=== PATIENT | male | born 1950 | race Caucasian/White ===

== ENCOUNTER → 2017-06-16 08:57 | Outpatient (CLI) | payer MEDICARE, BC, SELFPAY ==
--- NOTE | 2017-06-16 09:14 | NM_ITS ---
CLINICAL: 67-year-old male with reported history of carcinoma of the prostate. WHOLE BODY 99m Tc MDP RADIONUCLIDE BONE SCINTIGRAPHY COMPARISON: Previous whole body bone scintigraphy study dated 07/14/2016 FINDINGS: Following the intravenous administration of 26.7 mCi of 99m Tc MDP, whole body bone images reveal: 1. Increased radiopharmaceutical concentration is currently identified in the sternoclavicular, acromioclavicular and glenohumeral compartments of both shoulders, the bilateral knees, ankle articulations bilaterally, eighth-12th thoracic vertebra posteriorly on the right. 2. The remaining skeletal structures are scintigraphically unremarkable with normal-appearing renal images and urinary bladder activity identified. NM/Bone Scan Whole Body IMPRESSION: 1. The increase in radiopharmaceutical concentration identified in the bilateral shoulder and knee articulations, right-left ankles, the thoracic spine is most consistent with degenerative arthritis. 2. Overall compared to the previous whole body bone scintigraphy study dated 07/14/2016, there is no significant interval change. No current sonographic evidence of skeletal metastatic disease is defined on the current examination. Electronically Signed: Travis Hamilton DO at 13:50 EDT Tel , Service support ,
[2017-06-16 09:35] LABS: Hematocrit 43.3 % (40-54); Hemoglobin 14.6 g/dl (13.0-16.5); Mean Corp Hgb Conc 33.7 g/gl (32-36); Mean Corpuscular Hgb 29.3 pg (27.0-32.0); Mean Corpuscular Volume 86.8 fL (80-94); Mean Platelet Vol. 10.2 fl (6.2-12.0); Platelet Count 247 K/mm3 (150-450); RBC Distribution Width CV 13.8 % (11.6-14.6); RBC Distribution Width SD 43.9 fl (35.1-43.9); Red Blood Count 4.99 M/mm3 (4.6-6.2); White Blood Count 3.6 K/mm3 (4.4-11.0)
[2017-06-16 09:36] LABS: Scan Indicated on CBC? Y/N NO
[2017-06-16 09:59] LABS: ALB/GLOB Ratio 1.3 RATIO (0.9-2.4); AST(SGOT) 33 U/L (15-37); Alanine Aminotransfer ALT/SGPT 54 U/L (16-61); Albumin, Serum 4.1 g/dL (3.2-5.0); Alkaline Phosphatase 63 U/L (45-117); Anion Gap 6 (5-15); BUN 21 mg/dL (7-18); BUN/Creat Ratio 24.5 RATIO (10-20); Calcium,Total 8.7 mg/dL (8.5-10.1); Chloride 108 mmol/L (98-107); Creatinine, Serum 0.86 mg/dL (0.70-1.30); EST Glomerular Filtration Rate 95 mL/min (>60); Est Glom Filt Rate - Afr Amer 115 mL/min (>60); Globulin 3.1 g/dL (2.2-4.2); Glucose 107 mg/dL (74-106); PSA,Total- Diagnostic < 0.01 ng/mL (0.0-4.0); Potassium 3.7 mmol/L (3.5-5.1); Protein, Total 7.2 g/dL (6.4-8.2); Sodium Level 143 mmol/L (136-145)
== END ==
PROVIDERS: Family Provider Family Medicine; PCP Family Medicine; Visit Provider Family Medicine
DX: R07.81 Pleurodynia (principal); C61 Malignant neoplasm of prostate
CPT/HCPCS: 36415; 78306; 80053; 84153; 85027

== ENCOUNTER 2017-09-06 05:29 | Day surgery (SDC) | payer MEDICARE, BC, SELFPAY ==
--- NOTE | 2017-08-30 11:21 | EKG12_ITS ---
Test Reason : PREOP Blood Pressure : / mmHG Vent. Rate : 074 BPM Atrial Rate : 074 BPM P-R Int : 178 ms QRS Dur : 096 ms QT Int : 396 ms P-R-T Axes : 054 -26 034 degrees QTc Int : 439 ms Normal sinus rhythm Normal ECG Confirmed by ANGELITO DOUGLAS, ELIUD ([id number]), editorial clerk ALAN HORNER ([id number]) on 08/31/2017 12:51:47 PM Referred By: Travis Rivera Confirmed By:ELIUD EATON MD
[2017-09-06] VITALS (9 sets, daily range): BP systolic 114–145; BP diastolic 74–104; PULSE 63–95; RESP 16–18; TEMP 36.8–37.7; O2SAT 94–98; BMI 30.8
--- NOTE | 2017-09-06 | HERN_PTH ---
PATIENT: TRAY ROB LOC: [facility] [place] U[place][id number] AGE/SX: 67/M ROOM: RE09/06/[address]: Dr. Travis Rivera MD : 1950 BED: DIS: 09/06/2017 SPEC #: [id number] RECD: 09/06/17 11:25 STATUS: DELTA MEDRANO #: [id number] LIN: 09/06/17 00:[address]: Travis Rivera DEPT: SURGICAL PATHOLOGY RECD BY: Marlo Smart ENTERED: 09/06/17 11:25 SP TYPE: Hernia OTHR DR: Dr. Raheel Echols MD Tissues: HERNIA Procedures: Surgery Specimen Level II HEADER OPERATION: Laparoscopic ventral incisional hernia repair with mesh PRE-OP DIAGNOSIS: Incisional hernia without obstruction or gangrene TISSUE SUBMITTED: Urachus remnant MICROSCOPIC DIAGNOSIS Urachus remnant, excision: Fragment of benign fibrofatty tissue consistent with urachal remnant. AM:jessica 09/07/17 MICROSCOPIC DESCRIPTION Slides are reviewed. GROSS DESCRIPTION Received in fixative is one container labeled with the patient's name and designated urachus remnant. The specimen consists of an irregular piece of yellow adipose tissue measuring 6.5 x 3 x 1 cm. Sections reveal yellow adipose cut surfaces without any mass lesion. Tack Maker sections are submitted in one cassette. / SJ:jessica 09/06/17 TC:5 CPT: 30248
[2017-09-06] MEDS: Cefazolin 2 GM in 0.9% Normal Saline 100 ML IV (07:30)
[2017-09-06] MEDS: Bupivacaine Mpf 0.5% 30 ML VIAL (08:44)
--- NOTE | 2017-09-06 08:50 | DCINST_ITS ---
Discharge Diet: Light diet - advance as tolerated Discharge Activity: Return to Normal Activity, May Drive - when you are no longer taking narcotic pain medications., May Shower - with the bandage in place 1-2 days after surgery. Lifting Restrictions: 20 pounds for 8 weeks. Additional Activity Instructions:: Climbing stairs is fine, walking is encouraged. Sitting in bed may be uncomfortable. Sitting up using your lateral muscles (sitting up sideways) is usually more comfortable. Do not drive, work heavy equipment of sign legal documents for 24 hours. If your hernia repair was an ingunial repair, you may have scrotal swelling, an ice pack and/or athletic support can provide more comfort. Pain medications may cause nausea, you should typically eat light foods as you take your pain medications. Pain medications may also cause constipation. If you have difficulty with this, discuss with your doctor. Call your doctor if your incision/area has: Continuous Slow Oozing, Sudden Increased Bleeding, Increased Pain/ Swelling, Increased Redness, Foul Smelling Discharge Call your doctor if you observe: Fever of 101 or Higher Suture Line Care: Avoid Pulling/Pushing, Avoid Pinching/Bending Additional Dressing/Incision Instructions:: Leave the operative bandage on for 2 -3 days. When you remove the bandage, leave the steri-strips on place until your follow up appointment or they fall off. Allergies/Adverse Reactions: Allergies No Known Allergies Allergy (Verified 08/30/17 09:43) Medications to take at Discharge Ascorbic Acid [Vitamin C] 500 mg PO DAILY@0800 08/18/16 Esomeprazole Mag Trihydrate [Nexium] 40 mg PO DAILY 08/18/16 Guaifenesin [Mucus Relief] 800 mg PO DAILY 08/18/16 Loratadine [Claritin] 10 mg PO DAILY 08/18/16 Cholecalciferol (Vitamin D3) [Vitamin D3] 2,000 unit PO DAILY 08/30/17 Oxycodone HCl/Acetaminophen [Percocet 5/325] 1 tab PO Q6H PRN PRN 7 Days #16 tab 09/06/17 The following prescriptions were given: Oxycodone HCl/Acetaminophen [Percocet 5/325] 1 tab PO Q6H PRN PRN 7 Days #16 tab PRN Reason: Pain Primary Care Physician: Raheel Echols MD [Primary Care Provider] - Test Results: Test results from this visit will be discussed in further detail at your follow- up appointment, if applicable. Please Follow Up With: Travis Rivera MD - [phone] When: Plan to have a follow up appointment in 7 days. Call to schedule.
--- NOTE | 2017-09-06 08:50 | PCM.OPRPT ---
Report of Operation Date of Procedure: 09/06/17 Pre-Operative Diagnosis: supraumbilical incisional hernia Post-Operative Diagnosis: supraumbilical incisional hernia Surgery/Procedure Performed:: laparoscopic incisional hernia repair with mesh drying rack changer: None Type of Anesthesia:: General Anesthesiologist: Fredy Manning - ASA2 Specimen's removed: urachal remenant Estimated Blood Loss (mL): minimal Fluids Replaced: 1500 Description of Procedure: The patient was brought to the operating suite. Sign in was performed verifying patient, site, procedure, position, and DVT prophylaxis with SCDs. Patient received 2 g Ancef antibiotic prophylaxis. Following induction of general anesthetic, the patients abdomen was prepped and draped in the usual fashion. Timeout was performed verifying patient, site, position. Local anesthetic was injected . A linear incision was made and dissection carried down at the level of the supraumbilical hernia defect. The hernia sac was opened . 2 stay sutures were placed and the Da Silva trocar was inserted and secured with the stay sutures. 3- 5mm parts were placed in the far left lateral position There was no adherent bowel within the hernia sac. The falciform ligament was also divided to prevent tenting. The urachal remnant was dissected below the umbilicus to provide good overlap of the mesh. The tissue was excised and sent to pathology. A ventrio ST mesh 8x12cm placed intra-abdominally. A Prolene suture was placed through the lower aspect of the mesh brought up with a Granee needle to just below the umbilical fascial defect. Prolene sutures were placed transfixing the fascia at 12 , 6 , 3 and 9:00 using a GraNee needle . The mesh was then tacked using a secure strap tacker around the outer rim of the mesh and then in multiple locations in the inner mesh Skin was closed with a running and inturrepted 4-0 Monocryl subcuticular sutures. Steri-Strips and bandages were applied. The patient was brought to recovery room in stable condition. Grafts/Implants Used: ventrio [id number] [id number] 04/19/2019,securestrap [email or web address] [id number] 05/2019
--- NOTE | 2017-09-06 08:53 | OP.PCM_ITS ---
Report of Operation Date of Procedure: 09/06/17 Pre-Operative Diagnosis: supraumbilical incisional hernia Post-Operative Diagnosis: supraumbilical incisional hernia Surgery/Procedure Performed:: laparoscopic incisional hernia repair with mesh superintendent overhead distribution: None Type of Anesthesia:: General Anesthesiologist: Fredy Manning - ASA2 Specimen's removed: urachal remenant Estimated Blood Loss (mL): minimal Fluids Replaced: 1500 Description of Procedure: The patient was brought to the operating suite. Sign in was performed verifying patient, site, procedure, position, and DVT prophylaxis with SCDs. Patient received 2 g Ancef antibiotic prophylaxis. Following induction of general anesthetic, the patient?s abdomen was prepped and draped in the usual fashion. Timeout was performed verifying patient, site , position. Local anesthetic was injected . A linear incision was made and dissection carried down at the level of the supraumbilical hernia defect. The hernia sac was opened . 2 stay sutures were placed and the Da Silva trocar was inserted and secured with the stay sutures. 3- 5mm parts were placed in the far left lateral position There was no adherent bowel within the hernia sac. The falciform ligament was also divided to prevent tenting. The urachal remnant was dissected below the umbilicus to provide good overlap of the mesh. The tissue was excised and sent to pathology. A ventrio ST mesh 8x12cm placed intra-abdominally. A Prolene suture was placed through the lower aspect of the mesh brought up with a Granee needle to just below the umbilical fascial defect. Prolene sutures were placed transfixing the fascia at 12 , 6 , 3 and 9:00 using a GraNee needle . The mesh was then tacked using a secure strap tacker around the outer rim of the mesh and then in multiple locations in the inner mesh Skin was closed with a running and inturrepted 4-0 Monocryl subcuticular sutures. Steri-Strips and bandages were applied. The patient was brought to recovery room in stable condition. Grafts/Implants Used: ventrio [id number] [id number] 04/19/2019,securestrap [email or web address] [id number] 05/2019
[2017-09-06] MEDS: Acetaminophen 325 MG Tablet PO (10:47)
[2017-09-06] MEDS: oxyCODONE 5 MG Tablet PO (10:47)
== END 2017-09-06 11:39 | disposition home or self-care (01) ==
LOC: SDC 05:31 → AC 05:32
PROVIDERS: Family Provider Family Medicine; PCP Family Medicine; Visit Provider Surgery
PROC: (CPT 49654; principal; 2017-09-06 07:00)
DX: K43.2 Incisional hernia without obstruction or gangrene (principal); K21.9 Gastro-esophageal reflux disease without esophagitis; Z85.46 Personal history of malignant neoplasm of prostate; Q64.4 Malformation of urachus
CPT/HCPCS: 49654; 88302; 93005; J7120; C1781; J2405

== ENCOUNTER → 2018-01-09 14:57 | Outpatient (CLI) | payer MEDICARE, BC, SELFPAY ==
[2018-01-09 17:14] LABS: PSA,Total- Diagnostic 0.02 ng/mL (0.0-4.0)
== END ==
PROVIDERS: Family Provider Preventive Medicine Occupational Medicine; PCP Preventive Medicine Occupational Medicine; Referring Provider Urology; Visit Provider Urology
DX: C61 Malignant neoplasm of prostate (principal)
CPT/HCPCS: 36415; 84153

== ENCOUNTER → 2018-07-09 13:17 | Outpatient (CLI) | payer MEDICARE, BC, SELFPAY ==
[2017-09-06 06:03] VITALS: BMI 30.8
[2018-07-09 15:24] LABS: PSA,Total- Diagnostic 0.02 ng/mL (0.0-4.0)
== END ==
PROVIDERS: Family Provider Preventive Medicine Occupational Medicine; PCP Preventive Medicine Occupational Medicine; Referring Provider Urology; Visit Provider Urology
DX: C61 Malignant neoplasm of prostate (principal)
CPT/HCPCS: 36415; 84153

== ENCOUNTER → 2019-01-11 10:27 | Outpatient (CLI) | payer MEDICARE, BC, SELFPAY ==
[2017-09-06 06:03] VITALS: BMI 30.8
[2019-01-11 11:30] LABS: PSA,Total- Diagnostic 0.04 ng/mL (0.0-4.0)
== END ==
PROVIDERS: Family Provider Preventive Medicine Occupational Medicine; PCP Preventive Medicine Occupational Medicine; Referring Provider Urology; Visit Provider Urology
DX: R97.20 Elevated prostate specific antigen [PSA] (principal)
CPT/HCPCS: 36415; 84153

== ENCOUNTER → 2019-11-11 10:03 | Outpatient (CLI) | payer MEDICARE, BC, SELFPAY ==
[2017-09-06 06:03] VITALS: BMI 30.8
[2019-11-11 15:50] LABS: PSA,Total- Diagnostic 0.07 ng/mL (0.0-4.0)
== END ==
PROVIDERS: PCP Family Medicine; Referring Provider Urology; Visit Provider Urology
DX: C61 Malignant neoplasm of prostate (principal)
CPT/HCPCS: 36415; 84153

== ENCOUNTER → 2020-04-13 09:20 | Outpatient (CLI) | payer MEDICARE, BC, SELFPAY ==
[2017-09-06 06:03] VITALS: BMI 30.8
[2020-04-13 10:51] LABS: PSA,Total- Diagnostic 0.07 ng/mL (0.0-4.0)
== END ==
PROVIDERS: PCP Family Medicine; Referring Provider Urology; Visit Provider Urology
DX: C61 Malignant neoplasm of prostate (principal)
CPT/HCPCS: 36415; 84153

== ENCOUNTER → 2020-06-17 06:59 | Outpatient (CLI) | payer OTHER, MEDICARE, BC, SELFPAY ==
[2020-06-08 09:05] VITALS: BMI 27.6
--- NOTE | 2020-06-17 07:01 | MRI_ITS ---
STUDY: MRI LEFT KNEE REASON FOR EXAM: Male, 70 years old. Knee strain. Contusion. TECHNIQUE: Standardized fat and water weighted pulse sequences were obtained in all 3 orthogonal planes. COMPARISON: 06/08/2020 x-rays. FINDINGS: Grade 3 cartilage loss at the medial patellar facet extending into the patellar apex. Grade 4 cartilage loss at the medial compartment. Lateral compartment articular cartilage preserved. Bone marrow edema/contusion at the medial compartment extending toward midline with nondisplaced extra-articular vertical oriented insufficiency type fracture line (axial image 24 and coronal image 18 series 7). No acute dislocation. No acute bone destruction. Lateral meniscus intact. Medial meniscus body/posterior horn degeneration with minimal free edge fraying and truncation of the medial meniscal body (sagittal images for 37 series 5 and coronal image 15 series 9). Moderate volume joint effusion. Tiny popliteal cyst. Moderate soft tissue swelling. Normal medial collateral ligamentous complex (MCL). Normal distal semimembranosus, gracilis and semitendinosus tendons. Normal proximal tibiofibular articulation. Normal lateral collateral (fibular) ligament. Normal popliteus tendon. Normal biceps femoris tendon. Normal anterior cruciate ligament (ACL). Normal posterior cruciate ligament (PCL). Normal medial and lateral patellar retinaculum. Quadriceps tendon enthesophyte. Normal patellar tendon. Normal Hoffa''s fat pad. MRI/Lower Ext Joint Only (Routine) IMPRESSION: Acute nondisplaced extra-articular proximal tibial insufficiency fracture with corresponding bone contusion/edema Severe medial compartment osteoarthritis Moderate patellofemoral compartment osteoarthritis Medial meniscal degeneration with free edge/meniscal body tear Moderate volume joint effusion, tiny popliteal cyst and moderate soft tissue swelling Electronically Signed: Fredy Mora DO at 8:27 EDT Tel , Service support ,
== END ==
PROVIDERS: PCP Family Medicine; Referring Provider Physician Assistant; Visit Provider Physician Assistant
DX: S86.912A Strain of unspecified muscle(s) and tendon(s) at lower leg level, left leg, initial encounter (principal)
CPT/HCPCS: 73721

== ENCOUNTER → 2020-11-10 14:17 | Outpatient (CLI) | payer MEDICARE, BC, SELFPAY ==
[2020-11-10 15:38] LABS: PSA,Total- Diagnostic 0.09 ng/mL (0.0-4.0)
== END ==
PROVIDERS: PCP Family Medicine; Referring Provider Urology; Visit Provider Urology
DX: C61 Malignant neoplasm of prostate (principal)
CPT/HCPCS: 36415; 84153

== ENCOUNTER 2020-11-25 07:15 | Day surgery (SDC) | payer MEDICARE, BC, SELFPAY ==
--- NOTE | 2020-11-24 12:27 | EKG12_ITS ---
Test Reason : PRE-OP Blood Pressure : / mmHG Vent. Rate : 069 BPM Atrial Rate : 069 BPM P-R Int : 176 ms QRS Dur : 088 ms QT Int : 376 ms P-R-T Axes : 075 -27 064 degrees QTc Int : 402 ms Normal sinus rhythm Poor R wave progression Confirmed by ANGELITO DOUGLAS, ELIUD ([id number]), news editor ANSIH ALEGRE ([id number]) on 11/24/2020 1:01:26 PM Referred By: Forest Seymour Confirmed By:ELIUD EATON MD
[2020-11-25 07:40] VITALS: BP 117/73; PULSE 57; RESP 18; TEMP 36.6; O2SAT 100; BMI 25.0
[2020-11-25] MEDS: Lactated Ringers 1,000 ML 100 ML IV (07:40)
--- NOTE | 2020-11-25 08:03 | HP.PCM_ITS ---
History and Physical Date of Admission: 11/25/20 Intake Vital Signs 11/23/20 13:57 Height 5 ft 5 in Weight: 157 lb 6 oz BMI 26.2 BP 123/70 H Blood Pressure Location Rt brachial Position Sitting Respiration 18 Pulse 65 Pulse Source NIBP Temp 98.1 F Temp Source Temporal Pulse Oximetry (%) 98 Oxygen Delivery Method room air Intake Visit Reasons: Hernia Chief Complaint: left inguinal hernia Miniature Set Designer Required: No Is patient in pain?: No Allergies STERI STRIPS Allergy (Uncoded 11/24/20 09:13) Swelling Medications ascorbic acid (vitamin C) 500 mg PO DAILY@0800 08/18/16 [History Confirmed 11/24/20] loratadine 10 mg PO DAILY 08/18/16 [History Confirmed 11/24/20] cholecalciferol (vitamin D3) 2,000 unit PO DAILY 08/30/17 [History Confirmed 11/24/20] cyclobenzaprine 10 mg tablet 10 mg PO ONCE PRN tablet 06/08/20 [History Confirmed 11/24/20] esomeprazole magnesium 40 mg capsule,delayed release 40 mg PO DAILY 11/23/20 [History Confirmed 11/24/20] oxybutynin chloride 15 mg tablet,extended release 24 hr 15 mg PO DAILY 11/23/20 [History Confirmed 11/24/20] PFS Medical History (Updated 11/24/20 @ 09:29 by Merle Beauchamp) Arthritis Gastric reflux GERD (gastroesophageal reflux disease) History of prostate cancer History of stress test Hx of hemorrhoids Leg cramps Migraine headache Non-smoker Osteoarthritis Rash Restless legs Wears dentures Wears glasses Surgical History (Updated 11/24/20 @ 09:29 by Merle Beauchamp) History of cardiac catheterization History of colonoscopy (~2017) History of hemorrhoidectomy History of nasal surgery History of repair of right rotator cuff Hx of arthroscopy of left knee Hx of cataract surgery Hx of cholecystectomy Hx of hernia repair Hx of prostate biopsy Hx of prostatectomy Hx of repair of left rotator cuff Family History Mother Heart disease Hypertension Father Heart disease Hypertension Social History Smoking Status: Never smoker HPI HPI HPI: TRAY ROB, is a 70 M who presents to the office today for left groin bulging. Patient reports that he has noticed this for a little over a month. He is having pain in the area as well. Patient does a lot of heavy lifting at work. Patient reports no nausea or vomiting. He has had a ventral hernia repair with mesh in 2018 ROS General General: No weight change, appetite, fatigue, colon cancer, breast cancer or weakness HEENT HEENT: No difficulty swallowing, eye injury, eye surgery, swollen glands or hoarseness Endo Endocrine: No thyroid disease, diabetes mellitus, thyroid cancer, Hair loss, heat intolerance or cold intolerance Musc Musculoskeletal: Yes arthritis; No back problems, rheumatoid arthritis, gout or joint pain Cardio Cardiovascular: No murmur, pacemaker, heart disease, atrial fibrillation, high blood pressure, heart attack, heart stent, palpitations, shortness of breat with exertion or chest pain Psych Psychiatric: No depression, anxiety or hearing voices Resp Respiratory: No shortness of breath, No sleep apnea, No cough, No COPD, No asthma, No emphysema and No wheezing Gastro Gastrointestinal: No abdominal pain, No nausea or vomiting, No diarrhea, No constipation, No blood in stool, Yes acid reflux, No hemorrhoids, No ulcers, No gallbladder problem and No black,tarry stools Jun Hematologic: No blood thinners, No blood disorders, No bleeding, No anemia and No blood clots Neuro Neurologic: No weakness Exam Const General: cooperative Orientation: alert and oriented x3 HENCA Head: normal to inspection Neck Neck: normal visual inspection and full ROM Chest Chest palpation & inspection: normal inspection of the chest Resp Effort & Inspection: normal respiratory effort Auscultation: clear to auscultation bilaterally Cardio Rate: regular rate Rhythm: regular rhythm GI Inspection: non-distended Palpation: soft, hernia indirect inguinal on the left and nontender Skin General: no rashes or lesions noted Neuro General: patient alert and patient oriented x3 Extrem General: full ROM Psych Appearance: grossly normal Mental Status: mental status grossly normal Assessment and Plan Assessment and Plan (1) Hernia: Plan - Dr. Forest Seymour MD: Patient has left inguinal hernia. Due to the patient's history of prostatectomy and ventral hernia repair I recommended the patient has open inguinal hernia repair with mesh. I discussed this with him in detail. I discussed inguinal hernia repair as well as the risks including but not limited to bleeding, infect ion, injury to spermatic cord, nerve injury and chronic groin pain. Patient understands all the risks and is going to proceed with open left inguinal hernia repair with mesh. Forest Seymour MD Pager: [facility] [address] [place] [address] [address] [place] [address] Office: I have re-examined the patient. There are no clinical changes since date of exam.
[2020-11-25] MEDS: Cefazolin 2 GM in 0.9% Normal Saline 100 ML IV (08:36)
--- NOTE | 2020-11-25 08:45 | LIP_PTH ---
PATIENT: TRAY ROB LOC: [facility] [place][id number] AGE/SX: 70/M ROOM: RE11/25/[address]: Dr. Forest Seymour MD : 1950 BED: DIS: 11/25/2020 SPEC #: [id number] RECD: 11/25/20 10:52 STATUS: DELTA REEdison #: [id number] LIN: 11/25/20 08:[address]: Forest Seymour DEPT: SURGICAL PATHOLOGY RECD BY: Vandana Brown ENTERED: 11/25/20 11:20 SP TYPE: LIPOMA OTHR DR: Dr. Artemio Mckeon, DO Tissues: A - Soft tissues, NOS B - HERNIA Procedures: Surgery Specimen Level II Surgery Specimen Level III HEADER OPERATION: Inguinal hernia repair with mesh placement PRE-OP DIAGNOSIS: Hernia TISSUE SUBMITTED: A ? Lipoma of left cord, B ? Left inguinal hernia sac MICROSCOPIC DIAGNOSIS A. Lipoma of left cord, excision: Mature adipose tissue consistent with lipoma of cord. B. Soft tissue of left inguinal region, excision: Consistent with hernia sac with mild fibrosis. AM:jessica 11/26/2020 MICROSCOPIC DESCRIPTION Slides are reviewed. GROSS DESCRIPTION A - Received in fixative is one container labeled with the patient's name and designated lipoma of left cord. The specimen consists of a piece of adipose tissue measuring 10 x 3.5 x 1 cm. Sections reveal de [place] santos-yellow adipose cut surfaces without area of hemorrhage, necrosis or cystic degeneration. Lining Strap Closer sections are submitted in one cassette. B - Received in fixative is one container labeled with the patient's name and designated left inguinal hernia sac. The specimen consists of a piece of de [place] santos-pink soft tissue measuring 3 x 0.5 x 0.5 cm. The specimen is bisected and submitted entirely in one cassette. / NABEEL:jessica 11/25/20 TC:5 CPT: 66827, 07291
[2020-11-25] MEDS: Bupivacaine Mpf 0.5% 30 ML VIAL (09:15)
[2020-11-25 09:48] VITALS: BP 116/77; BP 117/73; PULSE 57; RESP 16; TEMP 36.3; O2SAT 97
--- NOTE | 2020-11-25 09:52 | OP.PCM_ITS ---
Problems Associated Problem List Diagnoses (1) Left inguinal hernia: Report of Operation Date of Procedure: 11/25/20 Pre-Operative Diagnosis: Left inguinal hernia Post-Operative Diagnosis: Left hernia Surgery/Procedure Performed:: Left inguinal hernia repair with mesh Specimen's removed: Hernia sac and left cord lipoma Description of Procedure: Patient was brought back to the operating room and general anesthesia was used. The left groin region was prepped and draped in usual sterile fashion. The left inguinal region was injected with local anesthetic and incision was made. This was deepened to the external aponeurosis using electrocautery. The external aponeurosis was nicked with a scalpel and elevated with hemostats and scissors were used to extend this down to the external opening of the inguinal canal. Next a self-retaining retractor was placed and the cord was surrounded with a [place] drain and elevated. There was a large lipoma which was dissected free and ligated with 3-0 Vicryl and divided and removed. Next the hernia sac was identified and elevated. It was dissected free as well. 2 hemostats were used to elevated and it was incised. There was no contents in the hernia sac. It was suture-ligated using 0 silk suture and removed and sent for pathology. Next a mesh was tacked to the pubic tubercle using 2-0 PDS suture and then tacked using interrupted 2-0 PDS sutures to the shelving portion of the inguinal ligament. Next it was tacked to the conjoined tendon using interrupted 2-0 PDS sutures. The tails of the mesh were placed around the inguinal cord and tied together leaving enough room for the small area of the finger to be placed next to the spermatic cord. These tails were tucked underneath the external aponeurosis and the area was irrigated and suctioned dry. The external aponeurosis was closed using a running 3-0 Vicryl suture. Next the subcutaneous tissue was closed using interrupted 3-0 Vicryl iqbal ture. The skin was injected with more local anesthetic and closed with a running 4-0 Monocryl suture. Bandages were applied. Patient was taken to PACU in stable condition. Grafts/Implants Used: Bard keyhole mesh Admit VTE Documentation VTE Mechan Device Prophylaxis: SCD's
--- NOTE | 2020-11-25 09:57 | EX.PCM.DISCH ---
Discharge Instructions Procedure Hernia Diet Discharge Diet: Light diet - advance as tolerated Activity Discharge Activity: May Not Drive (for 2-3 days or while taking narcotic pain meds.) and May Shower (with the bandage in place 1-2 days after surgery.) Lifting Restrictions: 20 pounds for 6 weeks. Additional Activity Instructions:: Climbing stairs is fine, walking is encouraged. Sitting in bed may be uncomfortable. Sitting up using your lateral muscles (sitting up sideways) is usually more comfortable. Do not drive, work heavy equipment of sign legal documents for 24 hours. If your hernia repair was an ingunial repair, you may have scrotal swelling, an ice pack and/or athletic support can provide more comfort. Pain medications may cause nausea, you should typically eat light foods as you take your pain medications. Pain medications may also cause constipation. If you have difficulty with this, discuss with your doctor. Dressing / Incision Call your doctor if your incision/area has: Continuous Slow Oozing, Sudden Increased Bleeding, Increased Pain/ Swelling, Increased Redness and Foul Smelling Discharge Call your doctor if you observe: Fever of 101 or Higher Suture Line Care: Avoid Pulling/Pushing and Avoid Pinching/Bending Remove Dressing in: 2 days Follow Up Care Please Follow Up With: Forest Seymour MD When: Please call to schedule 2 week follow up appointment. [phone] Test Results: Test results from this visit will be discussed in further detail at your follow-up appointment, if applicable. Discharge Plan Admission Attending Provider: Forest Seymour Primary Care Provider: Artemio Mckeon Discharge Orders/Prescriptions Prescriptions: No Action cyclobenzaprine 10 mg tablet 10 mg PO ONCE PRN (Reason: Pain) RF: 0 oxybutynin chloride 15 mg tablet extended release 24hr 15 mg PO DAILY RF: 0 esomeprazole magnesium [Nexium] 40 mg capsule,delayed release(DR/EC) 40 mg PO DAILY RF: 0 ascorbic acid (vitamin C) 500 MG tablet 500 mg PO DAILY@0800 RF: 0 loratadine 10 MG tablet 10 mg PO DAILY RF: 0 cholecalciferol (vitamin D3) 2,000 UNIT capsule 2,000 unit PO DAILY RF: 0
[2020-11-25 10:00] VITALS: BP 117/73; BP 120/88; PULSE 58; RESP 16; O2SAT 97
[2020-11-25 10:15] VITALS: BP 117/73; BP 132/77; PULSE 55; RESP 16; TEMP 36.3; O2SAT 98
[2020-11-25] MEDS: oxyCODONE 5 MG Tablet PO (10:47)
[2020-11-25] MEDS: Acetaminophen 325 MG Tablet PO (10:48)
[2020-11-25 11:50] VITALS: BP 117/73; BP 118/64; PULSE 87; RESP 16; TEMP 36.2; O2SAT 98
== END 2020-11-25 11:56 | disposition home or self-care (01) ==
LOC: SDC 07:15 → AC 07:16
PROVIDERS: PCP Family Medicine; Referring Provider Surgery; Visit Provider Surgery
PROC: (CPT 49505; principal; 2020-11-25 08:30)
DX: K40.90 Unilateral inguinal hernia, without obstruction or gangrene, not specified as recurrent (principal); D17.6 Benign lipomatous neoplasm of spermatic cord; K21.9 Gastro-esophageal reflux disease without esophagitis; Z85.46 Personal history of malignant neoplasm of prostate; Z90.49 Acquired absence of other specified parts of digestive tract; Z90.79 Acquired absence of other genital organ(s)
CPT/HCPCS: 49505; 55520; 88302; 88304; 93005; J7120; C1781

== ENCOUNTER → 2020-12-24 10:29 | Outpatient (CLI) | payer MEDICARE, BC, SELFPAY ==
--- NOTE | 2020-12-23 | LES_PTH ---
PATIENT: TRAY ROB LOC: [facility] U#:[id number] AGE/SX: 74/M ROOM: RE12/24/[address]: Dr. Aleksandar rBown MD : 1950 BED: DIS: SPEC #: [id number] RECD: 12/24/20 09:59 STATUS: DELTA BELLOEdison #: [id number] LIN: 12/23/20 00:[address]: Aleksandar Brown DEPT: SURGICAL PATHOLOGY RECD BY: Vandana Brown ENTERED: 12/24/20 10:51 SP TYPE: Lesion OTHR DR: Dr. Artemio Mckeon, DO Tissues: Skin of eyelid, NOS Procedures: Surgery Specimen Level IV HEADER OPERATION: Left lower lid biopsy PRE-OP DIAGNOSIS: Possible basal cell vs cyst TISSUE SUBMITTED: Left lower eyelid lesion MICROSCOPIC DIAGNOSIS Left lower eyelid lesion, biopsy: Consistent with benign verrucous keratosis with focal ulceration and associated reactive changes. Negative for malignancy. See comment. SJ:jessica 12/25/2020 COMMENT Clinical correlation and appropriate follow up are necessary. Case has been reviewed in consultation with Dr. Benitez who concurs with the above diagnosis. IDC:AM MICROSCOPIC DESCRIPTION Slides are reviewed. GROSS DESCRIPTION Received in fixative is one container labeled with the patient's name and designated LLL lesion biopsy. The specimen consists of a piece of [place]-white skin measuring 0.3 x 0.3 x 0.1 cm. The specimen is totally submitted in one cassette. / NABEEL:jessica 12/24/20 TC:3 CPT: 39326
== END ==
PROVIDERS: PCP Family Medicine; Referring Provider Ophthalmology; Visit Provider Ophthalmology
DX: H02.9 Unspecified disorder of eyelid (principal)
CPT/HCPCS: 88305

== ENCOUNTER → 2021-11-29 | Outpatient (CLI) | payer MEDICARE, BC, SELFPAY ==
[2021-11-29 13:42] LABS: PSA,Total- Diagnostic 0.21 ng/mL (0.0-4.0)
== END | disposition home or self-care (01) ==
PROVIDERS: PCP Family Medicine; Visit Provider Urology
DX: C61 Malignant neoplasm of prostate (principal)
CPT/HCPCS: 36415; 84153

== ENCOUNTER → 2022-05-31 | Outpatient (CLI) | payer MEDICARE, BC, SELFPAY ==
--- NOTE | 2022-05-31 14:25 | CT_ITS ---
STUDY: CT ABDOMEN AND PELVIS WITHOUT CONTRAST REASON FOR EXAM: Male, 72 years old. Hematuria, flank pain RADIATION DOSAGE (If Supplied By Facility): CTDIvol = ( 8.35 ) mGy, DLP = ( 608.64 ) mGycm TECHNIQUE: Transaxial images were obtained from the dome of the diaphragm to the symphysis pubis without oral contrast, and without intravenous contrast. Sagittal and coronal images were reconstructed. Individualized dose optimization techniques were used for this CT. COMPARISON: 2016 FINDINGS: The visualized lung bases are unremarkable. The visualized portions of the heart are within normal limits. There is decreased attenuation of the liver consistent with steatosis. There are surgical clips in the gallbladder fossa consistent with a prior cholecystectomy. Normal spleen. Normal pancreas. Normal bilateral adrenal glands. Normal right kidney. Normal left kidney. Normal visualized stomach. Normal small intestine. Normal colon. The appendix is visualized and appears normal. Appendix seen on coronal recon images 50 through 59 Normal abdominal aorta. Normal inferior vena cava. Normal retroperitoneum. Normal urinary bladder. There are prostatic calcifications. Stable bilateral fat-containing inguinal hernias. There are diffuse degenerative changes of the visualized lumbar spine, and pelvis. CT/Abdomen/Pelvis without Cont IMPRESSION: Fatty liver, no discrete lesion No obstructive uropathy, or suspicious solid renal lesion. No free intraperitoneal fluid, air, or suspicious adenopathy. Normal appendix visualized Degenerative bony changes Electronically Signed: Everardo Tapia MD at 15:03 EDT ,
== END | disposition home or self-care (01) ==
LOC: CT 14:09
PROVIDERS: PCP Family Medicine; Referring Provider Urology; Visit Provider Urology
DX: R31.9 Hematuria, unspecified (principal)
CPT/HCPCS: 74176

== ENCOUNTER → 2022-10-05 | Outpatient (CLI) | payer MEDICARE, BC, SELFPAY | END | disposition home or self-care (01) | LOC: LAB 12:32 | PROVIDERS: PCP Family Medicine; Referring Provider Registered Nurse; Visit Provider Registered Nurse | DX: C61 Malignant neoplasm of prostate (principal) | CPT/HCPCS: 36415; 84153 ==

== ENCOUNTER → 2022-10-06 | Outpatient (CLI) | payer MEDICARE, BC, SELFPAY | END | disposition home or self-care (01) | LOC: LABSPEC 12:34 | PROVIDERS: PCP Family Medicine; Referring Provider Urology; Visit Provider Urology | DX: R31.9 Hematuria, unspecified (principal) | CPT/HCPCS: 87086 ==

== ENCOUNTER → 2022-10-21 | Outpatient (CLI) | payer MEDICARE, BC, SELFPAY ==
--- NOTE | 2022-10-21 08:07 | CT_ITS ---
STUDY: CT ABDOMEN AND PELVIS WITH CONTRAST REASON FOR EXAM: Male, 72 years old. GROSS HEMATURIA. History of prostate cancer and prostatectomy. RADIATION DOSAGE (If Supplied By Facility): CTDIvol = ( 12.66 ) mGy, DLP = ( 883.19 ) mGycm TECHNIQUE: Transaxial images were obtained from the dome of the diaphragm to the symphysis pubis without oral contrast. IV 100mL Isovue-300 was administered. Sagittal and coronal images were reconstructed. Individualized dose optimization techniques were used for this CT. COMPARISON: Comparison is made with prior study dated May 31, 2022. FINDINGS: The visualized lung bases are unremarkable. The visualized portions of the heart are within normal limits. There is decreased attenuation of the liver consistent with steatosis. Scattered small hepatic cysts. There are surgical clips in the gallbladder fossa consistent with a prior cholecystectomy. There is a 9.2 mm cyst in the peripheral midportion of the spleen. Normal pancreas. Normal bilateral adrenal glands. Normal right kidney. Normal left kidney. Incidental note is made of the retroaortic left renal vein. There is a small hiatal hernia. Normal small intestine. There are scattered colonic diverticula consistent with diverticulosis. The appendix is visualized and appears normal. Normal abdominal aorta. Normal inferior vena cava. Normal retroperitoneum. Mild degree of diffuse bladder wall thickening. The bladder lies in the lower part of the pelvis in keeping with prior prostatectomy. There is a right-sided inguinal hernia containing adipose tissue. There are diffuse degenerative changes of the visualized lumbar spine. CT/Abdomen/Pelvis W IV Cont ONLY IMPRESSION: Status post prostatectomy. The bladder shows mild degree of diffuse bladder wall thickening. Small right inguinal hernia containing fat. Small hepatic and splenic cysts. Electronically Signed: Angel Mackenzie MD at 13:06 EDT ,
[2022-10-21 08:40] LABS: CREATININE FINGERSTICK < 0.9 mg/dL (0.70-1.30); EGFR FINGERSTICK > 60.0000 mL/min (>60)
== END | disposition home or self-care (01) ==
PROVIDERS: PCP Family Medicine; Referring Provider Urology; Visit Provider Urology
DX: R31.0 Gross hematuria (principal)
CPT/HCPCS: 74177; Q9967

== ENCOUNTER → 2023-04-06 | Outpatient (CLI) | payer MEDICARE, BC, SELFPAY ==
[2023-04-06 11:23] LABS: PSA,Total- Diagnostic 0.56 ng/mL (0.0-4.0)
== END | disposition home or self-care (01) ==
LOC: LAB 10:43
PROVIDERS: PCP Family Medicine; Referring Provider Nurse Practitioner; Visit Provider Nurse Practitioner
DX: C61 Malignant neoplasm of prostate (principal)
CPT/HCPCS: 36415; 84153

== ENCOUNTER → 2023-04-24 | Outpatient (CLI) | payer MEDICARE, BC, SELFPAY ==
--- NOTE | 2023-04-24 15:05 | MRI_ITS ---
STUDY: MR PELVIS WITH T WITHOUT CONTRAST REASON FOR EXAM: Male, 73 years old. biochemical recurrence of prostate cancer -- eval for pelvic recurrence TECHNIQUE: Standardized fat and water weighted pulse sequences were obtained in all 3 orthogonal planes, pre-and post contrast administration. IV 17 cc clariscan was administered for the contrast portion of the examination. COMPARISON: Prior study dated: 10/21/2022 FINDINGS: Status post prostatectomy. Questionable 1 cm subtle nodular enhancement with restricted diffusion at the left seminal vesicle or seminal vesicle remnant. There is also slightly irregular wall thickening of the anterior dome of the bladder with restricted diffusion and heterogeneous mild increase in enhancement. Normal visualized small intestine. Normal visualized colon. Normal visualized pelvic arteries. Normal osseous structures. Normal abdominal wall. MRI/Pelvis W/WO Contrast IMPRESSION: Questionable 1 cm subtle nodular enhancement with restricted diffusion at the left seminal vesicle or seminal vesicle remnant. Recommend close attention on follow-up. Correlate with PSMA PET. Slightly irregular wall thickening of the anterior dome of the bladder with restricted diffusion and heterogeneous mild increase in enhancement. Correlate with PSMA PET. No suspicious lymphadenopathy or evidence of distant metastatic disease. Electronically Signed: Juarez Hanson MD at 17:35 EST ,
[2023-04-24 15:53] LABS: CREATININE FINGERSTICK < 1.0 mg/dL (0.70-1.30); EGFR FINGERSTICK > 60.0000 mL/min (>60)
== END | disposition home or self-care (01) ==
LOC: MRI 15:04
PROVIDERS: PCP Family Medicine; Referring Provider Student in an Organized Health Care Education/Training Program; Visit Provider Student in an Organized Health Care Education/Training Program
DX: R97.21 Rising PSA following treatment for malignant neoplasm of prostate (principal); C61 Malignant neoplasm of prostate
CPT/HCPCS: 72197; A9575

== ENCOUNTER → 2023-11-15 | Outpatient (CLI) | payer MEDICARE, BC, SELFPAY ==
[2023-11-15 16:28] LABS: PSA,Total- Diagnostic < 0.01 ng/mL (0.0-4.0)
== END | disposition home or self-care (01) ==
LOC: LAB 14:05
PROVIDERS: PCP Family Medicine; Referring Provider Urology; Visit Provider Urology
DX: C61 Malignant neoplasm of prostate (principal)
CPT/HCPCS: 36415; 84153

== ENCOUNTER → 2024-02-19 | Outpatient (CLI) | payer MEDICARE, BC, SELFPAY ==
[2024-02-19 13:23] LABS: PSA,Total- Diagnostic < 0.01 ng/mL (0.0-4.0)
== END | disposition home or self-care (01) ==
PROVIDERS: PCP Family Medicine; Referring Provider Student in an Organized Health Care Education/Training Program; Visit Provider Nurse Practitioner
DX: C61 Malignant neoplasm of prostate (principal)
CPT/HCPCS: 36415; 84153

== ENCOUNTER → 2024-03-19 | Outpatient (CLI) | payer MEDICARE, BC, SELFPAY ==
[2024-03-19 15:42] LABS: Absolute Lymphocyte Count 0.58 X10^3/uL (0.83-4.51); Absolute Neutrophil Count 2.3 X10^3/uL (2.0-7.7); Basophil# 0.02 X10^3/uL; Basophil% 0.6 % (0-1); Hematocrit 39.4 % (40-54); Hemoglobin 12.8 g/dL (13.0-16.5); Lymphocyte # 0.58 X10^3/ul (0.83-4.51); Lymphocyte % 17.4 % (19-41); Mean Corp Hgb Conc 32.5 g/dL (32-36); Mean Corpuscular Volume 86.2 fL (80-94); Monocyte# 0.31 X10^3/uL; Monocyte% 9.3 % (0-10); NRBC Flagged by Analyzer 0 % (0-5); Neutrophil # 2.31 X10^3/uL (2.7-7.7); Neutrophil % 69.4 % (47-70); POSITIVE DIFFERENTIAL YES; Platelet Count 238 K/mm3 (150-450); RBC Distribution Width CV 13.9 % (11.6-14.6); RBC Distribution Width SD 43.3 fl (35.1-43.9); Red Blood Count 4.57 M/mm3 (4.6-6.2); White Blood Count 3.3 K/mm3 (4.4-11.0)
[2024-03-19 16:22] LABS: Atypical Lymphocyte 3.3 %
[2024-03-19 16:23] LABS: POSITIVE COUNT NO; POSITIVE MORPHOLOGY NO
== END | disposition home or self-care (01) ==
LOC: LAB 14:19
PROVIDERS: PCP Family Medicine; Referring Provider Nurse Practitioner Acute Care; Visit Provider Nurse Practitioner Acute Care
DX: K62.5 Hemorrhage of anus and rectum (principal)
CPT/HCPCS: 36415; 85025

== ENCOUNTER 2024-03-28 08:36 | Day surgery (SDC) | payer MEDICARE, BC, SELFPAY ==
[2024-03-28] VITALS (8 sets, daily range): BP systolic 107–151; BP diastolic 79–94; PULSE 70–73; RESP 16–18; TEMP 36.4–36.6; O2SAT 96–99
--- NOTE | 2024-03-28 08:46 | HP.PCM_ITS ---
HPI - General General Date of Admission: 03/28/24 Date of Service: 03/28/24 Chief Complaint: Lower GI bleeding HPI Narrative TRAY ROB, is a 73 M who presents for the endoscopic evaluation of lower GI bleeding Colonoscopy 01/23/2023 (Dr. Mac) revealed three TA's Radiation therapy for prostate CA - completed July 2023 - stopped metamucil gummies - thought maybe this was causing flatulence - but is still having flatulence - reports when he has bleeding is when he primarily has flatulence - bleeding has been ongoing for the past month - he has been tracking bleeding episodes since 03/14/2024 having 1-3 episodes of bleeding a day - waking at HS with sensation to pass gas - and reports this is typically blood - states since colonoscopy January 2023 post colon his stools have been pencil thin - he states bowels were altered prior to starting radiation treatments - he is having 2-3 BM daily - denies any rectal pain - very concerned with altered bowels - bowels changed post colon January 2023 - denies any medication or dietary changes - denies any weight loss - denies any abd pain - he feels another colonoscopy needs completed, fearful a previous polyp was missed [facility] Medical History Loss of hearing History of steroid therapy History of hiatal hernia History of ulceration Rectal bleeding Basal cell carcinoma Erectile dysfunction due to arterial insufficiency OAB (overactive bladder) Prostate cancer Wears dentures Wears glasses Arthritis Migraine headache Non-smoker Leg cramps History of stress test Osteoarthritis GERD (gastroesophageal reflux disease) History of prostate cancer Hx of hemorrhoids Home Medications ?Medication ?Instructions ?Recorded ?Last Taken ?Type loratadine 10 mg tablet 10 mg PO DAILY 08/18/16 Unkn own History esomeprazole magnesium 40 mg 40 mg PO DAILY 11/23/20 1 06:30 History capsule,delayed release (Nexium) oxybutynin chloride 15 mg 15 mg PO DAILY 11/23/20 Unkn own History tablet,extended release 24 hr ascorbic acid (vitamin C) 1,000 mg 1 g PO QDAY 5 Unknown History capsule cholecalciferol (vitamin D3) 125 125 mcg PO QDAY 03/19 Unknown History mcg (5,000 unit) tablet guaifenesin 1,200 mg tablet, 1,200 mg PO BID 03/19/24 Unknown History extended release 12 hr (Mucus Relief ER) rizatriptan 10 mg tablet See Rx Instructions PO .COMP ADIN 03/19/24 Unknown History zinc acetate 50 mg (zinc) capsule 50 mg PO QDAY Unknown History Allergy/AdvReac Type Severity Reaction Status Date / Time acetaminophen (From Percocet) Allergy Intermediate hives/itchi Verified 03/26/24 11:24 ng oxycodone (From Percocet) Allergy Intermediate hives/itchi Verified 03/26/24 11:24 ng Acrylic Acid and Acrylates Allergy Swelling Verified 03/26/24 11:24 (steri-strips (acrylate)) Family History Mother Heart disease Hypertension Diabetes Father Heart disease Hypertension Sister Heart disease Hypertension Diabetes Surgical History Hx of right inguinal hernia repair Hx of repair of rotator cuff History of cardiac catheterization History of colonoscopy (~2018) History of hemorrhoidectomy Hx of hernia repair Hx of prostatectomy Hx of cataract surgery Hx of prostate biopsy Hx of arthroscopy of left knee Hx of cholecystectomy History of nasal surgery Social History Smoking Status: Never smoker alcohol intake: never substance use type: does not use ROS Constitutional Constitutional: Denies fatigue, fever(s), poor appetite, weight gain or weight loss Gastrointestinal Gastrointestinal: Denies belching, bloating, change in bowel habits, change in stool character, chewing difficulty, coffee ground emesis, constipation, cramping, diarrhea, dyspepsia, dysphagia, early satiety, excessive flatus, fecal incontinence, heartburn, hematemesis, hematochezia, hemorrhoids, loose stools, melena, nausea, odynophagia, rectal bleeding, tenesmus, vomiting or weight changes Physical Exam Const alert, oriented x3, no apparent distress and healthy appearing General Appearance: cooperative GI normal to inspection, nondistended, normoactive bowel sounds, soft to palpation, non-tender and non-distended Percussion: normal to percussion Rectal Exam: deferred Assessment & Plan Assessment/Plan (1) Lower GI bleeding: PLAN: Assessment and Plan Assessment and Plan (1) Rectal bleeding: Status: Acute Orders: Orders CBC W/Diff, Automated 03/19/24 K62.5 - Hemorrhage of anus and rectum Plan 73y/o male presents for consultation with complaints of rectal bleeding, referred by Dr. Artemio Mckeon. He reports episodes of painless bleeding 1-3x a day for >1 month. He has been using hydrocortisone suppositories PRN without symptom improvement. Colonoscopy 01/23/2023 (Dr. Mac) revealed three TA's. He completed radiation treatment for prostate CA July 2023. I have ordered a CBC and scheduled him for a colonoscopy to assess for radiation proctitis. He is very concerned with change in bowel habits post January 2023 colonoscopy without known cause. - If HGB is dropping consider APC. If HGB is stable and radiation proctitis is present consider treatment with Carafate enemas prior to APC. Patient Instructions: Discontinue Hydrocotrisone suppositories Colonoscopy Plan Details Follow Up: 6 Weeks
--- NOTE | 2024-03-28 09:17 | PCM.PRE.AN2 ---
ASA Classification* ASA Classification ASA Classification: 3 Assessment & Plan Anesthesia* Anesthesia Assessment Anesthesia Assessment: Discussed sedation and/or anesthesia options, risks, benefits, and alternatives with patient/parents/legal guardian/POA. Questions invited. The patient/parents/legal guardian/POA seems to understand and agrees to proceed with anesthesia plan. Reviewed the physical assessment, medical history, allergy history and patient home medications list prior to surgery/procedure/anesthetic and documented any changes. Performed airway and anesthesia risk assessments. Anesthesia Type Anesthesia Type: MAC History Source History Obtained from:: Patient and Chart Anesthesia Focused Assessment* Temperature: 97.8 F Pulse Rate: 72 Blood Pressure: 151/80 Respiratory Rate: 18 Pulse Ox: 99 Oxygen Delivery Method: Room Air Airway Assessment Mouth opens: >3 cm Mallampati Score: IV Teeth Condition: Chipped/Broken (Patient has chipped lower incisor.), Dentures (Patient has upper denture.), Lower and Missing (Some missing teeth on the bottom. Rest are tight.) Neck Range of motion (ROM): Full ROM Focused Labs Anesthesia Preop lab: CBC WBC 3.3 K/mm3 (4.4-11.0) L 03/19/24 14:39 03/19/24 RBC 4.57 M/mm3 (4.6-6.2) L 03/19/24 14:39 03/19/24 Hgb 12.8 g/dL (13.0-16.5) L 03/19/24 14:39 03/19/24 Hct 39.4 % (40-54) L 03/19/24 14:39 03/19/24 Plt Count 238 K/mm3 (150-450) 03/19/24 14:39 03/19/24 CHEMISTRY Potassium 3.7 mmol/L (3.5-5.1) 06/16/17 09:06 06/16/17 Sodium 143 mmol/L (136-145) 06/16/17 09:06 06/16/17 BUN 21 mg/dL (7-18) H 06/16/17 09:06 06/16/17 Creatinine 0.86 mg/dL (0.70-1.30) 06/16/17 09:06 06/16/17 Glucose 107 mg/dL (74-106) H 06/16/17 09:06 06/16/17 COAG Pre-Assessment Diagnosis/Proposed Procedure Planned Operative Procedure(s): CSCOPE Anesthesia History 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 When Was Last Pacemaker Check QUESTION #4 FULL TEXT: You/Your Family Experience fever (hyperthermia) with Anesthesia Last Oral Intake Last Oral intake: Last Oral Intake NPO since 07:00 03/28/24 09:01 Meds taken in AM with sips of No 03/28/24 09:01 water? 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 Female No 03/26/24 11:26 HX of Motion Sickness No 03/26/24 11:26 HX of N/V After Surgery Yes 03/26/24 11:26 Non-Smoker Yes 03/26/24 11:26 Duration of Surgery greater No 03/26/24 11:26 than 60 minutes Number of Risk Factors 2 03/26/24 11:26 PONV Score Moderate Risk 03/26/24 11:26 Height & Weight Height & Weight: Anesthesia: Height & Weight Height 5 ft 5 in 03/28/24 09:01 Weight: 82 kg 03/28/24 09:01 Body Mass Index (BMI) 30.0 03/28/24 09:01 Respiratory Assessment Respiratory Assessment - loan auditor: Respiratory Tract Infection Hx - loan auditor Hx Respiratory Tract Infection No 03/26/24 11:26 STOP Sleep Apnea STOP Sleep Apnea - loan auditor: STOP Sleep Apnea - loan auditor Hx Hypertension No 03/26/24 11:26 Hx Sleep Apnea No 03/26/24 11:26 CPAP BIPAP Do you snore loudly (louder No 03/26/24 11:26 than talking or can be heard Do you often feel tired/ Yes 03/26/24 11:26 fatigued/ sleepy during daytime? Has anyone observed you stop No 03/26/24 11:26 breathing during sleep? STOP Results Negative 03/26/24 11:26 QUESTION #5 FULL TEXT : Do you snore loudly (louder than talking or can be heard through closed doors)? 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 Specify any problems Hx of Preganancy in last 3 N/A 03/26/24 11:26 Months Nurse Filling Out Transfusion DSCHRIBER 03/26/24 11:26 & Questions: Date: 03/26/24 03/26/24 11:26 Time: 11:27 03/26/24 11:26 Patient unable to answer at this time (ie. confused, unrespo /Reproduction History /Reproductive History - loan auditor: /Reproductive Hx- loan auditor Hx Now No 03/26/24 11:26 Gestational Age (in weeks): EDC: Hx Hx Para Hx Section SAB No 03/26/24 11:26 PFSH Medical History Loss of hearing History of steroid therapy History of hiatal hernia History of ulceration Rectal bleeding Basal cell carcinoma Erectile dysfunction due to arterial insufficiency OAB (overactive bladder) Prostate cancer Wears dentures Wears glasses Arthritis Migraine headache Non-smoker Leg cramps History of stress test Osteoarthritis GERD (gastroesophageal reflux disease) History of prostate cancer Hx of hemorrhoids Home Medications ?Medication ?Instructions ?Recorded ?Last Taken ?Type loratadine 10 mg tablet 10 mg PO DAILY 08/18/16 03/27/24 History esomeprazole magnesium 40 mg 40 mg PO DAILY 11/23/20 03/27/24 History capsule,delayed release (Nexium) oxybutynin chloride 15 mg 15 mg PO DAILY 11/23/20 03/27/24 History tablet,extended release 24 hr ascorbic acid (vitamin C) 1,000 mg 1 g PO QDAY 03/19/24 03/27/24 History capsule cholecalciferol (vitamin D3) 125 125 mcg PO QDAY 03/19/24 03/27/24 History mcg (5,000 unit) tablet guaifenesin 1,200 mg tablet, 1,200 mg PO BID 03/19/24 03/27/24 History extended release 12 hr (Mucus Relief ER) rizatriptan 10 mg tablet See Rx Instructions PO .COMPLEX 03/19/24 03/27/24 History zinc acetate 50 mg (zinc) capsule 50 mg PO QDAY 03/19/24 03/27/24 History Allergy/AdvReac Type Severity Reaction Status Date / Time oxycodone (From Percocet) Allergy Intermediate hives/itchi Verified 03/28/24 09:00 ng Acrylic Acid and Acrylates Allergy Swelling Verified 03/28/24 09:00 (steri-strips (acrylate)) Family History Mother Heart disease Hypertension Diabetes Father Heart disease Hypertension Sister Heart disease Hypertension Diabetes Surgical History Hx of right inguinal hernia repair Hx of repair of rotator cuff History of cardiac catheterization History of colonoscopy (~2017) History of hemorrhoidectomy Hx of hernia repair Hx of prostatectomy Hx of cataract surgery Hx of prostate biopsy Hx of arthroscopy of left knee Hx of cholecystectomy History of nasal surgery Social History Smoking Status: Never smoker alcohol intake: never substance use type: does not use Review of Systems (Anesthesia) ROS Narrative System reviewed and no additional complaints, except as documented.
--- NOTE | 2024-03-28 10:00 | COLBX_PTH ---
PATIENT: TRAY ROB LOC: EN U#:[id number] AGE/SX: 73/M ROOM: RE03/28/[address]: Dr. Jenaro Galvez DO : 1950 BED: DIS: 03/28/2024 SPEC #: [id number] RECD: 03/28/24 13:35 STATUS: DELTA REEdison #: [id number] LIN: 03/28/24 10:[address]: Jenaro Galvez DEPT: SURGICAL PATHOLOGY RECD BY: Lisa Pineda ENTERED: 03/28/24 13:50 SP TYPE: COLON BX PHIL DR: Dr. Artemio Mckeon DO Tissues: A - Ascending colon B - Transverse colon C - Sigmoid colon biopsy Procedures: Surgery Specimen Level IV HEADER OPERATION: Colonoscopy and polypectomy and rectal cautery PRE-OP DIAGNOSIS: Lower GI/rectal bleeding TISSUE SUBMITTED: A- Ascending colon polyp, B- Transverse colon polyp, C- Sigmoid polyp MICROSCOPIC DIAGNOSIS A. Ascending colon polyp, polypectomy: Fragments of tubular adenoma. B. Transverse colon polyp, polypectomy: Tubular adenoma.C. Sigmoid colon polyp, polypectomy: Fragments of tubular adenoma. 03/29/2024 MICROSCOPIC DESCRIPTION Slides are reviewed. GROSS DESCRIPTION A. Received in fixative is one container labeled with the patient's name and designated Ascending colon polyp. The specimen consists of multiple irregular fragment of light [place] soft tissue that in aggregate measure 0.5 x 0.4 x 0.1 cm. The specimen is totally submitted in one cassette. B. Received in fixative is one container labeled with the patient's name and designated Transverse colon polyp. The specimen consists of one irregular fragment of light [place] soft tissue that measures 0.4 x 0.3 x 0.1 cm. The specimen is totally submitted in one cassette. C. Received in fixative is one container labeled with the patient's name and designated Sigmoid polyp. The specimen consists of two irregular fragments of light [place] soft tissue that measuring in aggregate 0.4 x 0.4 x 0.1 cm. The specimen is totally submitted in one cassette. 03/28/2024 TC:1 CPT:21523n4
--- NOTE | 2024-03-28 10:27 | OP.COLON_ITS ---
Patient Name: Víctor Gomes Procedure Date: 03/28/2024 9:56 AM Date of : 1950 Age: 73 Procedure: Colonoscopy Indications: Hematochezia Providers: Jenaro Galvez DO Referring MD: Artemio Mckeon Medicines: Monitored Anesthesia Care Patient Profile: This is a 73 year old male. Refer to note in patient chart for documentation of history and physical. Last Colonoscopy: 1 year ago. Complications: No immediate complications. Procedure: Pre-Anesthesia Assessment: - Prior to the procedure, a History and Physical was performed, and patient medications and allergies were reviewed. The patient is competent. The risks and benefits of the procedure and the sedation options and risks were discussed with the patient. All questions were answered and informed consent was obtained. Patient identification and proposed procedure were verified by the physician in the pre-procedure area. Mental Status Examination: alert and oriented. Airway Examination: normal oropharyngeal airway and neck mobility. Respiratory Examination: clear to auscultation. CV Examination: normal. Prophylactic Antibiotics: The patient does not require prophylactic antibiotics. Prior Anticoagulants: The patient has taken no anticoagulant or antiplatelet agents. ASA Grade Assessment: II - A patient with mild systemic disease. After reviewing the risks and benefits, the patient was deemed in satisfactory condition to undergo the procedure. The anesthesia plan was to use monitored anesthesia care (MAC). Immediately prior to administration of medications, the patient was re-assessed for adequacy to receive sedatives. The heart rate, respiratory rate, oxygen saturations, blood pressure, adequacy of pulmonary ventilation, and response to care were monitored throughout the procedure. The physical status of the patient was re-assessed after the procedure. After I obtained informed consent, the scope was passed under direct vision. Throughout the procedure, the patient's blood pressure, pulse, and oxygen saturations were monitored continuously. The Colonoscope was introduced through the anus and advanced to the cecum, identified by appendiceal orifice and ileocecal valve. The colonoscopy was performed without difficulty. The patient tolerated the procedure well. The quality of the bowel preparation was adequate. The ileocecal valve, appendiceal orifice, and rectum were photographed. Scope In: 10:04:41 AM Scope Withdrawal Time 0 hours 14 minutes 6 seconds Scope Out: 10:20:49 AM Total Procedure Duration Time 0 hours 16 minutes 8 seconds Findings: The perianal and digital rectal examinations were normal. Three sessile polyps were found in the sigmoid colon, transverse colon and ascending colon. The polyps were 8 mm in size. These polyps were removed with a cold biopsy forceps. Resection and retrieval were complete. Verification of patient identification for the specimen was done. Estimated blood loss was minimal. Multiple small and large-mouthed diverticula were found in the recto-sigmoid colon, sigmoid colon and ascending colon. Multiple large localized angiodysplastic lesions with bleeding were found in the rectum. Coagulation for hemostasis using argon plasma at 0.3 liters/minute and 30 warren was successful. Estimated blood loss was minimal. Impression: - Three 8 mm polyps in the sigmoid colon, in the transverse colon and in the ascending colon, removed with a cold biopsy forceps. Resected and retrieved. - Diverticulosis in the recto-sigmoid colon, in the sigmoid colon and in the ascending colon. - Multiple bleeding colonic angiodysplastic lesions. Treated with argon plasma coagulation (APC). Recommendation: - Discharge patient to home. - Resume previous diet. - Continue present medications. - Await pathology results. - Repeat colonoscopy in 3 years for surveillance. Procedure Code(s): --- Professional --- 13409, 59, Colonoscopy, flexible; with control of bleeding, any method 77637, Colonoscopy, flexible; with biopsy, single or multiple CPT copyright 2021 [employer]. All rights reserved. The codes documented in this report are preliminary and upon monotyper review may be revised to meet current compliance requirements. Jenaro Galvez DO 03/28/2024 10:26:39 AM This report has been signed electronically. Number of Addenda: 0 Note Initiated On: 03/28/2024 9:56 AM
--- NOTE | 2024-03-28 10:27 | OP.CCLET_ITS ---
03/28/2024 Artemio Mckeon Re : Colonoscopy procedure for Víctor Mckeon This procedure was performed on March. My impressions and recommendations are as follows: Impressions : - Three 8 mm polyps in the sigmoid colon, in the transverse colon and in the ascending colon, removed with a cold biopsy forceps. Resected and retrieved. - Diverticulosis in the recto-sigmoid colon, in the sigmoid colon and in the ascending colon. - Multiple bleeding colonic angiodysplastic lesions. Treated with argon plasma coagulation (APC). Recommendations : - Discharge patient to home. - Resume previous diet. - Continue present medications. - Await pathology results. - Repeat colonoscopy in 3 years for surveillance. My findings are described in the full procedure note, which is enclosed. If I can be of further assistance, please feel free to contact me at . Sincerely, Jenaro Friend, DO 03/28/2024 10:26:39 AM This report has been signed electronically.
--- NOTE | 2024-03-28 10:27 | PCM.POST.ANE ---
Anesthesia: Postop Eval I Current Vital Signs Temperature: 97.5 F Pulse Rate: 73 Blood Pressure: 110/83 Respiratory Rate: 16 Pulse Ox: 98 Oxygen Delivery Method: Room Air Assessment Airway patent: Yes Spontaneous unlabored respirations: Yes Mental status: Awake nausea: No Vomiting: No Anesthesia Complication: No Fluid Hydration Crystalloid volume administer (ml): 10 Total IV fluid infused: 10 Progress Note Anesthesia document: Postop Eval 1 completed: Yes
--- NOTE | 2024-03-28 10:33 | POSTOPAN2_ITS ---
Anesthesia Postop Eval I Sum Postop Eval Completion status Anesthesia document: Postop Eval 1 completed: Yes Anesthesia Postop Eval I Summary Anesthesia Postop Eval I Summary: Anesthesia Postop Eval I: Assessment Summary Airway patent Yes 03/28/24 10:28 COOPERATIVE EDUCATION DIRECTOR.[email or web address] Spontaneous unlabored Yes 03/28/24 10:28 COOPERATIVE EDUCATION DIRECTOR.JSWI respirations Mental status Awake 03/28/24 10:28 COOPERATIVE EDUCATION DIRECTOR.JSWI nausea No 03/28/24 10:28 COOPERATIVE EDUCATION DIRECTOR.JSWI Vomiting No 03/28/24 10:28 COOPERATIVE EDUCATION DIRECTOR.JSWI Anesthesia Postop Eval I: Fluid Summary Crystalloid volume administer 10 03/28/24 10:28 COOPERATIVE EDUCATION DIRECTOR.JSWI (ml) Colloids volume administered ( ml) Blood Product volume administered (ml) Total IV fluid infused 10 03/28/24 10:28 COOPERATIVE EDUCATION DIRECTOR.JSWI Anesthesia Postop Eval I: Summary Notes Anesthesia Complication No 03/28/24 10:28 COOPERATIVE EDUCATION DIRECTOR.JSWI Anesthesia Complication Comment: Post-operative progress note Anesthesia: Postop Eval II Evaluation Mental status: Awake and Calm Pain Level: 0 nausea: Yes Vomiting: No
--- NOTE | 2024-03-28 10:33 | PCM.POSTANE2 ---
Anesthesia Postop Eval I Sum Postop Eval Completion status Anesthesia document: Postop Eval 1 completed: Yes Anesthesia Postop Eval I Summary Anesthesia Postop Eval I Summary: Anesthesia Postop Eval I: Assessment Summary Airway patent Yes 03/28/24 10:28 CHIEF COMPRESSOR STATION ENGINEER.[email or web address] Spontaneous unlabored Yes 03/28/24 10:28 CHIEF COMPRESSOR STATION ENGINEER.JSWI respirations Mental status Awake 03/28/24 10:28 CHIEF COMPRESSOR STATION ENGINEER.JSWI nausea No 03/28/24 10:28 CHIEF COMPRESSOR STATION ENGINEER.JSWI Vomiting No 03/28/24 10:28 CHIEF COMPRESSOR STATION ENGINEER.JSWI Anesthesia Postop Eval I: Fluid Summary Crystalloid volume administer 10 03/28/24 10:28 CHIEF COMPRESSOR STATION ENGINEER.JSWI (ml) Colloids volume administered ( ml) Blood Product volume administered (ml) Total IV fluid infused 10 03/28/24 10:28 CHIEF COMPRESSOR STATION ENGINEER.JSWI Anesthesia Postop Eval I: Summary Notes Anesthesia Complication No 03/28/24 10:28 CHIEF COMPRESSOR STATION ENGINEER.JSWI Anesthesia Complication Comment: Post-operative progress note Anesthesia: Postop Eval II Evaluation Mental status: Awake and Calm Pain Level: 0 nausea: Yes Vomiting: No
== END 2024-03-28 11:13 | disposition home or self-care (01) ==
LOC: EN 08:37 → AC 08:40
PROVIDERS: PCP Family Medicine; Referring Provider Family Medicine; Visit Provider Internal Medicine Gastroenterology
PROC: 0DJD8ZZ Inspection of Lower Intestinal Tract, Via Natural or Artificial Opening Endoscopic (ICD-10-PCS; CPT 45378; principal; 2024-03-28 09:55)
DX: K55.21 Angiodysplasia of colon with hemorrhage (principal); K57.31 Diverticulosis of large intestine without perforation or abscess with bleeding; D12.2 Benign neoplasm of ascending colon; K21.9 Gastro-esophageal reflux disease without esophagitis; D12.3 Benign neoplasm of transverse colon; D12.5 Benign neoplasm of sigmoid colon; Z79.899 Other long term (current) drug therapy; Z85.46 Personal history of malignant neoplasm of prostate
CPT/HCPCS: 45380; 45382; 88305; A4216; J2405

== ENCOUNTER → 2024-03-29 | Outpatient (CLI) | payer MEDICARE, BC, SELFPAY ==
[2024-03-29 13:37] LABS: Absolute Neutrophil Count 5.7 X10^3/uL (2.0-7.7); Basophil# 0.01 X10^3/uL; Basophil% 0.1 % (0-1); Eosinophil# 0.06 X10^3/uL; Eosinophils% 0.8 % (0-5); Hemoglobin 12.7 g/dL (13.0-16.5); Lymphocyte % 8.4 % (19-41); Mean Corp Hgb Conc 31.8 g/dL (32-36); Mean Corpuscular Hgb 27.9 pg (27.0-32.0); Mean Corpuscular Volume 87.7 fL (80-94); Mean Platelet Vol. 9.1 fl (6.2-12.0); Monocyte# 0.78 X10^3/uL; Monocyte% 10.9 % (0-10); NRBC Flagged by Analyzer 0 % (0-5); Neutrophil # 5.65 X10^3/uL (2.7-7.7); Neutrophil % 79.4 % (47-70); POSITIVE DIFFERENTIAL YES; Platelet Count 233 K/mm3 (150-450); RBC Distribution Width SD 44.9 fl (35.1-43.9); Red Blood Count 4.56 M/mm3 (4.6-6.2); White Blood Count 7.1 K/mm3 (4.4-11.0)
== END | disposition home or self-care (01) ==
LOC: LAB 13:18
PROVIDERS: PCP Family Medicine; Referring Provider Internal Medicine Gastroenterology; Visit Provider Internal Medicine Gastroenterology
DX: R58 Hemorrhage, not elsewhere classified (principal)
CPT/HCPCS: 36415; 85025

== ENCOUNTER 2024-04-23 05:15 | Day surgery (SDC) | payer MEDICARE, BC, SELFPAY ==
[2024-04-23] VITALS (7 sets, daily range): BP systolic 109–158; BP diastolic 67–100; PULSE 70–85; RESP 16; TEMP 36.4–36.9; O2SAT 94–98; BMI 28.7
--- NOTE | 2024-04-23 06:31 | PCM.PRE.AN2 ---
ASA Classification* ASA Classification ASA Classification: 3 Assessment & Plan Anesthesia* Anesthesia Assessment Anesthesia Assessment: Discussed sedation and/or anesthesia options, risks, benefits, and alternatives with patient/parents/legal guardian/POA. Questions invited. The patient/parents/legal guardian/POA seems to understand and agrees to proceed with anesthesia plan. Reviewed the physical assessment, medical history, allergy history and patient home medications list prior to surgery/procedure/anesthetic and documented any changes. Performed airway and anesthesia risk assessments. Anesthesia Type Anesthesia Type: MAC History Source History Obtained from:: Patient and Chart Anesthesia Focused Assessment* Temperature: 98.4 F Pulse Rate: 74 Blood Pressure: 109/67 Respiratory Rate: 16 Pulse Ox: 98 Oxygen Delivery Method: Room Air Airway Assessment Mouth opens: 2 cm Mallampati Score: IV Teeth Condition: Dentures (Full upper dentures are out.) and Missing (Multiple missing teeth on lower jaw. Rest of the teeth are tight.) Neck Range of motion (ROM): Limited ROM Focused Labs Anesthesia Preop lab: CBC WBC 7.1 K/mm3 (4.4-11.0) 03/29/24 13:23 03/29/24 RBC 4.56 M/mm3 (4.6-6.2) L 03/29/24 13:23 03/29/24 Hgb 12.7 g/dL (13.0-16.5) L 03/29/24 13:23 03/29/24 Hct 40.0 % (40-54) 03/29/24 13:23 03/29/24 Plt Count 233 K/mm3 (150-450) 03/29/24 13:23 03/29/24 CHEMISTRY Potassium 3.7 mmol/L (3.5-5.1) 06/16/17 09:06 06/16/17 Sodium 143 mmol/L (136-145) 06/16/17 09:06 06/16/17 BUN 21 mg/dL (7-18) H 06/16/17 09:06 06/16/17 Creatinine 0.86 mg/dL (0.70-1.30) 06/16/17 09:06 06/16/17 Glucose 107 mg/dL (74-106) H 06/16/17 09:06 06/16/17 COAG Pre-Assessment Diagnosis/Proposed Procedure Planned Operative Procedure(s): flexible sigmoidoscopy Anesthesia History 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 When Was Last Pacemaker Check QUESTION #4 FULL TEXT: You/Your Family Experience fever (hyperthermia) with Anesthesia Last Oral Intake Last Oral intake: Last Oral Intake NPO since 02:00 04/23/24 05:54 Meds taken in AM with sips of Yes 04/23/24 05:54 water? 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 body shop manager Female No 04/22/24 12:42 HX of Motion Sickness Yes 04/22/24 12:42 HX of N/V After Surgery Yes 04/22/24 12:42 Non-Smoker Yes 04/22/24 12:42 Duration of Surgery greater No 04/22/24 12:42 than 60 minutes Number of Risk Factors 3 04/22/24 12:42 PONV Score Moderate Risk 04/22/24 12:42 Height & Weight Height & Weight: Anesthesia: Height & Weight Height 5 ft 5 in 04/23/24 05:54 Weight: 78.29 kg 04/23/24 05:54 Body Mass Index (BMI) 28.7 04/23/24 05:54 Respiratory Assessment Respiratory Assessment - auto body shop manager: Respiratory Tract Infection Hx - auto body shop manager Hx Respiratory Tract Infection No 04/22/24 12:42 STOP Sleep Apnea STOP Sleep Apnea - auto body shop manager: STOP Sleep Apnea - auto body shop manager Hx Hypertension No 04/22/24 12:42 Hx Sleep Apnea No 04/22/24 12:42 CPAP BIPAP Do you snore loudly (louder No 04/22/24 12:42 than talking or can be heard Do you often feel tired/ No 04/22/24 12:42 fatigued/ sleepy during daytime? Has anyone observed you stop No 04/22/24 12:42 breathing during sleep? STOP Results Negative 04/22/24 12:42 QUESTION #5 FULL TEXT : Do you snore loudly (louder than talking or can be heard through closed doors)? 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 Specify any problems Hx of Preganancy in last 3 N/A 04/22/24 12:42 Months Nurse Filling Out Transfusion JZOLLINGE 04/22/24 12:42 & Questions: Date: 04/22/24 04/22/24 12:42 Time: 12:45 04/22/24 12:42 Patient unable to answer at this time (ie. confused, unrespo /Reproduction History /Reproductive History - auto body shop manager: /Reproductive Hx- auto body shop manager Hx Now No 04/22/24 12:42 Gestational Age (in weeks): EDC: Hx Hx Para Hx Section SAB No 04/22/24 12:42 [facility] Medical History Heartburn Former smoker Loss of hearing History of steroid therapy History of hiatal hernia History of ulceration Rectal bleeding Basal cell carcinoma Erectile dysfunction due to arterial insufficiency OAB (overactive bladder) Prostate cancer Wears dentures Wears glasses Arthritis Migraine headache Non-smoker Leg cramps History of stress test Osteoarthritis GERD (gastroesophageal reflux disease) History of prostate cancer Hx of hemorrhoids Home Medications ?Medication ?Instructions ?Recorded ?Last Taken ?Type loratadine 10 mg tablet 10 mg PO DAILY allergies 08/18/16 04/22/24 History esomeprazole magnesium 40 mg 40 mg PO DAILY 11/23/20 04/23/24 02:00 History capsule,delayed release (Nexium) oxybutynin chloride 15 mg 15 mg PO DAILY overactive bladder 11/23/20 04/22/24 History tablet,extended release 24 hr ascorbic acid (vitamin C) 1,000 mg 1 g PO QDAY 03/19/24 04/21/24 History capsule cholecalciferol (vitamin D3) 125 125 mcg PO QDAY 03/19/24 04/21/24 History mcg (5,000 unit) tablet guaifenesin 1,200 mg tablet, 1,200 mg PO BID 03/19/24 04/21/24 History extended release 12 hr (Mucus Relief ER) rizatriptan 10 mg tablet See Rx Instructions PO .COMPLEX 03/19/24 04/23/24 01:00 History zinc acetate 50 mg (zinc) capsule 50 mg PO QDAY 03/19/24 04/21/24 History Hydrocortisone 2.5% / Lidocaine 5% #30 grams 04/18/24 Unknown Rx ointment (cmpd) aluminum-mag hydroxide-simethicone 5 ml PO Q3H PRN dyspepsia 04/23/24 04/23/24 02:00 History 200 mg-200 mg-20 mg/5 mL oral susp (Advanced Antacid-Antigas) Allergy/AdvReac Type Severity Reaction Status Date / Time oxycodone (From Percocet) Allergy Intermediate hives/itchi Verified 04/23/24 05:47 ng Acrylic Acid and Acrylates Allergy Swelling Verified 04/23/24 05:47 (steri-strips (acrylate)) Family History Mother Heart disease Hypertension Diabetes Father Heart disease Hypertension Sister Heart disease Hypertension Diabetes Surgical History Hx of right inguinal hernia repair Hx of repair of rotator cuff History of cardiac catheterization History of colonoscopy (~2017) History of hemorrhoidectomy Hx of hernia repair Hx of prostatectomy Hx of cataract surgery Hx of prostate biopsy Hx of arthroscopy of left knee Hx of cholecystectomy History of nasal surgery Social History Smoking Status: Never smoker alcohol intake: never substance use type: does not use Review of Systems (Anesthesia) ROS Narrative System reviewed and no additional complaints, except as documented.
--- NOTE | 2024-04-23 06:38 | PCM.HP.STD ---
HPI - General General Date of Admission: 04/23/24 Date of Service: 04/23/24 Chief Complaint: rectal bleeding HPI Alissa ROB, is a 74 M who presents for endoscopic treatment of rectal bleeding. OV 03/20/2024 73y/o male presents for consultation with complaints of rectal bleeding, referred by Dr. Artemio Mckeon. He reports episodes of painless bleeding 1-3x a day for >1 month. He has been using hydrocortisone suppositories PRN without symptom improvement. Colonoscopy 01/23/2023 (Dr. Mac) revealed three TA's. He completed radiation treatment for prostate CA July 2023. I have ordered a CBC and scheduled him for a colonoscopy to assess for radiation proctitis. He is very concerned with change in bowel habits post January 2023 colonoscopy without known cause. - If HGB is dropping consider APC. If HGB is stable and radiation proctitis is present consider treatment with Carafate enemas prior to APC. COLON 03/28/2024 - Three 8 mm polyps in the sigmoid colon, in the transverse colon and in the ascending colon, removed with a cold biopsy forceps. Resected and retrieved. - Diverticulosis in the recto-sigmoid colon, in the sigmoid colon and in the ascending colon. 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 Treated with argon plasma coagulation (APC). - radiation proctitis Labs completed 03/19/2024 revealed HGB 12.8 which is down from 14.6 ----- 12.7 on 03/29/2024 - Thinks he has blisters in rectum that bust and cause the bleeding. Also yellow mucus stools present. - c/o pain - denies any bleeding since Monday - thought he was going to have a procedure today so he took 1/2 of a bowel prep - c/o rectal pain with a BM - denies any increase in bleeding - states bleeding is primarily on the toilet tissue - spends 45 minutes on the toilet in the moring eliminating stool and flatus - frequent wiping to clean up after a BM - c/o external irritation from frequent stools yesterday - bowel prep [facility] Medical History Heartburn Former smoker Loss of hearing History of steroid therapy History of hiatal hernia History of ulceration Rectal bleeding Basal cell carcinoma Erectile dysfunction due to arterial insufficiency OAB (overactive bladder) Prostate cancer Wears dentures Wears glasses Arthritis Migraine headache Non-smoker Leg cramps History of stress test Osteoarthritis GERD (gastroesophageal reflux disease) History of prostate cancer Hx of hemorrhoids Home Medications ?Medication ?Instructions ?Recorded ?Last Taken ?Type loratadine 10 mg tablet 10 mg PO DAILY allergies 08/18/16 04/22/24 History esomeprazole magnesium 40 mg 40 mg PO DAILY 11/23/20 04/23/24 02:00 History capsule,delayed release (Nexium) oxybutynin chloride 15 mg 15 mg PO DAILY overactive bladder 11/23/20 04/22/24 History tablet,extended release 24 hr ascorbic acid (vitamin C) 1,000 mg 1 g PO QDAY 03/19/24 04/21/24 History capsule cholecalciferol (vitamin D3) 125 125 mcg PO QDAY 03/19/24 04/21/24 History mcg (5,000 unit) tablet guaifenesin 1,200 mg tablet, 1,200 mg PO BID 03/19/24 04/21/24 History extended release 12 hr (Mucus Relief ER) rizatriptan 10 mg tablet See Rx Instructions PO .COMPLEX 03/19/24 04/23/24 01:00 History zinc acetate 50 mg (zinc) capsule 50 mg PO QDAY 03/19/24 04/21/24 History Hydrocortisone 2.5% / Lidocaine 5% #30 grams 04/18/24 Unknown Rx ointment (cmpd) aluminum-mag hydroxide-simethicone 5 ml PO Q3H PRN dyspepsia 04/23/24 04/23/24 02:00 History 200 mg-200 mg-20 mg/5 mL oral susp (Advanced Antacid-Antigas) Allergy/AdvReac Type Severity Reaction Status Date / Time oxycodone (From Percocet) Allergy Intermediate hives/itchi Verified 04/23/24 05:47 ng Acrylic Acid and Acrylates Allergy Swelling Verified 04/23/24 05:47 (steri-strips (acrylate)) Family History Mother Heart disease Hypertension Diabetes Father Heart disease Hypertension Sister Heart disease Hypertension Diabetes Surgical History Hx of right inguinal hernia repair Hx of repair of rotator cuff History of cardiac catheterization History of colonoscopy (~2018) History of hemorrhoidectomy Hx of hernia repair Hx of prostatectomy Hx of cataract surgery Hx of prostate biopsy Hx of arthroscopy of left knee Hx of cholecystectomy History of nasal surgery Social History Smoking Status: Never smoker alcohol intake: never substance use type: does not use ROS Constitutional Constitutional: Denies fatigue, fever(s), poor appetite, weight gain or weight loss Gastrointestinal Gastrointestinal: Denies belching, bloating, change in bowel habits, change in stool character, chewing difficulty, coffee ground emesis, constipation, cramping, diarrhea, dyspepsia, dysphagia, early satiety, excessive flatus, fecal incontinence, heartburn, hematemesis, hematochezia, hemorrhoids, loose stools, melena, nausea, odynophagia, rectal bleeding, tenesmus, vomiting or weight changes Vital Signs Vital Signs Vital Signs: 04/23/24 05:52 04/23/24 05:54 04/23/24 06:36 Temperature 98.4 F 98.4 F Temperature Source Temporal Pulse Rate 74 74 Respiratory Rate 16 16 Respiratory Pattern Normal Blood Pressure 109/67 109/67 Blood Pressure Mean 81 Blood Pressure Source Monitor Blood Pressure Position Semi-Fowlers Blood Pressure Location Left Arm Pulse Ox 98 98 Oxygen Delivery Method Room Air Room Air Weight Weight: 172 lb 9.6 oz Body Mass Index (BMI) 28.7 Physical Exam Const alert, oriented x3, no apparent distress and healthy appearing General Appearance: cooperative GI normal to inspection, nondistended, normoactive bowel sounds, soft to palpation, non-tender and non-distended Percussion: normal to percussion Rectal Exam: deferred Assessment & Plan Assessment/Plan (1) Rectal pain: (2) Anal fissure: (3) Lower GI bleeding: PLAN: Plan 74y/o male presents with complaints of bleeding with bowel movements and mucus in stools. Colonoscopy was completed 03/28/2024 and revealed TAs, sigmoid diverticulosis, radiation proctitis, and multiple large rectal angiodysplastic lesions treated with APC. He stopped by the office on 04/09/2024 with complaints of rectal bleeding. HGB was stable at 12.7 and he was prescribed hemorrhoidal disease and hydrocortisone retention enemas with some pain medication. He presents today with complaints of rectal pain with a bowel movement and intermittent bleeding. He was hoping for a procedure today and took a partial bowel prep yesterday. He is taking a heaping tablespoon of Metamucil in a glass of milk every night. Recal exam was revealing for anal fissure at 6 o'clock. I have prescribed hydrocortisone with lidocaine to use and recommended A&O ointment for external use due to irritation with frequent stools. He is very concerned with ongoing bleeding and I have recommended he schedule Sigmoidoscopy next available and we can reassess radiation proctitis. Patient Instructions: Use A&D Ointment externally on your bottom Continue to use Hydrocortisone enemas Discontinue Hydrocortisone Cream Pick-up Hydrocortisone/Lidocaine ointment from [facility] Avoid all milk Continue Metamucil daily Plan Details Follow Up: 3 Months
--- NOTE | 2024-04-23 07:16 | OP.CCLET_ITS ---
04/23/2024 Artemio Mckeon Re : Flexible Sigmoidoscopy procedure for Víctor Mckeon This procedure was performed on Tuesday, April 23, 2024. My impressions and recommendations are as follows: Impressions : - Multiple bleeding colonic angiodysplastic lesions. Treated with argon plasma coagulation (APC). - Mucosal ulceration. Treated with argon plasma coagulation (APC). - No specimens collected. Recommendations : - Use original regular Metamucil one teaspoon PO BID for 4 weeks. - Excpect Mild rectal pain or discomfort - Bloating and gas - Temporary changes in bowel habits - Some bleeding after the procedure up to 4 weeks My findings are described in the full procedure note, which is enclosed. If I can be of further assistance, please feel free to contact me at . Sincerely, Jenaro Friend, 04/23/2024 7:15:07 AM This report has been signed electronically.
--- NOTE | 2024-04-23 07:16 | OP.FLEXSIG_ITS ---
Patient Name: Víctor Gomes Procedure Date: 04/23/2024 6:45 AM Date of : 1950 Age: 74 Procedure: Flexible Sigmoidoscopy Indications: Hematochezia Providers: Jenaro Galvez DO Medicines: Monitored Anesthesia Care Patient Profile: This is a 74 year old male. Refer to note in patient chart for documentation of history and physical. Last Colonoscopy: within the past 3 months. Complications: No immediate complications. Procedure: Pre-Anesthesia Assessment: - Prior to the procedure, a History and Physical was performed, and patient medications and allergies were reviewed. The patient is competent. The risks and benefits of the procedure and the sedation options and risks were discussed with the patient. All questions were answered and informed consent was obtained. Patient identification and proposed procedure were verified by the physician in the pre-procedure area. Mental Status Examination: alert and oriented. Airway Examination: normal oropharyngeal airway and neck mobility. Respiratory Examination: clear to auscultation. CV Examination: normal. ASA Grade Assessment: II - A patient with mild systemic disease. After reviewing the risks and benefits, the patient was deemed in satisfactory condition to undergo the procedure. The anesthesia plan was to use moderate sedation / analgesia (conscious sedation). Immediately prior to administration of medications, the patient was re-assessed for adequacy to receive sedatives. The heart rate, respiratory rate, oxygen saturations, blood pressure, adequacy of pulmonary ventilation, and response to care were monitored throughout the procedure. The physical status of the patient was re-assessed after the procedure. After obtaining informed consent, the endoscope was passed under direct vision. Throughout the procedure, the patient's blood pressure, pulse, and oxygen saturations were monitored continuously. The Colonoscope was introduced through the anus and advanced to the rectosigmoid junction. Scope In: 6:55:27 AM Scope Out: 7:05:00 AM Total Procedure Duration Time 0 hours 9 minutes 33 seconds Findings: The perianal and digital rectal examinations were normal. Multiple medium-sized localized angiodysplastic lesions with bleeding were found in the rectum. Coagulation for hemostasis using argon plasma at 0.3 liters/minute and 30 warren was successful. Discontinuous areas of bleeding ulcerated mucosa with stigmata of recent bleeding were present in the rectum. Coagulation for hemostasis using argon plasma at 0.3 liters/minute and 20 warren was successful. Impression: - Multiple bleeding colonic angiodysplastic lesions. Treated with argon plasma coagulation (APC). - Mucosal ulceration. Treated with argon plasma coagulation (APC). - No specimens collected. Recommendation: - Use original regular Metamucil one teaspoon PO BID for 4 weeks. - Excpect Mild rectal pain or discomfort - Bloating and gas - Temporary changes in bowel habits - Some bleeding after the procedure up to 4 weeks Procedure Code(s): --- Professional --- 40389, 52, Sigmoidoscopy, flexible; with control of bleeding, any method CPT copyright 2021 [employer]. All rights reserved. The codes documented in this report are preliminary and upon dental hygiene teacher review may be revised to meet current compliance requirements. Jenaro Galvez DO 04/23/2024 7:15:07 AM This report has been signed electronically. Number of Addenda: 0 Note Initiated On: 04/23/2024 6:45 AM
--- NOTE | 2024-04-23 07:24 | PCM.POST.ANE ---
Anesthesia: Postop Eval I Current Vital Signs Temperature: 97.6 F Pulse Rate: 74 Blood Pressure: 158/100 Respiratory Rate: 16 Pulse Ox: 95 Oxygen Delivery Method: Room Air Assessment Airway patent: Yes Spontaneous unlabored respirations: Yes Mental status: Awake and Calm nausea: No Vomiting: No Anesthesia Complication: No Fluid Hydration Crystalloid volume administer (ml): 40 Total IV fluid infused: 40 Progress Note Anesthesia document: Postop Eval 1 completed: Yes
[2024-04-23] MEDS: traMADol 50 MG Tablet 100 MG PO (07:47)
--- NOTE | 2024-04-23 11:29 | PCM.POSTANE2 ---
Anesthesia Postop Eval I Sum Postop Eval Completion status Anesthesia document: Postop Eval 1 completed: Yes Anesthesia Postop Eval I Summary Anesthesia Postop Eval I Summary: Anesthesia Postop Eval I: Assessment Summary Airway patent Yes 04/23/24 07:25 [email or web address] Spontaneous unlabored Yes 04/23/24 07:25 [email or web address] respirations Mental status Awake,Calm 04/23/24 07:25 [email or web address] nausea No 04/23/24 07:25 [email or web address] Vomiting No 04/23/24 07:25 [email or web address] Anesthesia Postop Eval I: Fluid Summary Crystalloid volume administer 40 04/23/24 07:25 [email or web address] (ml) Colloids volume administered ( ml) Blood Product volume administered (ml) Total IV fluid infused 40 04/23/24 07:25 [email or web address] Anesthesia Postop Eval I: Summary Notes Anesthesia Complication No 04/23/24 07:25 [email or web address] Anesthesia Complication Comment: Post-operative progress note Anesthesia: Postop Eval II Evaluation Mental status: Awake Pain Level: 0 nausea: No Vomiting: No
== END 2024-04-23 07:56 | disposition home or self-care (01) ==
LOC: EN 05:15 → AC 05:16
PROVIDERS: PCP Family Medicine; Referring Provider Family Medicine; Visit Provider Internal Medicine Gastroenterology
PROC: 0DJD8ZZ Inspection of Lower Intestinal Tract, Via Natural or Artificial Opening Endoscopic (ICD-10-PCS; CPT 45330; principal; 2024-04-23 06:25)
DX: K92.1 Melena (principal); K60.2 Anal fissure, unspecified; K21.9 Gastro-esophageal reflux disease without esophagitis; Z79.899 Other long term (current) drug therapy
CPT/HCPCS: 45334; A4216; J2405

== ENCOUNTER → 2024-05-22 | Outpatient (CLI) | payer MEDICARE, BC, SELFPAY ==
[2024-05-22 18:14] LABS: PSA,Total- Diagnostic < 0.02 ng/mL (0.00-4.00)
== END | disposition home or self-care (01) ==
LOC: LAB 16:20
PROVIDERS: PCP Family Medicine; Referring Provider Urology; Visit Provider Urology
DX: C61 Malignant neoplasm of prostate (principal)
CPT/HCPCS: 36415; 84153

== ENCOUNTER 2024-10-17 06:55 | Day surgery (SDC) | payer MEDICARE, BC, SELFPAY ==
--- NOTE | 2024-10-15 15:52 | PAT.ANESEVAL ---
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 When Was Last Pacemaker Check QUESTION #4 FULL TEXT: You/Your Family Experience fever (hyperthermia) with Anesthesia Last Oral Intake Last Oral intake: Last Oral Intake NPO since Meds taken in AM with sips of water? Meds patient instructed to take am of surgery PONV PONV - dye colorist dyer: PONV - dye colorist dyer Female No 10/15/24 15:08 HX of Motion Sickness Yes 10/15/24 15:08 HX of N/V After Surgery Yes 10/15/24 15:08 Non-Smoker Yes 10/15/24 15:08 Duration of Surgery greater No 10/15/24 15:08 than 60 minutes Number of Risk Factors 3 10/15/24 15:08 PONV Score Moderate Risk 10/15/24 15:08 Height & Weight Height & Weight: Anesthesia: Height & Weight Height 5 ft 5 in 08/29/24 15:12 Respiratory Assessment Respiratory Assessment - dye colorist dyer: Respiratory Tract Infection Hx - dye colorist dyer Hx Respiratory Tract Infection No 10/15/24 15:08 STOP Sleep Apnea STOP Sleep Apnea - dye colorist dyer: STOP Sleep Apnea - dye colorist dyer Hx Hypertension No 10/15/24 15:08 Hx Sleep Apnea No 10/15/24 15:08 CPAP BIPAP Do you snore loudly (louder No 10/15/24 15:08 than talking or can be heard Do you often feel tired/ No 10/15/24 15:08 fatigued/ sleepy during daytime? Has anyone observed you stop No 10/15/24 15:08 breathing during sleep? STOP Results Negative 10/15/24 15:08 QUESTION #5 FULL TEXT : Do you snore loudly (louder than talking or can be heard through closed doors)? 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 Specify any problems Hx of Preganancy in last 3 N/A 10/15/24 15:08 Months Nurse Filling Out Transfusion VCHRISTIN 10/15/24 15:08 & Questions: Date: 10/15/24 10/15/24 15:08 Time: 15:10 10/15/24 15:08 Patient unable to answer at this time (ie. confused, unrespo /Reproduction History /Reproductive History - dye colorist dyer: /Reproductive Hx- dye colorist dyer Hx Now No 10/15/24 15:08 Gestational Age (in weeks): EDC: Hx Hx Para Hx Section SAB No 10/15/24 15:08 [facility] Medical History (Updated 10/15/24 @ 15:08 by Merle Beauchamp) History of flexible sigmoidoscopy Heartburn Former smoker Loss of hearing History of steroid therapy History of hiatal hernia History of ulceration Rectal bleeding Basal cell carcinoma Erectile dysfunction due to arterial insufficiency OAB (overactive bladder) Prostate cancer Wears dentures Wears glasses Arthritis Migraine headache Non-smoker Leg cramps History of stress test Osteoarthritis GERD (gastroesophageal reflux disease) History of prostate cancer Hx of hemorrhoids Home Medications ?Medication ?Instructions ?Recorded ?Last Taken ?Type loratadine 10 mg tablet 10 mg PO DAILY allergies 08/18/16 04/22/24 History oxybutynin chloride 15 mg 15 mg PO DAILY overactive bladder 11/23/20 04/22/24 History tablet,extended release 24 hr ascorbic acid (vitamin C) 1,000 mg 1 g PO QDAY 03/19/24 04/21/24 History capsule cholecalciferol (vitamin D3) 125 125 mcg PO QDAY 03/19/24 04/21/24 History mcg (5,000 unit) tablet guaifenesin 1,200 mg tablet, 1,200 mg PO BID 03/19/24 04/21/24 History extended release 12 hr (Mucus Relief ER) rizatriptan 10 mg tablet See Rx Instructions PO .COMPLEX 03/19/24 04/23/24 01:00 History zinc acetate 50 mg (zinc) capsule 50 mg PO QDAY 03/19/24 04/21/24 History aluminum-mag hydroxide-simethicone 5 ml PO Q3H PRN dyspepsia 04/23/24 04/23/24 02:00 History 200 mg-200 mg-20 mg/5 mL oral susp (Advanced Antacid-[place]) Hydrocortisone 2.5% / Lidocaine 5% #30 grams 05/15/24 Unknown Rx ointment (cmpd) esomeprazole magnesium 40 mg 40 mg PO BID 08/29/24 Unknown History capsule,delayed release (Nexium) ondansetron HCl 4 mg tablet 4 mg PO Q6H PRN nausea and 08/29/24 Unknown Rx vomiting #20 tabs acetaminophen 325 mg capsule 650 mg PO Q4H PRN pain 10/15/24 Unknown History naproxen 500 mg tablet (Naprosyn) 500 mg PO Q8H PRN pain 10/15/24 Unknown History Allergy/AdvReac Type Severity Reaction Status Date / Time oxycodone (From Percocet) Allergy Intermediate hives/itchi Verified 10/15/24 15:03 ng Acrylic Acid and Acrylates Allergy Swelling Verified 10/15/24 15:03 (steri-strips (acrylate)) Family History Mother Heart disease Hypertension Diabetes Father Heart disease Hypertension Sister Heart disease Hypertension Diabetes Surgical History (Updated 10/15/24 @ 15:08 by Merle Beauchamp) Hx of right inguinal hernia repair Hx of repair of rotator cuff History of cardiac catheterization History of colonoscopy (~2017) History of hemorrhoidectomy Hx of hernia repair Hx of prostatectomy Hx of cataract surgery Hx of prostate biopsy Hx of arthroscopy of left knee Hx of cholecystectomy History of nasal surgery Social History Smoking Status: Never smoker alcohol intake: never substance use type: does not use Audit: Pertinent Findings Pertinent Findings EKG Perinent findings: 11/24/2020. Normal sinus rhythm. Poor R wave progression. Recommendation Anesthesia Recommendation Anesthesia recommendation: OPTIMIZED for anesthesia
[2024-10-17] VITALS (7 sets, daily range): BP systolic 127–164; BP diastolic 77–87; PULSE 64–70; RESP 16; TEMP 36.1–36.4; O2SAT 96–99; BMI 28.8
--- OUTSIDE RECORDS SUMMARY | 2024-10-17 06:58 | XMS RPT_ITS | CCD ---
Author Organization [facility] Care Team Providers Care Senior Associate Name Role Phone NACHO RIVERA Unavailable Unavailable BROCK, NACHO T Unavailable Unavailable BROCK, NACHO Mariposa Unavailable Unavailable ALLEY KAPOOR (PA) Unavailable Unavailable Unavailable Primary Care Provider Unavailabl e MIKE DO, DR FERGUSON A Primary Care Physician Steffi Livingston PT Unavailable Unavailable MIKE DO, DR FERGUSON A Primary Care Physician MIKE DO, DR FERGUSON A Primary Care Physician [phone] Mike, Dr. Ferguson Primary Care Provider Dr. Berto Chambers Attending Provider Yocasta, Dr. Nicolas Mayorga Referring Provider YOCASTA DOUGLAS, DR NICOLAS MAYORGA Attending Unavai lable MIKE DO, DR MARTY Helms Primary Care Unavailabl e MIKE DO, DR MARTY Helms Primary Care Unavailabl e GARFIELD DOUGLAS, JASPER Ho Attending Unavail able MIKE DO, DR MARTY Helms Primary Care Unavailabl e MIKE DO, DR MARTY Helms Attending Unavailabl georgia RUST MD, DR NICOLAS MAYORGA Attending Unavai lable MIKE DO, DR MARTY Helms Primary Care Unavailabl e MIKE DO, DR MARTY Helms Attending Unavailabl e MIKE DO, DR MARTY Helms Primary Care Unavailabl e MIKE DO, DR MARTY Helms Primary Care Unavailabl e MIKE DO, DR MARTY Helms Attending Unavailabl e MIKE DO, DR MARTY Helms Primary Care Unavailabl e TONJA DUOGLAS, DR JAYRO Pretty Attending Unavail able Mike DO, Dr. Ferguson Primary Care Provider Ivonne Dexter Attending Provider [phone] Madina MARIEE, Dr. Thomson Referring Provider [place] DO, Dr. Thomson Attending Provider Mike DO, Dr. Ferguson Referring Provider Forest RETIREMENT ADMINISTRATOR-CSowmya Attending Provider Forest RETIREMENT ADMINISTRATOR-C, Sowmya Referring Provider Friend DO, Dr. Eason Attending Provider Friend DO, Dr. Eason Other Provider [phone] Friend DO, Dr. Eason Referring Provider Yocasta DOUGLAS, Dr. Nicolas Mayorga Attending Provider [phone] Yocasta DOUGLAS, Dr. Nicolas Mayorga Referring Provider [facility], Dr. Thomson Other Provider CRISTOPHER RUIZ Attending Unavail able MIKE DO, DR MARTY Helms Primary Care Unavailabl e MIKE DO, DR MARTY Helms Primary Care Unavailabl e MIKE DO, DR MARTY Helms Attending Unavailabl e DENI ROWE Attending Unavailable MIKE DO, DR MARTY Helms Primary Care Unavailabl e CAMP, DR JAY Haider Attending Unavailable MIKE DO, DR MARTY Helms Primary Care Unavailabl e Mike DO, Dr. Ferguson Primary Care Provider [phone] Mike DO, Dr. Ferguson Referring Provider [phone], [address] Eason Attending Provider [facility], Dr. Thomson Attending Provider [facility], Dr. Thomson Referring Provider Forest RETIREMENT ADMINISTRATOR-C, Sowmya Attending Provider Yocasta DOUGLAS, Nicolas Mayorga Primary Care Provider NICOLAS RUST Primary Care Unavailable LOPEZ YADAV Attending Un available LOPEZ YADAV Attending Un available LOPEZ YADAV Admitting Un available NICOLAS RUST Referring Unavailable YOCASTA, OSKAR Primary Care Unavailable YOCASTA, NICOLAS MAYORGA Primary Care Unavailable YADAV, LOPEZ BAHENA Admitting Un available KATSHRUTI MILLER Attending Unavailable YADAV, LOPEZ BAHENA Attending Un available YADAV, LOPEZ BAHENA Admitting Un available YOCASTA, OSKAR Primary Care Unavailable Mike, Marty Referring Unavailable Mike, Marty Primary Care Unavailable Friend, Jenaro Attending Unavailable Mike, Marty Primary Care Unavailable MadinaBerto Referring Unavailable MadinaBerto Attending Unavailable Mike, Marty Primary Care Unavailable Mike, Marty Referring Unavailable Friend, Jenaro Consulting Unavailable Friend, Jenaro Attending Unavailable Mike, Marty Primary Care Unavailable Mike, Marty Referring Unavailable Friend, Jenaro Attending Unavailable Mike, Marty Primary Care Unavailable Mike, Marty Referring Unavailable MadinaBerto Attending Unavailable Mike, Marty Referring Unavailable Mike, Matry Primary Care Unavailable ForestSowmya Attending Unavailable Mike, Marty Primary Care Unavailable Mike, Marty Referring Unavailable ForestSowmya Attending Unavailable Mike, Marty Primary Care Unavailable MadinaBerto woo Attending Unavailable Mike, Marty Primary Care Unavailable Mike, Marty Referring Unavailable ForestSowmya Attending Unavailable Mike, Marty Primary Care Unavailable Mike, Marty Referring Unavailable Friend, Jenaro Consulting Unavailable Friend, Jenaro Attending Unavailable MadinaBerto Consulting Unavailable Mike, Marty Primary Care Unavailable Yocasta, Nicolas Mayorga Referring Unavailable Yocasta, Nicolas Mayorga Attending Unavailable Mike, Marty Primary Care Unavailable Yocasta, Nicolas Mayorga Referring Unavailable Yocasta, Nicolas Mayorga Attending Unavailable Berto Chambers Consulting Unavailable Mike, Marty Primary Care Unavailable Friend, Jenaro Referring Unavailable Friend, Jenaro Attending Unavailable Mike, Marty Primary Care Unavailable ForestSowmya Referring Unavailable ForestSowmya Attending Unavailable Mike, Marty Primary Care Unavailable Mike, Marty Referring Unavailable Friend, Jenaro Attending Unavailable Mike, Marty Primary Care Unavailable Mike, Marty Referring Unavailable Friend, Jenaro Attending Unavailable NevilleIvonne Attending Unavailable Mike, Marty Primary Care Unavailable Berto Chambers Referring Unavailable Allergies Allergy Classification Reported Allergen(s) Allergy Type Date of Onset Reaction(s) Facility (2 sources) Adhesive Tape Propensity to adverse reactions to drug 08-20-202 0 [facility] [place] (4 sources) Acetaminophen Drug Allergy 1 hives/itching [facility] (7 sources) oxyCODONE Drug Allergy 1 hives/itching [facility] (8 sources) Acrylic Acid and Acrylates; Translations: [Acrylic Acid and Acrylates] Allergy to substance 2 Swelling [facility] Comment on above: INFECTION (6 sources) Adhesive Tape-Silicones; Translations: [ADHESIVE TAPE-SILICONES] Propensity to adverse reactions to drug 0 Other (See Comments) [facility] (1 source) Acetaminophen Drug Allergy 5 [facility] (1 source) oxyCODONE Drug Allergy 5 [facility] Medications Current Medications Medication Drug Class(es) Dates Sig (Normalized) Sig (Original) acetaminophen 650 mg oral tablet (9 sources) Start: 12-09-2019 Tylenol Dose : 650 mg =, Oral, PRN as needed for pain, 0 Refill(s) Start Date: 12/09/19 Status: Ordered End: 10-17-2019 take 1 tablet by mouth every six hours as needed for pain acetaminophen (TYLENOL) 500 MG tablet Take 500 mg by mouth every 6 hours as needed for Pain 0 10/17/2019 Discontinued (Stop Taking at Discharge) acetaminophen 325 mg / HYDROcodone bitartrate 5 mg oral tablet (1 source) Opioid Agonist Start: 10-17-2019 End: 10-24-2019 take 1 tablet by mouth every four hours as needed for pain HYDROcodone-acetaminophen (NORCO) 5-325 MG per tablet Indications: Deviated nasal septum Take 1 tablet by mouth every 4 hours as needed for Pain for up to 7 days. 20 tablet 0 10/17/2019 10/24/2019 Active ALPRAZolam 0.25 mg disintegrating oral tablet (1 source) Benzodiazepine Start: 10-17-2019 ALPRAZolam (NIRAVAM) dissolvable tablet 0.25 mg Alum-Mag Hydroxide-Simeth (Advanced Antacid-Antigas) 200-200-20 mg/5 mL suspension (3 sources) Start: 04-23-2024 take 1 mL by mouth every three hours as needed Alum-Mag Hydroxide-Simeth (Advanced Antacid-Antigas) 200-200-20 mg/5 mL suspension Active 5 mL PO Q3H as needed for dyspepsia April 23, 2024 1:00am aluminum hydroxide 40 mg/ml / magnesium hydroxide 40 mg/ml / simethicone 4 mg/ml oral suspension (2 sources) take 30 mL by mouth four times daily before mealtime aluminum-magnesium hydroxide-simethicone (MAALOX PLUS) 200-200-20 mg/5 mL Susp Take 30 mL by mouth 4 (four) times a day before meals and nightly . Active amoxicillin 875 mg / clavulanate 125 mg oral tablet (2 sources) Penicillin-class Antibacterial Start: 08-04-2024 End: 08-11-2024 take 1 tablet by mouth every twelve hours amoxicillin-clavulanate 875 mg-125 mg oral tablet 1 tab(s), Oral, q12h, X 7 day(s), # 14 tab(s), 0 Refill(s), 08/11/24 4:53:00 PM EDT, 80.7 Start Date: 08/04/24 Stop Date: 08/11/24 Status: Ordered Quantity: 14.0 Unit: tab(s) Repeat number: 1 Start: 10-17-2019 End: 10-24-2019 take 1 tablet by mouth twice daily amoxicillin-clavulanate (AUGMENTIN) 875-125 MG per tablet Take 1 tablet by mouth 2 times daily for 7 days 14 tablet 0 10/17/2019 10/24/2019 Active ascorbic acid 1000 mg oral capsule (16 sources) Vitamin C Start: 03-19-2024 take 1 g by mouth once daily Ascorbic Acid (Vitamin C) 1,000 mg capsule Active 1 g PO daily March 19, 2024 1:00am Start: 08-18-2016 End: 03-19-2024 take 1 tablet by mouth once daily Ascorbic Acid (Vitamin C) 500 MG tablet Discontinued 500 mg PO DAILY@0800 August 18, 2016 12:00am March 19, 2024 2:20pm atogepant 60 MG Oral Tablet [Qulipta] (6 sources) Start: 10-04-2023 Qulipta 60 mg oral tablet Dose : 60 mg = 1 tab(s), TAKE 1 TABLET BY MOUTH EVERY DAY Start Date: 10/04/23 Status: Ordered Repeat number: 1 Start: 05-31-2023 Qulipta 60 mg oral tablet Dose : 60 mg = 1 tab(s), Oral, qDay, 0 Refill(s) Start Date: 05/31/23 Status: Ordered Repeat number: 1 Botulinum Toxin Type A (4 sources) Acetylcholine Release Inhibitor onabotulinumtoxinA (BOTOX INJ) Inject as directed . Active calcium carbonate 500 mg chewable tablet (2 sources) calcium carbonat e (TUMS) 200 mg calcium (500 mg) chewable tablet Chew and Swallow 1 (one) tablet (500 mg total) daily . Active calcium chloride 0.0014 meq/ml / potassium chloride 0.004 meq/ml / sodium chloride 0.103 meq/ml / sodium lactate 0.028 meq/ml injectable solution (1 source) Start: 020 lactated ringers infusion cholecalciferol 0.125 mg oral tablet (16 sources) Vitamin D Start: 025 take 1 tablet by mouth once daily Cholecalciferol (Vitamin D3) 125 mcg (5,000 unit) tablet Active 125 ug PO daily March 19, 2024 1:00am Start: 08-30-2017 End: 03-19-2024 take 1 capsule by mouth once daily Cholecalciferol (Vitamin D3) 2,000 UNIT capsule Discontinued 2000 U PO DAILY August 30, 2017 12:00am March 19, 2024 2:20pm take 1 capsule by mo [facility] once daily cholecalciferol, vitamin D3, 25 mcg (1,000 unit) capsule Take 1 (one) capsule (1,000 Units total) by mouth daily . Active cyclobenzaprine hydrochloride 10 mg oral tablet (12 sources) Muscle Relaxant Start: 05-18-2022 cyclobenzaprin e 10 mg oral tablet Dose : 10 mg = 1 tab(s), Oral, q12hr, every 12 hours as needed for headache, # 90 tab(s), 0 Refill(s), Pharmacy: [facility], Muscle tension headache, 164, cm, 05/18/22 13:38:00 EDT, Height, kg, 05/18/22 13:38:00 EDT, Dosing Weight Start Date: 05/18/22 Status: Ordered Start: 06-08-2020 End: 03-19-2024 take 1 tablet by mouth once as needed for pain Cyclobenzaprine 10 mg tablet Discontinued 10 mg PO ONCE as needed for Pain June 08, 2020 12:00am March 19, 2024 2:21pm cyclobenzaprine (FLEXERIL) 10 MG tablet Take 10 mg by mouth as needed for Muscle spasms 0 Suspended dextromethorphan hydrobromide 3 mg/ml / promethazine hydrochloride 1.25 mg/ml oral solution (9 sources) Phenothiazine, Uncompetitive D-kxbhir-K-aspartate Receptor Antagonist, Sigma-1 Agonist Start: 12-30-2022 take 1 dose by mouth every six hours as needed for cough dextromethorphan-promethazine 15 mg-6.25 mg/5 mL oral syrup Dose = 5 mL, Oral, q6h, PRN for cough, # 120 mL, 0 Refill(s), Pharmacy: [facility], Cough, 165, cm, 12/14/22 10:37:00 EDT, Height, kg, 12/14/22 10:37:00 EDT, Dosing Weight Start Date: 12/30/22 Status: Ordered Start: 05-18-2022 take 1 dose by mouth every six hours as needed for cough dextromethorphan-promethazine 15 mg-6.25 mg/5 mL oral syrup Dose = 5 mL, Oral, q6h, PRN for cough, # 120 mL, 0 Refill(s), Pharmacy: [facility], Cough, 164, cm, 05/18/22 13:38:00 EDT, Height, kg, 05/18/22 13:38:00 EDT, Dosing Weight Start Date: 05/18/22 Status: Ordered Start: 08-05-2021 take 1 dose by mouth every six hours as needed for cough dextromethorphan-promethazine 15 mg-6.25 mg/5 mL oral syrup Dose = 5 mL, Oral, q6h, PRN for cough, # 120 mL, 0 Refill(s), Pharmacy: [facility], Cough, 165, cm, 08/05/21 14:25:00 EDT, Height, kg, 08/05/21 14:25:00 EDT, Dosing Weight Start Date: 08/05/21 Status: Ordered Start: 03-22-2021 take 5 mL by mouth every six hours as needed for cough promethazine-dextromethorphan (PROMETHAZINE-DM) 6.25-15 mg/5 mL syrup Take 5 mL by mouth every 6 (six) hours as needed for cough . 03/22/2021 Active Start: 03-22-2021 take 1 dose by mouth every six hours as needed for cough dextromethorphan-promethazine 15 mg-6.25 mg/5 mL oral syrup Dose = 5 mL, Oral, q6h, PRN for cough, # 120 mL, 0 Refill(s), Pharmacy: [facility], Allergic rhinitis, seasonal, 164, cm, 03/22/21 11:18:00 EST, Height, kg, 03/22/21 11:18:00 EST, Dosing Weight Start Date: 03/22/21 Status: Ordered dicyclomine hydrochloride 10 mg oral capsule (1 source) Anticholinergic Start: 08-04-2024 End: 08-18-2024 dicyclomine 10 mg oral capsule Dose : 10 mg = 1 cap(s), Oral, QID, # 56 cap(s), 0 Refill(s) Start Date: 08/04/24 Stop Date: 08/18/24 Status: Ordered Quantity: 56.0 Unit: cap(s) Repeat number: 1 1 ml diphenhydrAMINE hydrochloride 50 mg/ml cartridge (1 source) Histamine-1 Receptor Antagonist Start: 10-17-2019 End: 10-17-2019 diphenhydrAMINE (BENADRYL) injection 12.5 mg DME [facility] (5 sources) Start: 08-14-2021 DME MISCellaneous See Instructions, Spacer chamber Dx: R06.2, # 1 EA, 0 Refill(s), Pharmacy: [facility]/pharmacy #[id number], Wheezing, 165, cm, 08/05/21 14:25:00 EDT, Height, 77.1 Start Date: 08/14/21 Status: Ordered esomeprazole 40 mg delayed release oral capsule (20 sources) Proton Pump Inhibitor Start: 09-04-2023 take 1 capsule by mouth twice daily 30 minutes before breakfast esomeprazole (NEXIUM) 40 MG capsule TAKE ONE CAPSULE BY MOUTH TWICE DAILY 30 MINUTES BEFORE BREAKFAST AND DINNER 09/04/2023 Active Start: 08-18-2016 End: 08-29-2024 take 1 capsule by mouth once daily Esomeprazole Magnesium (Nexium) 40 mg capsule,delayed release(DR/EC) Discontinued 40 mg PO DAILY November 23, 2020 12:00am August 29, 2024 3:10pm take 40 mg by mouth once daily e someprazole Magnesium (NEXIUM) 40 MG PACK Take 40 mg by mouth daily 0 Suspended 1 ml galcanezumab-gnlm 120 mg/ml auto-injector (4 sources) Start: 03-02-2022 Emgality Prefi lled Pen 120 mg/mL subcutaneous solution 0 Refill(s) Start Date: 03/02/22 Status: Ordered 12 hr guaiFENesin 1200 mg extended release oral tablet (17 sources) Start: 03-19-2024 take 1 tablet by mouth twice daily, then take 1 tablet by mouth every twelve hours Guaifenesin (Mucus Relief Er) 1,200 mg tablet extended release 12hr Active 1200 mg PO TWICE A DAY March 19, 2024 1:00am Start: 08-08-2023 Mucinex 600 mg oral tablet, extended release Dose : 600 mg = 1 tab(s), Oral, q12h, 0 Refill(s) Start Date: 08/08/23 Status: Ordered Repeat number: 1 Start: 08-18-2016 End: 06-08-2020 take 1 tablet by mouth once daily Guaifenesin 600 MG tablet extended release 12hr Discontinued 800 mg PO DAILY August 18, 2016 12:00am June 08, 2020 9:12am Start: 08-18-2016 End: 06-08-2020 take 800 mg by mouth once daily Guaifenesin Discontinu ed 800 MG PO DAILY August 17, 2016 11:00pm June 08, 2020 8:12am take 2 tablets by mo uth every four hours as needed guaiFENesin 200 mg tablet Take 2 (two) tablets (400 mg total) by mouth every 4 (four) hours as needed . Active Hemorrhoidal 0.25% rectal suppository (3 sources) Start: 03-01-2024 Hemorrhoidal 0 .25% rectal suppository 0 Refill(s) Start Date: 03/01/24 Status: Ordered Repeat number: 1 1 ml hydrALAZINE hydrochloride 20 mg/ml injection (1 source) Arteriolar Vasodilator Start: 10-17-2019 hydrALAZINE (APRESOLINE) injection 5 mg Hydrocortisone / Lidocaine (6 sources) Antiarrhythmic, Corticosteroid, Amide Local Anesthetic Start: 05-15-2024 Hydrocortisone 2.5% / Lidocaine 5% Ointment (Cmpd) ointment Active 0 .Route 30 3 May 15, 2024 11:00am Insert a pea sized amount into your rectum 2-3x a day as needed for rectal pain Start: 05-15-2024 Hydrocortisone 2.5% / Lidocaine 5% Ointment (Cmpd) ointment Active 0 .Route 30 May 15, 2024 11:00am Insert a pea sized amount into your rectum 2-3x a day as needed for rectal pain Start: 04-18-2024 End: 05-15-2024 Hydrocortisone 2.5% / Lidoca ine 5% Ointment (Cmpd) ointment Discontinued 0 .Route 30 0 April 18, 2024 1:00am May 15, 2024 11:01am Insert a pea sized amount into your rectum 2-3x a day as needed for rectal pain Start: 04-18-2024 End: 05-15-2024 Hydrocortisone 2.5% / Lidoca ine 5% Ointment (Cmpd) ointment Discontinued 0 .Route April 18, 2024 1:00am May 15, 2024 11:01am Insert a pea sized amount into your rectum 2-3x a day as needed for rectal pain 1 ml HYDROmorphone hydrochloride 1 mg/ml cartridge (3 sources) Opioid Agonist Start: 10-17-2019 HYDROmorphone (DILAUDID) injection 0.25 mg Start: 10-17-2019 HYDROmorphone (DILAUDID) injection 0.5 mg ibuprofen 200 mg oral tablet (6 sources) Nonsteroidal Anti-inflammatory Drug take 2 tablets by mouth every six hours as needed ibuprofen (ADVIL,MOTRIN) 200 MG tablet Take 2 (two) tablets (400 mg total) by mouth every 6 (six) hours as needed . Active 4 ml labetalol hydrochloride 5 mg/ml cartridge (1 source) beta-Adrenergic Anton Start: 020 labetalol (NORMODYNE;TRANDATE) injection 5 mg 0.375 ml leuprolide acetate 120 mg/ml prefilled syringe (4 sources) Gonadotropin Releasing Hormone Receptor Agonist leuprolide (MADIHA RONEL) 45 mg injection Inject 45 (forty five) mg under the skin every 6 (six) months . Active 10 ml lidocaine hydrochloride 10 mg/ml injection (1 source) Antiarrhythmic, Amide Local Anesthetic Start: End: lidocaine PF 1 % injection 1 mL Claritin (20 sources) Start: Claritin Dose : 10 mg =, qDay, 0 Refill(s) Start Date: 10/18/18 Status: Ordered Repeat number: 1 Start: 10-18-2018 Claritin Dose : 10 mg =, qDay, 0 Refill(s) Start Date: 10/18/18 Status: Ordered Start: 08-18-2016 take 1 tablet by tess th once daily Loratadine 10 MG tablet Active 10 mg PO DAILY August 18, 2016 12:00am allergies Loratadine (CLAR ITIN PO) Take by mouth 0 Suspended Loratadine (CLAR ITIN PO) Take by mouth 0 Active 1 ml meperidine hydrochloride 50 mg/ml injection (1 source) Opioid Agonist Start: 10-17-2019 meperidine (DEMEROL) injection 12.5 mg naproxen sodium 220 mg oral capsule (2 sources) Nonsteroidal Anti-inflammatory Drug Start: 12-09-2019 Aleve 220 mg oral capsule Dose : 440 mg = 2 cap(s), Oral, Once, 0 Refill(s) Start Date: 12/09/19 Status: Ordered ondansetron 4 mg oral tablet (3 sources) Serotonin-3 Receptor Antagonist Start: 08-04-2024 End: 08-05-2025 take 1 tablet by mouth every six hours as needed for nausea and vomiting Ondansetron Hcl 4 mg tablet Active 4 mg PO EVERY 6 HOURS as needed for nausea and vomiting 11 03August 29, 2024 12:00am Start: 10-17-2019 End: 10-17-2019 ondansetron (ZOFRAN) injecti on 4 mg 24 hr oxybutynin chloride 15 mg extended release oral tablet (20 sources) Cholinergic Muscarinic Antagonist Start: 12-09-2019 End: 11-23-2020 take 1 tablet by mouth once daily in the morning oxyBUTYnin (DITROPAN XL) 15 MG 24 hr tablet Take 1 (one) tablet (15 mg total) by mouth every morning . 12/09/2019 Active Start: 12-09-2019 take 1 tablet by tess th every hour, then take 1 tablet by mouth once daily oxybutynin 15 mg/24 hr oral tablet, extended release Dose : 15 mg = 1 tab(s), Oral, qDay, # 90 tab(s), 3 Refill(s), Pharmacy: [facility], 166, cm, 12/09/19 11:20:00 EDT, Height, kg, 12/09/19 11:20:00 EDT, Dosing Weight Start Date: 12/09/19 Status: Ordered Quantity: 90.0 Unit: tab(s) Repeat number: 4 take 1 tablet by tess th once daily oxybutynin (DITROPAN XL) 15 MG extended release tablet Take 15 mg by mouth daily 0 Suspended oxyCODONE (1 source) Opioid Agonist Start: 10-17-2019 End: 10-17-2019 oxyCODONE (ROXICODONE) immediate release tablet 5 mg 1 ml promethazine hydrochloride 25 mg/ml injection (1 source) Phenothiazine Start: 10-17-2019 End: 10-17-2019 promethazine (PHENERGAN) injection 6.25 mg 3 ml sodium chloride 9 mg/ml injection (2 sources) Start: 10-17-2019 sodium chlorid e flush 0.9 % injection 10 mL Tylenol Cold and Flu Severe Day and Night oral tablet (1 source) Start: 02-02-2023 take 1 tablet by mouth every four hours Tylenol Cold and Flu Severe Day and Night oral tablet tab(s), Oral, q4h, 0 Refill(s) Start Date: 02/02/23 Status: Ordered Vitamin C 500 mg oral tablet (10 sources) Start: 10-18-2018 Vitamin C 500 mg oral tablet Dose : 500 mg = 1 tab(s), Oral, qDay, # 30 tab(s), 0 Refill(s) Start Date: 10/18/18 Status: Ordered Quantity: 30.0 Unit: tab(s) Repeat number: 1 Start: 10-18-2018 Vitamin C 500 mg oral tablet Dose : 500 mg = 1 tab(s), Oral, qDay, # 30 tab(s), 0 Refill(s) Start Date: 10/18/18 Status: Ordered Vitamin D3 (10 sources) Start: 10-18-2018 Vitamin D3 Dos e : 2,000 unit(s) = 1 tab(s), Oral, Daily, 0 Refill(s) Start Date: 10/18/18 Status: Ordered Repeat number: 1 Start: 10-18-2018 Vitamin D3 Dos e : 2,000 unit(s) = 1 tab(s), Oral, Daily, 0 Refill(s) Start Date: 10/18/18 Status: Ordered Zinc (10 sources) Start: 05-28-2021 take 1 mg by mouth once daily Zinc See Instructions, mg Oral qDay, 0 Refill(s) Start Date: 05/28/21 Status: Ordered Repeat number: 1 Start: 05-28-2021 take 1 mg by mouth once daily Zinc See Instructions, mg Oral qDay, 0 Refill(s) Start Date: 05/28/21 Status: Ordered zinc acetate 50 mg oral capsule (3 sources) Start: 03-19-2024 take 1 capsule by mouth once daily Zinc Acetate 50 mg (zinc) capsule Active 50 mg PO daily March 19, 2024 1:00am zinc gluconate 50 mg oral tablet (2 sources) take 1 tablet by mouth once daily in the morning zinc gluconate 50 mg tablet Take 1 (one) tablet (50 mg total) by mouth every morning . Active Completed/Discontinued Medications Medication Drug Class(es) Dates Sig (Normalized) Sig (Original) acetaminophen 325 mg / oxyCODONE hydrochloride 5 mg oral tablet (14 sources) Opioid Agonist Start: 11-25-2020 End: 12-09-2020 Oxycodone-Acetamino phen (Percocet) 5-325 mg tablet Discontinued 1 {tbl} PO EVERY 6 HOURS as needed for pain 14 5 0 November 25, 2020 December 09, 2020 8:50am Left inguinal hernia Start: 09-06-2017 End: 07-06-2020 Oxycodone-Acetaminophen 1 TA BLET tablet Discontinued 1 {tbl} PO EVERY 6 HOURS NEEDED as needed for Pain 16 7 0 September 06, 2017 12:00am July 06, 2020 10:46am Incisional hernia Incisional hernia without obstruction or gangrene Start: 09-06-2017 End: 07-06-2020 take 1 tablet by mouth every six hours as needed Oxycodone-Acetaminophen Discontinued 1 TABLET PO EVERY 6 HOURS NEEDED 16 7 September 05, 2017 11:00pm July 06, 2020 9:46am [id number] actuat albuterol 0.09 mg/actuat metered dose inhaler (5 sources) beta2-Adrenergic Agonist Start: 04-13-2023 End: 04-17-2023 Albuterol Sulfate 90 mcg/actuation HFA aerosol inhaler Discontinued 2 NMA INHALATION EVERY 4-6 HOURS as needed April 13, 2023 1:00am April 17, 2023 2:20pm Start: 04-13-2023 End: 04-17-2023 take 1 puff(s) by inhalation every four to six hours Albuterol Sulfate Discontinued 2 PUFF INHALATION EVERY 4-6 HOURS April 13, 2023 12:00am April 17, 2023 1:20pm Start: 02-02-2023 take 2 puff(s) by in halation every four hours as needed for wheezing ProAir HFA MDI (90 mcg/inh) inhalation aerosol 2 puff(s), Inhalation, q4h, PRN as needed for wheezing, # 8.5 gram(s), 0 Refill(s), Pharmacy: [facility], Upper respiratory infection, 165.1, cm, 02/02/23 9:40:00 EST, Height, kg, 02/02/23 9:40:00 EST, Dosing Weight Start Date: 02/02/23 Status: Ordered amitriptyline hydrochloride 25 mg oral tablet (5 sources) Tricyclic Antidepressant Start: 04-13-2023 End: 03-19-2024 take 1 tablet by mouth once daily Amitriptyline 25 mg tablet Discontinued 25 mg PO DAILY April 13, 2023 1:00am March 19, 2024 2:21pm Start: 08-05-2021 amitriptyline 25 mg oral tablet Dose : 25 mg = 1 tab(s), Oral, qHS, 0 Refill(s) Start Date: 08/05/21 Status: Ordered aprepitant 40 mg oral capsule (1 source) Substance P/Neurokinin-1 Receptor Antagonist Start: 10-17-2019 End: 10-17-2019 aprepitant (EMEND) capsule 40 mg Start: 10-17-2019 End: 10-17-2019 aprepitant (EMEND) capsule 4 0 mg Atogepant (3 sources) Start: 06-28-2023 End: 03-19-2024 take 1 tablet by mouth once daily Atogepant (Qulipta) 60 mg tablet Discontinued 60 mg PO DAILY June 28, 2023 12:00am March 19, 2024 2:20pm Azelas-Fluticasone -Nacl-Nahco3 (1 source) Start: 04-13-2023 End: 04-17-2023 Azelas-Fluticasone -Nacl-Nahco3 Discontinued EACH INTRANASAL April 13, 2023 12:00am April 17, 2023 1:20pm Azelas-Fluticasone -Nacl-Nahco3 137 mcg-50 mcg- 0.9 % kit,spray suspension and spray (3 sources) Start: 04-13-2023 End: 04-17-2023 Azelas-Fluticasone -Nacl-Nahco3 137 mcg-50 mcg- 0.9 % kit,spray suspension and spray Discontinued NMA INTRANASAL April 13, 2023 1:00am April 17, 2023 2:20pm benzonatate 100 mg oral capsule (5 sources) Non-narcotic Antitussive Start: 04-13-2023 End: 03-19-2024 take 1 capsule by mouth twice daily as needed Benzonatate 100 mg capsule Discontinued 100 mg PO TWICE A DAY as needed April 13, 2023 1:00am March 19, 2024 2:20pm Start: 02-04-2023 End: 02-09-2023 Tessalon Perles 100 mg oral capsule Dose : 100 mg = 1 cap(s), Oral, q8h, PRN as needed for cough, X 5 day(s), # 30 cap(s), 0 Refill(s), 02/09/23 6:56:00 PM EST Start Date: 02/04/23 Stop Date: 02/09/23 Status: Ordered doxycycline hyclate 50 mg oral capsule (4 sources) Tetracycline-class Drug Start: 04-13-2023 End: 04-17-2023 take 1 capsule by mouth once daily Doxycycline Hyclate 50 mg capsule Discontinued 50 mg PO DAILY April 13, 2023 1:00am April 17, 2023 2:20pm famotidine 20 mg oral tablet (1 source) Histamine-2 Receptor Antagonist Start: 10-17-2019 End: 10-17-2019 famotidine (PEPCID) tablet 20 mg fexofenadine (2 sources) Histamine-1 Receptor Antagonist Fexofenadine HCl (MUCINEX ALLERGY PO) Take by mouth 0 Suspended Fexofenadine HCl (MUCINEX ALLERGY PO) Take by mouth 0 Active fluticasone propionate 0.05 mg/actuat metered dose nasal spray (9 sources) Corticosteroid Start: 06-08-2020 End: 11-23-2020 Fluticasone Propionate 50 mcg/actuation spray,suspension Discontinued 1 NMA INTRANASAL DAILY June 08, 2020 12:00am November 23, 2020 1:58pm administer into each nostril Start: 06-08-2020 End: 11-23-2020 take 1 spray(s) nasal route once daily Fluticasone Propionate Discontinued 1 SPRAY INTRANASAL DAILY June 07, 2020 11:00pm November 23, 2020 12:58pm administer into each nostril End: 10-17-2019 take 1 spray(s) nasal route once daily fluticasone (FLONASE) 50 MCG/ACT nasal spray 1 spray by Each Nostril route daily 0 10/17/2019 Discontinued (Stop Taking at Discharge) hydrocortisone 25 mg/ml topical cream (6 sources) Corticosteroid Start: 03-29-2024 End: 04-19-2024 Hydrocortisone 100 mg/60 mL enema Discontinued 100 mg RC TWICE A DAY 2520 21 0 March 29, 2024 1:00am April 18, 2024 1:00am April 19, 2024 1:12am Start: 03-29-2024 End: 04-18-2024 Hydrocortisone (Procto-Med H c) 2.5 % cream with perineal applicator Discontinued 1 NMA RC 1 to 2 times per day as needed for hemorrhoids 30 2 March 29, 2024 1:00am April 18, 2024 3:26pm oxymetazoline hydrochloride 0.5 mg/ml nasal spray (1 source) Start: 10-17-2019 End: 10-17-2019 oxymetazoline (AFRIN) 0.05 % nasal spray 2 spray rizatriptan 10 mg oral tablet (18 sources) Serotonin-1b and Serotonin-1d Receptor Agonist Start: 04-17-2023 End: 03-19-2024 take 1 tablet by mouth once Rizatriptan 10 mg tablet Discontinued 10 mg PO ONCE April 17, 2023 1:00am March 19, 2024 2:21pm as a single dose Start: 11-05-2021 take 1 tablet by tess th every two hours rizatriptan (MAXALT) 10 MG tablet take 1 tablet by oral route at start of headache; can repeat dose in 2 hours if needed; limit 2 tablets per 24 hours 11/05/2021 Active thiamine 50 mg oral tablet (4 sources) Start: 04-13-2023 End: 03-19-2024 take 1 tablet by mouth once daily Thiamine Hcl (Vitamin B1) 50 mg tablet Discontinued 50 mg PO DAILY April 13, 2023 1:00am March 19, 2024 2:21pm 24 hr verapamil hydrochloride 120 mg extended release oral capsule (4 sources) Calcium Channel Anton Start: 04-13-2023 End: 03-19-2024 take 1 capsule by mouth once daily Verapamil 120 mg capsule,ext rel. pellets 24 hr Discontinued 120 mg PO DAILY April 13, 2023 1:00am March 19, 2024 2:21pm zinc sulfate 220 mg oral capsule (4 sources) Start: 04-17-2023 End: 03-19-2024 take 1 capsule by mouth once daily Zinc Sulfate 50 mg zinc (220 mg) capsule Discontinued 50 mg PO DAILY April 17, 2023 1:00am March 19, 2024 2:21pm Problems Active Problems Problem Classification Problem Date Documented Da te Episodic/Chronic Abdominal hernia (7 sources) Left inguinal hernia ; Translations: [Unilateral inguinal hernia, without obstruction or gangrene, not specified as recurrent] 11-25-2020 Episodic Abdominal pain (4 sources) Left lower quadrant pain; Translations: [Left upper quadrant pain] 07-24-2024 Episodic Allergic reactions (3 sources) Contact dermatitis 08-08-2023 Episodic Cancer of prostate (17 sources) Malignant neoplasm of prostate; Translations: [Recurrent malignant neoplasm of prostate] Onset: Chronic Comment on above: 2017 Disorders of lipid metabolism (3 sources) Mixed hyperlipidemia 05-31-2023 Chronic Diverticulosis and diverticulitis (10 sources) Diverticula of intestine 08-29-2017 Chronic Esophageal disorders (15 sources) Gastroesophageal reflux disease; Translations: [Gastroesophageal reflux disease without esophagitis] Onset: 3 08-29-2017 Chronic Genitourinary symptoms and ill-defined conditions (14 sources) Genuine stress incontinence; Translations: [Stress incontinence (female) (male)] Onset: 5 09-03-2024 Chronic Headache; including migraine (10 sources) Migraine without aura; Translations: [Migraine] Onset: 5 05-04-2022 Chronic Noninfectious gastroenteritis (2 sources) Noninfectious enteritis; Translations: [Noninfective gastroenteritis and colitis, unspecified] Onset: 5 Episodic Osteoarthritis (10 sources) Arthritis 08-29-2017 Chronic Other and unspecified benign neoplasm (5 sources) Lipoma of groin; Translations: [Benign lipomatous neoplasm of other sites] 11-29-2022 Episodic Other bone disease and musculoskeletal deformities (10 sources) Cervical somatic dysfunction 05-28-2021 Episodic Other bone disease and musculoskeletal deformities (10 sources) Somatic dysfunction of head region 05-28-2021 Episodic Other bone disease and musculoskeletal deformities (10 sources) Somatic dysfunction of lumbar region 05-28-2021 Episodic Other bone disease and musculoskeletal deformities (10 sources) Somatic dysfunction of rib 05-28-2021 Episodic Other bone disease and musculoskeletal deformities (10 sources) Somatic dysfunction of sacral region 05-28-2021 Episodic Other bone disease and musculoskeletal deformities (3 sources) Somatic dysfunction of thoracic region 11-29-2023 Episodic Other gastrointestinal disorders (10 sources) Heartburn 08-29-2017 Episodic Other injuries and conditions due to external causes (10 sources) At low risk for fall 05-28-2021 Episodic Other lower respiratory disease (3 sources) Wheezing 08-14-2021 Episodic Other screening for suspected conditions (not mental disorders or infectious disease) (3 sources) Encounter for screening for malignant neoplasm of colon; Translations: [Rising PSA following treatment for malignant neoplasm of prostate] Onset: 3 Episodic Other upper respiratory disease (2 sources) Seasonal allergic rhinitis; Translations: [Other seasonal allergic rhinitis] 10-15-2024 Chronic Other upper respiratory disease (2 sources) Other seasonal allergic rhinitis; Translations: [Other seasonal allergic rhinitis] Onset: 5 Chronic Other upper respiratory disease (1 source) Deviated nasal septum; Translations: [Deviated nasal septum] Episodic Spondylosis; intervertebral disc disorders; other back problems (7 sources) Cervical spondylosis 01-05-2022 Chronic Spondylosis; intervertebral disc disorders; other back problems (3 sources) Neck pain 05-28-2021 Episodic Sprains and strains (20 sources) Strain of knee; Translations: [Strain of unspecified muscle(s) and tendon(s) at lower leg level, left leg, initial encounter] 06-08-2020 Episodic Superficial injury; contusion (20 sources) Contusion of knee; Translations: [Contusion of left knee, initial encounter] 07-06-2020 Episodic Unclassified (10 sources) Patient encounter status 05-28-2021 Unclassified (2 sources) History of hernia repair 07-24-2024 Unclassified (2 sources) Discussion Onset: Past or Other Problems Problem Classification Problem Date Documented Da te Episodic/Chronic Anal and rectal conditions (16 sources) Rectal pain; Translations: [Other specified diseases of anus and rectum] Onset: 05-01-2024 04-18-2024 Episodic Biliary tract disease (10 sources) Biliary calculus Onset: 10-10-2012 10-10-2012 Episodic Cancer of prostate (7 sources) History of malignant neoplasm of prostate 12-09-2019 Episodic Gastrointestinal hemorrhage (16 sources) Rectal hemorrhage; Translations: [Hemorrhage of anus and rectum] Onset: 04-12-2024 03-19-2024 Episodic Other circulatory disease (1 source) Hemorrhage, not elsewhere classified; Translations: [Hemorrhage, not elsewhere classified] Onset: 04-16-2024 Episodic Viral infection (1 source) Viral disease; Translations: [Other viral agents as the cause of diseases classified elsewhere] Onset: 02-04-2023 Episodic Results Test Name Value Interpretation Reference Range Facility BASIC METABOLIC PANELon 09-21 Anion gap [Moles/Vol] 16 mmol/L Normal - [facility] Comment on above: Order Comment: [facility] has implemented the eGFR calculation approach that does not have a coefficient for race that conforms to the NKF-ASN Task Force Recommendations. Performed By: #### [id number] #### [facility] [address], [place] [address] Heron Wheatley M.D. [id number] Calcium [Mass/Vol] 9.5 mg/dL Normal 8.4-10.2 [facility] Comment on above: Order Comment: [facility] has implemented the eGFR calculation approach that does not have a coefficient for race that conforms to the NKF-ASN Task Force Recommendations. Performed By: #### [id number] #### [facility] [place] [facility] [address] [id number] Heron Wheatley M.D. [id number] Chloride [Moles/Vol] 106 mmol/L Normal 98-108 [facility] Comment on above: Order Comment: [facility] has implemented the eGFR calculation approach that does not have a coefficient for race that conforms to the NKF-ASN Task Force Recommendations. Performed By: #### [id number] #### [facility] [place] [facility] [address] [address] Heron Wheatley M.D. [id number] Creatinine [Mass/Vol] 0.58 mg/dL Low 0.80-1.30 [facility] Comment on above: Order Comment: [facility] has implemented the eGFR calculation approach that does not have a coefficient for race that conforms to the NKF-ASN Task Force Recommendations. Performed By: #### [id number] #### [facility] [place] [facility] [address] [id number] Heron Wheatley M.D. [id number] EGFR 102 mL/min/1.73 m2 Normal >=60 [facility] Comment on above: Order Comment: [facility] has implemented the eGFR calculation approach that does not have a coefficient for race that conforms to the NKF-ASN Task Force Recommendations. Result Comment: Larissa mated GFR was calculated using the 2020 CKD-EPI creatinine equation. Performed By: #### [id number] #### [facility] [place] [facility] [address] [id number] Heron Wheatley M.D. [id number] Glucose [Mass/Vol] 98 mg/dL Normal 65-99 [facility] Comment on above: Order Comment: [facility] has implemented the eGFR calculation approach that does not have a coefficient for race that conforms to the NKF-ASN Task Force Recommendations. Performed By: #### [id number] #### [facility] [place] [facility] [address] [id number] Heron Wheatley M.D. [id number] HCO3 (Bld) [Moles/Vol] 26 mmol/L Normal 21-32 [facility] Comment on above: Order Comment: [facility] has implemented the eGFR calculation approach that does not have a coefficient for race that conforms to the NKF-ASN Task Force Recommendations. Performed By: #### [id number] #### [facility] [place] [facility] [address] [address] Heron Wheatley M.D. [id number] Potassium [Moles/Vol] 4.0 mmol/L Normal 3.5-5.1 [facility] Comment on above: Order Comment: [facility] has implemented the eGFR calculation approach that does not have a coefficient for race that conforms to the NKF-ASN Task Force Recommendations. Performed By: #### [id number] #### [facility] [place] [facility] [address] [id number] Heron Wheatley M.D. [id number] Sodium [Moles/Vol] 144 mmol/L Normal 135-145 [facility] Comment on above: Order Comment: [facility] has implemented the eGFR calculation approach that does not have a coefficient for race that conforms to the NKF-ASN Task Force Recommendations. Performed By: #### [id number] #### [facility] [place] [facility] [address] [id number] Heron Wheatley M.D. [id number] Urea nitrogen [Mass/Vol] 17 mg/dL Normal 8-25 [facility] Comment on above: Order Comment: [facility] has implemented the eGFR calculation approach that does not have a coefficient for race that conforms to the NKF-ASN Task Force Recommendations. Performed By: #### [id number] #### [facility] [place] [facility] [address] [id number] Heron Wheatley M.D. [id number] Urea nitrogen/Creatinine [Mass ratio] 29.3 mg/mg High 10.0-20.0 [facility] Comment on above: Order Comment: [facility] has implemented the eGFR calculation approach that does not have a coefficient for race that conforms to the NKF-ASN Task Force Recommendations. Performed By: #### [id number] #### [facility] [place] [facility] [address] [address] Heron Wheatley M.D. [id number] CBC AND DIFFERENTIAL - [facility] on 10-15-2024 AUTO NRBC 0.0 % Normal [facility] Comment on above: Performed By: #### L [id number] #### [place] [address] [place] [address] Heron Wheatley M.D. [id number] AUTO NRBC ABS COUNT 0.00 K/mcL Normal 0.00-0.00 [facility] Comment on above: Performed By: #### L [id number] #### [place] [address] [place] [address] Heron Wheatley M.D. [id number] BASOPHILS ABSOLUTE COUNT 0.02 K/mcL Normal 0.00-0.30 [facility] Comment on above: Performed By: #### L [id number] #### [facility] [place] [facility] [address] [address] Heron Wheatley M.D. [id number] Basophils/100 WBC (Bld) 0.8 % Normal [facility] Comment on above: Performed By: #### L [id number] #### [facility] [place] [facility] [address] [address] Heron Wheatley M.D. [id number] Eosinophils (Bld) [#/Vol] 0.08 10*3/uL Normal 0.00-0.50 [facility] Comment on above: Performed By: #### L [id number] #### [facility] [place] [place] [facility] [address] [address] Heron Wheatley M.D. [id number] Eosinophils/100 WBC (Bld) 3.2 % Normal [facility] Comment on above: Performed By: #### L [id number] #### [place] [address] [place] [address] Heron Wheatley M.D. [id number] Erythrocyte distribution width (RBC) [Ratio] 14.0 % Normal 11.6-14.8 [facility] Comment on above: Performed By: #### L [id number] #### [facility] [place] [facility] [address] [address] Heron Wheatley M.D. [id number] Hematocrit (Bld) [Volume fraction] 40.7 % Low 41.0-53.0 [facility] Comment on above: Performed By: #### L [id number] #### [place] [address] [address] eHron Wheatley M.D. [id number] Hemoglobin (Bld) [Mass/Vol] 12.8 g/dL Low 13.5-17.5 [facility] Comment on above: Performed By: #### L [id number] #### [place] [address] [place] [address] Heron Wheatley M.D. [id number] IG ABSOLUTE 0.00 K/mcL Normal 0.00-0.30 [facility] Comment on above: Performed By: #### Siva [id number] #### [place] [address] [address] Heron Wheatley M.D. [id number] IG PERCENT 0.00 % Normal [facility] Comment on above: Result Comment: The IG parameter is the percentage of metamyelocytes, myelocytes and promyelocytes. An immature granulocyte count (IG) of 1% or more suggests the possibility of infection, an IG count of 3% is very likely related to an infection. Performed By: #### Siva [id number] #### [facility] [place] [place] [facility] [address] [address] Heron Wheatley M.D. [id number] Lymphocytes (Bld) [#/Vol] 0.51 10*3/uL Low 0.90-4.00 [facility] Comment on above: Performed By: #### L [id number] #### [place] [address] [address] Heron Wheatley M.D. [id number] Lymphocytes/100 WBC (Bld) 20.5 % Normal [facility] Comment on above: Performed By: #### Siva [id number] #### [place] [address] [place] [address] Heron Wheatley M.D. [id number] MCH (RBC) [Entitic mass] 27.7 pg Normal 26.0-34.0 [facility] Comment on above: Performed By: #### Siva [id number] #### [facility] [place] [place] [facility] [address] [address] Heron Wheatley M.D. [id number] MCV (RBC) [Entitic vol] 88.1 fL Normal 80.0-100.0 [facility] Comment on above: Performed By: #### Siva [id number] #### [facility] [place] [place] [facility] [address] [address] Heron Wheatley M.D. [id number] MEAN CORPUSCULAR HEMOGLOBIN CONC 31.4 g/dL Normal 31.0-37.0 [facility] Comment on above: Performed By: #### Siva [id number] #### [facility] [place] [place] [facility] [address] [address] Heron Wheatley M.D. [id number] Monocytes (Bld) [#/Vol] 0.31 10*3/uL Normal 0.30-0.90 [facility] Comment on above: Performed By: #### Siva [id number] #### [facility] [place] [place] [facility] [address] [address] Heron Wheatley M.D. [id number] Monocytes/100 WBC (Bld) 12.4 % Normal [facility] Comment on above: Performed By: #### Siva [id number] #### [facility] [place] [place] [facility] [address] [address] Heron Wheatley M.D. [id number] NEUTROPHILS ABSOLUTE COUNT 1.57 K/mcL Low 1.70-7.00 [facility] Comment on above: Performed By: #### L [id number] #### [facility] [place] [place] [facility] [address] [address] Heron Wheatley M.D. [id number] Neutrophils/100 WBC (Bld) 63.1 % Normal [facility] Comment on above: Performed By: #### L [id number] #### [facility] [place] [place] [facility] [address] [address] Heron Wheatley M.D. [id number] Platelet mean volume (Bld) [Entitic vol] 10.4 fL Normal 9.4-12.4 [facility] Comment on above: Performed By: #### L [id number] #### [facility] [address] [id number] Heron Wheatley M.D. [id number] Platelets (Bld) [#/Vol] 250 10*3/uL Normal 150-400 [facility] Comment on above: Performed By: #### L [id number] #### [facility] [address] [address] Heron Wheatley M.D. [id number] RBC (Bld) [#/Vol] 4.62 10*6/uL Normal 4.50-5.90 [facility] Comment on above: Performed By: #### L [id number] #### [facility] [place] [place] [facility] [address] [id number] Heron Wheatley M.D. [id number] WBC (Bld) [#/Vol] 2.49 10*3/uL Low 4.50-11.00 [facility] Comment on above: Performed By: #### L [id number] #### [facility] [place] [place] [facility] [address] [id number] Heron Wheatley M.D. [id number] H AND Lizandro 10-15-2024 H AND P Assessment and Plan 1. Pre-operative examination Preoperative medical risk stratification indicates that this patient is at an acceptable risk for this elective major surgery pending labs including CBC, BMP, hemoglobin A1c and urinalysis and culture This patient scored NO risk for JUANA on our screening tool and will need to be watched closely in the post-operative period. 2. CONCEPCION (stress urinary incontinence), male Plan for surgery to correct the underlying condition by Dr. Yadav. Patient provided instructions on preoperative management of medications including withholding Aspirin, NSAIDS, and specific Herbal Supplements 7 days before surgery. The prescription drug management instructions were given both verbally to the patient and in a written form on our discharge instruction paperwork. Prophylaxis for prevention of deep vein thrombosis per primary surgical team. Please follow the most recent ACCP guidelines. 3. Pre-operative cardiovascular examination This patient has no active cardiac conditions and would be considered at a low risk for a major adverse cardiac event(MACE) based on a revised cardiac risk index score of 0, in addition is asymptomatic with greater than 4 METS of functional capacity and therefore is at acceptable cardiac risk for elective surgery based on the most recent ACC/AHA guidelines. 4. Gastroesophageal reflux disease without esophagitis Well controlled and optimized for surgery on a PPI, Nexium with diet modification. Will use pre and post-op to help reduce aspiration risk. This is a chronic stable medical condition. 5. Prostate cancer (HCC) Status post radical prostatectomy and then later radiation and now was on Eligard injections. Last PSA was stable. See above. 6. Other migraine without status migrainosus, not intractable Patient is managed with Botox injections every several months and Maxalt to abort headaches. He has been having increased headaches recently. He can stay on this regimen pre and postoperatively. This is a chronic stable medical condition. 7. Seasonal allergic rhinitis, unspecified trigger He does have some chronic lung symptoms and is on Mucinex and Claritin. This is a chronic stable medical condition. Chief Complaint Patient presents with Consult From Surgeon History of Present Illness Tray Gomes is a 74 y.o. male who presents at the request of Lopez Yadav MD prior to ARTIFICIAL URINARY SPHINCTER INSERTION, CYSTOSCOPY Surgery Date: 10/24/2024. Patient here with stress urinary incontinence. The patient had a radical prostatectomy around 2016 and then had recurrence of cancer and had radiation. He is now on Eligard injections. He has stress urinary incontinence which has not responded to conservative measures. He will get a artificial urinary sphincter placed. Please note that this patient has done well with anesthesia in the past and his chronic medical conditions including GERD and migraine headache are managed well on the home medications and are stable for the upcoming procedure. Patient does have a history of GERD and is managed well with Nexium twice a day. Patient does have migraine headaches and gets Botox injections to prevent them and utilizes Maxalt to abort headaches. This patient does exert to greater then 4 METS. The patient does not get any heart or lung symptoms with exertion. Past Medical History: Diagnosis Date Arthritis Complication of anesthesia GERD (gastroesophageal reflux disease) Hemorrhoids Hx of skin cancer, basal cell Migraines Overactive bladder PONV (postoperative nausea and vomiting) Prostate cancer (HCC) Skin cancer CONCEPCION (stress urinary incontinence), male Vitamin D deficiency Past Medical History Pertinent Negatives: Diagnosis Date Noted Bleeding disorder 10/15/2024 Coronary artery disease 10/15/2024 Deep vein thrombosis (HCC) 10/15/2024 Family history of bleeding disorder 10/15/2024 Glaucoma 10/15/2024 History of blood transfusion 10/15/2024 No blood products 10/15/2024 Pulmonary embolism (HCC) 10/15/2024 Sleep apnea, obstructive 10/15/2024 Past Surgical History: Procedure Laterality Date CATARACT EXTRACTION, BILATERAL CHOLECYSTECTOMY COLONOSCOPY HERNIA REPAIR HERNIA REPAIR INGUINAL OPEN KNEE SURGERY Left MOHS NOSE PROSTATE BIOPSY PROSTATECTOMY REPAIR SEPTUM NASAL ROTATOR CUFF REPAIR Bilateral Social History[1] Family History Problem Relation Age of Onset Heart disease Mother Heart disease Father Heart disease Natural Sister Heart disease Natural Sister Anesthesia problems Neg Hx Surgical complications Neg Hx Clotting disorder Neg Hx Deep vein thrombosis Neg Hx Pulmonary embolism Neg Hx Prior to Admission medications taking for visit date 10/15/24 Medication Sig Taking? Discontinued? aluminum-magnesium hydroxide-simethicone (MAALOX PLUS) 200-200-20 mg/5 mL Susp Take 30 mL by mouth 4 (four) times a da (more content not included)... Normal [facility] HEMOGLOBIN A1Con 10-15-2024 Glucose [Mass/Vol] 137 mg/dL High 74-114 [facility] Comment on above: Performed By: #### [id number] #### [facility] [place] [place] [facility] [address], [place] [address] Heron Wheatley M.D. [id number] HbA1c (Bld) [Mass fraction] 6.4 % High 4.2-5.6 [facility] Comment on above: Performed By: #### 4 [id number] #### [facility] [place] [place] [facility] [address], [place] [address] Heron Wheatley M.D. [id number] MR/PATTerrell 10-15-2024 MR/PAT.[facility] Medical Records Department [address] [place] [address] PAT - Anesthesia 10/15/24 1552 MR#: [id number] Acct: [id number] Name: TRAY GOMES Rep #: [id number] : 1950 74 From: Jin Webb MD PCP: Dr. 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 When Was Last Pacemaker Check QUESTION #4 FULL TEXT: You/Your Family Experience fever (hyperthermia) with Anesthesia Last Oral Intake Last Oral intake: Last Oral Intake NPO since Meds taken in AM with sips of water? Meds patient instructed to take am of surgery PONV PONV - millstone cleaner: PONV - millstone cleaner Female No 10/15/24 15:08 HX of Motion Sickness Yes 10/15/24 15:08 HX of N/V After Surgery Yes 10/15/24 15:08 Non-Smoker Yes 10/15/24 15:08 Duration of Surgery greater No 10/15/24 15:08 than 60 minutes Number of Risk Factors 3 10/15/24 15:08 PONV Score Moderate Risk 10/15/24 15:08 Height Weight Height Weight: Anesthesia: Height Weight Height 5 ft 5 in 08/29/24 15:12 Respiratory Assessment Respiratory Assessment - millstone cleaner: Respiratory Tract Infection Hx - millstone cleaner Hx Respiratory Tract Infection No 10/15/24 15:08 STOP Sleep Apnea STOP Sleep Apnea - millstone cleaner: STOP Sleep Apnea - millstone cleaner Hx Hypertension No 10/15/24 15:08 Hx Sleep Apnea No 10/15/24 15:08 CPAP BIPAP Do you snore loudly (louder No 10/15/24 15:08 than talking or can be heard Do you often feel tired/ No 10/15/24 15:08 fatigued/ sleepy during daytime? Has anyone observed you stop No 10/15/24 15:08 breathing during sleep? STOP Results Negative 10/15/24 15:08 QUESTION #5 FULL TEXT : Do you snore loudly (louder than talking or can be heard through closed doors)? Tobacco Use History Tobacco Use History - millstone cleaner: Tobacco Use History - millstone cleaner Tobacco Use Smoking Status Never smoker 10/15/24 15:08 Hx Tobacco Use No 10/15/24 15:08 Years Smoking Packs Smoked per Day Smoking Cessation Date was within the last 15 years Hx Smoking Cessation Date Hx Smoking Cessation Counseling Hematologic Medial History Hematologic Hx - millstone cleaner: Hematologic Medical Hx - sample wrapper Hx of Blood Transfusion No 10/15/24 15:08 Hx of Transfusion in last 3 No 10/15/24 15:08 Months Date of Last Transfusion (if within last 3 months) Ever experience any problems No 10/15/24 15:08 with transfusion(s)? Specify any problems Hx of Preganancy in last 3 N/A 10/15/24 15:08 Months Nurse Filling Out Transfusion VCHRISTIN 10/15/24 15:08 Questions: Date: 10/15/24 10/15/24 15:08 Time: 15:10 10/15/24 15:08 Patient unable to answer at this time (ie. confused, unrespo /Reproduction History /Reproductive History - millstone cleaner: /Reproductive Hx- millstone cleaner Hx Now No 10/15/24 15:08 Gestational Age (in weeks): EDC: Hx Hx Para Hx Section SAB No 10/15/24 15:08 [facility] Medical History (Updated 10/15/24 @ 15:08 by Merle Beauchamp) History of flexible sigmoidoscopy Heartburn Former smoker Loss of hearing History of steroid therapy History of hiatal hernia History of ulceration Rectal bleeding Basal cell carcinoma Erectile dysfunction due to arterial insufficiency OAB (overactive bladder) Prostate cancer Wears dentures Wears glasses Arthritis Migraine headache Non-smoker Leg cramps History of stress test Osteoarthritis GERD (gastroesophageal reflux disease) History of prostate cancer Hx of hemorrhoids Home Medications ???Medication ???Instructions ???Recorded ???Last Taken ???Type loratadine 10 mg tablet 10 mg PO DAILY allergies 08/18/16 04/22/24 History oxybutynin chloride 15 mg 15 mg PO DAILY overactive bladder 11/23/20 04/22/24 History tablet,extended release 24 hr ascorbic acid (vitamin C) 1,000 mg 1 g PO QDAY 03/19/24 04/21/24 Hi story capsule cholecalciferol (vitamin D3) 125 (more content not included)... Normal [facility] UAOrdered By: Lucy Fernandez on 10-15-2024 Bacteria Auto Ql (U) None Seen None Se en /hpf [facility] Bilirubin Ql (U) Negative Negative [facility] th Calcium oxalate crystals Computer assisted (U) [#/Area] Few Abnormal None Seen /hpf [facility] Clarity Refractometry automated (U) Clear Clear [facility] Color (U) Yellow Colorless, Yellow [facility] Epithelial cells.squamous Auto (Urine sed) [#/Area] [facility] Glucose Auto test strip (U) [Mass/Vol] Negative Negative mg/dL [facility] Hemoglobin Auto test strip Ql (U) Negative Negative [facility] Interpretation and review of laboratory results Abnormal [facility] Ketones (U) [Mass/Vol] Negative Negat caprice mg/dL [facility] Leukocyte esterase Auto test strip Ql (U) Negative Negative [facility] h Mucus Auto (Urine sed) [#/Area] Few Abnormal None Seen, Rare /lpf [facility] Nitrite Auto test strip Ql (U) Negative Negative [facility] pH (U) 5.5 [pH] 5.0 - 7.0 [facility] Protein (U) [Mass/Vol] Negative Negat caprice mg/dL [facility] RBC Auto (Urine sed) [#/Area] 6 High [facility] Specific gravity (U) [Rel density] 1.034 High 1.005 - 1.025 [facility] Urobilinogen (U) [Mass/Vol] mg/dL NINF - 2.0 mg/dL [facility] WBC Auto (Urine sed) [#/Area] [facility] Microscopic examinat ion is performed on all urinalysis samples and only positive findings are reported. The test for blood on the chemical analytic portion of urinalysis may also be positive due to hemoglobinuria and myoglobinuria and if red blood cells are present they are quantified by microscopic examination. [facility] URINALYSISon 10-15-2024 BACTERIA, URINE None Seen Normal None Seen [facility] Comment on above: Order Comment: Micro scopic examination is performed on all urinalysis samples and only positive findings are reported. The test for blood on the chemical analytic portion of urinalysis may also be positive due to hemoglobinuria and myoglobinuria and if red blood cells are present they are quantified by microscopic examination. Performed By: #### [id number] #### [facility] [place] [place] [facility] [address] [id number] Heron Wheatley M.D. [id number] BILIRUBIN, URINE Negative Normal Negative [facility] Comment on above: Order Comment: Micro scopic examination is performed on all urinalysis samples and only positive findings are reported. The test for blood on the chemical analytic portion of urinalysis may also be positive due to hemoglobinuria and myoglobinuria and if red blood cells are present they are quantified by microscopic examination. Performed By: #### [id number] #### [facility] [place] [place] [facility] [address] [address] Heron Wheatley M.D. [id number] BLOOD, URINE Negative Normal Negative [facility] Comment on above: Order Comment: Micro scopic examination is performed on all urinalysis samples and only positive findings are reported. The test for blood on the chemical analytic portion of urinalysis may also be positive due to hemoglobinuria and myoglobinuria and if red blood cells are present they are quantified by microscopic examination. Performed By: #### [id number] #### [facility] [place] [place] [facility] [address] [address] Heron Wheatley M.D. [id number] CALCIUM OXALATE CRYSTALS Few Abnormal None Seen [facility] Comment on above: Order Comment: Micro scopic examination is performed on all urinalysis samples and only positive findings are reported. The test for blood on the chemical analytic portion of urinalysis may also be positive due to hemoglobinuria and myoglobinuria and if red blood cells are present they are quantified by microscopic examination. Performed By: #### [id number] #### [facility] [place] [place] [facility] [address] [address] Heron Wheatley M.D. [id number] Clarity (U) Clear Normal Clear [facility] Comment on above: Order Comment: Micro scopic examination is performed on all urinalysis samples and only positive findings are reported. The test for blood on the chemical analytic portion of urinalysis may also be positive due to hemoglobinuria and myoglobinuria and if red blood cells are present they are quantified by microscopic examination. Performed By: #### 4 [id number] #### [facility] [place] [place] [facility] [address] [address] Heron Wheatley M.D. [id number] Color (U) Yellow Normal Colorless, Yellow [facility] Comment on above: Order Comment: Micro scopic examination is performed on all urinalysis samples and only positive findings are reported. The test for blood on the chemical analytic portion of urinalysis may also be positive due to hemoglobinuria and myoglobinuria and if red blood cells are present they are quantified by microscopic examination. Performed By: #### 4 [id number] #### [facility] [place] [place] [facility] [address] [address] Heron Wheatley M.D. [id number] Glucose Ql (U) Negative Normal [facility] Comment on above: Order Comment: Micro scopic examination is performed on all urinalysis samples and only positive findings are reported. The test for blood on the chemical analytic portion of urinalysis may also be positive due to hemoglobinuria and myoglobinuria and if red blood cells are present they are quantified by microscopic examination. Performed By: #### 4 [id number] #### [facility] [place] [place] [facility] [address] [address] Heron Wheatley M.D. [id number] Ketones Ql (U) Negative Normal [facility] Comment on above: Order Comment: Micro scopic examination is performed on all urinalysis samples and only positive findings are reported. The test for blood on the chemical analytic portion of urinalysis may also be positive due to hemoglobinuria and myoglobinuria and if red blood cells are present they are quantified by microscopic examination. Performed By: #### 4 [id number] #### [facility] [place] [place] [facility] [address] [address] Heron Wheatley M.D. [id number] Leukocyte esterase Test strip Ql (U) Negative Normal [facility] Comment on above: Order Comment: Micro scopic examination is performed on all urinalysis samples and only positive findings are reported. The test for blood on the chemical analytic portion of urinalysis may also be positive due to hemoglobinuria and myoglobinuria and if red blood cells are present they are quantified by microscopic examination. Performed By: #### 4 [id number] #### [facility] [place] [place] [facility] [address] [address] Heron Wheatley M.D. [id number] MUCUS, URINE Few Abnormal None Seen, [facility] Comment on above: Order Comment: Micro scopic examination is performed on all urinalysis samples and only positive findings are reported. The test for blood on the chemical analytic portion of urinalysis may also be positive due to hemoglobinuria and myoglobinuria and if red blood cells are present they are quantified by microscopic examination. Performed By: #### 4 [id number] #### [facility] [place] [place] [facility] [address] [address] Heron Wheatley M.D. [id number] NITRITE, URINE Negative Normal Negative [facility] Comment on above: Order Comment: Micro scopic examination is performed on all urinalysis samples and only positive findings are reported. The test for blood on the chemical analytic portion of urinalysis may also be positive due to hemoglobinuria and myoglobinuria and if red blood cells are present they are quantified by microscopic examination. Performed By: #### 4 [id number] #### [facility] [place] [place] [facility] [address] [address] Heron Wheatley M.D. [id number] pH (U) 5.5 [pH] Normal 5.0-7.0 [facility] Comment on above: Order Comment: Micro scopic examination is performed on all urinalysis samples and only positive findings are reported. The test for blood on the chemical analytic portion of urinalysis may also be positive due to hemoglobinuria and myoglobinuria and if red blood cells are present they are quantified by microscopic examination. Performed By: #### 4 [id number] #### [facility] [place] [place] [facility] [address] [id number] Heron Wheatley M.D. [id number] PROTEIN, URINE Negative Normal Negative [facility] Comment on above: Order Comment: Micro scopic examination is performed on all urinalysis samples and only positive findings are reported. The test for blood on the chemical analytic portion of urinalysis may also be positive due to hemoglobinuria and myoglobinuria and if red blood cells are present they are quantified by microscopic examination. Performed By: #### [id number] #### [facility] [place] [place] [facility] [address], [place] [address] Heron Wheatley M.D. [id number] RBC LM.HPF (Urine sed) [#/Area] 6 /[HPF] High 0-3 [facility] Comment on above: Order Comment: Micro scopic examination is performed on all urinalysis samples and only positive findings are reported. The test for blood on the chemical analytic portion of urinalysis may also be positive due to hemoglobinuria and myoglobinuria and if red blood cells are present they are quantified by microscopic examination. Performed By: #### 4 [id number] #### [facility] [place] [place] [facility] [address] [address] Heron Wheatley M.D. [id number] Specific gravity (U) [Rel density] 1.034 High 1.005-1.02 5 [facility] Comment on above: Order Comment: Micro scopic examination is performed on all urinalysis samples and only positive findings are reported. The test for blood on the chemical analytic portion of urinalysis may also be positive due to hemoglobinuria and myoglobinuria and if red blood cells are present they are quantified by microscopic examination. Performed By: #### 4 [id number] #### [facility] [place] [place] [facility] [address] [address] Heron Wheatley M.D. [id number] SQUAMOUS EPITHELIAL < Normal 0-4 [facility] Comment on above: Order Comment: Micro scopic examination is performed on all urinalysis samples and only positive findings are reported. The test for blood on the chemical analytic portion of urinalysis may also be positive due to hemoglobinuria and myoglobinuria and if red blood cells are present they are quantified by microscopic examination. Performed By: #### 4 [id number] #### [facility] [place] [place] [facility] [address] [address] Heron Wheatley M.D. [id number] UROBILINOGEN, URINE <2.0 Normal <2.0 [facility] Comment on above: Order Comment: Micro scopic examination is performed on all urinalysis samples and only positive findings are reported. The test for blood on the chemical analytic portion of urinalysis may also be positive due to hemoglobinuria and myoglobinuria and if red blood cells are present they are quantified by microscopic examination. Performed By: #### 4 [id number] #### [facility] [place] [place] [facility] [address] [address] Heron Wheatley M.D. [id number] WBC, URINE < Normal 0-5 [facility] Comment on above: Order Comment: Micro scopic examination is performed on all urinalysis samples and only positive findings are reported. The test for blood on the chemical analytic portion of urinalysis may also be positive due to hemoglobinuria and myoglobinuria and if red blood cells are present they are quantified by microscopic examination. Performed By: #### 4 [id number] #### [facility] [place] [place] [facility] [address], [place] [address] Heron Wheatley M.D. [id number] URINE AEROBIC CULTUREon 09-21 URINE AEROBIC CULTURE URINE CULTURE No Growth (<1,000 CFU/mL) Normal [facility] Comment on above: Performed By: #### [id number] #### [facility] [address] [place], [place] [address] Mihir Santos M.D. [id number] POC Urinalysis Dipstick, Aut oon 09-18-2024 Bilirubin Ql (U) Negative Negative [facility] Glucose Ql (U) Negative Normal, Negative mg/dL [facility] Hemoglobin Ql (U) Trace-lysed Abnormal Negative [facility] Interpretation and review of laboratory results Abnormal [facility] Ketones Ql (U) Negative Negative mg/dL [facility] Leukocyte esterase Test strip Ql (U) Negative Negative [facility] Nitrite Ql (U) Negative Negative [facility] pH (U) 6.5 [pH] 5.0 - 7.0 [facility] Protein Ql (U) Negative Negative mg/dL [facility] Specific gravity (U) [Rel density] 1.015 1.005 - 1.025 [facility] Urobilinogen Qn (U) 0.2 mg/dL <2.0, 0. 2, Normal, Negative, 1.0, 2.0, <1.0 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 Sowmya A nthony Age/Sex: 74/M Location: [facility] Status: Signed Intake Vital Signs 08/27/24 13:29 08/29/24 15:12 Height 5 ft 5 in 5 ft 5 in Weight: 178 lb 1 oz 174 lb 6 oz BMI 29.6 29.0 BP 113/69 111/70 Blood Pressure Location Rt brachial Position Sitting Respiration 18 18 Pulse 72 81 Pulse Source Monitor Temp 98.9 F 97.9 F Temp Source Temporal Pulse Oximetry (%) 95 95 Oxygen Delivery Method room air room air Intake Visit Reasons: Abdominal pain Chief Complaint: pain and nausea Wax Bleacher Required: No Accompanied by: Self Is patient in pain?: Yes Allergies oxycodone (From Percocet) Allergy (Intermediate, Verified 08/29/24 15:06) hives/itching Acrylic Acid and Acrylates (steri-strips (acrylate)) Allergy (Verified 08/29/24 15:06) Swelling Medications ???Medication ???Instructions ???Recorded ???Confirmed ???Type loratadine 10 mg tablet 10 mg PO DAILY allergies 08/18/16 08/29/24 History oxybutynin chloride 15 mg 15 mg PO DAILY overactive bladder 11/23/20 08/29/24 History tablet,extended release 24 hr ascorbic acid (vitamin C) 1,000 mg 1 g PO QDAY 03/19/24 08/29/24 Hi story capsule cholecalciferol (vitamin D3) 125 125 mcg PO QDAY 03/19/24 08/29/24 History mcg (5,000 unit) tablet guaifenesin 1,200 mg tablet, 1,200 mg PO BID 03/19/24 08/29/24 History extended release 12 hr (Mucus Relief ER) rizatriptan 10 mg tablet See Rx Instructions PO .COMPLEX 08/29/24 History zinc acetate 50 mg (zinc) capsule 50 mg PO QDAY 03/19/24 08/29/24 H istory aluminum-mag hydroxide-simethicone 5 ml PO Q3H PRN dyspepsia 08/29/24 History 200 mg-200 mg-20 mg/5 mL oral susp (Advanced Antacid-Antigas) Hydrocortisone 2.5% / Lidocaine 5% #30 grams 05/15/24 08/29/24 Rx ointment (cmpd) esomeprazole magnesium 40 mg 40 mg PO BID 08/29/24 08/29/24 His tory capsule,delayed release (Nexium) ondansetron HCl 4 mg tablet 4 mg PO Q6H PRN nausea and 5 08/29/24 Rx vomiting #20 tabs Have you fallen in the past year?: No PFSH Medical History Heartburn Former smoker Loss of hearing History of steroid therapy History of hiatal hernia History of ulceration Rectal bleeding Basal cell carcinoma Erectile dysfunction due to arterial insufficiency OAB (overactive bladder) Prostate cancer Wears dentures Wears glasses Arthritis Migraine headache Non-smoker Leg cramps History of stress test Osteoarthritis GERD (gastroesophageal reflux disease) History of prostate cancer Hx of hemorrhoids Surgical History Hx of right inguinal hernia repair Hx of repair of rotator cuff History of cardiac catheterization History of colonoscopy ( 2017) History of hemorrhoidectomy Hx of hernia repair Hx of prostatectomy Hx of cataract surgery Hx of prostate biopsy Hx of arthroscopy of left knee Hx of cholecystectomy History of nasal surgery Family History Mother Heart disease Hypertension Diabetes Father Heart disease Hypertension Sister Heart disease Hypertension Diabetes Social History Smoking Status: Never smoker alcohol intake: never substance use type: does not use HPI HPI Chief Complaint: pain and nausea Details: TRAY GOMES, is a 74 M who presents to the office today for CT 08/04/2024 A few small bowel loops with wall edema in the right upper quadrant, some surrounding inflammatory fat stranding and fluid, there is tracking into the right lower quadrant. Multiple fluid-filled small bowel loops, with no evidence of obstruction. Differential includes infectious enteritis as well as inflammatory etiologies such as acute Crohn's and celiac disease. No associated lymphadenopathy. - abdominal pain, N/V - Enteritis - Augmentin and Dicyclomine and pain resolved - abdominal pain and nausea resumed the past week - he is taking dicyclomine prn - he has adjusted his diet and increased water intake - BM daily, taking tsp Metamucil and dose of Miralax daily - denies diarrhea - denies any bleeding - denies any fevers - Esomeprazole 40mg BID - Mylanta BID for upset stomach - weight is stable - denies any night sweats - denies any bleeding - denies any alcohol - denies any NSAIDS - denies any smoking Attestation: Documentation on this patient encounter was supported using a (more content not included)... Normal [facility] PSA,Total- Diagnosticon 07- PSA, DIAGNOSTIC < 0.02 Normal 0.00-4.00 [facility] Comment on above: Result Comment: This test was performed using the [facility] tPSA method. Measured values of a patient??sample can vary depending on the testing procedure used. PSA values determined on patient samples by different testing procedures cannot be used interchangeably. If there is a change in PSA assays while monitoring therapy, sequential testing should be performed to confirm baseline values. Performed By: #### L [phone] #### [facility] [address] [place], [address] Radiation Oncology Visiton 0 08-27-2024 Radiation Oncology Visit [facility] [address] [place] [address] OFFICE VISIT Date of Service: 08/27/24 1327 MR#: [id number] Acct: [id number] Name: TRAY GOMES Rep #: [id number] : 1950 From: Berto Chambers DO Age/Sex: 74/M [place] [facility] [place]: Signed Intake Vital Signs 02/26/24 11:27 08/27/24 13:29 Height 5 ft 5 in 5 ft 5 in Weight: 178 lb 1 oz BMI 29.6 BP 113/69 Blood Pressure Location Rt brachial Position Sitting Respiration 18 Pulse 72 Pulse Source Monitor Temp 98.9 F Temperature Source Temporal Artery Pulse Oximetry (%) 95 Oxygen Delivery Method room air Intake Visit Reasons: 6 MONTH PROSTATE, PSA PRIOR Accompanied by: Is patient in pain?: Yes (small intestine-swelled up-finished atb and steroids) Pain scale (1-10): 5 Allergies oxycodone (From Percocet) Allergy (Intermediate, Verified 08/27/24 13:31) hives/itching Acrylic Acid and Acrylates (steri-strips (acrylate)) Allergy (Verified 08/27/24 13:31) Swelling Medications ???Medication ???Instructions ???Recorded ???Confirmed ???Type loratadine 10 mg tablet 10 mg PO DAILY allergies 08/18/16 08/27/24 History esomeprazole magnesium 40 mg 40 mg PO DAILY 11/23/20 08/27/24 H istory capsule,delayed release (Nexium) oxybutynin chloride 15 mg 15 mg PO DAILY overactive bladder 11/23/20 08/27/24 History tablet,extended release 24 hr ascorbic acid (vitamin C) 1,000 mg 1 g PO QDAY 03/19/24 08/27/24 Hi story capsule cholecalciferol (vitamin D3) 125 125 mcg PO QDAY 03/19/24 08/27/24 History mcg (5,000 unit) tablet guaifenesin 1,200 mg tablet, 1,200 mg PO BID 03/19/24 08/27/24 History extended release 12 hr (Mucus Relief ER) rizatriptan 10 mg tablet See Rx Instructions PO .COMPLEX 08/27/24 History zinc acetate 50 mg (zinc) capsule 50 mg PO QDAY 03/19/24 08/27/24 H istory aluminum-mag hydroxide-simethicone 5 ml PO Q3H PRN dyspepsia 08/27/24 History 200 mg-200 mg-20 mg/5 mL oral susp (Advanced Antacid-Antigas) Hydrocortisone 2.5% / Lidocaine 5% #30 grams 05/15/24 08/27/24 Rx ointment (cmpd) Have you fallen in the past year?: Yes PFSH PFSH Medical History Heartburn Former smoker Loss of hearing History of steroid therapy History of hiatal hernia History of ulceration Rectal bleeding Basal cell carcinoma Erectile dysfunction due to arterial insufficiency OAB (overactive bladder) Prostate cancer Wears dentures Wears glasses Arthritis Migraine headache Non-smoker Leg cramps History of stress test Osteoarthritis GERD (gastroesophageal reflux disease) History of prostate cancer Hx of hemorrhoids Home Medications ???Medication ???Instructions ???Recorded ???Last Taken ???Type loratadine 10 mg tablet 10 mg PO DAILY allergies 08/18/16 04/22/24 History esomeprazole magnesium 40 mg 40 mg PO DAILY 11/23/20 04/23/24 0 2:00 History capsule,delayed release (Nexium) oxybutynin chloride 15 mg 15 mg PO DAILY overactive bladder 11/23/20 04/22/24 History tablet,extended release 24 hr ascorbic acid (vitamin C) 1,000 mg 1 g PO QDAY 03/19/24 04/21/24 Hi story capsule cholecalciferol (vitamin D3) 125 125 mcg PO QDAY 03/19/24 04/21/24 History mcg (5,000 unit) tablet guaifenesin 1,200 mg tablet, 1,200 mg PO BID 03/19/24 04/21/24 History extended release 12 hr (Mucus Relief ER) rizatriptan 10 mg tablet See Rx Instructions PO .COMPLEX 04/23/24 01:00 History zinc acetate 50 mg (zinc) capsule 50 mg PO QDAY 03/19/24 04/21/24 H istory aluminum-mag hydroxide-simethicone 5 ml PO Q3H PRN dyspepsia 04/23/24 02:00 History 200 mg-200 mg-20 mg/5 mL oral susp (Advanced Antacid-Antigas) Hydrocortisone 2.5% / Lidocaine 5% #30 grams 05/15/24 Unknown Rx ointment (cmpd) Allergy/AdvReac Type Severity Reaction Status Date / Time oxycodone (From Percocet) Allergy Intermediate hives/itchi Verified 08/27/24 13:31 ng Acrylic Acid and Acrylates Allergy Swelling Verified 08/27/24 13:31 (steri-strips (acrylate)) Family History Mother Heart disease Hypertension Diabetes Father Heart disease Hypertension Sister Heart disease Hypertension Diabetes Surgical History Hx of right inguinal hernia repair Hx of repair of rotator cuff History of cardiac catheterization History of colonoscopy ( 2017) History of hemorrhoidectomy Hx of hernia repair Hx of prostatectomy Hx of cataract surgery Hx of prostate biopsy Hx of arthroscopy of left knee Hx of cholecystectomy History of nasal surgery Social (more content not included)... Normal [facility] .Auto Diffon 08-04-2024 Basophil, Absolute 0.0 10 3/mcL Normal 0.0-0.3 [facility] Comment on above: Performed By: #### G FR, CMP, CBC, LIP, ADIFF, MDW, ANEU #### [address] [address] Basophils/100 WBC (Bld) 0.6 % Normal 0.0-2.5 [facility] Comment on above: Performed By: #### G FR, CMP, CBC, LIP, ADIFF, MDW, ANEU #### [address] [address] Eosinophil, Absolute 0.4 10 3/mcL Normal 0.0-0.7 [facility] Comment on above: Performed By: #### G FR, CMP, CBC, LIP, ADIFF, MDW, ANEU #### [address] [address] Eosinophils/100 WBC (Bld) 7.1 % High 0.0-6.0 [facility] Comment on above: Performed By: #### G FR, CMP, CBC, LIP, ADIFF, MDW, ANEU #### [address] [address] Lymphocyte, Absolute 0.6 10 3/mcL Low 0.9-4.3 [facility] Comment on above: Performed By: #### G FR, CMP, CBC, LIP, ADIFF, MDW, ANEU #### [address] [address] Lymphocytes/100 WBC (Bld) 12.0 % Low 20.0-40.0 [facility] Comment on above: Performed By: #### G FR, CMP, CBC, LIP, ADIFF, MDW, ANEU #### [address] [address] Monocyte, Absolute 0.6 10 3/mcL Normal 0.1-1.4 [facility] Comment on above: Performed By: #### G FR, CMP, CBC, LIP, ADIFF, MDW, ANEU #### [address] [address] Monocytes/100 WBC (Bld) 10.3 % Normal 2.0-13.0 [facility] Comment on above: Performed By: #### G FR, CMP, CBC, LIP, ADIFF, MDW, ANEU #### [address] [address] Neutrophils/100 WBC (Bld) 70.0 % Normal 50.0-75.0 [facility] Comment on above: Performed By: #### G FR, CMP, CBC, LIP, ADIFF, W, ANEU #### [address] [address] .GFRon 08-04-2024 Estimated Glomerular Filtration Rate 97 ml/min/1.73sqm Normal [facility] Comment on above: Result Comment: Stages of Chronic Kidney Disease (CKD) Stage Description eGFR(ml/min/1.73 sq.m.) CKD 1 Normal kidney function or >=90 normal kindney function with possible kidney damage (ex. Proteinuria) CKD 2 Kidney damage with mild loss 60-89 of kidney function CKD 3a Mild to moderate loss of kidney 45-59 function CKD 3b Moderate to severe loss of 30-44 of kindey function CKD 4 Severe loss of kidney function 15-29 CKD 5 Kidney failure <15 Note: (go live 2024) the eGFR calculation was updated to the 2020 CKD-EPI creatinine equation without a race factor to calculate the eGFR results. Performed By: #### G FR, CMP, CBC, LIP, ADIFF, MDW, ANEU ####[id number] [place], [place] [address] .MDWon 08-04-2024 Monocyte Distribution Width 16.89 Normal 0.00-20.00 [facility] Comment on above: Result Comment: For ED adult patients suspected of sepsis, MDW<=20.0 does not rule out sepsis or risk of sepsis Performed By: #### G FR, CMP, CBC, LIP, ADIFF, MDW, ANEU #### [address] [address] .NEUABSon 08-04-2024 Neutrophil, Absolute 3.8 10 3/mcL Normal 2.3-8.1 [facility] Comment on above: Performed By: #### G FR, CMP, CBC, LIP, JUAN FRANCO, ANEU #### [place] [address] CBCon 08-04-2024 Erythrocyte distribution width (RBC) [Ratio] 14.5 % Normal 11.5-15.5 [facility] Comment on above: Performed By: #### G FR, CMP, CBC, SALVADOR BECK MDW, ANEU #### [place] [address] Hematocrit (Bld) [Volume fraction] 43.5 % Normal 40.0-52.0 [facility] Comment on above: Performed By: #### G FR, CMP, CBC, LIP, JUAN FRANCO, ANEU #### [address] [address] Hgb 14.4 G/dL Normal 13.0-17.5 [facility] Comment on above: Performed By: #### G FR, CMP, CBC, LIP, JUAN FRANCO, ANEU #### [address] [address] MCH (RBC) [Entitic mass] 28.4 pg Normal 27.0-33.0 [facility] Comment on above: Performed By: #### G FR, CMP, CBC, LIP, JUAN FRANCO, ANEU #### [address] [address] MCHC 33.1 G/dL Normal 32.0-36.0 [facility] Comment on above: Performed By: #### G FR, CMP, CBC, LIP, JUAN FRANCO, ANEU #### [address] [address] MCV (RBC) [Entitic vol] 85.6 fL Normal 81.0-100.0 [facility] Comment on above: Performed By: #### G FR, CMP, CBC, LIP, ADIFF, W, ANEU #### [address] [address] Platelet 273 10 3/mcL Normal 150-450 [facility] Comment on above: Performed By: #### G FR, CMP, CBC, LIP, ADIFF, MDW, ANEU #### [address] [address] Platelet mean volume (Bld) [Entitic vol] 7.2 fL Normal 6.4-10.5 [facility] Comment on above: Performed By: #### G FR, CMP, CBC, LIP, ADNADIA, W, ANEU #### [address] [address] RBC 5.07 10 6/mcL Normal 4.50-6.00 [facility] Comment on above: Performed By: #### G FR, CMP, CBC, LIP, ADIFF, MDW, ANEU #### [address] [address] WBC 5.4 10 3/mcL Normal 4.5-10.8 [facility] Comment on above: Performed By: #### G FR, CMP, CBC, LIP, ADIFF, MDW, ANEU #### [address] [address] CMPon 08-04-2024 Albumin Level 3.9 G/dL Normal 3.4-4.8 [facility] Comment on above: Performed By: #### G FR, CMP, CBC, LIP, ADIFF, MDW, ANEU #### [address] [address] Albumin/Globulin [Mass ratio] 1.0 {ratio} Low 1.1-2.5 [facility] Comment on above: Performed By: #### G FR, CMP, CBC, LIP, ADIFF, MDW, ANEU #### [address] [address] ALP [Catalytic activity/Vol] 119 U/L Normal 40-135 [facility] Comment on above: Performed By: #### G FR, CMP, CBC, LIP, JUAN FRANCO, ANEU #### [address] [address] ALT [Catalytic activity/Vol] 43 U/L Normal 16-63 [facility] Comment on above: Performed By: #### G FR, CMP, CBC, LIP, JUAN FRANCO, ANEU #### [address] [address] AST [Catalytic activity/Vol] 29 U/L Normal 10-40 [facility] Comment on above: Performed By: #### G FR, CMP, CBC, LIP, JUAN FRANCO, ANEU #### [place] [address] Bili Total 0.3 mg/dL Normal 0.2-1.0 [facility] Comment on above: Result Comment: Use of this assay is not recommended for patients undergoing treatment with eltrombopag due to the potential for falsely elevated results. Performed By: #### G FR, CMP, CBC, LIP, JUAN FRANCO, ANEU #### [place] [address] BUN/Creatinine Ratio 19 ratio Normal 7-27 [facility] Comment on above: Performed By: #### G FR, CMP, CBC, LIP, JUAN FRANCO, ANEU #### [address] [address] Calcium [Mass/Vol] 9.4 mg/dL Normal 8.4-10.2 [facility] Comment on above: Performed By: #### G FR, CMP, CBC, LIP, JUAN FRANCO, ANEU #### [address] [address] Chloride [Moles/Vol] 105 mmol/L Normal 98-107 [facility] Comment on above: Performed By: #### G FR, CMP, CBC, LIP, JUAN FRANCO, ANEU #### [place] [address] CO2 [Moles/Vol] 33 mmol/L High 23-31 [facility] Comment on above: Performed By: #### G FR, CMP, CBC, LIP, JUAN FRANCO, ANEU #### [address] [address] Creatinine [Mass/Vol] 0.69 mg/dL Normal 0.67-1.17 [facility] Comment on above: Performed By: #### G FR, CMP, CBC, LIP, SALVADOR, W, ANEU #### [place] [address] Electrolyte Balance 3.0 mEq/L Low 4.0-15.0 [facility] Comment on above: Performed By: #### G FR, CMP, CBC, LIP, SALVADOR, W, ANEU #### [place] [address] Globulin 3.9 G/dL Normal 2.7-4.4 [facility] Comment on above: Performed By: #### G FR, CMP, CBC, LIP, ADNADIA, W, ANEU #### [place] [address] Glucose [Mass/Vol] 115 mg/dL High 83-110 [facility] Comment on above: Performed By: #### G FR, CMP, CBC, LIP, ADNADIA, W, ANEU #### [address] [address] Potassium [Moles/Vol] 4.2 mmol/L Normal 3.5-5.1 [facility] Comment on above: Performed By: #### G FR, CMP, CBC, LIP, ADNADIA, W, ANEU #### [place] [address] Sodium [Moles/Vol] 141 mmol/L Normal 136-145 [facility] Comment on above: Performed By: #### G FR, CMP, CBC, LIP, ADIFF, MDW, ANEU #### [place] [address] Total Protein 7.8 G/dL Normal 6.4-8.2 [facility] Comment on above: Performed By: #### G FR, CMP, CBC, SALVADOR BECK MDW, ANEU #### [facility] [address] [place], [place] [address] Urea nitrogen [Mass/Vol] 13 mg/dL Normal 7-18 [facility] Comment on above: Performed By: #### G FR, CMP, CBC, SALVADOR BECK MDW, ANEU #### [facility] [address] [place], [place] [address] CT ABD/PELVIS W/ IV CONTRAST ONLYon 08-04-2024 CT ABD/PELVIS W/ IV CONTRAST ONLY ORIGINAL EXAMINATION: CT OF THE ABDOMEN AND PELVIS WITH CONTRAST 08/04/2024 4:27 pm TECHNIQUE: CT of the abdomen and pelvis was performed with the administration of intravenous contrast. Multiplanar reformatted images are provided for review. Automated exposure control, iterative reconstruction, and/or weight based adjustment of the mA/kV was utilized to reduce the radiation dose to as low as reasonably achievable. COMPARISON: None. HISTORY: ORDERING SYSTEM PROVIDED HISTORY: Reason for Exam: Abdominal pain, acute, nonlocalized FINDINGS: Lower Chest: Clear lung bases. Normal heart size. Organs: Fatty liver with unchanged small cystic lesions. Spleen, pancreas, gallbladder and common duct are normal. Normal adrenal glands.normal kidneys and ureters. GI/Bowel: No dilated bowel loops. Small bowel loops are fluid-filled. About the distal jejunum/ileal junction, right upper quadrant, are a few loops of bowel with bowel wall thickening (water-target sign appearance) and mild surrounding fat stranding, as well as small amount of fluid that tracks down into the right lower quadrant.Normal appendix Pelvis: Nondistended bladder. Peritoneum/Retroperitoneum: No free fluid or free air.No inflammatory fat strandingNo lymphadenopathy Bones/Soft Tissues: Partial ankylosis of SI joints. No focal soft tissue mass. Vascular: Normal aortic caliber. IMPRESSION: A few small bowel loops with wall edema in the right upper quadrant, some surrounding inflammatory fat stranding and fluid, there is tracking into the right lower quadrant. Multiple fluid-filled small bowel loops, with no evidence of obstruction. Differential includes infectious enteritis as well as inflammatory etiologies such as acute Crohn's and celiac disease. No associated lymphadenopathy. Normal appendix. Interpreted by: Lucia Izquierdo Preliminary Report By: Lucia Izquierdo Electronically signed By Lucia Izquierdo Dictated Date: 08/04/2024 4:29:51 PM Prelim Date: 08/04/2024 4:42:49 PM Sign Date: 08/04/2024 4:42:49 PM Ordering Provider: SAAD Ospina [facility] LABORATORYOrdered By: SYSTEM SYSTEM on 08-04-2024 Albumin BCP dye [Mass/Vol] 3.9 G/dL Normal 3.4 - 4.8 G/dL AO ADM SS Albumin/Globulin [Mass ratio] 1.0 {ratio} Low 1.1 - 2.5 ratio AO ADM SS ALP [Catalytic activity/Vol] 119 U/L Normal 40 - 135 U/L AO ADM SS ALT With P-5'-P [Catalytic activity/Vol] 43 U/L Normal 16 - 63 U/L AO ADM SS AST With P-5'-P [Catalytic activity/Vol] 29 U/L Normal 10 - 40 U/L AO ADM SS Basophils (Bld) [#/Vol] 0.0 103/mcL Normal 0.0 - 0.3 10^3/mcL AO Workflow SS Basophils/100 WBC (Bld) 0.6 % Normal 0.0 - 2.5 % AO Workflow SS Bilirubin [Mass/Vol] 0.3 mg/dL Normal 0.2 - 1 .0 mg/dL AO ADM SS Comment on above: Interpretive Data: U se of this assay is not recommended for patients undergoing treatment with eltrombopag due to the potential for falsely elevated results. Calcium [Mass/Vol] 9.4 mg/dL Normal 8.4 - 10. 2 mg/dL AO ADM SS Chloride [Moles/Vol] 105 mmol/L Normal 98 - 10 7 mmol/L AO ADM SS CO2 [Moles/Vol] 33 mmol/L High 23 - 31 mmol/L AO ADM SS Creatinine [Mass/Vol] 0.69 mg/dL Normal 0.67 - 1.17 mg/dL AO ADM SS Electrolyte Balance 3.0 mEq/L Low 4.0 - 15 .0 mEq/L AO ADM SS Eosinophil, Absolute 0.4 103/mcL Normal 0.0 - 0 .7 10^3/mcL AO Workflow SS Eosinophils/100 WBC (Bld) 7.1 % High 0.0 - 6.0 % AO Workflow SS Erythrocyte distribution width (RBC) [Ratio] 14.5 % Normal 11.5 - 15.5 % AO Workflow SS Estimated Glomerular Filtration Rate 97 ml/min/1.73sqm Invalid Interpretation Code AO Chemistry S Comment on above: Interpretive Data: Stages of Chronic Kidney Disease (CKD) Stage Description eGFR(ml/min/1.73 sq.m.) CKD 1 Normal kidney function or >=90 normal kindney function with possible kidney damage (ex. Proteinuria) CKD 2 Kidney damage with mild loss 60-89 of kidney function CKD 3a Mild to moderate loss of kidney 45-59 function CKD 3b Moderate to severe loss of 30-44 of kindey function CKD 4 Severe loss of kidney function 15-29 CKD 5 Kidney failure <15 Note: (go live 2024) the eGFR calculation was updated to the 2020 CKD-EPI creatinine equation without a race factor to calculate the eGFR results. Globulin 3.9 G/dL Normal 2.7 - 4.4 G/dL AO ADM SS Glucose [Mass/Vol] 115 mg/dL High 83 - 110 mg/dL AO ADM SS Hematocrit (Bld) [Volume fraction] 43.5 % Normal 40.0 - 52.0 % AO Workflow SS Hemoglobin (Bld) [Mass/Vol] 14.4 G/dL Normal 13.0 - 17.5 G/dL AO Workflow SS Lipase [Catalytic activity/Vol] 23 U/L Normal 16 - 77 U/L AO ADM SS Lymphocytes (Bld) [#/Vol] 0.6 103/mcL Low 0.9 - 4.3 10^3/mcL AO Workflow SS Lymphocytes/100 WBC (Bld) 12.0 % Low 20.0 - 40.0 % AO Workflow SS MCH (RBC) [Entitic mass] 28.4 pg Normal 27.0 - 33.0 pg AO Workflow SS MCHC 33.1 G/dL Normal 32.0 - 36.0 G/dL AO Workflow SS MCV (RBC) [Entitic vol] 85.6 fL Normal 81.0 - 100.0 fL AO Workflow SS Monocyte distribution width Auto (Bld) [Entitic vol] 16.89 1 Normal 0.00 - 20.00 AO Workflow SS Comment on above: Result Comment: For ED adult patients suspected of sepsis, MDW<=20.0 does not rule out sepsis or risk of sepsis Monocytes (Bld) [#/Vol] 0.6 103/mcL Normal 0.1 - 1.4 10^3/mcL AO Workflow SS Monocytes/100 WBC (Bld) 10.3 % Normal 2.0 - 13.0 % AO Workflow SS Neutrophils (Bld) [#/Vol] 3.8 103/mcL Normal 2.3 - 8.1 10^3/mcL AO Workflow SS Neutrophils/100 WBC (Bld) 70.0 % Normal 50.0 - 75.0 % AO Workflow SS Platelet mean volume (Bld) [Entitic vol] 7.2 fL Normal 6.4 - 10.5 fL AO Workflow SS Platelets (Bld) [#/Vol] 273 103/mcL Normal 150 - 450 10^3/mcL AO Workflow SS Potassium [Moles/Vol] 4.2 mmol/L Normal 3.5 - 5.1 mmol/L AO ADM SS Protein [Mass/Vol] 7.8 G/dL Normal 6.4 - 8.2 G/dL AO ADM SS RBC (Bld) [#/Vol] 5.07 106/mcL Normal 4.50 - 6.00 10^6/mcL AO Workflow SS Sodium [Moles/Vol] 141 mmol/L Normal 136 - 145 mmol/L AO ADM SS Urea nitrogen [Mass/Vol] 13 mg/dL Normal 7 - 18 mg/dL AO ADM SS Urea nitrogen/Creatinine [Mass ratio] 19 ratio Normal 7 - 27 ratio AO ADM SS WBC (Bld) [#/Vol] 5.4 103/mcL Normal 4.5 - 10.8 10^3/mcL AO Workflow SS LABORATORYOrdered By: Martha Garrison on 08-04-2024 Appearance (U) Clear (08/04/24 3:27 PM) Normal Clear AO Auto Urine SS Bilirubin Ql (U) Negative (08/04/24 3:27 PM) Normal Negative AO Auto Urine SS Color (U) Yellow (08/04/24 3:27 PM) Normal AO Auto Urine SS Glucose Test strip (U) [Mass/Vol] Negative Normal Negative AO Auto Urine SS Hemoglobin Auto test strip (U) [Mass/Vol] Trace (08/04/24 3:27 PM) Normal Negative AO Auto Urine SS Ketones Ql (U) Negative Normal Negative AO Auto Urine SS UA Leuk Est Negative (08/04/24 3:27 PM) Normal Negative AO Auto Urine SS UA Nitrite Negative (08/04/24 3:27 PM) Normal Negative AO Auto Urine SS UA pH 6.0 (08/04/24 3:27 PM) Normal 5.0 - 8.0 AO Auto Urine SS UA Protein Negative Normal Negative AO Auto Urine SS UA Spec Grav 1.020 (08/04/24 3:27 PM) Normal 1.015-1.02 5 AO Auto Urine SS UA Specimen Type Void (08/04/24 3:27 PM) Normal AO Auto Urine SS UA Urobilinogen 0.2 E.U./dL Normal 0.2-1.0 AO Auto Urine SS LIPon 08-04-2024 Lipase Level 23 U/L Normal 16-77 [facility] Comment on above: Performed By: #### G FR, CMP, CBC, LIP, ADIFF, MDW, ANEU #### [address] [address] UAon 08-04-2024 Color (U) Yellow Normal [facility] Comment on above: Performed By: #### U A #### [address] [address] Glucose (U) [Mass/Vol] Negative Normal Negative [facility] Comment on above: Performed By: #### U A #### [address] [address] Ketones Ql (U) Negative Normal Negative [facility] Comment on above: Performed By: #### U A #### [address] [address] UA Appear Clear Normal Clear [facility] Comment on above: Performed By: #### U A #### [address] [address] UA Blood Trace Normal Negative [facility] Comment on above: Performed By: #### U A #### [address] [address] UA Leuk Est Negative Normal Negative [facility] Comment on above: Performed By: #### U A #### [place] [address] UA Nitrite Negative Normal Negative [facility] Comment on above: Performed By: #### U A #### [place] [address] UA pH 6.0 Normal 5.0 - 8.0 [facility] Comment on above: Performed By: #### U A #### [place] [address] UA Protein Negative Normal Negative [facility] Comment on above: Performed By: #### U A #### [place] [address] UA Spec Grav 1.020 Normal 1.015-1.02 5 [facility] Comment on above: Performed By: #### U A #### [place] [address] UA Specimen Type Void Normal [facility] Comment on above: Performed By: #### U A #### [place] [address] UA Urobilinogen 0.2 E.U./dL Normal 0.2-1.0 [facility] Comment on above: Performed By: #### U A #### [place] [address] Urobilinogen (U) [Mass/Vol] Negative Normal Negative [facility] Comment on above: Performed By: #### U A #### [place] [address] CT ABD/PELVIS W/ IV CONTRAST ONLYon 07-26-2024 CT ABD/PELVIS W/ IV CONTRAST ONLY ORIGINAL EXAMINATION: CT OF THE ABDOMEN AND PELVIS WITH CONTRAST 07/25/2024 10:53 am TECHNIQUE: CT of the abdomen and pelvis was performed with the administration of intravenous contrast. Multiplanar reformatted images are provided for review. Automated exposure control, iterative reconstruction, and/or weight based adjustment of the mA/kV was utilized to reduce the radiation dose to as low as reasonably achievable. COMPARISON: None. HISTORY: ORDERING SYSTEM PROVIDED HISTORY: Reason for Exam: LLQ abdominal pain ; LUQ abdominal pain Pt c/o lt flank pain x1 week since shoveling limestone. Recent sx, hx prostate ca. FINDINGS: Wyie-jh-qepaenfo degenerative changes are noted in the spine. Scattered rib deformities are present from remote injury. Minor degenerative changes are present at the SI joints. No acute osseous abnormality identified. The lung bases are unremarkable. There is a small predominantly fat containing hiatal hernia. Scattered liver cysts are present. No other liver lesion. Cholecystectomy clips noted. A 1 cm cyst is noted within the spleen. No other spleen lesion. Adrenal glands and pancreas are unremarkable. Parapelvic renal cysts are present. No other kidney finding. Previous prostatectomy noted. The bladder is slightly inferiorly displaced is resolved. No definite bladder finding otherwise. Fat containing right inguinal hernia. No GI tract abnormality is visible. No additional contributory abnormality. IMPRESSION: No acute finding. No cause for pain seen on this exam. Interpreted by: Lopez Ryan MD Preliminary Report By: Lopez Ryan MD Electronically signed By Lopez Ryan MD Dictated Date: 07/26/2024 11:07:49 AM Prelim Date: 07/26/2024 11:10:29 AM Sign Date: 07/26/2024 11:10:29 AM Ordering Provider: CRISTOPHER Ospina [facility] .Auto Diffon 07-25-2024 Basophil, Absolute 0.0 10 3/mcL Normal 0.0-0.3 [facility] Comment on above: Performed By: #### A DIFF, GFR, CBC, CMP, ANEU ####[id number] [place], [place] [address] Basophils/100 WBC (Bld) 0.7 % Normal 0.0-2.5 [facility] Comment on above: Performed By: #### A DIFF, GFR, CBC, CMP, ANEU ####[facility] [place], [place] [address] Eosinophil, Absolute 0.4 10 3/mcL Normal 0.0-0.7 [facility] Comment on above: Performed By: #### A DIFF, GFR, CBC, CMP, ANEU ####[facility] [place], [place] [address] Eosinophils/100 WBC (Bld) 13.7 % High 0.0-6.0 [facility] Comment on above: Performed By: #### A DIFF, GFR, CBC, CMP, ANEU ####[address] [place], [place] [address] Lymphocyte, Absolute 0.5 10 3/mcL Low 0.9-4.3 [facility] Comment on above: Performed By: #### A DIFF, GFR, CBC, CMP, ANEU ####[place] [address] [place], [place] [address] Lymphocytes/100 WBC (Bld) 16.5 % Low 20.0-40.0 [facility] Comment on above: Performed By: #### A DIFF, GFR, CBC, CMP, ANEU ####[address] [place], [place] [address] Monocyte, Absolute 0.3 10 3/mcL Normal 0.1-1.4 [facility] Comment on above: Performed By: #### A DIFF, GFR, CBC, CMP, ANEU ####[address] [address] Monocytes/100 WBC (Bld) 9.2 % Normal 2.0-13.0 [facility] Comment on above: Performed By: #### A DIFF, GFR, CBC, CMP, ANEU ####[address] [place], [place] [address] Neutrophils/100 WBC (Bld) 59.9 % Normal 50.0-75.0 [facility] Comment on above: Performed By: #### A DIFF, GFR, CBC, CMP, ANEU ####[facility] [place], [place] [address] .GFRon 07-25-2024 Estimated Glomerular Filtration Rate 95 ml/min/1.73sqm Normal [facility] Comment on above: Result Comment: Stages of Chronic Kidney Disease (CKD) Stage Description eGFR(ml/min/1.73 sq.m.) CKD 1 Normal kidney function or >=90 normal kindney function with possible kidney damage (ex. Proteinuria) CKD 2 Kidney damage with mild loss 60-89 of kidney function CKD 3a Mild to moderate loss of kidney 45-59 function CKD 3b Moderate to severe loss of 30-44 of kindey function CKD 4 Severe loss of kidney function 15-29 CKD 5 Kidney failure <15 Note: (go live 2024) the eGFR calculation was updated to the 2020 CKD-EPI creatinine equation without a race factor to calculate the eGFR results. Performed By: #### A DIFF, GFR, CBC, CMP, ANEU ####[address] [place] [address] .NEUABSon 07-25-2024 Neutrophil, Absolute 1.9 10 3/mcL Low 2.3-8.1 [facility] Comment on above: Performed By: #### A DIFF, GFR, CBC, CMP, ANEU ####[place] [address] CBCon 07-25-2024 Erythrocyte distribution width (RBC) [Ratio] 14.9 % Normal 11.5-15.5 [facility] Comment on above: Performed By: #### A DIFF, GFR, CBC, CMP, ANEU ####[place] [address] Hematocrit (Bld) [Volume fraction] 39.3 % Low 40.0-52.0 [facility] Comment on above: Performed By: #### A DIFF, GFR, CBC, CMP, ANEU ####[place] [address] Hgb 13.0 G/dL Normal 13.0-17.5 [facility] Comment on above: Performed By: #### A DIFF, GFR, CBC, CMP, ANEU ####[place] [address] MCH (RBC) [Entitic mass] 28.6 pg Normal 27.0-33.0 [facility] Comment on above: Performed By: #### A DIFF, GFR, CBC, CMP, ANEU ####[place] [address] MCHC 33.2 G/dL Normal 32.0-36.0 [facility] Comment on above: Performed By: #### A DIFF, GFR, CBC, CMP, ANEU ####[address] [address] [place], [place] [address] MCV (RBC) [Entitic vol] 86.3 fL Normal 81.0-100.0 [facility] Comment on above: Performed By: #### A DIFF, GFR, CBC, CMP, ANEU ####[place] [address] [address] [place] [phone] Platelet 266 10 3/mcL Normal 150-450 [facility] Comment on above: Performed By: #### A DIFF, GFR, CBC, CMP, ANEU ####[place] [address] [address] [place] [id number] Platelet mean volume (Bld) [Entitic vol] 7.7 fL Normal 6.4-10.5 [facility] Comment on above: Performed By: #### A DIFF, GFR, CBC, CMP, ANEU ####[place] [id number] RBC 4.55 10 6/mcL Normal 4.50-6.00 [facility] Comment on above: Performed By: #### A DIFF, GFR, CBC, CMP, ANEU ####[place] [address] [address] [place] [phone] WBC 3.1 10 3/mcL Low 4.5-10.8 [facility] Comment on above: Performed By: #### A DIFF, GFR, CBC, CMP, ANEU ####[address] [address] CMPon 07-25-2024 Albumin Level 3.5 G/dL Normal 3.4-4.8 [facility] Comment on above: Performed By: #### A DIFF, GFR, CBC, CMP, ANEU ####[place] [address] [address] [place] [phone] Albumin/Globulin [Mass ratio] 1.1 {ratio} Normal 1.1-2.5 [facility] Comment on above: Performed By: #### A DIFF, GFR, CBC, CMP, ANEU ####[place] [address] [place], [place] [address] ALP [Catalytic activity/Vol] 97 U/L Normal 40-135 [facility] Comment on above: Performed By: #### A DIFF, GFR, CBC, CMP, ANEU ####[place] [address] [place], [place] [address] ALT [Catalytic activity/Vol] 36 U/L Normal 16-63 [facility] Comment on above: Performed By: #### A DIFF, GFR, CBC, CMP, ANEU ####[place] [address] [place], [place] [address] AST [Catalytic activity/Vol] 22 U/L Normal 10-40 [facility] Comment on above: Performed By: #### A DIFF, GFR, CBC, CMP, ANEU ####[place] [place], [place] [address] Bili Total 0.4 mg/dL Normal 0.2-1.0 [facility] Comment on above: Result Comment: Use of this assay is not recommended for patients undergoing treatment with eltrombopag due to the potential for falsely elevated results. Performed By: #### A DIFF, GFR, CBC, CMP, ANEU ####[place] [address] [place], [place] [address] BUN/Creatinine Ratio 28 ratio High 7-27 [facility] Comment on above: Performed By: #### A DIFF, GFR, CBC, CMP, ANEU ####[place] [address] [place], [place] [address] Calcium [Mass/Vol] 9.4 mg/dL Normal 8.4-10.2 [facility] Comment on above: Performed By: #### A DIFF, GFR, CBC, CMP, ANEU ####[place] [address] [place], [place] [address] Chloride [Moles/Vol] 106 mmol/L Normal 98-107 [facility] Comment on above: Performed By: #### A DIFF, GFR, CBC, CMP, ANEU ####[place] [address] [place], [place] [address] CO2 [Moles/Vol] 31 mmol/L Normal 23-31 [facility] Comment on above: Performed By: #### A DIFF, GFR, CBC, CMP, ANEU ####[address] [address] Creatinine [Mass/Vol] 0.74 mg/dL Normal 0.67-1.17 [facility] Comment on above: Performed By: #### A DIFF, GFR, CBC, CMP, ANEU ####[place] [id number] Electrolyte Balance 7.0 mEq/L Normal 4.0-15.0 [facility] Comment on above: Performed By: #### A DIFF, GFR, CBC, CMP, ANEU ####[place] [address] Globulin 3.3 G/dL Normal 2.7-4.4 [facility] Comment on above: Performed By: #### A DIFF, GFR, CBC, CMP, ANEU ####[place] [address] Glucose [Mass/Vol] 133 mg/dL High 83-110 [facility] Comment on above: Performed By: #### A DIFF, GFR, CBC, CMP, ANEU ####[place] [phone] Potassium [Moles/Vol] 4.5 mmol/L Normal 3.5-5.1 [facility] Comment on above: Performed By: #### A DIFF, GFR, CBC, CMP, ANEU ####[address] [address] Sodium [Moles/Vol] 144 mmol/L Normal 136-145 [facility] Comment on above: Performed By: #### A DIFF, GFR, CBC, CMP, ANEU ####[place] [id number] Total Protein 6.8 G/dL Normal 6.4-8.2 [facility] Comment on above: Performed By: #### A DIFF, GFR, CBC, CMP, ANEU ####[place] [phone] Urea nitrogen [Mass/Vol] 21 mg/dL High 7-18 [facility] Comment on above: Performed By: #### A DIFF, GFR, CBC, CMP, ANEU ####[place] [address] [place], [place] [address] LABORATORYOrdered By: SYSTEM SYSTEM on 07-25-2024 Albumin BCP dye [Mass/Vol] 3.5 G/dL Normal 3.4 - 4.8 G/dL AO ADM SS Albumin/Globulin [Mass ratio] 1.1 {ratio} Normal 1.1 - 2.5 ratio AO ADM SS ALP [Catalytic activity/Vol] 97 U/L Normal 40 - 135 U/L AO ADM SS ALT With P-5'-P [Catalytic activity/Vol] 36 U/L Normal 16 - 63 U/L AO ADM SS AST With P-5'-P [Catalytic activity/Vol] 22 U/L Normal 10 - 40 U/L AO ADM SS Basophils (Bld) [#/Vol] 0.0 103/mcL Normal 0.0 - 0.3 10^3/mcL AO Workflow SS Basophils/100 WBC (Bld) 0.7 % Normal 0.0 - 2.5 % AO Workflow SS Bilirubin [Mass/Vol] 0.4 mg/dL Normal 0.2 - 1 .0 mg/dL AO ADM SS Comment on above: Interpretive Data: U se of this assay is not recommended for patients undergoing treatment with eltrombopag due to the potential for falsely elevated results. Calcium [Mass/Vol] 9.4 mg/dL Normal 8.4 - 10. 2 mg/dL AO ADM SS Chloride [Moles/Vol] 106 mmol/L Normal 98 - 10 7 mmol/L AO ADM SS CO2 [Moles/Vol] 31 mmol/L Normal 23 - 31 mmol/L AO ADM SS Creatinine [Mass/Vol] 0.74 mg/dL Normal 0.67 - 1.17 mg/dL AO ADM SS Electrolyte Balance 7.0 mEq/L Normal 4.0 - 15 .0 mEq/L AO ADM SS Eosinophil, Absolute 0.4 103/mcL Normal 0.0 - 0 .7 10^3/mcL AO Workflow SS Eosinophils/100 WBC (Bld) 13.7 % High 0.0 - 6.0 % AO Workflow SS Erythrocyte distribution width (RBC) [Ratio] 14.9 % Normal 11.5 - 15.5 % AO Workflow SS Estimated Glomerular Filtration Rate 95 ml/min/1.73sqm Invalid Interpretation Code AO Chemistry S Comment on above: Interpretive Data: Stages of Chronic Kidney Disease (CKD) Stage Description eGFR(ml/min/1.73 sq.m.) CKD 1 Normal kidney function or >=90 normal kindney function with possible kidney damage (ex. Proteinuria) CKD 2 Kidney damage with mild loss 60-89 of kidney function CKD 3a Mild to moderate loss of kidney 45-59 function CKD 3b Moderate to severe loss of 30-44 of kindey function CKD 4 Severe loss of kidney function 15-29 CKD 5 Kidney failure <15 Note: (go live 2024) the eGFR calculation was updated to the 2020 CKD-EPI creatinine equation without a race factor to calculate the eGFR results. Globulin 3.3 G/dL Normal 2.7 - 4.4 G/dL AO ADM SS Glucose [Mass/Vol] 133 mg/dL High 83 - 110 mg/dL AO ADM SS Hematocrit (Bld) [Volume fraction] 39.3 % Low 40.0 - 52.0 % AO Workflow SS Hemoglobin (Bld) [Mass/Vol] 13.0 G/dL Normal 13.0 - 17.5 G/dL AO Workflow SS Lymphocytes (Bld) [#/Vol] 0.5 103/mcL Low 0.9 - 4.3 10^3/mcL AO Workflow SS Lymphocytes/100 WBC (Bld) 16.5 % Low 20.0 - 40.0 % AO Workflow SS MCH (RBC) [Entitic mass] 28.6 pg Normal 27.0 - 33.0 pg AO Workflow SS MCHC 33.2 G/dL Normal 32.0 - 36.0 G/dL AO Workflow SS MCV (RBC) [Entitic vol] 86.3 fL Normal 81.0 - 100.0 fL AO Workflow SS Monocytes (Bld) [#/Vol] 0.3 103/mcL Normal 0.1 - 1.4 10^3/mcL AO Workflow SS Monocytes/100 WBC (Bld) 9.2 % Normal 2.0 - 13.0 % AO Workflow SS Neutrophils (Bld) [#/Vol] 1.9 103/mcL Low 2.3 - 8.1 10^3/mcL AO Workflow SS Neutrophils/100 WBC (Bld) 59.9 % Normal 50.0 - 75.0 % AO Workflow SS Platelet mean volume (Bld) [Entitic vol] 7.7 fL Normal 6.4 - 10.5 fL AO Workflow SS Platelets (Bld) [#/Vol] 266 103/mcL Normal 150 - 450 10^3/mcL AO Workflow SS Potassium [Moles/Vol] 4.5 mmol/L Normal 3.5 - 5.1 mmol/L AO ADM SS Protein [Mass/Vol] 6.8 G/dL Normal 6.4 - 8.2 G/dL AO ADM SS RBC (Bld) [#/Vol] 4.55 106/mcL Normal 4.50 - 6.00 10^6/mcL AO Workflow SS Sodium [Moles/Vol] 144 mmol/L Normal 136 - 145 mmol/L AO ADM SS Urea nitrogen [Mass/Vol] 21 mg/dL High 7 - 18 mg/dL AO ADM SS Urea nitrogen/Creatinine [Mass ratio] 28 ratio High 7 - 27 ratio AO ADM SS WBC (Bld) [#/Vol] 3.1 103/mcL Low 4.5 - 10.8 10^3/mcL AO Workflow SS XR RIBS 2 VIEWS RIGHTon - XR RIBS 2 VIEWS RIGHT ORIGINAL EXAMINATION: 2 XRAY VIEWS OF THE RIGHT RIBS06/17/2024 2:46 pm COMPARISON: None HISTORY: ORDERING SYSTEM PROVIDED HISTORY: Reason for Exam: fracture FINDINGS: No acute rib fracture is demonstrated. There is a chronic appearing deformity of the posterior right 12th rib. There are postoperative changes of the right humeral head. No pneumothorax. IMPRESSION: 1. No acute rib fracture. 2. Chronic appearing deformity of the posterior right 12th rib. Interpreted by: Zack Mejia DO Preliminary Report By: Zack Mejia DO Electronically signed By Zack Mejia DO Dictated Date: 06/18/2024 3:59:57 PM Prelim Date: 06/18/2024 4:02:51 PM Sign Date: 06/18/2024 4:02:51 PM Ordering Provider: JAY IRWIN [facility] .GFRon 05-23-2024 Estimated Glomerular Filtration Rate 93 ml/min/1.73sqm [facility] Comment on above: Result Comment: Stages of Chronic Kidney Disease (CKD) Stage Description eGFR(ml/min/1.73 sq.m.) CKD 1 Normal kidney function or >=90 normal kindney function with possible kidney damage (ex. Proteinuria) CKD 2 Kidney damage with mild loss 60-89 of kidney function CKD 3a Mild to moderate loss of kidney 45-59 function CKD 3b Moderate to severe loss of 30-44 of kindey function CKD 4 Severe loss of kidney function 15-29 CKD 5 Kidney failure <15 Note: (go live 2024) the eGFR calculation was updated to the 2020 CKD-EPI creatinine equation without a race factor to calculate the eGFR results. Performed By: #### G FR, LIPID, CMP ####[address] [place], [place] [address] CMPon 05-23-2024 Albumin Level 3.8 G/dL Normal 3.4-4.8 [facility] Comment on above: Performed By: #### Sukhwinder FR, LIPID, CMP ####[address] [place], [place] [address] Albumin/Globulin [Mass ratio] 1.3 {ratio} Normal 1.1-2.5 [facility] Comment on above: Performed By: #### Sukhwinder FR, LIPID, CMP ####[address] [place], [place] [address] ALP [Catalytic activity/Vol] 82 U/L Normal 40-135 [facility] Comment on above: Performed By: #### Sukhwinder FR, LIPID, CMP ####[address] [place], [place] [address] ALT [Catalytic activity/Vol] 36 U/L Normal 16-63 [facility] Comment on above: Performed By: #### G FR, LIPID, CMP ####[address] [place], [place] [address] AST [Catalytic activity/Vol] 20 U/L Normal 10-40 [facility] Comment on above: Performed By: #### G FR, LIPID, CMP ####[address] [place], [place] [address] Bili Total 0.4 mg/dL Normal 0.2-1.0 [facility] Comment on above: Result Comment: Use of this assay is not recommended for patients undergoing treatment with eltrombopag due to the potential for falsely elevated results. Performed By: #### G FR LIPID, CMP ####[address] [place], [place] [address] BUN/Creatinine Ratio 15 ratio Normal 7-27 [facility] Comment on above: Performed By: #### G FR LIPID, CMP ####[address] [place], [place] [address] Calcium [Mass/Vol] 9.6 mg/dL Normal 8.4-10.2 [facility] Comment on above: Performed By: #### Sukhwinder BRYAN LIPID, CMP ####[address] [place], [place] [address] Chloride [Moles/Vol] 107 mmol/L Normal 98-107 [facility] Comment on above: Performed By: #### G FR LIPID, CMP ####[address] [address] CO2 [Moles/Vol] 32 mmol/L High 23-31 [facility] Comment on above: Performed By: #### G FR LIPID, CMP ####[address] [place], [place] [address] Creatinine [Mass/Vol] 0.80 mg/dL Normal 0.70-1.30 [facility] Comment on above: Result Comment: Test ing performed on Siemens Dimension EXL analyzer using a modified kinetic Teodora technique. Performed By: #### G FR LIPID, CMP ####[address] [place], [place] [address] Electrolyte Balance 4.0 mEq/L Normal 4.0-15.0 [facility] Comment on above: Performed By: #### G FR LIPID, CMP ####[address] [place], [place] [address] Globulin 3.0 G/dL Normal 1.5-3.8 [facility] Comment on above: Performed By: #### Sukhwinder FR LIPID, CMP ####[address] [place], [place] [address] Glucose [Mass/Vol] 95 mg/dL Normal 83-110 [facility] Comment on above: Performed By: #### G FR, LIPID, CMP ####[address] [place], [place] [address] Potassium [Moles/Vol] 4.7 mmol/L Normal 3.5-5.1 [facility] Comment on above: Performed By: #### G FR, LIPID, CMP ####[address] [place], [place] [address] Sodium [Moles/Vol] 143 mmol/L Normal 136-145 [facility] Comment on above: Performed By: #### Sukhwinder FR, LIPID, CMP ####[address] [place], [place] [address] Total Protein 6.8 G/dL Normal 6.4-8.2 [facility] Comment on above: Performed By: #### G FR, LIPID, CMP ####[address] [place], [place] [address] Urea nitrogen [Mass/Vol] 12 mg/dL Normal 7-18 [facility] Comment on above: Performed By: #### Sukhwinder FR, LIPID, CMP ####[address] [place], [place] [address] LIPIDon 05-23-2024 Cholesterol [Mass/Vol] 189 mg/dL Normal 0-200 [facility] Comment on above: Result Comment: Chol esterol Reference Interval: Less than 200 Desirable 200-239 Borderline high risk 240 and above High risk Performed By: #### G FR, LIPID, CMP ####[address] [place], [place] [address] Cholesterol in HDL [Mass/Vol] 44 mg/dL Normal 40-60 [facility] Comment on above: Performed By: #### G FR, LIPID, CMP ####[address] [place], [place] [address] Cholesterol in LDL [Mass/Vol] 119 mg/dL Normal 0-130 [facility] Comment on above: Performed By: #### G FR, LIPID, CMP ####[address] [place], [place] [address] Triglyceride [Mass/Vol] 131 mg/dL Normal 0-150 [facility] Comment on above: Result Comment: Trig lyceride Reference Interval: Less than 150 Normal 150-199 Borderline high risk 200-499 High risk 500 or higher Very high risk Performed By: #### G FR, LIPID, CMP ####[address] [place], [place] [address] Diagnostic total prostate sp ecific antigen (PSA) measurementOrdered By: Nicolas Rust on 05-22-2024 Prostate Specific Antigen Total < 0.02 ng/mL 0.00-4.00 [facility] Comment on above: This test was perfor med using the [employer] tPSA method. Measured values of a patient sample can vary depending on the testing procedure used. PSA values determined on patient samples by different testing procedures cannot be used interchangeably. If there is a change in PSA assays while monitoring therapy, sequential testing should be performed to confirm baseline values. PSA,Total- [employer] PSA, DIAGNOSTIC < 0.02 Normal 0.00-4.00 [facility] Comment on above: Result Comment: This test was performed using the [employer] tPSA method. Measured values of a patient??sample can vary depending on the testing procedure used. PSA values determined on patient samples by different testing procedures cannot be used interchangeably. If there is a change in PSA assays while monitoring therapy, sequential testing should be performed to confirm baseline values. Performed By: #### L [phone] #### [facility] [address] [place], [address] Gastroenterology Visit Repor ton 05-15-2024 Gastroenterology Visit Report [facility] [address] [place] [address] OFFICE VISIT Date of Service: 05/15/24 MR#: [id number] Acct: [id number] Name: TRAY GOMES Rep #: [id number] : 1950 Provider: Jenaro Galvez DO Age/Sex: 74/M Location: [facility] [place] Status: Signed Intake Vital Signs 04/23/24 05:54 Height 5 ft 5 in Intake Visit Reasons: Stomach and rectal pain/ Burning Allergies oxycodone (From Percocet) Allergy (Intermediate, Verified 04/23/24 05:47) hives/itching Acrylic Acid and Acrylates (steri-strips (acrylate)) Allergy (Verified 04/23/24 05:47) Swelling Medications ???Medication ???Instructions ???Recorded ???Confirmed ???Type loratadine 10 mg tablet 10 mg PO DAILY allergies 08/18/16 05/15/24 History esomeprazole magnesium 40 mg 40 mg PO DAILY 11/23/20 05/15/24 H istory capsule,delayed release (Nexium) oxybutynin chloride 15 mg 15 mg PO DAILY overactive bladder 11/23/20 05/15/24 History tablet,extended release 24 hr ascorbic acid (vitamin C) 1,000 mg 1 g PO QDAY 03/19/24 05/15/24 Hi story capsule cholecalciferol (vitamin D3) 125 125 mcg PO QDAY 03/19/24 05/15/24 History mcg (5,000 unit) tablet guaifenesin 1,200 mg tablet, 1,200 mg PO BID 03/19/24 05/15/24 History extended release 12 hr (Mucus Relief ER) rizatriptan 10 mg tablet See Rx Instructions PO .COMPLEX 05/15/24 History zinc acetate 50 mg (zinc) capsule 50 mg PO QDAY 03/19/24 05/15/24 H istory aluminum-mag hydroxide-simethicone 5 ml PO Q3H PRN dyspepsia 05/15/24 History 200 mg-200 mg-20 mg/5 mL oral susp (Advanced Antacid-Antigas) Hydrocortisone 2.5% / Lidocaine 5% #30 grams 05/15/24 05/15/24 Rx ointment (cmpd) Have you fallen in the past year?: No PFSH Medical History Heartburn Former smoker Loss of hearing History of steroid therapy History of hiatal hernia History of ulceration Rectal bleeding Basal cell carcinoma Erectile dysfunction due to arterial insufficiency OAB (overactive bladder) Prostate cancer Wears dentures Wears glasses Arthritis Migraine headache Non-smoker Leg cramps History of stress test Osteoarthritis GERD (gastroesophageal reflux disease) History of prostate cancer Hx of hemorrhoids Surgical History Hx of right inguinal hernia repair Hx of repair of rotator cuff History of cardiac catheterization History of colonoscopy ( 2018) History of hemorrhoidectomy Hx of hernia repair Hx of prostatectomy Hx of cataract surgery Hx of prostate biopsy Hx of arthroscopy of left knee Hx of cholecystectomy History of nasal surgery Family History Mother Heart disease Hypertension Diabetes Father Heart disease Hypertension Sister Heart disease Hypertension Diabetes Social History Smoking Status: Never smoker alcohol intake: never substance use type: does not use HPI HPI Details: TRAY GOMES, is a 74 M who presents to the office today for follow up. Colonoscopy 2.6.25 Three 8 mm polyps in the sigmoid colon, in the transverse colon and in the ascending colon, removed with a cold biopsy forceps. Resected and retrieved. Diverticulosis in the recto-sigmoid colon, in the sigmoid colon and in the ascending colon. Multiple bleeding colonic angiodysplastic lesions. Treated with argon plasma coagulation (APC). OV 2..25 Sigmoidoscopy 3.4.25 Multiple bleeding colonic angiodysplastic lesions. Treated with argon plasma coagulation (APC). Mucosal ulceration. Treated with argon plasma coagulation (APC). No specimens collected. OV 3.26.25 pt reports that since sigmoidoscopy his symptoms have gotten worse. Pt reports rectal pain and burning. Reports rectal bleeding. Reports that he used all of the hydrocortisone rectal suppositories and states that they were helpful in the moment, but the symptoms have returned. Reports that he is unable to have a complete bowel movement due to inflammation. Pt reports occasional yellow mucous. ROS Const Constitutional: Positive for headache(s) and weight change (weight loss); No fatigue or fever(s) ENT ENT: Positive for headache(s); No difficulty swallowing Gastro GI: Positive for abdominal pain, bloating, change in bowel habits, heartburn, excessive flatus and Blood in stool; No belching, change in stool character, coffee ground emesis, constipation, cramping, diarrhea, difficulty swallowing, feeling full early, incontinent of stools, Vomiting blood/hematemesis, loose stools, Black,tarry stools, nausea/dyspepsia, pain with swallowing, vomiting or other Musc Musculoske (more content not included)... Normal [facility] Flex Sigmoidoscopy Reporton 04-23-2024 Flex Sigmoidoscopy Report [facility] Medical Records Department [address] [place] [address] Flex Sigmoidoscopy Report MR#: [id number] Acct: [id number] Name: TRAY GOMES Rep #: [id number] : 1950 74 From: Jenaro Galvez DO PCP: Dr. Marty Mckeon DO Status:REG [facility] [place] Patient Name: Tray Gomes Procedure Date: 04/23/2024 6:45 AM Date of : 1950 Age: 74 Procedure: Flexible Sigmoidoscopy Indications: Hematochezia Providers: Jenaro Galvez DO Medicines: Monitored Anesthesia Care Patient Profile: This is a 74 year old male. Refer to note in patient chart for documentation of history and physical. Last Colonoscopy: within the past 3 months. Complications: No immediate complications. Procedure: Pre-Anesthesia Assessment: - Prior to the procedure, a History and Physical was performed, and patient medications and allergies were reviewed. The patient is competent. The risks and benefits of the procedure and the sedation options and risks were discussed with the patient. All questions were answered and informed consent was obtained. Patient identification and proposed procedure were verified by the physician in the pre-procedure area. Mental Status Examination: alert and oriented. Airway Examination: normal oropharyngeal airway and neck mobility. Respiratory Examination: clear to auscultation. CV Examination: normal. ASA Grade Assessment: II - A patient with mild systemic disease. After reviewing the risks and benefits, the patient was deemed in satisfactory condition to undergo the procedure. The anesthesia plan was to use moderate sedation / analgesia (conscious sedation). Immediately prior to administration of medications, the patient was re-assessed for adequacy to receive sedatives. The heart rate, respiratory rate, oxygen saturations, blood pressure, adequacy of pulmonary ventilation, and response to care were monitored throughout the procedure. The physical status of the patient was re-assessed after the procedure. After obtaining informed consent, the endoscope was passed under direct vision. Throughout the procedure, the patient's blood pressure, pulse, and oxygen saturations were monitored continuously. The Colonoscope was introduced through the anus and advanced to the rectosigmoid junction. Scope In: 6:55:27 AM Scope Out: 7:05:00 AM Total Procedure Duration Time 0 hours 9 minutes 33 seconds Findings: The perianal and digital rectal examinations were normal. Multiple medium-sized localized angiodysplastic lesions with bleeding were found in the rectum. Coagulation for hemostasis using argon plasma at 0.3 liters/minute and 30 warren was successful. Discontinuous areas of bleeding ulcerated mucosa with stigmata of recent bleeding were present in the rectum. Coagulation for hemostasis using argon plasma at 0.3 liters/minute and 20 warren was successful. Impression: - Multiple bleeding colonic angiodysplastic lesions. Treated with argon plasma coagulation (APC). - Mucosal ulceration. Treated with argon plasma coagulation (APC). - No specimens collected. Recommendation: - Use original regular Metamucil one teaspoon PO BID for 4 weeks. - Excpect Mild rectal pain or discomfort - Bloating and gas - Temporary changes in bowel habits - Some bleeding after the procedure up to 4 weeks Procedure Code(s): --- Professional --- 48919, 52, Sigmoidoscopy, flexible; with control of bleeding, any method CPT copyright 2021 [employer]. All rights reserved. The codes documented in this report are preliminary and upon pump press operator review may be revised to meet current compliance requirements. Jenaro Galvez DO 04/23/2024 7:15:07 AM This report has been signed electronically. Number of Addenda: 0 Note Initiated On: 04/23/2024 6:45 AM 04/23/24 0716 Date Jenaro Galvez DO Cosigner Signature: Date (if indicated) CC: Dr. Marty Mckeon DO; Jenaro Friend, DO Date Dictated: 04/23/2445 Date Transcribed: Guest Relations Executive: STEPHAN Signed [facility] MR/POSTOP.ANEon 04-23-2024 MR/POSTOP.ANE [facility] Medical Records Department [address] [place] [address] Anesthesia Postop Eval I 04/23/24 0724 MR#: [id number] Acct: [id number] Name: ELISEOTRAY Meliza Rep #: [id number] : 1950 74 From: Jg Lin PCP: Dr. Marty Mckeon, DO Status:REG SD Y Race: C Location: [place] [address] Anesthesia: Postop Eval I Current Vital Signs Temperature: 97.6 F Pulse Rate: 74 Blood Pressure: 158/100 Respiratory Rate: 16 Pulse Ox: 95 Oxygen Delivery Method: Room Air Assessment Airway patent: Yes Spontaneous unlabored respirations: Yes Mental status: Awake and Calm nausea: No Vomiting: No Anesthesia Complication: No Fluid Hydration Crystalloid volume administer (ml): 40 Total IV fluid infused: 40 Progress Note Anesthesia document: Postop Eval 1 completed: Yes 04/23/24724 Date Jg Mckeon Signature: Date CC: Signed [facility] MR/[id number] 04-23-2024 MR/POSTOPAN2 [facility] Medical Records Department [address] [place] [address] Anesthesia Postop Eval II 04/23/24 1129 MR#: [id number] Acct: [id number] Name: TRAY GOMES Rep #: [id number] : 1950 74 From: Eboni Landry PCP: Dr. Marty Mckeon, DO Status:DEP SDC Y Race: C Location: [place] Anesthesia Postop Eval I Sum Postop Eval Completion status Anesthesia document: Postop Eval 1 completed: Yes Anesthesia Postop Eval I Summary Anesthesia Postop Eval I Summary: Anesthesia Postop Eval I: Assessment Summary Airway patent Yes 04/23/24 07:25 [email or web address] Spontaneous unlabored Yes 04/23/24 07:25 [email or web address] respirations Mental status Awake,Calm 04/23/24 07:25 [email or web address] nausea No 04/23/24 07:25 [email or web address] Vomiting No 04/23/24 07:25 [email or web address] Anesthesia Postop Eval I: Fluid Summary Crystalloid volume administer 40 04/23/24 07:25 [email or web address] (ml) Colloids volume administered ( ml) Blood Product volume administered (ml) Total IV fluid infused 40 04/23/24 07:25 [email or web address] Anesthesia Postop Eval I: Summary Notes Anesthesia Complication No 04/23/24 07:25 [email or web address] Anesthesia Complication Comment: Post-operative progress note Anesthesia: Postop Eval II Evaluation Mental status: Awake Pain Level: 0 nausea: No Vomiting: No 04/23/24 1129 Date Eboni Mckeon Signature: Date CC: Signed Normal [facility] Gastroenterology Visit Repor ton 04-18-2024 Gastroenterology Visit Report [facility] [address] [place] [address] OFFICE VISIT Date of Service: 04/18/24 MR#: [id number] Acct: [id number] Name: ELISEOANGEL BarajasROJAS Haider Rep #: [id number] : 1950 Provider: TANNA beach Age/Sex: 74/M Location: [facility] [place] Status: Signed Intake Vital Signs 03/19/24 13:14 03/28/24 09:01 04/18/24 13:54 Height 5 ft 5 in 5 ft 5 in 5 ft 5 in Weight: 179 lb BMI 29.7 BP 107/72 Respiration 16 Pulse 77 Pulse Oximetry (%) 96 Oxygen Delivery Method room air Intake Visit Reasons: Test Result Chief Complaint: rectal bleeding Wax Bleacher Required: No Is patient in pain?: No Allergies oxycodone (From Percocet) Allergy (Intermediate, Verified 04/18/24 13:50) hives/itching Acrylic Acid and Acrylates (steri-strips (acrylate)) Allergy (Verified 04/18/24 13:50) Swelling Medications ???Medication ???Instructions ???Recorded ???Confirmed ???Type loratadine 10 mg tablet 10 mg PO DAILY 08/18/16 04/18/24 H istory esomeprazole magnesium 40 mg 40 mg PO DAILY 11/23/20 04/18/24 H istory capsule,delayed release (Nexium) oxybutynin chloride 15 mg 15 mg PO DAILY 11/23/20 04/18/24 H istory tablet,extended release 24 hr ascorbic acid (vitamin C) 1,000 mg 1 g PO QDAY 03/19/24 04/18/24 Hi story capsule cholecalciferol (vitamin D3) 125 125 mcg PO QDAY 03/19/24 04/18/24 History mcg (5,000 unit) tablet guaifenesin 1,200 mg tablet, 1,200 mg PO BID 03/19/24 04/18/24 History extended release 12 hr (Mucus Relief ER) rizatriptan 10 mg tablet See Rx Instructions PO .COMPLEX 04/18/24 History zinc acetate 50 mg (zinc) capsule 50 mg PO QDAY 03/19/24 04/18/24 H istory hydrocortisone 100 mg/60 mL enema 100 mg (60 mL) [place] BID 21 days 09/1304/18/24 Rx #2,520 mL Hydrocortisone 2.5% / Lidocaine 5% #30 grams 04/18/24 04/18/24 Rx ointment (cmpd) Have you fallen in the past year?: No [facility] Medical History Loss of hearing History of steroid therapy History of hiatal hernia History of ulceration Rectal bleeding Basal cell carcinoma Erectile dysfunction due to arterial insufficiency OAB (overactive bladder) Prostate cancer Wears dentures Wears glasses Arthritis Migraine headache Non-smoker Leg cramps History of stress test Osteoarthritis GERD (gastroesophageal reflux disease) History of prostate cancer Hx of hemorrhoids Surgical History Hx of right inguinal hernia repair Hx of repair of rotator cuff History of cardiac catheterization History of colonoscopy ( 2018) History of hemorrhoidectomy Hx of hernia repair Hx of prostatectomy Hx of cataract surgery Hx of prostate biopsy Hx of arthroscopy of left knee Hx of cholecystectomy History of nasal surgery Family History Mother Heart disease Hypertension Diabetes Father Heart disease Hypertension Sister Heart disease Hypertension Diabetes Social History Smoking Status: Never smoker alcohol intake: never substance use type: does not use HPI HPI Chief Complaint: rectal bleeding Details: TRAY GOMES, is a 74 M who presents to the office today for OV 03/20/2024 73y/o male presents for consultation with complaints of rectal bleeding, referred by Dr. Marty Mckeon. He reports episodes of painless bleeding 1-3x a day for >1 month. He has been using hydrocortisone suppositories PRN without symptom improvement. Colonoscopy 01/23/2023 (Dr. Evangelista) revealed three TA's. He completed radiation treatment for prostate CA July 2023. I have ordered a CBC and scheduled him for a colonoscopy to assess for radiation proctitis. He is very concerned with change in bowel habits post January 2023 colonoscopy without known cause. - If HGB is dropping consider APC. If HGB is stable and radiation proctitis is present consider treatment with Carafate enemas prior to APC. COLON 03/28/2024 - Three 8 mm polyps in the sigmoid colon, in the transverse colon and in the ascending colon, removed with a cold biopsy forceps. Resected and retrieved. - Diverticulosis in the recto-sigmoid colon, in the sigmoid colon and in the ascending colon. 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 Treated with argon plasma coagulation (APC). - radiation proctitis Labs completed 03/19/2024 revealed HGB 12.8 which is down from 14.6 ----- 12.7 on 03/29/2024 - Thinks he has blisters in rectum that bust and cause the bleeding. Also yellow mucus stools present. - c/o pain - denies any bleeding since Monday - thought he was going to h (more content not included)... Normal [facility] Absolute neutrophil countOrd ered By: Jenaro Friend on 03-29-2024 Neutrophils (Bld) [#/Vol] 5.7 10*3/uL 2.0-7.7 [facility] Basophil percentageOrdered B y: Jenaro Friend on 03-29-2024 Basophils/100 WBC (Bld) 0.1 % 0-1 [facility] CBC W/Diff, Automatedon Absolute Lymph 0.60 X10 3/uL Low 0.83-4.51 [facility] Comment on above: Performed By: #### L 100.0100 #### [facility] [address] [place], [address] Absolute Neut 5.7 X10 3/uL Normal 2.0-7.7 [facility] Comment on above: Performed By: #### L 100.0100 #### [facility] [address] [place], [address] Basophils/100 WBC (Bld) 0.1 % Normal 0-1 [facility] Comment on above: Performed By: #### L 100.0100 #### [facility] [address] [place], [address] Eosinophils/100 WBC (Bld) 0.8 % Normal 0-5 [facility] Comment on above: Performed By: #### L 100.0100 #### [facility] [address] [place], [address] Erythrocyte distribution width (RBC) [Ratio] 14.0 % Normal 11.6-14.6 [facility] Comment on above: Performed By: #### L 100.0100 #### [facility] [address] [place], [address] Hematocrit (Bld) [Volume fraction] 40.0 % Normal 40-54 [facility] Comment on above: Performed By: #### L 100.0100 #### [facility] [address] [place], [address] Hemoglobin (Bld) [Mass/Vol] 12.7 g/dL Low 13.0-16.5 [facility] Comment on above: Performed By: #### L 100.0100 #### [facility] [address] [place], [address] IG% 0.400 Normal 0.0-0.9 [facility] Comment on above: Result Comment: IG% - Immature Granulocytes (promyelocytes, myelocytes and metamyelocytes) > 1% indicates that a LEFT SHIFT is Present. Performed By: #### L 100.0100 #### [facility] [address] [place], [address] Lymphocytes/100 WBC (Bld) 8.4 % Low 19-41 [facility] Comment on above: Performed By: #### L 100.0100 #### [facility] [address] [place], [address] MCH (RBC) [Entitic mass] 27.9 pg Normal 27.0-32.0 [facility] Comment on above: Performed By: #### L 100.0100 #### [facility] [address] [place], [address] MCHC (RBC) [Mass/Vol] 31.8 g/dL Low 32-36 [facility] Comment on above: Performed By: #### L 100.0100 #### [facility] [address] [place], [address] MCV (RBC) [Entitic vol] 87.7 fL Normal 80-94 [facility] Comment on above: Performed By: #### L 100.0100 #### [facility] [address] [place], [address] Monocytes/100 WBC (Bld) 10.9 % High 0-10 [facility] Comment on above: Performed By: #### L 100.0100 #### [facility] [address] [place], [address] Neutrophils/100 WBC (Bld) 79.4 % High 47-70 [facility] Comment on above: Performed By: #### L 100.0100 #### [facility] [address] [place], [address] Nucleated RBC (Bld) [#/Vol] 0 10*3/uL Normal 0-5 [facility] Comment on above: Performed By: #### L 100.0100 #### [facility] [address] [place], [address] Platelet mean volume (Bld) [Entitic vol] 9.1 fL Normal 6.2-12.0 [facility] Comment on above: Performed By: #### L 100.0100 #### [facility] [address] [place], [address] Platelets (Bld) [#/Vol] 233 10*3/uL Normal 150-450 [facility] Comment on above: Performed By: #### L 100.0100 #### [facility] [address] [place], [address] RBC (Bld) [#/Vol] 4.56 10*6/uL Low 4.6-6.2 [facility] Comment on above: Performed By: #### L 100.0100 #### [facility] [address] [place], [address] RDW SD 44.9 fl High 35.1-43.9 [facility] Comment on above: Performed By: #### L 100.0100 #### [facility] [address] [place], [address] WBC (Bld) [#/Vol] 7.1 10*3/uL Normal 4.4-11.0 [facility] Comment on above: Performed By: #### L 100.0100 #### [facility] [address] [place], [address] Eosinophil percentageOrdered By: Jenaro Galvez on 03-29-2024 Eosinophils/100 WBC (Bld) 0.8 % 0-5 [facility] Erythrocyte distribution wid th (RBC) [Ratio]Ordered By: Jenaro Galvez on 03-29-2024 Erythrocyte distribution width (RBC) [Entitic vol] 44.9 fL High 35.1-43.9 [facility] Erythrocyte distribution wid th ratioOrdered By: Jenaronguyen Galvez on 03-29-2024 Erythrocyte distribution width (RBC) [Ratio] 14.0 % 11.6-14.6 [facility] Hematocrit Auto (Bld) [Volum e fraction]Ordered By: Jenaronguyen Galvez on 03-29-2024 Hematocrit (Bld) [Volume fraction] 40.0 % 40-54 [facility] Hemoglobin measurementOrdere d By: Jenaro Galvez on 03-29-2024 Hemoglobin (Bld) [Mass/Vol] 12.7 g/dL Low 13.0-16.5 [facility] Immature granulocytes/100 WB C Auto (Bld)Ordered By: Jenaro Galvez on 03-29-2024 Immature granulocytes/100 WBC (Bld) 0.400 % 0.0-0.9 [facility] Comment on above: IG% - Immature Granu locytes (promyelocytes, myelocytes and metamyelocytes) > 1% indicates that a LEFT SHIFT is Present. Lymphocytes Auto (Unsp spec) [#/Vol]Ordered By: Jenaro Galvez on 03-29-2024 Lymphocytes (Bld) [#/Vol] 0.60 10*3/uL Low 0.83-4.51 [facility] Lymphocytes/100 WBC Auto (Un sp spec)Ordered By: Jenaro Galvez on 03-29-2024 Lymphocytes/100 WBC (Bld) 8.4 % Low 19-41 [facility] MCV (mean corpuscular volume ) determinationOrdered By: Jenaro Galvez on 03-29-2024 MCV (RBC) [Entitic vol] 87.7 fL 80-94 [facility] Mean corpuscular hemoglobin (MCH) determinationOrdered By: Jenaro Galvez on 03-29-2024 MCH (RBC) [Entitic mass] 27.9 pg 27.0-32.0 [facility] Mean corpuscular hemoglobin concentration (MCHC) determinationOrdered By: Jenaro Galvez on 03-29-2024 MCHC (RBC) [Mass/Vol] 31.8 g/dL Low 32-36 [facility] Mean platelet volume determi nationOrdered By: Jenaro Galvez on 03-29-2024 Platelet mean volume (Bld) [Entitic vol] 9.1 fL 6.2-12.0 [facility] Monocyte percentageOrdered B y: Jenaro Galvez on 03-29-2024 Monocytes/100 WBC (Bld) 10.9 % High 0-10 [facility] Neutrophil percentageOrdered By: Jenarohaider Galvez on 03-29-2024 Neutrophils/100 WBC (Bld) 79.4 % High 47-70 [facility] Nucleated red blood cell per centageOrdered By: Jenaro Galvez on 03-29-2024 Nucleated RBC/100 WBC (Bld) [Ratio] 0 % 0-5 [facility] Platelet countOrdered By: Ra boby Galvez on 03-29-2024 Platelets (Bld) [#/Vol] 233 10*3/uL 150-450 [facility] RBC Auto (Bld) [#/Vol]Ordere d By: Jenaro Galvez on 03-29-2024 RBC (Bld) [#/Vol] 4.56 10*6/uL Low 4.6-6.2 [facility] White blood cell (WBC) count Ordered By: Jenaro Galvez on 03-29-2024 WBC (Bld) [#/Vol] 7.1 10*3/uL 4.4-11.0 [facility] Colonoscopy Reporton 025 Colonoscopy Report [facility] Medical Records Department [address] [place] [address] Colonoscopy Report MR#: [id number] Acct: [id number] Name: TRAY GOMES Rep #: [id number] : 1950 73 From: Jenaro Galvez DO PCP: Dr. Marty Mckeon DO Status:REG [facility] [place] Patient Name: Tray Gomes Procedure Date: 03/28/2024 9:56 AM Date of : 1950 Age: 73 Procedure: Colonoscopy Indications: Hematochezia Providers: Jenaro Galvez DO Referring MD: Marty Mckeon Medicines: Monitored Anesthesia Care Patient Profile: This is a 73 year old male. Refer to note in patient chart for documentation of history and physical. Last Colonoscopy: 1 year ago. Complications: No immediate complications. Procedure: Pre-Anesthesia Assessment: - Prior to the procedure, a History and Physical was performed, and patient medications and allergies were reviewed. The patient is competent. The risks and benefits of the procedure and the sedation options and risks were discussed with the patient. All questions were answered and informed consent was obtained. Patient identification and proposed procedure were verified by the physician in the pre-procedure area. Mental Status Examination: alert and oriented. Airway Examination: normal oropharyngeal airway and neck mobility. Respiratory Examination: clear to auscultation. CV Examination: normal. Prophylactic Antibiotics: The patient does not require prophylactic antibiotics. Prior Anticoagulants: The patient has taken no anticoagulant or antiplatelet agents. ASA Grade Assessment: II - A patient with mild systemic disease. After reviewing the risks and benefits, the patient was deemed in satisfactory condition to undergo the procedure. The anesthesia plan was to use monitored anesthesia care (MAC). Immediately prior to administration of medications, the patient was re-assessed for adequacy to receive sedatives. The heart rate, respiratory rate, oxygen saturations, blood pressure, adequacy of pulmonary ventilation, and response to care were monitored throughout the procedure. The physical status of the patient was re-assessed after the procedure. After I obtained informed consent, the scope was passed under direct vision. Throughout the procedure, the patient's blood pressure, pulse, and oxygen saturations were monitored continuously. The Colonoscope was introduced through the anus and advanced to the cecum, identified by appendiceal orifice and ileocecal valve. The colonoscopy was performed without difficulty. The patient tolerated the procedure well. The quality of the bowel preparation was adequate. The ileocecal valve, appendiceal orifice, and rectum were photographed. Scope In: 10:04:41 AM Scope Withdrawal Time 0 hours 14 minutes 6 seconds Scope Out: 10:20:49 AM Total Procedure Duration Time 0 hours 16 minutes 8 seconds Findings: The perianal and digital rectal examinations were normal. Three sessile polyps were found in the sigmoid colon, transverse colon and ascending colon. The polyps were 8 mm in size. These polyps were removed with a cold biopsy forceps. Resection and retrieval were complete. Verification of patient identification for the specimen was done. Estimated blood loss was minimal. Multiple small and large-mouthed diverticula were found in the recto-sigmoid colon, sigmoid colon and ascending colon. Multiple large localized angiodysplastic lesions with bleeding were found in the rectum. Coagulation for hemostasis using argon plasma at 0.3 liters/minute and 30 warren was successful. Estimated blood loss was minimal. Impression: - Three 8 mm polyps in the sigmoid colon, in the transverse colon and in the ascending colon, removed with a cold biopsy forceps. Resected and retrieved. - Diverticulosis in the recto-sigmoid colon, in the sigmoid colon and in the ascending colon. - Multiple bleeding colonic angiodysplastic lesions. Treated with argon plasma coagulation (APC). Recommendation: - Discharge patient to home. - Resume previous diet. - Continue present medications. - Await pathology results. - Repeat colonoscopy in 3 years for surveillance. Procedure Code(s): --- Professional --- 18807, 59, Colonoscopy, flexible; with control of bleeding, any method 40806, Colonoscopy, flexible; with biopsy, single or multiple CPT copyright 2021 [employer]. All rights reserved. The codes documented in this report are preliminary and upon pump press operator review may be revised to meet current compliance requirements. Jenaro Galvez DO 03/28/2024 10:26:39 AM This report has been signed electronically. Number of Addenda: 0 Note Initiated On: 03/28/2024 9:56 AM 03/28/24 1026 Date Jenaro Nineveh DO Cosigner Signature: Date (more content not included)... [facility] MR/POSTOP.ANEon 03-28-2024 MR/POSTOP.[facility] Medical Records Department [address] [place] [address] Anesthesia Postop Eval I 03/28/24 1027 MR#: [id number] Acct: [id number] Name: TRAY GOMES Rep #: [id number] : 1950 73 From: Pati Willams CRNA PCP: Dr. Marty Mckeon, DO Status:REG SDC Y Race: C Location: [place] [address] Anesthesia: Postop Eval I Current Vital Signs Temperature: 97.5 F Pulse Rate: 73 Blood Pressure: 110/83 Respiratory Rate: 16 Pulse Ox: 98 Oxygen Delivery Method: Room Air Assessment Airway patent: Yes Spontaneous unlabored respirations: Yes Mental status: Awake nausea: No Vomiting: No Anesthesia Complication: No Fluid Hydration Crystalloid volume administer (ml): 10 Total IV fluid infused: 10 Progress Note Anesthesia document: Postop Eval 1 completed: Yes 03/28/24 1028 Date Pati Willams TISSUE PACKER Cosigner Signature: Date CC: Signed [facility] MR/RJMQAKHZ1ec 03-28-2024 MR/POSTOPAN2 [facility] Medical Records Department [address] [place] [address] Anesthesia Postop Eval II 03/28/24 1033 MR#: [id number] Acct: [id number] Name: TRAY GOMES Rep #: [id number] : 1950 73 From: Eboni Landry PCP: Dr. Marty Mckeon, DO Status:REG SDC Y Race: C Location: [place] [address] Anesthesia Postop Eval I Sum Postop Eval Completion status Anesthesia document: Postop Eval 1 completed: Yes Anesthesia Postop Eval I Summary Anesthesia Postop Eval I Summary: Anesthesia Postop Eval I: Assessment Summary Airway patent Yes 03/28/24 10:28 TISSUE [email or web address] Spontaneous unlabored Yes 03/28/24 10:28 TISSUE PACKER.JSWI respirations Mental status Awake 03/28/24 10:28 TISSUE PACKER.JSWI nausea No 03/28/24 10:28 TISSUE PACKER.JSWI Vomiting No 03/28/24 10:28 TISSUE PACKER.JSWI Anesthesia Postop Eval I: Fluid Summary Crystalloid volume administer 10 03/28/24 10:28 TISSUE PACKER.JSWI (ml) Colloids volume administered ( ml) Blood Product volume administered (ml) Total IV fluid infused 10 03/28/24 10:28 TISSUE PACKER.JSWI Anesthesia Postop Eval I: Summary Notes Anesthesia Complication No 03/28/24 10:28 TISSUE [email or web address].JSWI Anesthesia Complication Comment: Post-operative progress note Anesthesia: Postop Eval II Evaluation Mental status: Awake and Calm Pain Level: 0 nausea: Yes Vomiting: No 03/28/24 1033 Date Eboni Mckeon Signature: Date CC: Signed Normal [facility] Surgery Specimen Level Faby 03-28-2024 Surgery Specimen Level IV Patient Age/Sex Location Account Attending Physician TRAY GOMES 73/M EN [id number] Jenaro Galvez DO Specimen: [id number] Received: 03/28/24 Status: DELTA Mcneil Num: [id number] Spec Type: COLON BX Subm Dr: Jenaro Galvez DO HEADER OPERATION: Colonoscopy and polypectomy and rectal cautery PRE-OP DIAGNOSIS: Lower GI/rectal bleeding TISSUE SUBMITTED: A- Ascending colon polyp, B- Transverse colon polyp, C- Sigmoid polyp MICROSCOPIC DIAGNOSIS A. Ascending colon polyp, polypectomy: Fragments of tubular adenoma. B. Transverse colon polyp, polypectomy: Tubular adenoma.C. Sigmoid colon polyp, polypectomy: Fragments of tubular adenoma. NABEEL. 03/29/2024 MICROSCOPIC DESCRIPTION Slides are reviewed. GROSS DESCRIPTION A. Received in fixative is one container labeled with the patient's name and designated Ascending colon polyp. The specimen consists of multiple irregular fragment of [place] soft tissue that in aggregate measure 0.5 x 0.4 x 0.1 cm. The specimen is totally submitted in one cassette. B. Received in fixative is one container labeled with the patient's name and designated Transverse colon polyp. The specimen consists of one irregular fragment of [place] soft tissue that measures 0.4 x 0.3 x 0.1 cm. The specimen is totally submitted in one cassette. C. Received in fixative is one container labeled with the patient's name and designated Sigmoid polyp. The specimen consists of two irregular fragments of [place] soft tissue that measuring in aggregate 0.4 x 0.4 x 0.1 cm. The specimen is totally submitted in one cassette. 03/28/2024 TC:1 [facility]:[id number] Patient Age/Sex Location Account Attending Physician TRAY GOMES/Meliza EN [id number] Jenaro Galvez, DO Signed (signature on file) Dr. Jose Miguel Katz MD 03/29/24 1159 Normal [facility] Comment on above: Performed By: #### P SUIV ####[facility] [id number] [place], [place], [phone] Absolute neutrophil countOrd ered By: Sowmya Garg on 03-19-2024 Neutrophils (Bld) [#/Vol] 2.3 10*3/uL 2.0-7.7 [facility] Atypical lymphocyte percenta geOrdered By: Sowmya Garg on 03-19-2024 Atypical Lymphocytes 3.3 % [facility] Basophil percentageOrdered B y: Sowmya Garg on 03-19-2024 Basophils/100 WBC (Bld) 0.6 % 0-1 [facility] CBC W/Diff, Automatedon 02-21 ATYPICAL LYMPH 3.3 Normal [facility] Comment on above: Performed By: #### L 100.0100 ####[facility] [id number] [place], [place], [id number] Eosinophil percentageOrdered By: Sowmya Garg on 03-19-2024 Eosinophils/100 WBC (Bld) 3.0 % 0-5 [facility] Erythrocyte distribution wid th (RBC) [Ratio]Ordered By: Sowmya Garg on 03-19-2024 Erythrocyte distribution width (RBC) [Entitic vol] 43.3 fL 35.1-43.9 [facility] Erythrocyte distribution wid th ratioOrdered By: Sowmya Garg on 03-19-2024 Erythrocyte distribution width (RBC) [Ratio] 13.9 % 11.6-14.6 [facility] Gastroenterology Visit Repor ton 03-19-2024 Gastroenterology Visit Report [facility] [address] [place] [address] OFFICE VISIT Date of Service: 03/19/24 MR#: [id number] Acct: [id number] Name: TRAY GOMES Rep #: [id number] : 1950 Provider: TANNA beach Age/Sex: 73/M Location: [facility] Status: Signed Intake Vital Signs 02/26/24 11:27 03/19/24 13:14 Height 5 ft 5 in 5 ft 5 in Weight: 182 lb 8 oz 182 lb 8 oz BMI 30.3 30.3 BP 109/73 118/77 Blood Pressure Location Rt brachial Position Sitting Respiration 18 18 Pulse 87 74 Pulse Source Monitor Temp 97.3 F L Pulse Oximetry (%) 97 98 Oxygen Delivery Method room air room air Intake Visit Reasons: General complaints Chief Complaint: rectal bleeding Wax Bleacher Required: No Accompanied by: Is patient in pain?: Yes Allergies acetaminophen (From Percocet) Allergy (Intermediate, Verified 03/19/24 13:17) hives/itching oxycodone (From Percocet) Allergy (Intermediate, Verified 03/19/24 13:17) hives/itching Acrylic Acid and Acrylates (steri-strips (acrylate)) Allergy (Verified 03/19/24 13:17) Swelling Medications ???Medication ???Instructions ???Recorded ???Confirmed ???Type loratadine 10 mg tablet 10 mg PO DAILY 08/18/16 03/19/24 History esomeprazole magnesium 40 mg 40 mg PO DAILY 11/23/20 03/19/24 History capsule,delayed release (Nexium) oxybutynin chloride 15 mg 15 mg PO DAILY 11/23/20 03/19/24 History tablet,extended release 24 hr ascorbic acid (vitamin C) 1,000 mg 1 g PO QDAY 03/19/24 03/19/24 History capsule cholecalciferol (vitamin D3) 125 125 mcg PO QDAY 03/19/24 03/19/24 History mcg (5,000 unit) tablet guaifenesin 1,200 mg tablet, 1,200 mg PO BID 03/19/24 03/19/24 History extended release 12 hr (Mucus Relief ER) rizatriptan 10 mg tablet See Rx Instructions PO .COMPLEX 03/19/24 03/19/24 History zinc acetate 50 mg (zinc) capsule 50 mg PO QDAY 03/19/24 03/19/24 History Have you fallen in the past year?: No Nurse's Note: Had alot of bleed this morning. Brought chart of when he took suppositories and if there was bleeding or not. The bleeding started about a month ago. After a bowel movement when he sits down on a chair it feels like his inners are getting pushed up in him. [facility] Medical History (Updated 03/19/24 @ 13:53 by Sowmya Garg, ALENA-C) Rectal bleeding Basal cell carcinoma Stress incontinence Erectile dysfunction due to arterial insufficiency OAB (overactive bladder) Prostate cancer Wears dentures Wears glasses Rash Arthritis Restless legs Migraine headache Gastric reflux Non-smoker Leg cramps History of stress test Osteoarthritis GERD (gastroesophageal reflux disease) History of prostate cancer Hx of hemorrhoids Surgical History Hx of repair of rotator cuff History of left inguinal hernia repair ( 11/2020) History of cardiac catheterization History of colonoscopy ( 2017) History of hemorrhoidectomy Hx of hernia repair Hx of prostatectomy Hx of cataract surgery Hx of prostate biopsy Hx of arthroscopy of left knee Hx of cholecystectomy History of repair of right rotator cuff History of nasal surgery Family History Mother Heart disease Hypertension Diabetes Father Heart disease Hypertension Sister Heart disease Hypertension Diabetes Social History Smoking Status: Never smoker alcohol intake: never substance use type: does not use HPI HPI Chief Complaint: rectal bleeding Details: TRAY GOMES, is a 73 M who presents to the office today for Colonoscopy 01/23/2023 (Dr. Evangelista) revealed three TA's Radiation therapy for prostate CA - completed July 2023 - stopped metamucil gummies - thought maybe this was causing flatulence - but is still having flatulence - reports when he has bleeding is when he primarily has flatulence - bleeding has been ongoing for the past month - he has been tracking bleeding episodes since 03/14/2024 having 1-3 episodes of bleeding a day - waking at HS with sensation to pass gas - and reports this is typically blood - states since colonoscopy January 2023 post colon his stools have been pencil thin - he states bowels were altered prior to starting radiation treatments - he is having 2-3 BM daily - denies any rectal pain - very concerned with altered bowels - bowels changed post colon January 2023 - denies any medication or dietary changes - denies any weight loss - denies any abd pain - he feels another colonoscopy needs completed, fearful a previous polyp was missed ROS Const Constitutional: Positive for fatigue, headache(s) and weight change; No fever(s) ENT ENT: Positive for headache(s); (more content not included)... Normal [facility] Hematocrit Auto (Bld) [Volum e fraction]Ordered By: Sowmay Garg on 03-19-2024 Hematocrit (Bld) [Volume fraction] 39.4 % Low 40-54 [facility] Hemoglobin measurementOrdere d By: Sowmya Garg on 03-19-2024 Hemoglobin (Bld) [Mass/Vol] 12.8 g/dL Low 13.0-16.5 [facility] Immature granulocytes/100 WB C Auto (Bld)Ordered By: Sowmya Garg on 03-19-2024 Immature granulocytes/100 WBC (Bld) 0.300 % 0.0-0.9 [facility] Comment on above: IG% - Immature Granu locytes (promyelocytes, myelocytes and metamyelocytes) > 1% indicates that a LEFT SHIFT is Present. Lymphocytes Auto (Unsp spec) [#/Vol]Ordered By: Sowmya Garg on 03-19-2024 Lymphocytes (Bld) [#/Vol] 0.58 10*3/uL Low 0.83-4.51 [facility] Lymphocytes/100 WBC Auto (Un sp spec)Ordered By: Sowmya Garg on 03-19-2024 Lymphocytes/100 WBC (Bld) 17.4 % Low 19-41 [facility] MCV (mean corpuscular volume ) determinationOrdered By: Sowmya Garg on 03-19-2024 MCV (RBC) [Entitic vol] 86.2 fL 80-94 [facility] Mean corpuscular hemoglobin (MCH) determinationOrdered By: Sowmya Garg on 03-19-2024 MCH (RBC) [Entitic mass] 28.0 pg 27.0-32.0 [facility] Mean corpuscular hemoglobin concentration (MCHC) determinationOrdered By: Sowmya Garg on 03-19-2024 MCHC (RBC) [Mass/Vol] 32.5 g/dL 32-36 [facility] Mean platelet volume determi nationOrdered By: Sowmya Garg on 03-19-2024 Platelet mean volume (Bld) [Entitic vol] 10.0 fL 6.2-12.0 [facility] Monocyte percentageOrdered B y: Sowmya Garg on 03-19-2024 Monocytes/100 WBC (Bld) 9.3 % 0-10 [facility] Neutrophil percentageOrdered By: Sowmya Garg on 03-19-2024 Neutrophils/100 WBC (Bld) 69.4 % 47-70 [facility] Nucleated red blood cell per centageOrdered By: Sowmya Garg on 03-19-2024 Nucleated RBC/100 WBC (Bld) [Ratio] 0 % 0-5 [facility] Platelet countOrdered By: Ryan Garg on 03-19-2024 Platelets (Bld) [#/Vol] 238 10*3/uL 150-450 [facility] RBC Auto (Bld) [#/Vol]Ordere d By: Sowmya Garg on 03-19-2024 RBC (Bld) [#/Vol] 4.57 10*6/uL Low 4.6-6.2 [facility] White blood cell (WBC) count Ordered By: Sowmya Garg on 03-19-2024 WBC (Bld) [#/Vol] 3.3 10*3/uL Low 4.4-11.0 [facility] Radiation Oncology Visiton 0 02-26-2024 Radiation Oncology Visit [facility] [place] [address] OFFICE VISIT Date of Service: 02/26/24 1123 MR#: [id number] Acct: [id number] Name: TRAY GOMES Rep #: [id number] : 1950 From: Berto Chambers DO Age/Sex: 73/M Location: [facility] Status: Signed Intake Vital Signs 08/29/23 13:05 02/26/24 11:27 Height 5 ft 5 in 5 ft 5 in Weight: 185 lb 5 oz 182 lb 8 oz BMI 30.8 30.3 BP 119/77 109/73 Blood Pressure Location Rt brachial Rt brachial Position Sitting Sitting Respiration 18 18 Pulse 80 87 Pulse Source Monitor Monitor Temp 97.6 F L 97.3 F L Temperature Source Temporal Artery Temporal Artery Pulse Oximetry (%) 95 97 Oxygen Delivery Method room air room air Intake Visit Reasons: 6 MONTH F/U PROSTATE, PSA PRIOR Is patient in pain?: No Allergies acetaminophen (From Percocet) Allergy (Intermediate, Verified 02/26/24 11:26) hives/itching oxycodone (From Percocet) Allergy (Intermediate, Verified 02/26/24 11:26) hives/itching Acrylic Acid and Acrylates (steri-strips (acrylate)) Allergy (Verified 02/26/24 11:26) Swelling Medications ???Medication ???Instructions ???Recorded ???Confirmed ???Type ascorbic acid (vitamin C) 500 mg 500 mg PO DAILY@0800 08/18/16 02/26/24 History tablet loratadine 10 mg tablet 10 mg PO DAILY 08/18/16 02/26/24 History cholecalciferol (vitamin D3) 50 2,000 unit PO DAILY 08/30/17 02/26/24 History mcg (2,000 unit) capsule cyclobenzaprine 10 mg tablet 10 mg PO ONCE PRN Pain 06/08/20 02/26/24 History esomeprazole magnesium 40 mg 40 mg PO DAILY 11/23/20 02/26/24 History capsule,delayed release (Nexium) oxybutynin chloride 15 mg 15 mg PO DAILY 11/23/20 02/26/24 History tablet,extended release 24 hr amitriptyline 25 mg tablet 25 mg PO DAILY 04/13/23 02/26/24 History benzonatate 100 mg capsule 100 mg PO BID PRN 04/13/23 02/26/24 History thiamine HCl (vitamin B1) 50 mg 50 mg PO DAILY 04/13/23 02/26/24 History tablet verapamil 120 mg 24 hr 120 mg PO DAILY 04/13/23 02/26/24 History capsule,extended release rizatriptan 10 mg tablet 10 mg PO ONCE 04/17/23 02/26/24 History zinc sulfate 50 mg zinc (220 mg) 50 mg PO DAILY 04/17/23 02/26/24 History capsule atogepant 60 mg tablet (Qulipta) 60 mg PO DAILY 06/28/23 02/26/24 History Have you fallen in the past year?: Yes PFSH PFSH Medical History Rectal bleeding Basal cell carcinoma Stress incontinence Erectile dysfunction due to arterial insufficiency OAB (overactive bladder) Prostate cancer Wears dentures Wears glasses Rash Arthritis Restless legs Migraine headache Gastric reflux Non-smoker Leg cramps History of stress test Osteoarthritis GERD (gastroesophageal reflux disease) History of prostate cancer Hx of hemorrhoids Home Medications ???Medication ???Instructions ???Recorded ???Last Taken ???Type ascorbic acid (vitamin C) 500 mg 500 mg PO DAILY@0800 08/18/16 Unknown History tablet loratadine 10 mg tablet 10 mg PO DAILY 08/18/16 Unknown History cholecalciferol (vitamin D3) 50 2,000 unit PO DAILY 08/30/17 Unknown History mcg (2,000 unit) capsule cyclobenzaprine 10 mg tablet 10 mg PO ONCE PRN Pain 06/08/20 Unknown History esomeprazole magnesium 40 mg 40 mg PO DAILY 11/23/20 11/25/20 06:30 History capsule,delayed release (Nexium) oxybutynin chloride 15 mg 15 mg PO DAILY 11/23/20 Unknown History tablet,extended release 24 hr amitriptyline 25 mg tablet 25 mg PO DAILY 04/13/23 Unknown History benzonatate 100 mg capsule 100 mg PO BID PRN 04/13/23 Unknown History thiamine HCl (vitamin B1) 50 mg 50 mg PO DAILY 04/13/23 Unknown History tablet verapamil 120 mg 24 hr 120 mg PO DAILY 04/13/23 Unknown History capsule,extended release rizatriptan 10 mg tablet 10 mg PO ONCE 04/17/23 Unknown History zinc sulfate 50 mg zinc (220 mg) 50 mg PO DAILY 04/17/23 Unknown History capsule atogepant 60 mg tablet (Qulipta) 60 mg PO DAILY 06/28/23 Unknown History Allergy/AdvReac Type Severity Reaction Status Date / Time acetaminophen (From Percocet) Allergy Intermediate hives/itchi Verified 02/26/24 11:26 ng oxycodone (From Percocet) Allergy Intermediate hives/itchi Verified 02/26/24 11:26 ng Acrylic Acid and Acrylates Allergy Swelling Verified 02/26/24 11:26 (steri-strips (acrylate)) Family History Mother Heart disease Hypertension Diabetes Father Heart disease Hypertension Sister Heart disease Hypertension Diabetes Surgical History Hx of repair of rotator cuff History of left inguinal hernia repair ( 11/2020) History of cardiac catheterization History o (more content not included)... Normal [facility] Diagnostic total prostate sp ecific antigen (PSA) measurementOrdered By: Ivonne Dexter on 02-19-2024 Prostate Specific Antigen Total < 0.01 ng/mL 0.0-4.0 [facility] Comment on above: This test was perfor med using the TPSA assay method for the[employer] chemistry system. Values obtained with differentassay methods cannot be used interchangably.When changing PSA assays in the course of monitoring apatient, additional sequential testing should be carriedout to confirm baseline values. PSA,Total- Diagnosticon 01-22 PSA, DIAGNOSTIC < 0.01 Normal 0.0-4.0 [facility] Comment on above: Result Comment: This test was performed using the TPSA assay method for the [employer] chemistry system. Values obtained with different assay methods cannot be used interchangably. When changing PSA assays in the course of monitoring a patient, additional sequential testing should be carried out to confirm baseline values. Performed By: #### L 501.9940 ####[facility] [id number] [place], [place], [phone] PSA,Total- Diagnosticon 10-22 PSA, DIAGNOSTIC < 0.01 Normal 0.0-4.0 [facility] Comment on above: Order Comment: ERMIAS Ho ADD DR. CHAMBERS IN RESULTS Result Comment: This test was performed using the TPSA assay method for the [employer] chemistry system. Values obtained with different assay methods cannot be used interchangably. When changing PSA assays in the course of monitoring a patient, additional sequential testing should be carried out to confirm baseline values. Performed By: #### L 501.9940 #### [facility] [address] [place], [address] .GFRon 05-24-2023 GFR 110 ml/min/1.73sqm Normal [facility] ([place]) Comment on above: Result Comment: GFR Population mean for , Non- Americans Ages 20-29 = 116 mL/min/1.73 sq.m. Ages 30-39 = 107 mL/min/1.73 sq.m. Ages 40-49 = 99 mL/min/1.73 sq.m. Ages 50-59 = 93 mL/min/1.73 sq.m. Ages 60-69 = 85 mL/min/1.73 sq.m. Ages 70+ = 75 mL/min/1.73 sq.m. Chronic Kidney Disease: Less than 60 mL/min/1.73 square meters End Stage Renal Disease: Less than 15 mL/min/1.73 square meters Performed By: #### C MP, LIPID, GFR #### [address] [address] GFR Non- 91 ml/min/1.73sqm Normal [facility] ([place]) Comment on above: Result Comment: GFR Population mean for , Non- Americans Ages 20-29 = 116 mL/min/1.73 sq.m. Ages 30-39 = 107 mL/min/1.73 sq.m. Ages 40-49 = 99 mL/min/1.73 sq.m. Ages 50-59 = 93 mL/min/1.73 sq.m. Ages 60-69 = 85 mL/min/1.73 sq.m. Ages 70+ = 75 mL/min/1.73 sq.m. Chronic Kidney Disease: Less than 60 mL/min/1.73 square meters End Stage Renal Disease: Less than 15 mL/min/1.73 square meters Performed By: #### C MP, LIPID, GFR #### [place] [address] [address] CMPon 05-24-2023 Albumin Level 3.9 G/dL Normal 3.4-4.8 [facility] ([place] Comment on above: Performed By: #### C MP, LIPID, GFR #### [address] [address] Albumin/Globulin [Mass ratio] 1.3 {ratio} Normal 1.1-2.5 [facility] ([place]) Comment on above: Performed By: #### C MP, LIPID, GFR #### [address] [address] ALP [Catalytic activity/Vol] 67 U/L Normal 40-135 [facility] ([place] Comment on above: Performed By: #### C MP, LIPID, GFR #### [address] [address] ALT [Catalytic activity/Vol] 32 U/L Normal 16-63 [facility] ([place]) Comment on above: Performed By: #### C MP, LIPID, GFR #### [address] [address] AST [Catalytic activity/Vol] 8 U/L Low 10-40 [facility] ([place] Comment on above: Performed By: #### C MP, LIPID, GFR #### [address] [address] Bili Total 0.5 mg/dL Normal 0.2-1.0 [facility] ([place] Comment on above: Result Comment: Use of this assay is not recommended for patients undergoing treatment with eltrombopag due to the potential for falsely elevated results. Performed By: #### C MP, LIPID, GFR #### [address] [address] BUN/Creatinine Ratio 23 ratio Normal 7-27 [facility] ([place]) Comment on above: Performed By: #### C MP, LIPID, GFR #### [address] [address] Calcium [Mass/Vol] 8.7 mg/dL Normal 8.4-10.2 [facility] ([place]) Comment on above: Performed By: #### C MP, LIPID, GFR #### [address] [address] Chloride [Moles/Vol] 107 mmol/L Normal 98-107 [facility] ([place]) Comment on above: Performed By: #### C MP, LIPID, GFR #### [address] [address] CO2 [Moles/Vol] 33 mmol/L High 23-31 [facility] ([place]) Comment on above: Performed By: #### C MP, LIPID, GFR #### [address] [address] Creatinine [Mass/Vol] 0.83 mg/dL Normal 0.70-1.30 [facility] ([place]) Comment on above: Performed By: #### C MP, LIPID, GFR #### [address] [address] Electrolyte Balance 5.0 mEq/L Normal 4.0-15.0 [facility] ([place]) Comment on above: Performed By: #### C MP, LIPID, GFR #### [address] [address] Globulin 2.9 G/dL Normal [facility] ([place]) Comment on above: Performed By: #### C MP, LIPID, GFR #### [address] [address] Glucose [Mass/Vol] 88 mg/dL Normal 83-110 [facility] ([place]) Comment on above: Performed By: #### C MP, LIPID, GFR #### [address] [address] Potassium [Moles/Vol] 4.9 mmol/L Normal 3.5-5.1 [facility] ([place]) Comment on above: Performed By: #### C MP, LIPID, GFR #### [address] [address] Sodium [Moles/Vol] 145 mmol/L Normal 136-145 [facility] ([place]) Comment on above: Performed By: #### C MP, LIPID, GFR #### [address] [address] Total Protein 6.8 G/dL Normal 6.4-8.2 [facility] ([place]) Comment on above: Performed By: #### C MP, LIPID, GFR #### [address] [address] Urea nitrogen [Mass/Vol] 19 mg/dL High 7-18 [facility] ([place] Comment on above: Performed By: #### C MP, LIPID, GFR #### [address] [address] LIPIDon 05-24-2023 Cholesterol [Mass/Vol] 217 mg/dL High 0-200 [facility] ([place]) Comment on above: Result Comment: Chol esterol Reference Interval: Less than 200 Desirable 200-239 Borderline high risk 240 and above High risk Performed By: #### C MP, LIPID, GFR #### [address] [address] Cholesterol in HDL [Mass/Vol] 53 mg/dL Normal 40-60 [facility] ([place]) Comment on above: Performed By: #### C MP, LIPID, GFR #### [address] [address] Cholesterol in LDL [Mass/Vol] 147 mg/dL High 0-130 [facility] ([place]) Comment on above: Performed By: #### C MP, LIPID, GFR #### [address] [address] Triglyceride [Mass/Vol] 86 mg/dL Normal 0-150 [facility] ([place] Comment on above: Result Comment: Trig lyceride Reference Interval: Less than 150 Normal 150-199 Borderline high risk 200-499 High risk 500 or higher Very high risk Performed By: #### C MP, LIPID, GFR #### [address] [address] Basophil percentageOrdered B y: Berto Chambers on 04-24-2023 Basophil percentage < 1.0 mg/dL 0.70-1.30 [facility] No Panel InformationOrdered By: Berto Jimenezston on 04-24-2023 Bedside Estimated GFR (eGFR) > 60.0000 mL/min >60 [facility] Basophil percentageOrdered B y: Ivonne Dexter on 04-06-2023 Basophil percentage 0.56 ng/mL 0.0-4.0 [facility] Comment on above: This test was perfor med using the TPSA assay method for the[employer] chemistry system. Values obtained with differentassay methods cannot be used interchangably.When changing PSA assays in the course of monitoring apatient, additional sequential testing should be carriedout to confirm baseline values. .Auto Diffon 02-04-2023 Basophil, Absolute 0.0 10 3/mcL Normal 0.0-0.2 [facility] ([place]) Comment on above: Performed By: #### T LARISA, CBC, CMP, LIP, ANEU, MDW, ADIFF, GFR #### [address] [address] Basophils/100 WBC (Bld) 0.7 % Normal 0.0-2.5 [facility] ([place]) Comment on above: Performed By: #### T LARISA, CBC, CMP, LIP, ANEU, MDW, ADIFF, GFR #### [address] [address] Eosinophil, Absolute 0.0 10 3/mcL Normal 0.0-0.4 [facility] ([place]) Comment on above: Performed By: #### T LARISA, CBC, CMP, LIP, ANEU, MDW, ADIFF, GFR #### [address] [address] Eosinophils/100 WBC (Bld) 0.3 % Normal 0.0-7.0 [facility] ([place]) Comment on above: Performed By: #### T LARISA, CBC, CMP, LIP, ANEU, MDW, ADIFF, GFR #### [address] [address] Lymphocyte, Absolute 0.8 10 3/mcL Normal 0.8-3.9 [facility] ([place]) Comment on above: Performed By: #### T ROPHS, CBC, CMP, LIP, ANEU, MDW, ADIFF, GFR #### [address] [address] Lymphocytes/100 WBC (Bld) 18.8 % Normal 10.0-50.0 [facility] ([place]) Comment on above: Performed By: #### T ROPHS, CBC, CMP, LIP, ANEU, MDW, ADIFF, GFR #### [address] [address] Monocyte, Absolute 0.6 10 3/mcL Normal 0.2-1.0 [facility] ([place]) Comment on above: Performed By: #### T ROPHS, CBC, CMP, LIP, ANEU, MDW, ADIFF, GFR #### [address] [address] Monocytes/100 WBC (Bld) 13.7 % High 1.7-13.0 [facility] ([place]) Comment on above: Performed By: #### T ROPHS, CBC, CMP, LIP, ANEU, MDW, ADIFF, GFR #### [address] [address] Neutrophils/100 WBC (Bld) 66.5 % Normal 37.0-80.0 [facility] ([place]) Comment on above: Performed By: #### T ROPHS, CBC, CMP, LIP, ANEU, MDW, ADIFF, GFR #### [address] [address] .GFRon 02-04-2023 GFR 119 ml/min/1.73sqm Normal [facility] ([place]) Comment on above: Result Comment: GFR Population mean for , Non- Americans Ages 20-29 = 116 mL/min/1.73 sq.m. Ages 30-39 = 107 mL/min/1.73 sq.m. Ages 40-49 = 99 mL/min/1.73 sq.m. Ages 50-59 = 93 mL/min/1.73 sq.m. Ages 60-69 = 85 mL/min/1.73 sq.m. Ages 70+ = 75 mL/min/1.73 sq.m. Chronic Kidney Disease: Less than 60 mL/min/1.73 square meters End Stage Renal Disease: Less than 15 mL/min/1.73 square meters Performed By: #### C MP, LIPID, GFR #### [address] [address] GFR Non- 98 ml/min/1.73sqm Normal [facility] ([place]) Comment on above: Result Comment: GFR Population mean for , Non- Americans Ages 20-29 = 116 mL/min/1.73 sq.m. Ages 30-39 = 107 mL/min/1.73 sq.m. Ages 40-49 = 99 mL/min/1.73 sq.m. Ages 50-59 = 93 mL/min/1.73 sq.m. Ages 60-69 = 85 mL/min/1.73 sq.m. Ages 70+ = 75 mL/min/1.73 sq.m. Chronic Kidney Disease: Less than 60 mL/min/1.73 square meters End Stage Renal Disease: Less than 15 mL/min/1.73 square meters Performed By: #### C MP, LIPID, GFR #### [address] [address] .MDWon 02-04-2023 Monocyte Distribution Width 18.95 Normal 0.00-20.00 [facility] ([place]) Comment on above: Result Comment: For ED adult patients suspected of sepsis, MDW<=20.0 does not rule out sepsis or risk of sepsis Performed By: #### T LARISA, CBC, CMP, LIP, ANEU, MDW, ADIFF, GFR #### [address] [address] .NEUABSon 02-04-2023 Neutrophil, Absolute 2.9 10 3/mcL Normal 2.9-6.2 [facility] ([place]) Comment on above: Performed By: #### T LARISA, CBC, CMP, LIP, ANEU, MDW, ADIFF, GFR #### [address] [address] CBCon 02-04-2023 Erythrocyte distribution width (RBC) [Ratio] 14.3 % Normal 11.5-14.5 [facility] ([place]) Comment on above: Performed By: #### T LARISA, CBC, CMP, LIP, ANEU, MDW, ADIFF, GFR #### [address] [address] Hematocrit (Bld) [Volume fraction] 40.3 % Low 42.0-52.0 [facility] ([place] Comment on above: Performed By: #### T LARISA, CBC, CMP, LIP, ANEU, MDW, ADIFF, GFR #### [address] [address] Hgb 13.5 G/dL Low 14.0-18.0 [facility] ([place] Comment on above: Performed By: #### T LARISA, CBC, CMP, LIP, ANEU, MDW, ADIFF, GFR #### [address] [address] MCH (RBC) [Entitic mass] 28.3 pg Normal 27.0-31.2 [facility] ([place]) Comment on above: Performed By: #### T LARISA, CBC, CMP, LIP, ANEU, MDW, ADIFF, GFR #### [place] [address] MCHC 33.4 G/dL Normal 31.8-35.4 [facility] ([place]) Comment on above: Performed By: #### T LARISA, CBC, CMP, LIP, ANEU, MDW, ADIFF, GFR #### [place] [id number] MCV (RBC) [Entitic vol] 84.8 fL Normal 80.0-94.0 [facility] ([place] Comment on above: Performed By: #### T LARISA, CBC, CMP, LIP, ANEU, MDW, ADIFF, GFR #### [address] [address] Platelet 226 10 3/mcL Normal 130-400 [facility] ([place]) Comment on above: Performed By: #### T LARISA, CBC, CMP, LIP, ANEU, MDW, ADIFF, GFR #### [address] [address] Platelet mean volume (Bld) [Entitic vol] 7.8 fL Normal 7.4-10.4 [facility] ([place]) Comment on above: Performed By: #### T CHAYHS, CBC, CMP, LIP, ANEU, MDW, ADIFF, GFR #### [address] [address] RBC 4.76 10 6/mcL Normal 4.04-6.13 [facility] ([place]) Comment on above: Performed By: #### T LARISA, CBC, CMP, LIP, ANEU, MDW, ADIFF, GFR #### [address] [address] WBC 4.4 10 3/mcL Low 4.6-10.8 [facility] ([place]) Comment on above: Performed By: #### T LARISA, CBC, CMP, LIP, ANEU, MDW, ADIFF, GFR #### [address] [address] CMPon 02-04-2023 Albumin Level 3.6 G/dL Normal 3.4-4.8 [facility] ([place] Comment on above: Performed By: #### C MP, LIPID, GFR #### [address] [address] Albumin/Globulin [Mass ratio] 1.1 {ratio} Normal 1.1-2.5 [facility] ([place]) Comment on above: Performed By: #### C MP, LIPID, GFR #### [address] [address] ALP [Catalytic activity/Vol] 66 U/L Normal 40-135 [facility] ([place] Comment on above: Performed By: #### C MP, LIPID, GFR #### [address] [address] ALT [Catalytic activity/Vol] 32 U/L Normal 16-63 [facility] ([place] Comment on above: Performed By: #### C MP, LIPID, GFR #### [address] [address] AST [Catalytic activity/Vol] 24 U/L Normal 10-40 [facility] ([place] Comment on above: Performed By: #### C MP, LIPID, GFR #### [address] [address] Bili Total 0.2 mg/dL Normal 0.2-1.0 [facility] ([place] Comment on above: Result Comment: Use of this assay is not recommended for patients undergoing treatment with eltrombopag due to the potential for falsely elevated results. Performed By: #### C MP, LIPID, GFR #### [address] [address] BUN/Creatinine Ratio 28 ratio High 7-27 [facility] ([place]) Comment on above: Performed By: #### C MP, LIPID, GFR #### [address] [address] Calcium [Mass/Vol] 9.2 mg/dL Normal 8.4-10.2 [facility] ([place]) Comment on above: Performed By: #### C MP, LIPID, GFR #### [address] [address] Chloride [Moles/Vol] 105 mmol/L Normal 98-107 [facility] ([place]) Comment on above: Performed By: #### C MP, LIPID, GFR #### [address] [address] CO2 [Moles/Vol] 26 mmol/L Normal 23-31 [facility] ([place] Comment on above: Performed By: #### C MP, LIPID, GFR #### [address] [address] Creatinine [Mass/Vol] 0.78 mg/dL Normal 0.70-1.30 [facility] ([place]) Comment on above: Performed By: #### C MP, LIPID, GFR #### [address] [address] Electrolyte Balance 11.0 mEq/L Normal 4.0-15.0 [facility] ([place]) Comment on above: Performed By: #### C MP, LIPID, GFR #### [address] [address] Globulin 3.3 G/dL Normal [facility] ([place] Comment on above: Performed By: #### C MP, LIPID, GFR #### [address] [address] Glucose [Mass/Vol] 118 mg/dL High 83-110 [facility] ([place]) Comment on above: Performed By: #### C MP, LIPID, GFR #### [address] [address] Potassium [Moles/Vol] 4.5 mmol/L Normal 3.5-5.1 [facility] ([place]) Comment on above: Performed By: #### C MP, LIPID, GFR #### [address] [address] Sodium [Moles/Vol] 142 mmol/L Normal 136-145 [facility] ([place]) Comment on above: Performed By: #### C MP, LIPID, GFR #### [address] [address] Total Protein 6.9 G/dL Normal 6.4-8.2 [facility] ([place] Comment on above: Performed By: #### C MP, LIPID, GFR #### [address] [address] Urea nitrogen [Mass/Vol] 22 mg/dL High 7-18 [facility] ([place] Comment on above: Performed By: #### C MP, LIPID, GFR #### [address] [address] [id number] 02-04-2023 SARS-CoV-2 (COVID-19) RNA RONNI+probe Ql (Unsp spec) Positive Abnormal Negative [facility] ([place] Comment on above: Performed By: #### C MP, LIPID, GFR #### [address] [address] SARS-CoV-2 (COVID-19) RNA RONNI+probe Ql (Unsp spec) Normal [facility] ([place]) Comment on above: Result Comment: Posi tive results are indicative of the presence of SARS-CoV-2 RNA; clinical correlation with patient history and other diagnostic information is necessary to determine patient infection status. Positive results do not rule out bacterial infection or co-infection with other viruses. The agent detected may not be the definite cause of disease. Laboratories within the [facility] and its territories are required to report all positive results to the appropriate public health authorities. Detection of analyte target(s) does not imply that the corresponding virus(es) are infectious or are the causative agents for clinical symptoms. There is a risk of false positive values resulting from cross-contamination by target organisms, their nucleic acids or amplified product, or from non-specific signals in the assay. JON SARS-CoV-2 Assay is a Real-Time reverse-transcriptase polymerase chain reaction (RT-PCR) based qualitative in vitro diagnostic test intended for the qualitative detection of nucleic acid from the SARS-CoV-2 in nasopharyngeal swab specimens collected from individuals suspected of COVID-19 by their healthcare provider. Testing is limited to laboratories certified under the Clinical Laboratory Improvement Amendments of 1988 (CLIA), 42 U.S.C. ?263a, to perform moderate and high complexity tests. COVID-19 Int Performed By: #### C MP, LIPID, GFR #### N[place] [address] [address] FLURSVon 02-04-2023 Flu A PCR (AO) Negative Normal Negative [facility] ([place]) Comment on above: Result Comment: Posi tive Results: Positive Flu A/B or RSV for by PCR. Positive test results do not rule out bacterial infection or co-infection with other pathogens. Test results should be interpreted in conjunction with other laboratory and clinical data. Negative Results: Negative for by PCR. Negative test results do not preclude influenza virus or RSV infection and should not be used as the sole basis for diagnosis, treatment, or other management decisions. There is a risk of false negative RSV results when at low concentration and in the presence of co-infection with high concentration of influenza A. Invalid Results: An Invalid result (INV) was obtained. The test was repeated with similar results. REPEAT COLLECTION AND TESTING IS RECOMMENDED. The Jon Flu A/B & RSV Assay is a real-time polymerase chain reaction (PCR) based qualitative in vitro diagnostic test for the direct detection and differentiation of influenza A virus, influenza B virus, and respiratory syncytial virus (RSV) nucleic acid in nasopharyngeal swab (MARINE SPECIALIST) specimens from patients with signs and symptoms of respiratory infection in conjunction with clinical and laboratory findings. The test is intended for use as an aid in the differential diagnosis of influenza A virus, influenza B virus, and RSV in humans and is not intended to detect influenza C. Performed By: #### C MP LIPID, GFR #### [address] [address] Flu B PCR (AO) Negative Normal Negative [facility] ([place]) Comment on above: Result Comment: Posi tive Results: Positive Flu A/B or RSV for by PCR. Positive test results do not rule out bacterial infection or co-infection with other pathogens. Test results should be interpreted in conjunction with other laboratory and clinical data. Negative Results: Negative for by PCR. Negative test results do not preclude influenza virus or RSV infection and should not be used as the sole basis for diagnosis, treatment, or other management decisions. There is a risk of false negative RSV results when at low concentration and in the presence of co-infection with high concentration of influenza A. Invalid Results: An Invalid result (INV) was obtained. The test was repeated with similar results. REPEAT COLLECTION AND TESTING IS RECOMMENDED. The Jon Flu A/B & RSV Assay is a real-time polymerase chain reaction (PCR) based qualitative in vitro diagnostic test for the direct detection and differentiation of influenza A virus, influenza B virus, and respiratory syncytial virus (RSV) nucleic acid in nasopharyngeal swab (MARINE SPECIALIST) specimens from patients with signs and symptoms of respiratory infection in conjunction with clinical and laboratory findings. The test is intended for use as an aid in the differential diagnosis of influenza A virus, influenza B virus, and RSV in humans and is not intended to detect influenza C. Performed By: #### C MP, LIPID, GFR #### [address] [address] RSV PCR (AO) Negative Normal Negative [facility] ([place] Comment on above: Result Comment: Posi tive Results: Positive Flu A/B or RSV for by PCR. Positive test results do not rule out bacterial infection or co-infection with other pathogens. Test results should be interpreted in conjunction with other laboratory and clinical data. Negative Results: Negative for by PCR. Negative test results do not preclude influenza virus or RSV infection and should not be used as the sole basis for diagnosis, treatment, or other management decisions. There is a risk of false negative RSV results when at low concentration and in the presence of co-infection with high concentration of influenza A. Invalid Results: An Invalid result (INV) was obtained. The test was repeated with similar results. REPEAT COLLECTION AND TESTING IS RECOMMENDED. The [employer] Flu A/B & RSV Assay is a real-time polymerase chain reaction (PCR) based qualitative in vitro diagnostic test for the direct detection and differentiation of influenza A virus, influenza B virus, and respiratory syncytial virus (RSV) nucleic acid in nasopharyngeal swab (MARINE SPECIALIST) specimens from patients with signs and symptoms of respiratory infection in conjunction with clinical and laboratory findings. The test is intended for use as an aid in the differential diagnosis of influenza A virus, influenza B virus, and RSV in humans and is not intended to detect influenza C. Performed By: #### C MP, LIPID, GFR #### [place] [address] LABORATORYOrdered By: SYSTEM SYSTEM on 02-04-2023 Albumin BCP dye [Mass/Vol] 3.6 G/dL Normal 3.4 - 4.8 G/dL AO ADM SS Albumin/Globulin [Mass ratio] 1.1 {ratio} Normal 1.1 - 2.5 ratio AO ADM SS ALP [Catalytic activity/Vol] 66 U/L Normal 40 - 135 U/L AO ADM SS ALT With P-5'-P [Catalytic activity/Vol] 32 U/L Normal 16 - 63 U/L AO ADM SS AST With P-5'-P [Catalytic activity/Vol] 24 U/L Normal 10 - 40 U/L AO ADM SS Basophil, Absolute 0.0 103/mcL Normal 0.0 - 0.2 10^3/mcL AO Workflow SS Basophils/100 WBC (Bld) 0.7 % Normal 0.0 - 2.5 % AO Workflow SS Bilirubin [Mass/Vol] 0.2 mg/dL Normal 0.2 - 1 .0 mg/dL AO ADM SS Comment on above: Interpretive Data: U se of this assay is not recommended for patients undergoing treatment with eltrombopag due to the potential for falsely elevated results. Calcium [Mass/Vol] 9.2 mg/dL Normal 8.4 - 10. 2 mg/dL AO ADM SS Chloride [Moles/Vol] 105 mmol/L Normal 98 - 10 7 mmol/L AO ADM SS CO2 [Moles/Vol] 26 mmol/L Normal 23 - 31 mmol/L AO ADM SS Creatinine [Mass/Vol] 0.78 mg/dL Normal 0.70 - 1.30 mg/dL AO ADM SS Electrolyte Balance 11.0 mEq/L Normal 4.0 - 15 .0 mEq/L AO ADM SS Eosinophil, Absolute 0.0 103/mcL Normal 0.0 - 0 .4 10^3/mcL AO Workflow SS Eosinophils/100 WBC (Bld) 0.3 % Normal 0.0 - 7.0 % AO Workflow SS Erythrocyte distribution width (RBC) [Ratio] 14.3 % Normal 11.5 - 14.5 % AO Workflow SS GFR/1.73 sq M.predicted among blacks MDRD (S/P/Bld) [Vol rate/Area] 119 ml/min/1.73sqm Invalid Interpretation Code AO Chemistry S Comment on above: Interpretive Data: GFR Population mean for , Non- Americans Ages 20-29 = 116 mL/min/1.73 sq.m. Ages 30-39 = 107 mL/min/1.73 sq.m. Ages 40-49 = 99 mL/min/1.73 sq.m. Ages 50-59 = 93 mL/min/1.73 sq.m. Ages 60-69 = 85 mL/min/1.73 sq.m. Ages 70+ = 75 mL/min/1.73 sq.m. Chronic Kidney Disease: Less than 60 mL/min/1.73 square meters End Stage Renal Disease: Less than 15 mL/min/1.73 square meters GFR/1.73 sq M.predicted among non-blacks MDRD (S/P/Bld) [Vol rate/Area] 98 ml/min/1.73sqm Invalid Interpretation Code AO Chemistry S Comment on above: Interpretive Data: GFR Population mean for , Non- Americans Ages 20-29 = 116 mL/min/1.73 sq.m. Ages 30-39 = 107 mL/min/1.73 sq.m. Ages 40-49 = 99 mL/min/1.73 sq.m. Ages 50-59 = 93 mL/min/1.73 sq.m. Ages 60-69 = 85 mL/min/1.73 sq.m. Ages 70+ = 75 mL/min/1.73 sq.m. Chronic Kidney Disease: Less than 60 mL/min/1.73 square meters End Stage Renal Disease: Less than 15 mL/min/1.73 square meters Globulin 3.3 G/dL Invalid Interpretation Code AO ADM SS Glucose [Mass/Vol] 118 mg/dL High 83 - 110 mg/dL AO ADM SS Hematocrit (Bld) [Volume fraction] 40.3 % Low 42.0 - 52.0 % AO Workflow SS Hemoglobin (Bld) [Mass/Vol] 13.5 G/dL Low 14.0 - 18.0 G/dL AO Workflow SS Lipase [Catalytic activity/Vol] 27 U/L Normal 16 - 77 U/L AO ADM SS Lymphocyte, Absolute 0.8 103/mcL Normal 0.8 - 3 .9 10^3/mcL AO Workflow SS Lymphocytes/100 WBC (Bld) 18.8 % Normal 10.0 - 50.0 % AO Workflow SS MCH (RBC) [Entitic mass] 28.3 pg Normal 27.0 - 31.2 pg AO Workflow SS MCHC 33.4 G/dL Normal 31.8 - 35.4 G/dL AO Workflow SS MCV (RBC) [Entitic vol] 84.8 fL Normal 80.0 - 94.0 fL AO Workflow SS Monocyte distribution width Auto (Bld) [Entitic vol] 18.95 1 Normal 0.00 - 20.00 AO Workflow SS Comment on above: Result Comment: For ED adult patients suspected of sepsis, MDW<=20.0 does not rule out sepsis or risk of sepsis Monocyte, Absolute 0.6 103/mcL Normal 0.2 - 1.0 10^3/mcL AO Workflow SS Monocytes/100 WBC (Bld) 13.7 % High 1.7 - 13.0 % AO Workflow SS Neutrophil, Absolute 2.9 103/mcL Normal 2.9 - 6 .2 10^3/mcL AO Workflow SS Neutrophils/100 WBC (Bld) 66.5 % Normal 37.0 - 80.0 % AO Workflow SS Platelet mean volume (Bld) [Entitic vol] 7.8 fL Normal 7.4 - 10.4 fL AO Workflow SS Platelets (Bld) [#/Vol] 226 103/mcL Normal 130 - 400 10^3/mcL AO Workflow SS Potassium [Moles/Vol] 4.5 mmol/L Normal 3.5 - 5.1 mmol/L AO ADM SS Protein [Mass/Vol] 6.9 G/dL Normal 6.4 - 8.2 G/dL AO ADM SS RBC (Bld) [#/Vol] 4.76 106/mcL Normal 4.04 - 6.13 10^6/mcL AO Workflow SS Sodium [Moles/Vol] 142 mmol/L Normal 136 - 145 mmol/L AO ADM SS Troponin I.cardiac DL <= 0.01 ng/mL [Mass/Vol] 9.2 ng/L Normal 0.0 - 76.2 ng/L AO ADM SS Urea nitrogen [Mass/Vol] 22 mg/dL High 7 - 18 mg/dL AO ADM SS Urea nitrogen/Creatinine [Mass ratio] 28 ratio High 7 - 27 ratio AO ADM SS WBC (Bld) [#/Vol] 4.4 103/mcL Low 4.6 - 10.8 10^3/mcL AO Workflow SS LABORATORYOrdered By: Kait Patterson on 02-04-2023 FLUAV RNA RONNI+probe Ql (Upper resp) Negative 5 (02/04/23 5:29 PM) Normal Negative AO Auto Urine SS Comment on above: Interpretive Data: P ositive Results: Positive Flu A/B or RSV for by PCR. Positive test results do not rule out bacterial infection or co-infection with other pathogens. Test results should be interpreted in conjunction with other laboratory and clinical data. Negative Results: Negative for by PCR. Negative test results do not preclude influenza virus or RSV infection and should not be used as the sole basis for diagnosis, treatment, or other management decisions. There is a risk of false negative RSV results when at low concentration and in the presence of co-infection with high concentration of influenza A. Invalid Results: An Invalid result (INV) was obtained. The test was repeated with similar results. REPEAT COLLECTION AND TESTING IS RECOMMENDED. The Jon Flu A/B & RSV Assay is a real-time polymerase chain reaction (PCR) based qualitative in vitro diagnostic test for the direct detection and differentiation of influenza A virus, influenza B virus, and respiratory syncytial virus (RSV) nucleic acid in nasopharyngeal swab (MARINE SPECIALIST) specimens from patients with signs and symptoms of respiratory infection in conjunction with clinical and laboratory findings. The test is intended for use as an aid in the differential diagnosis of influenza A virus, influenza B virus, and RSV in humans and is not intended to detect influenza C. FLUBV RNA RONNI+probe Ql (Upper resp) Negative 6 (02/04/23 5:29 PM) Normal Negative AO Auto Urine SS Comment on above: Interpretive Data: P ositive Results: Positive Flu A/B or RSV for by PCR. Positive test results do not rule out bacterial infection or co-infection with other pathogens. Test results should be interpreted in conjunction with other laboratory and clinical data. Negative Results: Negative for by PCR. Negative test results do not preclude influenza virus or RSV infection and should not be used as the sole basis for diagnosis, treatment, or other management decisions. There is a risk of false negative RSV results when at low concentration and in the presence of co-infection with high concentration of influenza A. Invalid Results: An Invalid result (INV) was obtained. The test was repeated with similar results. REPEAT COLLECTION AND TESTING IS RECOMMENDED. The [employer] Flu A/B & RSV Assay is a real-time polymerase chain reaction (PCR) based qualitative in vitro diagnostic test for the direct detection and differentiation of influenza A virus, influenza B virus, and respiratory syncytial virus (RSV) nucleic acid in nasopharyngeal swab (MARINE SPECIALIST) specimens from patients with signs and symptoms of respiratory infection in conjunction with clinical and laboratory findings. The test is intended for use as an aid in the differential diagnosis of influenza A virus, influenza B virus, and RSV in humans and is not intended to detect influenza C. RSV RNA RONNI+probe Ql (Upper resp) Negative 7 (02/04/23 5:29 PM) Normal Negative AO Auto Urine SS Comment on above: Interpretive Data: P ositive Results: Positive Flu A/B or RSV for by PCR. Positive test results do not rule out bacterial infection or co-infection with other pathogens. Test results should be interpreted in conjunction with other laboratory and clinical data. Negative Results: Negative for by PCR. Negative test results do not preclude influenza virus or RSV infection and should not be used as the sole basis for diagnosis, treatment, or other management decisions. There is a risk of false negative RSV results when at low concentration and in the presence of co-infection with high concentration of influenza A. Invalid Results: An Invalid result (INV) was obtained. The test was repeated with similar results. REPEAT COLLECTION AND TESTING IS RECOMMENDED. The [employer] Flu A/B & RSV Assay is a real-time polymerase chain reaction (PCR) based qualitative in vitro diagnostic test for the direct detection and differentiation of influenza A virus, influenza B virus, and respiratory syncytial virus (RSV) nucleic acid in nasopharyngeal swab (MARINE SPECIALIST) specimens from patients with signs and symptoms of respiratory infection in conjunction with clinical and laboratory findings. The test is intended for use as an aid in the differential diagnosis of influenza A virus, influenza B virus, and RSV in humans and is not intended to detect influenza C. SARS-CoV-2 (COVID-19) RNA RONNI+probe Ql (Resp) Positive results are indicative of the presence of SARS-CoV-2 RNA; clinical correlation with patient history and other diagnostic information is necessary to determine patient infection status. Positive results do not rule out bacterial infection or co-infection with other viruses. The agent detected may not be the definite cause of disease. Laboratories within the [facility] and its territories are required to report all positive results to the appropriate public health authorities.Detection of analyte target(s) does not imply that the corresponding virus(es) are infectious or are the causative agents for clinical symptoms.There is a risk of false positive values resulting from cross-contamination by target organisms, their nucleic acids or amplified product, or from non-specific signals in the assay.JON SARS-CoV-2 Assay is a Real-Time reverse-transcriptase polymerase chain reaction (RT-PCR) based qualitative in vitro diagnostic test intended for the qualitative detection of nucleic acid from the SARS-CoV-2 in nasopharyngeal swab specimens collected from individuals suspected of COVID-19 by their healthcare provider. Testing is limited to laboratories certified under the Clinical Laboratory Improvement Amendments of 1988 (CLIA), 42 U.S.C. 263a, to perform moderate and high complexity tests. Invalid Interpretation Code AO Auto Urine SS LIPon 02-04-2023 Lipase Level 27 U/L Normal 16-77 [facility] ([place]) Comment on above: Performed By: #### T ROPHS, CBC, CMP, LIP, ANEU, MDW, ADIFF, GFR #### [address] [address] [facility] 02-04-2023 Troponin I High Sensitivity 9.2 ng/L Normal 0.0-76.2 [facility] ([place] Comment on above: Performed By: #### T ROPHS, CBC, CMP, LIP, ANEU, MDW, ADIFF, GFR #### [id number] [place], [place] [address] XR CHEST 1 VIEWon 02-04-2023 XR CHEST 1 VIEW ORIGINAL EXAMINATION: ONE XRAY VIEW OF THE CHEST 02/04/2023 6:39 pm COMPARISON: None. HISTORY: ORDERING SYSTEM PROVIDED HISTORY: Reason for Exam: SOB/cough/fever FINDINGS: There is hypoinflation with accentuation of the cardiomediastinal silhouette and increased bronchovascular markings. There is no consolidation or pleural effusion. There are minimal vessel mental infiltrates at the right lower lung zone. There is no pulmonary vascular congestion. There is no pneumothorax. Osseous structures demonstrate degenerative changes. IMPRESSION: 1. There is no consolidation or pleural effusion. There are minimal vessel mental infiltrates at the right lower lung zone. Interpreted by: Je Kiser Preliminary Report By: Je Kiser Electronically signed By Je Kiser Dictated Date: 02/04/2023 6:45:13 PM Prelim Date: 02/04/2023 6:57:49 PM Sign Date: 02/04/2023 6:57:49 PM Ordering Provider: JASPER Ospina [facility] ([place] Final Surgical Pathology Rep chris 01-25-2023 Final Surgical Pathology Report . Pathology Reports Accession: Collected Date/Time: Received Date/Time: Pathologist: [id number] 01/23/2023 13:18 EST 01/24/2023 09:04 JACK BERGMAN MD Final Surgical Pathology Report DIAGNOSIS: A. DISTAL TRANSVERSE COLON, POLYPECTOMY: - TUBULAR ADENOMA B. RECTUM, POLYPECTOMY: - TUBULAR ADENOMA CLINICAL INFORMATION: Procedure: COLONOSCOPY Preoperative diagnosis: SCREENING Postoperative diagnosis: SCREENING SPECIMEN: A DISTAL TRANSVERSE POLYP B RECTUM POLYP GROSS DESCRIPTION: All parts labelled with patient name and [id number] A. Received in formalin labeled distal transverse polyp are 2 de los santos-pink tissue fragments measuring 0.5 x 0.4 and 0.9 x 0.5 cm in greatest dimension. TS-1 B. Received in formalin labeled rectal polyp are 2 de los santos tissue fragments measuring 0.2 and 0.5 x 0.4 cm. TS-1 Iram West, Grossing Spinning Bath Patroller/ Dr. Jack Stoll, Pathologist Dictated by Iram West MICROSCOPIC DESCRIPTION: The microscopic examination is performed, except in the case of Gross Only. Electronically Signed by Pathology Report verified by [facility] JACK STOLL Sign out Date: 01/25/2023 14:04 Performing Lab: [facility], [address] [place] [address] Pathology Dept Disclaimer If ancillary studies were utilized, the following Laboratory Developed Test (LDT) disclaimer will apply: Under CLIA requirements, [facility] is qualified to perform high complexity testing. For all ancillary stains, positive and negative controls stain appropriately. Performance characteristics of immunohistochemical and chromogenic in-situ hybridization tests have been determined by [facility]. These tests are used for clinical purposes, They should not be regarded as investigational or for research. Normal [facility] ([place] .GFRon 12-07-2022 GFR Non- 94 ml/min/1.73sqm Normal [facility] ([place] Comment on above: Result Comment: GFR Population mean for , Non- Americans Ages 20-29 = 116 mL/min/1.73 sq.m. Ages 30-39 = 107 mL/min/1.73 sq.m. Ages 40-49 = 99 mL/min/1.73 sq.m. Ages 50-59 = 93 mL/min/1.73 sq.m. Ages 60-69 = 85 mL/min/1.73 sq.m. Ages 70+ = 75 mL/min/1.73 sq.m. Chronic Kidney Disease: Less than 60 mL/min/1.73 square meters End Stage Renal Disease: Less than 15 mL/min/1.73 square meters Performed By: #### C MP, LIPID, GFR #### [address] [address] GFR 114 ml/min/1.73sqm Normal [facility] ([place] Comment on above: Result Comment: GFR Population mean for , Non- Americans Ages 20-29 = 116 mL/min/1.73 sq.m. Ages 30-39 = 107 mL/min/1.73 sq.m. Ages 40-49 = 99 mL/min/1.73 sq.m. Ages 50-59 = 93 mL/min/1.73 sq.m. Ages 60-69 = 85 mL/min/1.73 sq.m. Ages 70+ = 75 mL/min/1.73 sq.m. Chronic Kidney Disease: Less than 60 mL/min/1.73 square meters End Stage Renal Disease: Less than 15 mL/min/1.73 square meters Performed By: #### C MP, LIPID, GFR #### [address] [address] CMPon 12-07-2022 Albumin Level 1.8 G/dL Low 3.4-4.8 [facility] ([place] Comment on above: Performed By: #### C MP, LIPID, GFR #### [address] [address] Albumin/Globulin [Mass ratio] 0.3 {ratio} Low 1.1-2.5 [facility] ([place] Comment on above: Performed By: #### C MP, LIPID, GFR #### [address] [address] ALP [Catalytic activity/Vol] 75 U/L Normal 40-135 [facility] ([place] Comment on above: Performed By: #### C MP, LIPID, GFR #### [address] [address] ALT [Catalytic activity/Vol] 26 U/L Normal 16-63 [facility] ([place] Comment on above: Performed By: #### C MP, LIPID, GFR #### [address] [address] AST [Catalytic activity/Vol] 20 U/L Normal 10-40 [facility] ([place] Comment on above: Performed By: #### C MP, LIPID, GFR #### [address] [address] Bili Total 0.7 mg/dL Normal 0.2-1.0 [facility] ([place] Comment on above: Result Comment: Use of this assay is not recommended for patients undergoing treatment with eltrombopag due to the potential for falsely elevated results. Performed By: #### C MP, LIPID, GFR #### [address] [address] BUN/Creatinine Ratio 26 ratio Normal 7-27 [facility] ([place]) Comment on above: Performed By: #### C MP, LIPID, GFR #### [address] [address] Calcium [Mass/Vol] 9.2 mg/dL Normal 8.4-10.2 [facility] ([place]) Comment on above: Performed By: #### C MP, LIPID, GFR #### [address] [address] Chloride [Moles/Vol] 103 mmol/L Normal 98-107 [facility] ([place] Comment on above: Performed By: #### C MP, LIPID, GFR #### [address] [address] CO2 [Moles/Vol] 31 mmol/L Normal 23-31 [facility] ([place] Comment on above: Performed By: #### C MP, LIPID, GFR #### [address] [address] Creatinine [Mass/Vol] 0.81 mg/dL Normal 0.70-1.30 [facility] ([place]) Comment on above: Performed By: #### C MP, LIPID, GFR #### [address] [address] Electrolyte Balance 10.0 mEq/L Normal 4.0-15.0 [facility] ([place]) Comment on above: Performed By: #### C MP, LIPID, GFR #### [address] [address] Globulin 5.4 G/dL Normal [facility] ([place] Comment on above: Performed By: #### C MP, LIPID, GFR #### [address] [address] Glucose [Mass/Vol] 103 mg/dL Normal 83-110 [facility] ([place] Comment on above: Performed By: #### C MP, LIPID, GFR #### [address] [address] Potassium [Moles/Vol] 4.6 mmol/L Normal 3.5-5.1 [facility] ([place] Comment on above: Performed By: #### C MP, LIPID, GFR #### [address] [address] Sodium [Moles/Vol] 144 mmol/L Normal 136-145 [facility] ([place] Comment on above: Performed By: #### C MP, LIPID, GFR #### [address] [address] Total Protein 7.2 G/dL Normal 6.4-8.2 [facility] ([place] Comment on above: Performed By: #### C MP, LIPID, GFR #### [address] [address] Urea nitrogen [Mass/Vol] 21 mg/dL High 7-18 [facility] ([place] Comment on above: Performed By: #### C MP, LIPID, GFR #### [address] [address] LIPIDon 12-07-2022 Cholesterol [Mass/Vol] 218 mg/dL High 0-200 [facility] ([place]) Comment on above: Result Comment: Chol esterol Reference Interval: Less than 200 Desirable 200-239 Borderline high risk 240 and above High risk Performed By: #### C MP, LIPID, GFR #### [address] [address] Cholesterol in HDL [Mass/Vol] 56 mg/dL Normal 40-60 [facility] ([place] Comment on above: Performed By: #### C MP, LIPID, GFR #### [address] [address] Cholesterol in LDL [Mass/Vol] 140 mg/dL High 0-130 [facility] ([place] Comment on above: Performed By: #### C MP, LIPID, GFR #### [facility] [address] [place], [place] [address] Triglyceride [Mass/Vol] 111 mg/dL Normal 0-150 [facility] ([place] Comment on above: Result Comment: Trig lyceride Reference Interval: Less than 150 Normal 150-199 Borderline high risk 200-499 High risk 500 or higher Very high risk Performed By: #### C MP, LIPID, GFR #### [facility] [address] [place], [place] [address] Basophil percentageOrdered B y: Nicolas Kahnano on 10-21-2022 Basophil percentage < 0.9 mg/dL 0.70-1.30 [facility] No Panel InformationOrdered By: Nicolas Rust on 10-21-2022 Bedside Estimated GFR (eGFR) > 60.0000 mL/min >60 [facility] XR KNEE THREE VIEWS LEFTon 0 10-18-2022 XR KNEE THREE VIEWS LEFT ORIGINAL EXAMINATION: THREE XRAY VIEWS OF THE LEFT KNEE; THREE XRAY VIEWS OF THE RIGHT KNEE10/17/2022 2:45 pm; 10/17/2022 2:46 pm XR COMPARISON: Left knee 05/26/2015 HISTORY: ORDERING SYSTEM PROVIDED HISTORY: Reason for Exam: knee pain with worsening swelling Bilateral knee pain after fall Monday.; ORDERING SYSTEM PROVIDED HISTORY: Reason for Exam: knee pain with worsening swelling, trauma, pain, bilateral knee pain after recent fall FINDINGS: There is no visualized acute fracture or dislocation. No radio-opaque foreign body or soft tissue gas is seen. The left knee shows mild osteoarthritis with minimal medial compartment narrowing but no joint effusion. No significant osteoarthritis in the right knee. IMPRESSION: No acute fracture seen. Interpreted by: Franc Pisano MD Preliminary Report By: Franc Pisano MD Electronically signed By Franc Pisano MD Dictated Date: 10/18/2022 4:38:43 PM Prelim Date: 10/18/2022 4:40:04 PM Sign Date: 10/18/2022 4:40:04 PM Ordering Provider: MARTY Ospina [facility] [place] XR KNEE THREE VIEWS RIGHTon 10-18-2022 XR KNEE THREE VIEWS RIGHT ORIGINAL EXAMINATION: THREE XRAY VIEWS OF THE LEFT KNEE; THREE XRAY VIEWS OF THE RIGHT KNEE10/17/2022 2:45 pm; 10/17/2022 2:46 pm XR COMPARISON: Left knee 05/26/2015 HISTORY: ORDERING SYSTEM PROVIDED HISTORY: Reason for Exam: knee pain with worsening swelling Bilateral knee pain after fall Monday.; ORDERING SYSTEM PROVIDED HISTORY: Reason for Exam: knee pain with worsening swelling, trauma, pain, bilateral knee pain after recent fall FINDINGS: There is no visualized acute fracture or dislocation. No radio-opaque foreign body or soft tissue gas is seen. The left knee shows mild osteoarthritis with minimal medial compartment narrowing but no joint effusion. No significant osteoarthritis in the right knee. IMPRESSION: No acute fracture seen. Interpreted by: Franc Pisano MD Preliminary Report By: Franc Pisano MD Electronically signed By Franc Pisano MD Dictated Date: 10/18/2022 4:38:43 PM Prelim Date: 10/18/2022 4:40:04 PM Sign Date: 10/18/2022 4:40:04 PM Ordering Provider: MARTY Ospina [facility] ([place] Culture, urineOrdered By: Latanya Rust on 10-06-2022 Bacteria identified Cx Nom (U) Culture exhibits no growth. [facility] No Panel InformationOrdered By: ALENA Jackson on 10-05-2022 Prostate Specific Antigen Total 0.30 ng/mL 0.0-4.0 [facility] Comment on above: This test was perfor med using the TPSA assay method for the[employer] chemistry system. Values obtained with differentassay methods cannot be used interchangably.When changing PSA assays in the course of monitoring apatient, additional sequential testing should be carriedout to confirm baseline values. LABORATORYOrdered By: SYSTEM SYSTEM on 05-27-2022 Prostate specific Ag [Mass/Vol] 0.31 ng/mL Invalid Interpretation Code 0.00 - 4.00 ng/mL AO ADM SS PSAon 05-27-2022 Prostate Specific Antigen 0.31 ng/mL Normal 0.00-4.00 [facility] ([place] Comment on above: Performed By: #### C MP, LIPID, GFR #### [id number] LABORATORYOrdered By: Nixon Rogers on 11-04-2021 Albumin BCP dye [Mass/Vol] 4.0 G/dL Invalid Interpretation Code 3.4 - 4.8 G/dL AO ADM SS Albumin/Globulin [Mass ratio] 1.3 {ratio} Invalid Interpretation Code 1.1 - 2.5 ratio AO ADM SS ALP [Catalytic activity/Vol] 65 U/L Invalid Interpretation Code 40 - 135 U/L AO ADM SS ALT With P-5'-P [Catalytic activity/Vol] 38 U/L Invalid Interpretation Code 16 - 63 U/L AO ADM SS AST With P-5'-P [Catalytic activity/Vol] 26 U/L Invalid Interpretation Code 10 - 40 U/L AO ADM SS Bilirubin [Mass/Vol] 0.6 mg/dL Invalid Interpretation Code 0.2 - 1.0 mg/dL AO ADM SS Calcium [Mass/Vol] 8.7 mg/dL Invalid Interpretation Code 8.4 - 10.2 mg/dL AO ADM SS Chloride [Moles/Vol] 102 mmol/L Invalid Interpretation Code 98 - 107 mmol/L AO ADM SS Cholesterol [Mass/Vol] 218 mg/dL Invalid Interpretation Code 0 - 200 mg/dL AO ADM SS Cholesterol in HDL [Mass/Vol] 46 mg/dL Invalid Interpretation Code 40 - 60 mg/dL AO ADM SS Cholesterol in LDL [Mass/Vol] 152 mg/dL Invalid Interpretation Code 0 - 130 mg/dL AO ADM SS CO2 [Moles/Vol] 30 mmol/L Invalid Interpretation Code 23 - 31 mmol/L AO ADM SS Creatinine [Mass/Vol] 0.81 mg/dL Invalid Interpretation Code 0.70 - 1.30 mg/dL AO ADM SS Electrolyte Balance 7.0 mEq/L Invalid Interpretation Code 4.0 - 15.0 mEq/L AO ADM SS Globulin 3.1 G/dL Invalid Interpretation Code AO ADM SS Glucose [Mass/Vol] 83 mg/dL Invalid Interpretation Code 83 - 110 mg/dL AO ADM SS Potassium [Moles/Vol] 4.2 mmol/L Invalid Interpretation Code 3.5 - 5.1 mmol/L AO ADM SS Prostate specific Ag [Mass/Vol] 0.20 ng/mL Invalid Interpretation Code 0.00 - 4.00 ng/mL AO ADM SS Protein [Mass/Vol] 7.1 G/dL Invalid Interpretation Code 6.4 - 8.2 G/dL AO ADM SS Sodium [Moles/Vol] 139 mmol/L Invalid Interpretation Code 136 - 145 mmol/L AO ADM SS Triglyceride [Mass/Vol] 101 mg/dL Invalid Interpretation Code 0 - 150 mg/dL AO ADM SS Urea nitrogen [Mass/Vol] 21 mg/dL Invalid Interpretation Code 7 - 18 mg/dL AO ADM SS Urea nitrogen/Creatinine [Mass ratio] 26 ratio Invalid Interpretation Code 7 - 27 ratio AO ADM SS LABORATORYOrdered By: SYSTEM SYSTEM on 11-04-2021 GFR 114 ml/min/1.73sqm Invalid Interpretation Code AO Chemistry S GFR Non- 94 ml/min/1.73sqm Invalid Interpretation Code AO Chemistry S LABORATORYOrdered By: Honey Morales on 06-23-2021 C-Reactive Protein mg/dL Invalid Interpretation Code 0.0 - 0.9 mg/dL AO Chemistry S LABORATORYOrdered By: Tawanda Ashby on 06-23-2021 ESR 15 minute reading (Bld) [Velocity] 4 mm/hr Invalid Interpretation Code 0 - 20 mm/hr AO Man Heme SS Established Visit (Gastroent erology)on 08-12-2020 Established Visit (Gastroenterology) Diagnoses/Problems Assessed GERD without esophagitis (530.81) (K21.9) Orders GERD without esophagitis Changed: From Esomeprazole Magnesium 40 MG Oral Capsule Delayed Release TAKE 1 CAPSULE TWICE DAILY 30 MINUTES PRIOR TO BREAKFAST AND DINNER To Esomeprazole Magnesium 40 MG Oral Capsule Delayed Release (NexIUM) TAKE 1 CAPSULE BY MOUTH EVERY DAY Rx By: Lizette Montenegro; Dispense: 90 Days ; #:90 Capsule; Refill: 3;For: GERD without esophagitis; WING = N; Sent To: [employer] [facility] Patient Discussion/Summary 1. Continue Nexium 40 mg once daily for chronic GERD. 2. People who take medications like Prilosec or Nexium for an extended period of time are at a higher risk of developing osteoporosis. You should speak to your family doctor about performing a bone density study. You should also begin taking 1200 mg total of calcium daily with vitamin D. This includes your supplements and dietary intake. 3. Lifestyle changes to help alleviate heartburn/reflux were discussed. These include avoiding spicy and greasy foods, tomato based products, mint and caffeine. Alcohol and smoking should be avoided. Patient should keep at least 3 hours between eating and going to sleep. Being of a normal weight helps decrease heartburn symptoms. 4. Follow up in 1 year or sooner as needed. Recall colonoscopy 2022. Chief Complaint A telephone visit (audio only) between the patient (at the originating site) and the provider (at the distant site) was utilized to provide this telehealth service. Verbal consent was requested and obtained from TRAY GOMES on this date, 08/12/2020 08:30 AM , for a telehealth visit. GERD History of Present [id number] male spoken to over telephone as a recheck of his chronic GERD. His Nexium 40 mg was increased to twice daily in March due to frequent breakthrough symptoms but he has resumed to taking this once daily with good control of his acid reflux. He was diagnosed with high cholesterol and began a strict diet with an approximate 60 pound weight loss. He continues to monitor his diet closely and stay active. He is having no dysphagia or odynophagia. There is no abdominal pain. He states bowels are moving normally without hematochezia or melena. Review of Systems Const: Reports intentional weight loss. Denies fatigue and fever. CV: Denies chest pain, pacemaker, palpitations and valvular heart disease. Resp: Denies cough, sleep apnea, SOB and snoring. GI: Denies symptoms other than stated above. Active Problems Problems GERD without esophagitis (530.81) (K21.9) Obesity (278.00) (E66.9) Past Medical History Problems History of arthritis (V13.4) (Z87.39) History of asthma (V12.69) (Z87.09) History of colon polyps (V12.72) (Z86.010) History of complications due to general anesthesia (V15.89) (Z91.89) NAUSEA History of gastritis (V12.79) (Z87.19) History of gastroesophageal reflux (GERD) (V12.79) (Z87.19) History of hemorrhoids (V13.89) (Z87.19) History of peptic ulcer (V12.71) (Z87.11) History of seasonal allergies (V15.09) (Z88.9) Surgical History Problems History of Cataract surgery 2017 History of Cholecystectomy LAP- 2013 History of Colonoscopy 2006- ETS- POLYP, HEMORRHOIDS, 2010- DR. KAUR- NORMAL, 2012- ETS- POLYP, 2018- NORMAL History of Esophagogastroduodenoscopy 2009- ETS- GERD, GASTRITIS, 2013- GERD History of Hemorrhoidectomy 2007- DR. PLUNKETT History of Hernia repair AUGUST 2017 History of Knee surgery LEFT- 2016 History of Nose surgery X 2 History of Prostate biopsy 2017 History of Prostate surgery 2017- DR. BONILLA- RADICAL PROSTATECTOMY AND LYMPH NODES History of Rotator cuff repair RIGHT - 2010, LEFT -2013 History of Umbilical hernia repair laparoscopic Family History Mother Family history of MOTHER- DIABETES, CHF FATHER- [place] Father Family history of MOTHER- DIABETES, CHF FATHER- [place] Other Denied: Family history of malignant neoplasm of colon Social History Problems Active advance directive (V49.89) (Z78.9) Former smoker (V15.82) (Z87.891) A TEEN Denied: History of body piercing Denied: History of tattoo No alcohol use No caffeine use No illicit drug use Well balanced diet (V49.89) (Z78.9) Allergies Medication No Known Drug Allergies Recorded By: Mya Yang; 07/03/2018 10:11:46 AM NonMedication No Known Food Allergies Recorded By: Mya Yang; 07/03/2018 10:11:46 AM Current Meds Medication NameInstruction Claritin 10 MG Oral Tablet Esomeprazole Magnesium 40 MG Oral Capsule Delayed ReleaseTAKE 1 CAPSULE TWICE DAILY 30 MINUTES PRIOR TO BREAKFAST AND DINNER. Mucus Relief TABS VESIcare 10 MG Oral Tablet Vitamin C TABS Vitamin D-3 TABS Vitals Vital Signs Recorded: 12Aug2020 08:05AM Height5 ft 5.5 in [id number] lb BMI [id number] kg/m2 BSA Calculated1.81 Physical Exam Patient is alert and oriented throughout telephone c (more content not included)... Normal [facility] Surgical Pathologyon 020 Surgical Pathology [id number] [facility] PATHOLOGY AND LABORATORY MEDICINE [facility] [phone] Fax - FINAL SURGICAL PATHOLOGY REPORT NAME: TRAY GOMES : 1950 69 Y Meliza STEELE NO.: [id number] LOCATION: [facility] 13 PROCEDURE 10/17/2019 DATE: SURGEON: HANH HENDRICKSON DO RECEIVED 10/17/2019 DATE: ATTENDING: HANH HENDRICKSON DO REPORT DATE: 10/21/2019 COPIES TO: DIAGNOSIS: A. ETHMOID LEFT MAXILLARY AND ETHMOID SINUSES, CURETTINGS - FRAGMENTS OF BENIGN BONE AND MINUTE FRAGMENTS OF SINORESPIRATORY EPITHELIUM WITH MINIMAL CHRONIC INFLAMMATION B. RIGHT ETHMOID AND MAXILLARY SINUS CONTENTS, CONCHAL BULLOSA, CURETTINGS - UNREMARKABLE BONE AND FIBROCONNECTIVE TISSUE WITH FRAGMENTS OF SINORESPIRATORY EPITHELIUM WITH MILD CHRONIC INFLAMMATION C. SEPTAL BONE, EXCISION - GROSSLY UNREMARKABLE OSTEOCARTILAGINOUS TISSUE (GROSS DIAGNOSIS ONLY) D. PARTIAL BILATERAL INFERIOR TURBINATES, CURETTINGS - CHRONICALLY INFLAMED SINONASAL RESPIRATORY EPITHELIUM JAW/JAW Signature> LIV RAMOS M.D. CLINICAL INFORMATION: Deviated nasal septum, chronic ethmoidal sinusitis, chronic maxillary sinusitis, chronic sinusitis, hypertrophy of nasal turbinates SPECIMEN: (A) NASAL SINUSES (B) NASAL SINUSES (C) NASAL SEPTAL BONE AND CARTILAGE (D) NASAL TURBINATES GROSS DESCRIPTION: A. Received in formalin within a cloth sack labeled ethmoid left maxillary and ethmoid sinuses are multiple fragments of white-purcell soft tissue aggregating to 0.5 x 0.5 cm. The specimen is entirely submitted in a single cassette. B. Received in formalin within a cloth sack labeled right ethmoid and maxillary sinus contents, deniz bullosa are multiple fragments of white-purcell to white-de los santos soft tissue aggregating to approximately 2 x 2 cm. Shoe Lay Out Planner sections are submitted in a single cassette. C. Received in formalin labeled septal bone is a portion of flat white-purcell bony tissue measuring approximately 2 x 1.5 cm. A portion of the specimen is white-purcell and pliable and appears to resemble cartilage. The specimen is grossly unremarkable. No sections are submitted. D. Received in formalin contained within a cloth sack labeled partial bilateral inferior turbinates are multiple fragments of white-de los santos soft tissue aggregating to 0.4 x 0.4 cm. The specimen is entirely submitted in a single cassette. JCK/0RW Disclaimer: The following statement applies to all immunohistochemistry, in situ hybridization, molecular studies, and immunofluorescence testing. The use of one or more reagents in the above tests is regulated as an analyte specific reagent (ASR). These tests were developed and their performance characteristics determined by the clinical laboratories of [facility]. They have not been cleared by the US Food and Drug Administration (FDA). The FDA has determined that such clearance or approval is not necessary. All the above immunostains were performed on paraffin embedded tissue. Appropriate positive and negative controls (where applicable) were run in parallel with the patient's specimen; these controls showed expected staining pattern, with acceptable intensity of staining. Immunohistochemical assays have not been validated on decalcified tissues. Results should be interpreted with caution given the raised possibility of false negativity on decalcified specimens. Case reviewed at [facility] [address] [place] [address]. DEPARTMENT OF PATHOLOGY AND LABORATORY MEDICINE [place], [place] [address] Normal [facility] Basic Metabolic Panelon 08- 0-2019 Calcium [Mass/Vol] 9.1 mg/dL Normal 8.4-10.4 [facility] Comment on above: Performed By: #### H CAREY, BMP3 #### [facility] [address] [place] [address] Anion gap [Moles/Vol] 8 Normal [facility] Comment on above: Performed By: #### H ELVIN, BMP3 #### [facility] [address] [place] [address] CO2 [Moles/Vol] 22 mmol/L Normal 22-30 [facility] Comment on above: Performed By: #### H ELVIN, BMP3 #### [facility] [address] [place] [address] Creatinine [Mass/Vol] 0.71 mg/dL Normal 0.52-1.25 [facility] Comment on above: Performed By: #### H ELVIN, BMP3 #### [facility] [address] [place] [address] GFR/1.73 sq M predicted among blacks MDRD (S/P/Bld) [Vol rate/Area] mL/min/{1.73_m2} Normal >60 [facility] Comment on above: Performed By: #### H ELVIN BMP3 #### [facility] [address] [place] [address] GFR/1.73 sq M predicted among non-blacks MDRD (S/P/Bld) [Vol rate/Area] mL/min/{1.73_m2} Normal >60 [facility] Comment on above: Result Comment: KDIG O guidelines provide the following GFR categories: Stage GFR(ml/min/1.73 m2) Terms G1 >=90 Normal or high G2 60-89 Mildly decreased* G3a 45-59 Mildly to moderately decreased G3b 30-44 Moderately to severely decreased G4 15-29 Severely decreased G5 <15 Kidney failure *Relative to young adult level. In the absence of evidence of kidney damage, neither GFR category G1 nor G2 fulfill the criteria for CKD. The CKD-EPI equation is validated in individuals 18 years of age and older. Currently the best equation for estimating glomerular filtration rate (GFR) from serum creatinine in children is the Bedside Rivas equation. It is less accurate in patients with extremes of muscle mass, restriction of dietary protein, ingestion of creatine, extra-renal metabolism of creatinine, or treatment with medications that affect renal tubular creatinine secretion. Performed By: #### H ELVIN, BMP3 #### [facility] [address] [place] [address] Glucose [Mass/Vol] 120 mg/dL High 70-100 [facility] Comment on above: Performed By: #### H ELVIN, BMP3 #### [facility] [address] [place] [address] Urea nitrogen [Mass/Vol] 18 mg/dL Normal 7-20 [facility] Comment on above: Performed By: #### H EMOG, BMP3 #### [facility] [address] [place] [address] Chloride [Moles/Vol] 110 mmol/L High 98-107 [facility] Comment on above: Performed By: #### H EMOG, BMP3 #### [facility] [address] [place] [address] Potassium [Moles/Vol] 4.1 mmol/L Normal 3.5-5.1 [facility] Comment on above: Performed By: #### H EMOG, BMP3 #### [facility] [address] [place] [address] Sodium [Moles/Vol] 139 mmol/L Normal 135-145 [facility] Comment on above: Performed By: #### H EMOG, BMP3 #### [facility] [address] [place] [address] Anion gap [Moles/Vol] 8 mmol/L [place], [place] Calcium [Mass/Vol] 9.1 mg/dL 8.4 - 10. 4 mg/dL [place], [place] Chloride [Moles/Vol] 110 mmol/L High 98 - 10 7 mmol/L [place] CO2 [Moles/Vol] 22 mmol/L 22 - 30 mmol/L [place] Creatinine [Mass/Vol] 0.71 mg/dL 0.52 - 1.25 mg/dL [place], [place] EGFR IF NonAfrican Guatemalan >90.0 >60 mL/min [place], [place] Comment on above: KDIGO guidelines pro vide the following GFR categories: Stage GFR(ml/min/1.73 m2) Terms G1 >=90 Normal or high G2 60-89 Mildly decreased* G3a 45-59 Mildly to moderately decreased G3b 30-44 Moderately to severely decreased G4 15-29 Severely decreased G5 <15 Kidney failure *Relative to young adult level. In the absence of evidence of kidney damage, neither GFR category G1 nor G2 fulfill the criteria for CKD. The CKD-EPI equation is validated in individuals 18 years of age and older. Currently the best equation for estimating glomerular filtration rate (GFR) from serum creatinine in children is the Bedside Rivas equation. It is less accurate in patients with extremes of muscle mass, restriction of dietary protein, ingestion of creatine, extra-renal metabolism of creatinine, or treatment with medications that affect renal tubular creatinine secretion. GFR/1.73 sq M predicted among blacks MDRD (S/P/Bld) [Vol rate/Area] mL/min/{1.73_m2} >60 mL/min [place], [place] Glucose [Mass/Vol] 120 mg/dL High 70 - 100 mg/dL [place] Interpretation and review of laboratory results Abnormal [place] Potassium [Moles/Vol] 4.1 mmol/L 3.5 - 5.1 mmol/L [place] Sodium [Moles/Vol] 139 mmol/L 135 - 145 mmol/L [place] Urea nitrogen [Mass/Vol] 18 mg/dL 7 - 20 mg/dL [place] Test Performed by [facility], [address] [place] [id number] [place], [place] CBCon 10-10-2019 Erythrocyte distribution width (RBC) [Ratio] 13.8 % 11.5 - 14.5 % [place] Hematocrit (Bld) [Volume fraction] 44.3 % 40 - 52 % [place] Hemoglobin (Bld) [Mass/Vol] 14.7 g/dL 13 - 18 g/dL [place] MCH (RBC) [Entitic mass] 28.9 pg 26 - 34 pg [place] MCHC (RBC) [Mass/Vol] 33.1 % 32 - 36 % [place] MCV (RBC) [Entitic vol] 87.3 fL 80 - 98 fL [place] Platelet mean volume (Bld) [Entitic vol] 8.0 fL 7.4 - 10.4 fL [place] Platelets (Bld) [#/Vol] 217 10*3/uL 140 - 440 10*3/uL [place] RBC (Bld) [#/Vol] 5.07 10*6/uL 4.4 - 5.9 10*6/uL [place] WBC (Bld) [#/Vol] 4.6 10*3/uL 3.6 - 10.7 10*3/uL [place] Test Performed by [facility], [address] [place] [address] [place], [place] Hemogramon 10-10-2019 Erythrocyte distribution width (RBC) [Ratio] 13.8 % Normal 11.5-14.5 [facility] Comment on above: Performed By: #### H ELVIN BMP3 #### [facility] [address] [place] [address] Hematocrit (Bld) [Volume fraction] 44.3 % Normal 40.0-52.0 [facility] Comment on above: Performed By: #### Duyen OCONNOR BMP3 #### [facility] [address] [place] [address] Hemoglobin (Bld) [Mass/Vol] 14.7 g/dL Normal 13.0-18.0 [facility] Comment on above: Performed By: #### Duyen OCONNOR BMP3 #### [facility] [address] [place] [address] MCH (RBC) [Entitic mass] 28.9 pg Normal 26.0-34.0 [facility] Comment on above: Performed By: #### H ELVIN BMP3 #### [facility] [address] [place] [address] MCHC (RBC) [Mass/Vol] 33.1 % Normal 32.0-36.0 [facility] Comment on above: Performed By: #### H ELVIN BMP3 #### [facility] [address] [place] [address] MCV (RBC) [Entitic vol] 87.3 fL Normal 80.0-98.0 [facility] Comment on above: Performed By: #### Duyen OCONNOR BMP3 #### [facility] [address] [place] [address] Platelet mean volume (Bld) [Entitic vol] 8.0 fL Normal 7.4-10.4 [facility] Comment on above: Performed By: #### H ELVIN, BMP3 #### [facility] [address] [place] [address] Platelets (Bld) [#/Vol] 217 10*3/uL Normal 140-440 [facility] Comment on above: Performed By: #### H ELVIN BMP3 #### [facility] [address] [place] [address] RBC (Bld) [#/Vol] 5.07 10*6/uL Normal 4.40-5.90 [facility] Comment on above: Performed By: #### H ELVIN, BMP3 #### [facility] [address] [place] [address] WBC (Bld) [#/Vol] 4.6 10*3/uL Normal 3.6-10.7 [facility] Comment on above: Performed By: #### H ELVIN, BMP3 #### [facility] [address] [place] [address] PROGRESSon 09-21-2017 Protein mass conc HNO ID: [id number] thor: Alley Turner) GrafService: (none)Author Type: Physician AssistantType: Progress NotesFiled: 09/21/2017 11:39 AMNote Text:FOLLOW UP VISIT - HERNIANAME: Tray Haider AdyCLINIC NO.: [id number] OF SERVICE: 09/15/2017DOB: [birth year]REFERRING PHYSICIAN: No primary care provider on file.Tray is a patient I am following with Dr. Rivera for an incisionalhernia. Dr. Rivera performed a laparoscopic incisional hernia repairwith mesh on September 06, 2017, with placement of 8 x [address] mesh.Post operatively the patient had developed some skin tears and superficialirritation related to the larger dressing site on his abdomen. has used dermabond on these sites when he saw the patient on09/12/17, however patient states the glue sloughed off and he then notedsome serous drainage from the sites which has since resolved. He has beenusing neosporin, notes overall the sites have been looking and feelingmuch better, but is very concerned about possible infection and wants toknow if he should be using something stronger on these.The patient also notes he experienced a cough while driving yesterday andhad significant pain at his repair site during and for several hoursfollowing that episode. He is feeling much better today and notes no paincurrently, but was concerned he could have damaged the repair site andwanted this checked.VITALS: Blood pressure 130/80, temperature 36.9 ?C (98.4 ?F), weight 87.9kg (193 lb 12.8 oz).On examination, the abdomen is benign. The incisions are healing wellwithout signs of infection or inflammation. +multiple healing areas ofskin irritation with scab formation, no active drainage or erythema.There are no signs of recurrent hernia formation.AssessmentIMPRESS ION: status post incisional hernia repair with mesh. Skinirritation from dressing site. Post-operative pain exacerbated bycoughing-likely neuralgia, no evidence of recurrent hernia on examPLAN: Reassured patient and reviewed expected post-operative course. Noevidence of active infection at any of the healing sites of skinirritation currently. I have encouraged him to wash these areas with soapand water and he may use a small amount of bacitracin ointment on theseuntil completely healed if he wishes. Discussed that no evidence ofrecurrent hernia on exam. For irritation at the hernia site from coughingepisode, recommend warm compresses and NSAIDs, follow up if discomfortworsens or does not resolve with these measures. If the patient notes anyproblems, he should contact me immediately. he may return to his regularactivities as tolerated, with the exception of no lifting greater than 20pounds for the next 7 weeks.Patient verbalized understanding of all above and agreed with the planDiagnoses: (G89.18) Post-op pain (primary encounter diagnosis)(R23.8) Skin irritation Return to Clinic: The patient is instructed to follow-up with me asneeded. Alley Kapoor PA-C [facility] CNOVon 09-15-2017 CNOV Office Visit (GENSWS) -------ELISEOTRAY Barajas ([id number]) 1950 MDate Time Provider Department09/15/17 1:00 PM ALLEY KAPOOR) GENSWS During your visit today, we recorded the following information about you: Temperature Blood pressure Weight 98.4 degrees 130/80 87.9 kgAmanda JANNIE Kapoor 09/21/2017 11:39 AM SignedFOLLOW UP VISIT - HERNIANAME: Tray Haider AdyCLINIC NO.: [id number] OF SERVICE: 09/15/2017DOB: 1950EFERRING PHYSICIAN: No primary care provider on file.Tray is a patient I am following with Dr. Rivera for an incisional hernia.Dr. Rivera performed a laparoscopic incisional hernia repair with mesh only 2017, with placement of 8 x [address] mesh.Post operatively the patient had developed some skin tears and superficialirritation related to the larger dressing site on his abdomen. Dr. Rivera hasused dermabond on these sites when he saw the patient on 09/12/17, howeverpatient states the glue sloughed off and he then noted some serous drainagefrom the sites which has since resolved. He has been using neosporin, notesoverall the sites have been looking and feeling much better, but is veryconcerned about possible infection and wants to know if he should be usingsomething stronger on these.The patient also notes he experienced a cough while driving yesterday and hadsignificant pain at his repair site during and for several hours following thatepisode. He is feeling much better today and notes no pain currently, but wasconcerned he could have damaged the repair site and wanted this checked.VITALS: Blood pressure 130/80, temperature 36.9 ?C (98.4 ?F), weight 87.9 kg(193 lb 12.8 oz).On examination, the abdomen is benign. The incisions are healing well withoutsigns of infection or inflammation. +multiple healing areas of skinirritation with scab formation, no active drainage or erythema. There are nosigns of recurrent hernia formation.AssessmentIMPRESS ION: status post incisional hernia repair with mesh. Skin irritationfrom dressing site. Post-operative pain exacerbated by coughing-likelyneuralgia, no evidence of recurrent hernia on examPLAN: Reassured patient and reviewed expected post-operative course. No evidenceof active infection at any of the healing sites of skin irritation currently.I have encouraged him to wash these areas with soap and water and he may use asmall amount of bacitracin ointment on these until completely healed if hewishes. Discussed that no evidence of recurrent hernia on exam. For irritationat the hernia site from coughing episode, recommend warm compresses and NSAIDs,follow up if discomfort worsens or does not resolve with these measures. Ifthe patient notes any problems, he should contact me immediately. he mayreturn to his regular activities as tolerated, with the exception of no liftinggreater than 20 pounds for the next 7 weeks.Patient verbalized understanding of all above and agreed with the planDiagnoses: (G89.18) Post-op pain (primary encounter diagnosis)(R23.8) Skin irritation Return to Clinic: The patient is instructed to follow-up with me as needed. NOEL Mello-CReferring Provider: SELF [[id number]]Allergies As of Date: 09/15/2017(No Known Allergies)Date Reviewed: 09/15/2017Reviewed by: Angie Gomez RN - Fully AssessedReason for Visit: Post Op [174] Cmt: hernia surgery follow upPrimary Visit Diagnosis:Post-op pain [G89.18] Other Visit Diagnosis:Skin irritation [R23.8]Prescriptions as of 09/15/2017 Sig: NAPROXEN SODIUM 220 MG CAPSULE Take by mouth every 8 hours. ESOMEPRAZOLE MAGNESIUM 40 MG * Take 40 mg by mouth DAILY (6 * LORATADINE 10 MG TABLET Take 10 mg by mouth once kareem* GUAIFENESIN 200 MG TABLET Take 400 mg by mouth every 4 * ASCORBIC ACID (VITAMIN C) 500* Take 500 mg by mouth once anusha* CHOLECALCIFEROL (VITAMIN D3) * Take 1,000 Units by mouth onc*Problem List As Of Date: 09/15/2017(None)Follow-up and Disposition History RecordedEncounter Number: [id number] Status:Closed by ALLEY KAPOOR PA-C on 09/21/17 [facility] CNOVon 09-12-2017 CNOV Office Visit (GENSWS) -------TRAY GOMES ([id number]) 1950 MDate Time Provider Department09/12/17 1:30 PM NACHO RIVERA During your visit today, we recorded the following information about you:Nacho Rivera MD 09/14/2017 7:35 PM SignedFOLLOW UP VISIT - HERNIANAME: Tray Haider AdyCLINIC NO.: [id number] OF SERVICE: 09/12/2017DOB: 1950EFERRING PHYSICIAN: Dr. Cheema is a patient I am following for a incisional hernia. I performed alaparoscopic incisional hernia repair with mesh on September 06, 2017. I placed an8 x [address] mesh.The patient currently notes skin tears along the lateral aspect of the bandage. his appetite has been good. he denies fever, chills or abdominal pain. hedoes note some mild incisional discomfort. he notes no bulges at the operativesiteVITALS: There were no vitals taken for this visit.On examination, the abdomen is benign. The incisions are healing well withoutsigns of infection or inflammation. There are no signs of recurrent herniaformation. The sites were the larger bandage was placed over the mid abdomen.Has skin tears along the lateral corners of the bandage away from the portinsertion sites. These are mostly scabbed up, though he notes they do rubagainst his close. Dermabond was applied to the sites.AssessmentIMPRESSION: status post laparoscopic incisional hernia repair with meshPLAN: If the patient notes any problems, he should contact me immediately. hemay return to his regular activities as tolerated, with the exception of nolifting greater than 20 pounds for the next 7 weeks.Diagnoses: (K43.2) Incisional hernia, without obstruction or gangrene (primaryencounter diagnosis) Return to Clinic: The patient is instructed to follow-up with me as needed. Nacho Rivera MDReferring Provider: NACHO RIVERA [[id number]]Allergies As of Date: 09/12/2017(No Known Allergies)Date Reviewed: 09/12/2017Reviewed by: Nacho Rivera - Fully AssessedReason for Visit: Post Op [174] Cmt: post op hernia repair 09/06Primary Visit Diagnosis:Incisional hernia, without obstruction or gangrene [K43.2]Prescriptions as of 09/12/2017 Sig: NAPROXEN SODIUM 220 MG CAPSULE Take by mouth every 8 hours. ESOMEPRAZOLE MAGNESIUM 40 MG * Take 40 mg by mouth DAILY (6 * LORATADINE 10 MG TABLET Take 10 mg by mouth once kareem* GUAIFENESIN 200 MG TABLET Take 400 mg by mouth every 4 * ASCORBIC ACID (VITAMIN C) 500* Take 500 mg by mouth once anusha* CHOLECALCIFEROL (VITAMIN D3) * Take 1,000 Units by mouth onc*Problem List As Of Date: 09/12/2017(None)Letter TextEncounter Number: [id number] Status:Closed by NACHO RIVERA MD on 09/14/17 [facility] PROGRESSon 09-12-2017 Protein mass conc HNO ID: [id number] thor: Nacho Vuervice: (none)Author Type: PhysicianType: Progress NotesFiled: 09/14/2017 7:35 PMNote Text:FOLLOW UP VISIT - HERNIANAME: Tray Haider AdyCLINIC NO.: [id number] OF SERVICE: 09/12/2017DOB: EFERRING PHYSICIAN: Dr. Cheema is a patient I am following for a incisional hernia. I performeda laparoscopic incisional hernia repair with mesh on September 06, 2017. Iplaced an 8 x [address] mesh.The patient currently notes skin tears along the lateral aspect of thebandage. his appetite has been good. he denies fever, chills orabdominal pain. he does note some mild incisional discomfort. he notesno bulges at the operative siteVITALS: There were no vitals taken for this visit.On examination, the abdomen is benign. The incisions are healing wellwithout signs of infection or inflammation. There are no signs ofrecurrent hernia formation. The sites were the larger bandage was placedover the mid abdomen. Has skin tears along the lateral corners of thebandage away from the port insertion sites. These are mostly scabbed up,though he notes they do rub against his close. Dermabond was applied tothe sites.AssessmentIMPRESSION: status post laparoscopic incisional hernia repair with meshPLAN: If the patient notes any problems, he should contact me immediately.he may return to his regular activities as tolerated, with the exceptionof no lifting greater than 20 pounds for the next 7 weeks.Diagnoses: (K43.2) Incisional hernia, without obstruction or gangrene(primary encounter diagnosis) Return to Clinic: The patient is instructed to follow-up with me asneeded. Nacho Rivera MD [facility] PROGRESSon 09-10-2017 Protein mass conc HNO ID: [id number] thor: Nacho Vuervice: (none)Author Type: PhysicianType: Progress NotesFiled: 09/10/2017 9:25 AMNote Text:OPERATIVE NOTATION FOR [facility] SURGICAL PROCEDURE.September 06, 2017BcPelaez Eliseo 1950 [id number] malePROCEDURE: laparoscopic incisional hernia repair - [id number]: David Rivera M.D. FACS WHITE METAL CASTER: NoneDEPT: MEGHA PROVIDER: E76=TgidaimNacho Rivera MD POS: [id number]: (K43.2) Incisional hernia, without obstruction or gangrene(primary encounter diagnosis)ASA CLASS: 2FINDINGS: ventrio [id number]: NonePMHx -PAST MEDICAL HISTORYDiagnosis Date- Cataract- Prostate cancer (HCC)COMORBIDITIES - NonePost Op Occurrences - NoneWound Classification - CleanOperative note dictated in the [facility] dictationsystem.Nacho Rivera MD [facility] CNOPon 09-06-2017 Protein mass conc Operative Note (Enc) (GENSWS) -------Progress Notes:Nacho Rivera MD 09/10/2017 9:25 AM SignedOPERATIVE NOTATION FOR [facility] SURGICAL PROCEDURE.September 06, 2017[facility] [place] 1950 [id number] malePROCEDURE: laparoscopic incisional hernia repair - [id number]: David Rivera M.D. FACS WHITE METAL CASTER: NoneDEPT: [place] PROVIDER: T21=YctolreNacho Rivera MD POS:[id number] : (K43.2) Incisional hernia, without obstruction or gangrene (primaryencounter diagnosis)ASA CLASS: 2FINDINGS: ventrio [id number]: NonePMHx -PAST MEDICAL HISTORYDiagnosis Date- Cataract- Prostate cancer (HCC)COMORBIDITIES - NonePost Op Occurrences - NoneWound Classification - CleanOperative note dictated in the [facility] dictation system.Nacho Rivera MDEncounter Status:Closed by NACHO RIVERA MD on 09/10/17Encounter Number: [id number] [facility] PROGRESSon 08-12-2017 Protein mass conc HNO ID: [id number] thor: Nacho Vuervice: (none)Author Type: PhysicianType: Progress NotesFiled: 08/12/2017 12:18 PMNote Text:[facility]ICAL[facility] Ad1950EFERRING PHYSICIAN: SelfCHIEF COMPLAINT: incisional herniaHPI: Tray is a 67 year old male with a complaint of a bulge anddiscomfort in his prior supraumbilical incision. The patient notesdiscomfort in this area with lifting and coughing. The symptoms haveincreased, over the past few weeks and the patient notes the size of thehernia seems to be growing.The patient notes no symptoms of bowel obstruction and denies nausea orvomiting.The patient was seen by Dr. Rust who felt the patient has a hernia.Helen was referred for evaluation and treatment.The patient is being seen by me today at the request of Dr. Rust for myopinion and advice regarding an incisional hernia.PAST MEDICAL HISTORYDiagnosis Date- Cataract- Prostate cancer (HCC)PAST SURGICAL HISTORYProcedure Laterality Date- CATARACT EXTRACTION HX- HEMORRHOIDAL- PROSTATE BIOPSY- RADICAL PROSTATECTOMY- REMOVAL GALLBLADDER- REPAIR OF KNEE- ROTATOR CUFF REPAIRCurrent Outpatient Prescriptions:esomeprazole (NEXIUM) 40 mg capsule Take 40 mg by mouth DAILY (6 AM).loratadine (CLARITIN) 10 mg tablet Take 10 mg by mouth once daily.guaiFENesin (MUCUS RELIEF) 200 mg tablet Take 400 mg by mouth every 4hours as needed.ascorbic acid, vitamin C, (VITAMIN C) 500 mg tablet Take 500 mg by mouthonce daily.Cholecalciferol, Vitamin D3, (VITAMIN D) 1,000 unit cap Take 1,000 Unitsby mouth once daily.No current facility-administered medications for this visit.ALLERGIES: Patient has no allergy information on record.PERSONAL HISTORY: Social History Marital status: Unknown Spouse name: Years of education: Number of children:Social History Main Topics Smoking status: Never Smoker Smokeless tobacco: Never Used Alcohol use: NoFAMILY HISTORY:FAMILY HISTORYProblem Relation Age of Onset- chf [OTHER] Mother- weak heart [OTHER] FatherREVIEW OF SYMPTOMS: The review of systems data was entered by the nurse and reviewed by Dalia Notes:Pao Pineda LPN 08/10/2017 1:50 PM SignedREVIEW OF SYSTEMS: General: The patient denies fatigue, denies weight loss, deniesweight gain, denies feeling hot, and denies feelings of cold. Eyes: The patient denies glaucoma, denies eye injury/surgery, wearsglasses or contacts. Ear/Nose/Throat: The patient denies allergies, denies hayfever,denies ear infections, and denies bloody noses. Cardiovascular: The patient denies chest pain, denies heart disease,denies high blood pressure,denies cardiac stent, denies prior heartattack, denies irregular heart beat, denies high cholesterol, denies poorcirculation, denies heart failure, other cardiac issues, deniesclaudication, denies cold feet, denies peripheral arterial stent. Respiratory: The patient denies tuberculosis, denies pneumonia,denies frequent cough, denies pulmonary embolism, denies shortness ofbreath, and denies coughing up blood. Gastrointestinal: The patient denies difficulty swallowing, NOTESacid reflux, denies ulcers, denies vomiting, denies jaundice/hepatitis,denies gallbladder problems, denies black or tarry stools, denieshemorrhoids, denies bleeding from rectum, denies diverticulitis, deniesconstipation, denies diarrhea, denies loss of stool control, and denieshernias. Kidney/Bladder: The patient denies kidney stones, denies urineinfections, and denies bloody urine. Skin: The patient NOTES a history of skin cancer, deniesbleeding/changing moles, and denies a history of skin rash. Neurologic: The patient denies a history of epilepsy/convulsions,denies headaches, denies head/spinal injuries, and denies stroke/TIA. Psychiatric: The patient denies psychiatric medications, deniesdepression, and denies voices, denies substance abuse. Endocrine: The patient denies thyroid disorders, denies diabetes,and denies hormonal problems. Hematologic: The patient denies a history of bruising, deniesbleeding, and denies anemia, denies blood clots. Infections: The patient NOTES a history of measles and mumps, deniesrheumatic fever, and denies sexually transmitted diseases. Musculoskeletal: The patient denies back pain/injury, denies backproblems, denies sciatica, denies knee/foot trouble, denies arthritis, ordenies gout.When was patient's last Mammogram screening? N/A Last Colonoscopy: Mayito Pineda LPNPHYSICAL EXAMINATION:General: The patient is 67 year old male, well nourished, well hydratedin no acute distress. The patient is oriented to time, place, and person.VITALS: Blood pressure 130/68, pulse 84, height 165.1 cm (5' 5), .3 kg (199 lb). Body mass index is 33.12 kg/m?.HEENT: Normal cephalic, ataumatic, pupils are equally round, sclera areanicteric, mucous membranes are moist, oropharynx is clear. Neck has nomasses, asymmetry or lymphadenopathy. Thyroid is unremarkable.Respiratory: Clear to auscultation and percussion. Normal respiratoryexcursion and pattern.Cardiac: Examination is regular rate and rhythm.Abdominal exam: Soft, nontender, with no palpable masses. Nohepatosplenomegaly. A small, reducible incisional hernia just above thelevel of umbilicus with there is probably a small umbilical hernia.AdditionallyRectal exam: exam deferredExtremities: no clubbing, cyanosis or edema. No adenopathy.Other:LABORATORY VALUES: As NotedRADIOLOGIC STUDIES: As NotedAssessmentIMPRESSION: prior supraumbilical incisional herniaPLAN: [facility] The planned surgical procedure was discussed extensively with thepatient. The risks, benefits, anticipated outcomes and possiblecomplications were mentioned. Helen undersands that all hernia repairsurgery has a chance of recurrence and/or chronic post operative pain. Kvng has also explained the procedure in understandable terms and thepatient was given the option to take printed material concerning theplanned procedure. The patient had the opportunity to ask questionsconcerning the planned procedure. The patient freely consents to theplanned procedure.Diagnoses: (K43.2) Incisional hernia, without obstruction or gangrene(primary encounter diagnosis)Anticipated CPT Code: laparoscopic incisional hernia repair - [id number] Anesthetic: GeneralPatient weight: Blood pressure 130/68, pulse 84, height 165.1 cm (5' 5),weight 90.3 kg (199 lb). BMI: Body mass index is 33.12 kg/m?.Planned antibiotic: Ancef 2gm IVPB division operations manager to ORSCDs needed - YesReturn to Clinic: The patient is instructed to follow-up with me 1 weekpost operatively. Nacho Rivera MD [facility] CNOVon 08-10-2017 CNOV Office Visit (GENSWS) -------TRAY GOMES ([id number]) [address] [facility] Provider Department08/10/17 1:30 PM NACHO RIVERA GENSWS During your visit today, we recorded the following information about you: Pulse Blood pressure Weight Height 84/minute 130/68 90.3 kg 1.651 Karin Pineda LPN 08/10/2017 1:50 PM SignedREVIEW OF SYSTEMS: General: The patient denies fatigue, denies weight loss, denies weightgain, denies feeling hot, and denies feelings of cold. Eyes: The patient denies glaucoma, denies eye injury/surgery, wearsglasses or contacts. Ear/Nose/Throat: The patient denies allergies, denies hayfever, deniesear infections, and denies bloody noses. Cardiovascular: The patient denies chest pain, denies heart disease,denies high blood pressure,denies cardiac stent, denies prior heart attack,denies irregular heart beat, denies high cholesterol, denies poor circulation,denies heart failure, other cardiac issues, denies claudication, denies coldfeet, denies peripheral arterial stent. Respiratory: The patient denies tuberculosis, denies pneumonia, deniesfrequent cough, denies pulmonary embolism, denies shortness of breath, anddenies coughing up blood. Gastrointestinal: The patient denies difficulty swallowing, NOTES acidreflux, denies ulcers, denies vomiting, denies jaundice/hepatitis, deniesgallbladder problems, denies black or tarry stools, denies hemorrhoids, deniesbleeding from rectum, denies diverticulitis, denies constipation, deniesdiarrhea, denies loss of stool control, and denies hernias. Kidney/Bladder: The patient denies kidney stones, denies urineinfections, and denies bloody urine. Skin: The patient NOTES a history of skin cancer, deniesbleeding/changing moles, and denies a history of skin rash. Neurologic: The patient denies a history of epilepsy/convulsions, deniesheadaches, denies head/spinal injuries, and denies stroke/TIA. Psychiatric: The patient denies psychiatric medications, deniesdepression, and denies voices, denies substance abuse. Endocrine: The patient denies thyroid disorders, denies diabetes, anddenies hormonal problems. Hematologic: The patient denies a history of bruising, denies bleeding,and denies anemia, denies blood clots. Infections: The patient NOTES a history of measles and mumps, deniesrheumatic fever, and denies sexually transmitted diseases. Musculoskeletal: The patient denies back pain/injury, denies backproblems, denies sciatica, denies knee/foot trouble, denies arthritis, ordenies gout.When was patient's last Mammogram screening? N/A Last Colonoscopy: Mayito Rivera MD 08/12/2017 12:18 PM [facility] AND [facility] Ad1REFERRING PHYSICIAN: SelfCHIEF COMPLAINT: incisional herniaHPI: Tray is a 67 year old male with a complaint of a bulge and discomfortin his prior supraumbilical incision. The patient notes discomfort in thisarea with lifting and coughing. The symptoms have increased, over the past fewweeks and the patient notes the size of the hernia seems to be growing.The patient notes no symptoms of bowel obstruction and denies nausea orvomiting.The patient was seen by Dr. Rust who felt the patient has a hernia. Angelerwas referred for evaluation and treatment.The patient is being seen by me today at the request of Dr. Rust for myopinion and advice regarding an incisional hernia.PAST MEDICAL HISTORYDiagnosis Date- Cataract- Prostate cancer (HCC)PAST SURGICAL HISTORYProcedure Laterality Date- CATARACT EXTRACTION HX- HEMORRHOIDAL- PROSTATE BIOPSY- RADICAL PROSTATECTOMY- REMOVAL GALLBLADDER- REPAIR OF KNEE- ROTATOR CUFF REPAIRCurrent Outpatient Prescriptions:esomeprazole (NEXIUM) 40 mg capsule Take 40 mg by mouth DAILY (6 AM).loratadine (CLARITIN) 10 mg tablet Take 10 mg by mouth once daily.guaiFENesin (MUCUS RELIEF) 200 mg tablet Take 400 mg by mouth every 4 hours asneeded.ascorbic acid, vitamin C, (VITAMIN C) 500 mg tablet Take 500 mg by mouth oncedaily.Cholecalciferol, Vitamin D3, (VITAMIN D) 1,000 unit cap Take 1,000 Units bymouth once daily.No current facility-administered medications for this visit.ALLERGIES: Patient has no allergy information on record.PERSONAL HISTORY: Social History Marital status: Unknown Spouse name: Years of education: Number of children:Social History Main Topics Smoking status: Never Smoker Smokeless tobacco: Never Used Alcohol use: NoFAMILY HISTORY:FAMILY HISTORYProblem Relation Age of Onset- chf [OTHER] Mother- weak heart [OTHER] FatherREVIEW OF SYMPTOMS: The review of systems data was entered by the nurse and reviewed by Dalia Notes:Pao Pineda LPN 08/10/2017 1:50 PM SignedREVIEW OF SYSTEMS: General: The patient denies fatigue, denies weight loss, denies weightgain, denies feeling hot, and denies feelings of cold. Eyes: The patient denies glaucoma, denies eye injury/surgery, wearsglasses or contacts. Ear/Nose/Throat: The patient denies allergies, denies hayfever, deniesear infections, and denies bloody noses. Cardiovascular: The patient denies chest pain, denies heart disease,denies high blood pressure,denies cardiac stent, denies prior heart attack,denies irregular heart beat, denies high cholesterol, denies poor circulation,denies heart failure, other cardiac issues, denies claudication, denies coldfeet, denies peripheral arterial stent. Respiratory: The patient denies tuberculosis, denies pneumonia, deniesfrequent cough, denies pulmonary embolism, denies shortness of breath, anddenies coughing up blood. Gastrointestinal: The patient denies difficulty swallowing, NOTES acidreflux, denies ulcers, denies vomiting, denies jaundice/hepatitis, deniesgallbladder problems, denies black or tarry stools, denies hemorrhoids, deniesbleeding from rectum, denies diverticulitis, denies constipation, deniesdiarrhea, denies loss of stool control, and denies hernias. Kidney/Bladder: The patient denies kidney stones, denies urineinfections, and denies bloody urine. Skin: The patient NOTES a history of skin cancer, deniesbleeding/changing moles, and denies a history of skin rash. Neurologic: The patient denies a history of epilepsy/convulsions, deniesheadaches, denies head/spinal injuries, and denies stroke/TIA. Psychiatric: The patient denies psychiatric medications, deniesdepression, and denies voices, denies substance abuse. Endocrine: The patient denies thyroid disorders, denies diabetes, anddenies hormonal problems. Hematologic: The patient denies a history of bruising, denies bleeding,and denies anemia, denies blood clots. Infections: The patient NOTES a history of measles and mumps, deniesrheumatic fever, and denies sexually transmitted diseases. Musculoskeletal: The patient denies back pain/injury, denies backproblems, denies sciatica, denies knee/foot trouble, denies arthritis, ordenies gout.When was patient's last Mammogram screening? N/A Last Colonoscopy: Mayito Pineda LPNPHYSICAL EXAMINATION:General: The patient is 67 year old male, well nourished, well hydrated in noacute distress. The patient is oriented to time, place, and person.VITALS: Blood pressure 130/68, pulse 84, height 165.1 cm (5' 5), weight 90.3kg (199 lb). Body mass index is 33.12 kg/m?.HEENT: Normal cephalic, ataumatic, pupils are equally round, sclera areanicteric, mucous membranes are moist, oropharynx is clear. Neck has nomasses, asymmetry or lymphadenopathy. Thyroid is unremarkable.Respiratory: Clear to auscultation and percussion. Normal respiratoryexcursion and pattern.Cardiac: Examination is regular rate and rhythm.Abdominal exam: Soft, nontender, with no palpable masses. Nohepatosplenomegaly. A small, reducible incisional hernia just above the levelof umbilicus with there is probably a small umbilical hernia. AdditionallyRectal exam: exam deferredExtremities: no clubbing, cyanosis or edema. No adenopathy.Other:LABORATORY VALUES: As NotedRADIOLOGIC STUDIES: As NotedAssessmentIMPRESSION: prior supraumbilical incisional herniaPLAN: [facility] The planned surgical procedure was discussed extensively with thepatient. The risks, benefits, anticipated outcomes and possible complicationswere mentioned. Helen undersands that all hernia repair surgery has a chanceof recurrence and/or chronic post operative pain. My staff has also explainedthe procedure in understandable terms and the patient was given the option totake printed material concerning the planned procedure. The patient had theopportunity to ask questions concerning the planned procedure. The patientfreely consents to the planned procedure.Diagnoses: (K43.2) Incisional hernia, without obstruction or gangrene (primaryencounter diagnosis)Anticipated CPT Code: laparoscopic incisional hernia repair - [id number] Anesthetic: GeneralPatient weight: Blood pressure 130/68, pulse 84, height 165.1 cm (5' 5),weight 90.3 kg (199 lb). BMI: Body mass index is 33.12 kg/m?.Planned antibiotic: Ancef 2gm IVPB division operations manager to ORSCDs needed - YesReturn to Clinic: The patient is instructed to follow-up with me 1 week postoperatively. Nacho Rivera, MDReferring Provider: SELF [200]Allergies As of Date: 08/10/2017(Not on File)Date Reviewed: 08/10/2017Reviewed by: Pao Pineda LPN - Fully AssessedReason for Visit: incisional hernia [Other]Primary Visit Diagnosis:Incisional hernia, without obstruction or gangrene [K43.2]Prescriptions as of 08/10/2017 Sig: ESOMEPRAZOLE MAGNESIUM 40 MG * Take 40 mg by mouth DAILY (6 * LORATADINE 10 MG TABLET Take 10 mg by mouth once kareem* GUAIFENESIN 200 MG TABLET Take 400 mg by mouth every 4 * ASCORBIC ACID (VITAMIN C) 500* Take 500 mg by mouth once anusha* CHOLECALCIFEROL (VITAMIN D3) * Take 1,000 Units by mouth onc*Problem List As Of Date: 08/10/2017(None)Visit Notes:>> Pao Pineda LPN [facility] Aug 10, 2017 1:49 PM Status: SignedREVIEW OF SYSTEMS: General: The patient denies fatigue, denies weight loss, deniesweight gain, denies feeling hot, and denies feelings of cold. Eyes: The patient denies glaucoma, denies eye injury/surgery, wearsglasses or contacts. Ear/Nose/Throat: The patient denies allergies, denies hayfever,denies ear infections, and denies bloody noses. Cardiovascular: The patient denies chest pain, denies heart disease,denies high blood pressure,denies cardiac stent, denies prior heartattack, denies irregular heart beat, denies high cholesterol, denies poorcirculation, denies heart failure, other cardiac issues, deniesclaudication, denies cold feet, denies peripheral arterial stent. Respiratory: The patient denies tuberculosis, denies pneumonia,denies frequent cough, denies pulmonary embolism, denies shortness ofbreath, and denies coughing up blood. Gastrointestinal: The patient denies difficulty swallowing, NOTESacid reflux, denies ulcers, denies vomiting, denies jaundice/hepatitis,denies gallbladder problems, denies black or tarry stools, denieshemorrhoids, denies bleeding from rectum, denies diverticulitis, deniesconstipation, denies diarrhea, denies loss of stool control, and denieshernias. Kidney/Bladder: The patient denies kidney stones, denies urineinfections, and denies bloody urine. Skin: The patient NOTES a history of skin cancer, deniesbleeding/changing moles, and denies a history of skin rash. Neurologic: The patient denies a history of epilepsy/convulsions,denies headaches, denies head/spinal injuries, and denies stroke/TIA. Psychiatric: The patient denies psychiatric medications, deniesdepression, and denies voices, denies substance abuse. Endocrine: The patient denies thyroid disorders, denies diabetes,and denies hormonal problems. Hematologic: The patient denies a history of bruising, deniesbleeding, and denies anemia, denies blood clots. Infections: The patient NOTES a history of measles and mumps, deniesrheumatic fever, and denies sexually transmitted diseases. Musculoskeletal: The patient denies back pain/injury, denies backproblems, denies sciatica, denies knee/foot trouble, denies arthritis, ordenies gout.When was patient's last Mammogram screening? N/A Last Colonoscopy: Mayito Pineda LPNLetter TextLetter TextNURSE'S SIGNATUREDOCTOR'S SIGNATURE TIMETIMEDATEJune 2017[facility] 2017Orders verified by readback: PRE-ADMISSION TESTING PHYSICIAN'S ORDER SHEET PREOPERATIVE ORDERS:X ANTIBIOTIC: _Ancef 2gm IVPB division operations manager to OR__ aware of penicillin allergy ok to administer X SCD'S__ PREP LOCATION: ___abdomen___ PAINT WITH BETADINE/CHLORAHEXIDINE PREPPRE-ADMISSION TESTING PHYSICIAN'S ORDER [id number] REV 05.03.07ANESTHESIA:__ Surgeon has notified anesthesia. Date/Time Doctor OR__ Anesthesia not yet notified of consult by surgeon. Check area of concern.System of concern: __Cardiac __Pulmonary __Neuro __ Airway__Allergies __Other ___ Anesthesia to see patient at PAT appointment. (PAT appt must be between1-3 pm)LAB ORDERS:X Labs done at [facility] (Copies enclosed for [facility])__ Duplicate order__ No Labs ordered___ CBC___ CBC/Diff___ Basic Metabolic Profile (BUN, Lytes, Glu, Cre, Calcium)__ Glucose__ Creatinine__ BUN__ Lytes__ Protime- Dx code: PTT - Dx code: Urinalysis__ Urinalysis (complete)__ Liver Profile__ Lipid Profile__ Alk Phosphatase__ Bilirubin__ Amylase/Lipase__ Magnesium__ Phosphorous__ PSA - Dx code: CEA - Dx code: Urine Pregnancy__ Serum (Age 11-52 years old unless sterilization or pt refuses)X Screen for MRSA (PCR) if guidelinesmetOther: BLOOD BANK:__ Type AND Screen__ Type AND Cross (RC) units__ Autologous units__ Fresh Frozen Plasma units__ Platelets units ANCILLARY DEPTS:__EKG-MD to read: PA/Lat CXR Reason for exam: ___ Incentive Spirometer__ FLOOR TILING PROFESSIONAL Other: _Patient has: Pacemaker ICDCardiologist name AND phone number: Pacer/ICD rep notified by nurse: X CHG product: Aplicare or clothsDispense CHG product+Instructionsif surgical site below neckAdditional Orders:PAT Comment: Anesthesia notified on about:TEDS / KNEE HIGHTEDS / THIGH HIGHFaxed to Pharmacy: Vancomycin 1000 mg IV X 1 dose preoperatively if history of MRSA orpositive MRSA screening (Fax to Rx)Admission Status: X SDC Outpatient SDC Overnight (23 hr or less) AdmitDate: PAT Surgery Allergies:. Patient has no allergy information on record.Patient's Name: Eliseo,_ChesterPatient's Birthdate: 2/18/1951Diagnosis: (K43.2) Incisional hernia, without obstruction or gangrene(primary encounter diagnosis) [facility]Surgeon / Physician: Nacho Rivera MD My doctor and I talked about the recommended surgery/procedure, the reasonsit is being recommended, andwhat it generally is expected to do. We talked about major risks orcomplications that could occur. We talkedabout options other than the recommended surgery/procedure (including notreatment) and the benefits and risksof each option. I received and understand information describing the surgeryor procedure, its potential risks andcomplications. I know surgery/medicine is not an exact science. No doctor, nurse oranyone from [facility] promised or guaranteed the success or clinical outcome of thesurgery/procedure, or that a risk orcomplication could not occur. I know every surgery/procedure has risks, including the risk ofanesthesia, the risk of unplanned injury, the riskof infection and the risk of failure. I know that not every possible riskcould be covered in the written materials or intalking with the doctor. Before signing this Consent, I had an opportunity todiscuss the recommendedsurgery/procedur e, other options, and risks. I am satisfied with the answersto all of my questions. I understandabout risks and knowingly accept them. If you are (or believe you may be ), tell your doctor ornurse before you sign thisConsent. Your doctor will discuss with you if there are potential risks toyour unborn child. Your consentwill be for yourself and for the unborn child. It is the Hospital's policy to require that a responsible adult drive youdirectly home when you leavethe Hospital. By signing, you accept and agree with this policy.By signing, I voluntarily and knowingly give my informed consent:O To have the doctor perform the recommended surgery/procedure.O To have such anesthetics (including moderate sedation) that are necessaryand advisable.O To have the doctor perform additional, medically necessarysurgery/procedures to treat any unforeseen or newly-discovered condition that occurs during surgery/the procedure,which needs prompt attention.O To examine, record and dispose of any tissue or body parts that areremoved.O To allow photographs that will be used strictly for documenting my medicalcondition and treatment, which will be made a part of my confidential medical record.Check, if applicable:- To give me blood or blood products during surgery/procedure and duringmy hospital stay, as medicallynecessary. The risks, benefits, and alternatives to transfusions have beendiscussed with me and all myquestions have been answered.- To not give me blood or blood products. I fully understand that thismay adversely affect my medicalmanagement and may result in my . Alternatives to blood/blood productshave been discussed with me.I read this Form, or had it read to me. I understand what it says. __ Pati ent or Responsible Person Relationship to PatientWitness to Signature Only Reason Patient Does Not Sign-- _Date and Time signed _Physician's [id number] Rev 08/26 InformedConsent [address] [place], [place] [address]Informed ConsentSurgery / Procedure: laparoscopic incisional hernia repair -[id number] / Physician: Nacho Rivera MD My doctor and I talked about the recommended surgery / procedure, thereasons it is being recommended, and what it generally is expected to do. Wetalked about major risks or complications that could occur. We talked aboutoptions other than the recommended surgery / procedure (including notreatment) and the benefits and risks of each option. I received andunderstand information describing the surgery or procedure, its potentialrisks, and complications. I know surgery / medicine is not an exact science. No doctor, nurse oranyone from [facility] promised or guaranteed the success orclinical outcome of the surgery / procedure, or that a risk or complicationcould not occur. I know every surgery / procedure has risks, including the risk ofanesthesia, the risk of unplanned injury, the risk of infection and the riskof failure. I know that not every possible risk could be covered in thewritten materials or in talking with the doctor. Before signing thisConsent, I had an opportunity to discuss the recommended surgery / procedure,other options, risks, and what may occur if I choose not to have the surgery/ procedure. I am satisfied with the answers to all of my questions. Iunderstand about risks and knowingly accept them. If you are (or believe you may be ), tell your doctor ornurse before you sign this Consent. Your doctor will discuss with you ifthere are potential risks to your unborn child. Your consent will be foryourself and for the unborn child. It is the Hospital?s policy to require that a responsible adult drive youdirectly home when you leave the Hospital. By signing, you accept and agreewith this policy.By signing, I voluntarily and knowingly give my informed consent:To have the doctor perform the recommended surgery / procedureTo have such anesthetics (including moderate / deep sedation) that arenecessary and advisable.To have the doctor perform additional, medically necessary surgery /procedures to treat any unforeseen or newly-discovered condition that occursduring surgery / the procedure, which needs prompt attention.To examine, record and dispose of any tissue or body parts that are removed.To allow photographs that will be used strictly for documenting my medicalcondition and treatment, which will be made a part of my confidential medicalrecord.To allow [facility] employees, such as an Registered NurseFirst Dispatcher Motor Vehicle (NURSING EDUCATION SPECIALIST) to assist with my surgeryTo allow Healthcare Industry Representatives to be present during my surgeryor procedureTo allow students to participate in the care, under appropriate situations. [address] [place], [place] [address]Informed ConsentCheck One:To give me blood or blood products during surgery / procedure and during myhospital stay, as medically necessary. The risks, benefits, and alternativesto transfusions have been discussed with me and all my questions have beenanswered.To not give me blood or blood products. I fully understand that this mayadversely affect my medical management and may result in my .Alternatives to blood / blood products have been discussed with me.I read this Form, or had it read to me. I understand what it says.Patient Signature Relationship to Patient Date AND Time SignedReason Patient Does Not SignWitness to Signature Only Date and Time SignedI certify that I have explained the nature, purpose, anticipated risks andbenefits, complications, and alternatives to the proposed procedure to thepatient. I have answered all questions fully and I believe the patient fullyunderstands what I have explained.Physician?s Signature Date and TimeWoostDewad[facility] [address] [place], [place] [address]Vbxvu: To use this Smartlink, specify the provider ID whose address you want todisplay, e.g., .PROVADDR[1 (where 1 is the provider ID).08/12/2017Dear No primary care provider on file. :Thank you for allowing me to evaluate your patient, Tray Gomes. [facility] I am planning to perform a asdadsad. Enclosed is a copy ofmy office dictation for Tray which includes my evaluation andrecommendations.Again, thank you for the referral of Tray Gomes. If I can be of anyassistance to you in the future, please don't hesitate to call.Sincerely yours,Nacho Rivera MD, [facility] Ad1REFERRING PHYSICIAN: SelfCHIEF COMPLAINT: incisional herniaHPI: Tray is a 67 year old male with a complaint of a bulge anddiscomfort in his prior supraumbilical incision. The patient notesdiscomfort in this area with lifting and coughing. The symptoms haveincreased, over the past few weeks and the patient notes the size of thehernia seems to be growing.The patient notes no symptoms of bowel obstruction and denies nausea orvomiting.The patient was seen by Dr. Rust who felt the patient has a hernia.Tray was referred for evaluation and treatment.The patient is being seen by me today at the request of Dr. Rust for myopinion and advice regarding an incisional hernia.PAST MEDICAL HISTORYDiagnosis Date- Cataract- Prostate cancer (HCC)PAST SURGICAL HISTORYProcedure Laterality Date- CATARACT EXTRACTION HX- HEMORRHOIDAL- PROSTATE BIOPSY- RADICAL PROSTATECTOMY- REMOVAL GALLBLADDER- REPAIR OF KNEE- ROTATOR CUFF REPAIRCurrent Outpatient Prescriptions:esomeprazole (NEXIUM) 40 mg capsule Take 40 mg by mouth DAILY (6 AM).loratadine (CLARITIN) 10 mg tablet Take 10 mg by mouth once daily.guaiFENesin (MUCUS RELIEF) 200 mg tablet Take 400 mg by mouth every 4hours as needed.ascorbic acid, vitamin C, (VITAMIN C) 500 mg tablet Take 500 mg by mouthonce daily.Cholecalciferol, Vitamin D3, (VITAMIN D) 1,000 unit cap Take 1,000 Unitsby mouth once daily.No current facility-administered medications for this visit.ALLERGIES: Patient has no allergy information on record.PERSONAL HISTORY: Social History Marital status: Unknown Spouse name: Years of education: Number of children:Social History Main Topics Smoking status: Never Smoker Smokeless tobacco: Never Used Alcohol use: NoFAMILY HISTORY:FAMILY HISTORYProblem Relation Age of Onset- chf [OTHER] Mother- weak heart [OTHER] FatherREVIEW OF SYMPTOMS: The review of systems data was entered by the nurse and reviewed by Dalia Notes:Pao Pineda LPN 08/10/2017 1:50 PM SignedREVIEW OF SYSTEMS: General: The patient denies fatigue, denies weight loss, denies weightgain, denies feeling hot, and denies feelings of cold. Eyes: The patient denies glaucoma, denies eye injury/surgery, wearsglasses or contacts. Ear/Nose/Throat: The patient denies allergies, denies hayfever, deniesear infections, and denies bloody noses. Cardiovascular: The patient denies chest pain, denies heart disease,denies high blood pressure,denies cardiac stent, denies prior heart attack,denies irregular heart beat, denies high cholesterol, denies poorcirculation, denies heart failure, other cardiac issues, denies claudication,denies cold feet, denies peripheral arterial stent. Respiratory: The patient denies tuberculosis, denies pneumonia, deniesfrequent cough, denies pulmonary embolism, denies shortness of breath, anddenies coughing up blood. Gastrointestinal: The patient denies difficulty swallowing, NOTES acidreflux, denies ulcers, denies vomiting, denies jaundice/hepatitis, deniesgallbladder problems, denies black or tarry stools, denies hemorrhoids,denies bleeding from rectum, denies diverticulitis, denies constipation,denies diarrhea, denies loss of stool control, and denies hernias. Kidney/Bladder: The patient denies kidney stones, denies urineinfections, and denies bloody urine. Skin: The patient NOTES a history of skin cancer, deniesbleeding/changing moles, and denies a history of skin rash. Neurologic: The patient denies a history of epilepsy/convulsions,denies headaches, denies head/spinal injuries, and denies stroke/TIA. Psychiatric: The patient denies psychiatric medications, deniesdepression, and denies voices, denies substance abuse. Endocrine: The patient denies thyroid disorders, denies diabetes, anddenies hormonal problems. Hematologic: The patient denies a history of bruising, denies bleeding,and denies anemia, denies blood clots. Infections: The patient NOTES a history of measles and mumps, deniesrheumatic fever, and denies sexually transmitted diseases. Musculoskeletal: The patient denies back pain/injury, denies backproblems, denies sciatica, denies knee/foot trouble, denies arthritis, ordenies gout.When was patient's last Mammogram screening? N/A Last Colonoscopy: Mayito Pineda LPNPHYSICAL EXAMINATION:General: The patient is 67 year old male, well nourished, well hydrated inno acute distress. The patient is oriented to time, place, and person.VITALS: Blood pressure 130/68, pulse 84, height 165.1 cm (5' 5), weight 90.3kg (199 lb). Body mass index is 33.12 kg/m?.HEENT: Normal cephalic, ataumatic, pupils are equally round, sclera areanicteric, mucous membranes are moist, oropharynx is clear. Neck has nomasses, asymmetry or lymphadenopathy. Thyroid is unremarkable.Respiratory: Clear to auscultation and percussion. Normal respiratoryexcursion and pattern.Cardiac: Examination is regular rate and rhythm.Abdominal exam: Soft, nontender, with no palpable masses. Nohepatosplenomegaly. A small, reducible incisional hernia just above thelevel of umbilicus with there is probably a small umbilical hernia.AdditionallyRectal exam: exam deferredExtremities: no clubbing, cyanosis or edema. No adenopathy.Other:LABORATORY VALUES: As NotedRADIOLOGIC STUDIES: As NotedAssessmentIMPRESSION: prior supraumbilical incisional herniaPLAN: [facility] The planned surgical procedure was discussed extensively with thepatient. The risks, benefits, anticipated outcomes and possiblecomplications were mentioned. Tray undersands that all hernia repairsurgery has a chance of recurrence and/or chronic post operative pain. Kvng has also explained the procedure in understandable terms and thepatient was given the option to take printed material concerning the plannedprocedure. The patient had the opportunity to ask questions concerning theplanned procedure. The patient freely consents to the planned procedure.Diagnoses: (K43.2) Incisional hernia, without obstruction or gangrene(primary encounter diagnosis)Anticipated CPT Code: laparoscopic incisional hernia repair - [id number] Anesthetic: GeneralPatient weight: Blood pressure 130/68, pulse 84, height 165.1 cm (5' 5),weight 90.3 kg (199 lb). BMI: Body mass index is 33.12 kg/m?.Planned antibiotic: Ancef 2gm IVPB division operations manager to ORSCDs needed - YesReturn to Clinic: The patient is instructed to follow-up with me 1 week postoperatively. Nacho Rivera MD08/12/2017HISMargaret Benjamin1REFERRING PHYSICIAN: SelfCHIEF COMPLAINT: incisional herniaHPI: Tray is a 67 year old male with a complaint of a bulge anddiscomfort in his prior supraumbilical incision. The patient notesdiscomfort in this area with lifting and coughing. The symptoms haveincreased, over the past few weeks and the patient notes the size of thehernia seems to be growing.The patient notes no symptoms of bowel obstruction and denies nausea orvomiting.The patient was seen by Dr. Rust who felt the patient has a hernia.Tray was referred for evaluation and treatment.The patient is being seen by me today at the request of Dr. Rust for myopinion and advice regarding an incisional hernia.PAST MEDICAL HISTORYDiagnosis Date- Cataract- Prostate cancer (HCC)PAST SURGICAL HISTORYProcedure Laterality Date- CATARACT EXTRACTION HX- HEMORRHOIDAL- PROSTATE BIOPSY- RADICAL PROSTATECTOMY- REMOVAL GALLBLADDER- REPAIR OF KNEE- ROTATOR CUFF REPAIRCurrent Outpatient Prescriptions:esomeprazole (NEXIUM) 40 mg capsule Take 40 mg by mouth DAILY (6 AM).loratadine (CLARITIN) 10 mg tablet Take 10 mg by mouth once daily.guaiFENesin (MUCUS RELIEF) 200 mg tablet Take 400 mg by mouth every 4hours as needed.ascorbic acid, vitamin C, (VITAMIN C) 500 mg tablet Take 500 mg by mouthonce daily.Cholecalciferol, Vitamin D3, (VITAMIN D) 1,000 unit cap Take 1,000 Unitsby mouth once daily.No current facility-administered medications for this visit.ALLERGIES: Patient has no allergy information on record.PERSONAL HISTORY: Social History Marital status: Unknown Spouse name: Years of education: Number of children:Social History Main Topics Smoking status: Never Smoker Smokeless tobacco: Never Used Alcohol use: NoFAMILY HISTORY:FAMILY HISTORYProblem Relation Age of Onset- chf [OTHER] Mother- weak heart [OTHER] FatherREVIEW OF SYMPTOMS: The review of systems data was entered by the nurse and reviewed by Dalia Notes:Pao Pineda LPN 08/10/2017 1:50 PM SignedREVIEW OF SYSTEMS: General: The patient denies fatigue, denies weight loss, denies weightgain, denies feeling hot, and denies feelings of cold. Eyes: The patient denies glaucoma, denies eye injury/surgery, wearsglasses or contacts. Ear/Nose/Throat: The patient denies allergies, denies hayfever, deniesear infections, and denies bloody noses. Cardiovascular: The patient denies chest pain, denies heart disease,denies high blood pressure,denies cardiac stent, denies prior heart attack,denies irregular heart beat, denies high cholesterol, denies poorcirculation, denies heart failure, other cardiac issues, denies claudication,denies cold feet, denies peripheral arterial stent. Respiratory: The patient denies tuberculosis, denies pneumonia, deniesfrequent cough, denies pulmonary embolism, denies shortness of breath, anddenies coughing up blood. Gastrointestinal: The patient denies difficulty swallowing, NOTES acidreflux, denies ulcers, denies vomiting, denies jaundice/hepatitis, deniesgallbladder problems, denies black or tarry stools, denies hemorrhoids,denies bleeding from rectum, denies diverticulitis, denies constipation,denies diarrhea, denies loss of stool control, and denies hernias. Kidney/Bladder: The patient denies kidney stones, denies urineinfections, and denies bloody urine. Skin: The patient NOTES a history of skin cancer, deniesbleeding/changing moles, and denies a history of skin rash. Neurologic: The patient denies a history of epilepsy/convulsions,denies headaches, denies head/spinal injuries, and denies stroke/TIA. Psychiatric: The patient denies psychiatric medications, deniesdepression, and denies voices, denies substance abuse. Endocrine: The patient denies thyroid disorders, denies diabetes, anddenies hormonal problems. Hematologic: The patient denies a history of bruising, denies bleeding,and denies anemia, denies blood clots. Infections: The patient NOTES a history of measles and mumps, deniesrheumatic fever, and denies sexually transmitted diseases. Musculoskeletal: The patient denies back pain/injury, denies backproblems, denies sciatica, denies knee/foot trouble, denies arthritis, ordenies gout.When was patient's last Mammogram screening? N/A Last Colonoscopy: Mayito Pineda LPNPHYSICAL EXAMINATION:General: The patient is 67 year old male, well nourished, well hydrated inno acute distress. The patient is oriented to time, place, and person.VITALS: Blood pressure 130/68, pulse 84, height 165.1 cm (5' 5), weight 90.3kg (199 lb). Body mass index is 33.12 kg/m?.HEENT: Normal cephalic, ataumatic, pupils are equally round, sclera areanicteric, mucous membranes are moist, oropharynx is clear. Neck has nomasses, asymmetry or lymphadenopathy. Thyroid is unremarkable.Respiratory: Clear to auscultation and percussion. Normal respiratoryexcursion and pattern.Cardiac: Examination is regular rate and rhythm.Abdominal exam: Soft, nontender, with no palpable masses. Nohepatosplenomegaly. A small, reducible incisional hernia just above thelevel of umbilicus with there is probably a small umbilical hernia.AdditionallyRectal exam: exam deferredExtremities: no clubbing, cyanosis or edema. No adenopathy.Other:LABORATORY VALUES: As NotedRADIOLOGIC STUDIES: As NotedAssessmentIMPRESSION: prior supraumbilical incisional herniaPLAN: [facility] The planned surgical procedure was discussed extensively with thepatient. The risks, benefits, anticipated outcomes and possiblecomplications were mentioned. Tray undersands that all hernia repairsurgery has a chance of recurrence and/or chronic post operative pain. Kvng has also explained the procedure in understandable terms and thepatient was given the option to take printed material concerning the plannedprocedure. The patient had the opportunity to ask questions concerning theplanned procedure. The patient freely consents to the planned procedure.Diagnoses: (K43.2) Incisional hernia, without obstruction or gangrene(primary encounter diagnosis)Anticipated CPT Code: laparoscopic incisional hernia repair - [id number] Anesthetic: GeneralPatient weight: Blood pressure 130/68, pulse 84, height 165.1 cm (5' 5),weight 90.3 kg (199 lb). BMI: Body mass index is 33.12 kg/m?.Planned antibiotic: Ancef 2gm IVPB division operations manager to ORSCDs needed - YesReturn to Clinic: The patient is instructed to follow-up with me 1 week postoperatively. Nacho Rivera MDI have reviewed the above history and physical exam.There have been no significant changes Nacho Rivera MD08/12/2017Encounter Number: [id number] Status:Closed by NACHO RIVERA MD on 08/12/17 [facility] Vital Signs Date Time Vital Sign Value Performing Clinician Facility 10-15-2024 08:30-0400 Body height 165.1 cm Shruti Vargas MD Work Phone: [facility] 10-15-2024 08:30-0400 Body mass index (BMI) [Ratio] 29.45 kg/m2 Shruti Vargas MD Work Phone: [facility] 10-15-2024 08:30-0400 Body temperature 98.1 [degF] Shruti Vargas MD Work Phone: [facility] 10-15-2024 08:30-0400 Body weight 80.29 kg Shruti Vargas MD Work Phone: [facility] 10-15-2024 08:30-0400 Diastolic blood pressure 79 mm[Hg] Shruti Vargas MD Work Phone: [facility] 10-15-2024 08:30-0400 Heart rate 72 /min Shruti Vargas MD Work Phone: [facility] 10-15-2024 08:30-0400 SaO2% (BldA) [Mass fraction] 97 % Shruti Vargas MD Work Phone: [facility] 10-15-2024 08:30-0400 Systolic blood pressure 116 mm[Hg] Shruti Vargas MD Work Phone: [facility] 09-18-2024 08:11-0400 Body weight 79.83 kg Lopez Yadav MD Work Phone: [facility] 09-18-2024 08:11-0400 Diastolic blood pressure 76 mm[Hg] Lopez Yadav MD Work Phone: [facility] 09-18-2024 08:11-0400 Heart rate 82 /min Lopez Yadav MD Work Phone: [facility] 09-18-2024 08:11-0400 Systolic blood pressure 112 mm[Hg] Lopez Yadav MD Work Phone: [facility] 09-10-2024 09:28-0400 Body weight 80.11 kg Lopez Yadav MD Work Phone: [facility] 09-10-2024 09:28-0400 Diastolic blood pressure 73 mm[Hg] Lopez Yadav MD Work Phone: [facility] 09-10-2024 09:28-0400 Heart rate 75 /min Lopez Yadav MD Work Phone: [facility] 09-10-2024 09:28-0400 Systolic blood pressure 119 mm[Hg] Lopez Yadav MD Work Phone: [facility] 08-29-2024 15:12-0400 Body height 165.[address] Marty Mckeon DO Work Phone: [facility] 08-29-2024 15:12-0400 Body mass index (BMI) [Ratio] 29 kg/m2 Dr. Marty Mckeon DO Work Phone: [facility] 08-29-2024 15:12-0400 Body temperature 97.9 [degF] Dr. Marty Mckeon DO Work Phone: [facility] 08-29-2024 15:12-0400 Body weight 79.[address] Marty Mckeon DO Work Phone: [facility] 08-29-2024 15:12-0400 Diastolic blood pressure 70 mm[Hg] Dr. Marty Mckeon DO Work Phone: [facility] 08-29-2024 15:12-0400 Heart rate 81 /min Dr. Marty Mckeon DO Work Phone: [facility] 08-29-2024 15:12-0400 Respiratory rate 18 /min Dr. Marty Mckeon DO Work Phone: [facility] 08-29-2024 15:12-0400 SaO2% (BldA) [Mass fraction] 95 % Dr. Marty Mckeon DO Work Phone: [facility] 08-29-2024 15:12-0400 Systolic blood pressure 111 mm[Hg] Dr. Marty Mckeon DO Work Phone: [facility] 08-27-2024 13:29-0400 Body height 165.[address] Marty Mckeon DO Work Phone: [facility] 08-27-2024 13:29-0400 Body mass index (BMI) [Ratio] 29.6 kg/m2 Dr. Marty Mckeon DO Work Phone: [facility] 08-27-2024 13:29-0400 Body temperature 98.9 [degF] Dr. Marty Mckeon DO Work Phone: [facility] 08-27-2024 13:29-0400 Body weight 80.[address] Marty Mckeon DO Work Phone: [facility] 08-27-2024 13:29-0400 Diastolic blood pressure 69 mm[Hg] Dr. Marty Mckeon DO Work Phone: [facility] 08-27-2024 13:29-0400 Heart rate 72 /min Dr. Marty Mckeon DO Work Phone: [facility] 08-27-2024 13:29-0400 Respiratory rate 18 /min Dr. Marty Mckeon DO Work Phone: [facility] 08-27-2024 13:29-0400 SaO2% (BldA) [Mass fraction] 95 % Dr. Marty Mckeon DO Work Phone: [facility] 08-27-2024 13:29-0400 Systolic blood pressure 113 mm[Hg] Dr. Marty Mckeon DO Work Phone: [facility] 04-23-2024 07:25-0500 Body temperature 97.6 [degF] Dr. Marty Mckeon DO Work Phone: [facility] 04-23-2024 07:25-0500 Diastolic blood pressure 100 mm[Hg] Dr. Marty Mckeon DO Work Phone: [facility] 04-23-2024 07:25-0500 Heart rate 74 /min Dr. Marty Mckeon DO Work Phone: [facility] 04-23-2024 07:25-0500 Respiratory rate 16 /min Dr. Marty Mckeon DO Work Phone: [facility] 04-23-2024 07:25-0500 SaO2% (BldA) [Mass fraction] 95 % Dr. Marty Mckeon DO Work Phone: [facility] 04-23-2024 07:25-0500 Systolic blood pressure 158 mm[Hg] Dr. Marty Mckeon DO Work Phone: [facility] 04-23-2024 05:54-0500 Body height 165.[address] Marty Mckeon DO Work Phone: [facility] 04-23-2024 05:54-0500 Body mass index (BMI) [Ratio] 28.7 kg/m2 Dr. Marty Mckeon DO Work Phone: [facility] 04-23-2024 05:54-0500 Body weight 78.[address] Marty Mckeon DO Work Phone: [facility] 04-18-2024 13:54-0500 Body mass index (BMI) [Ratio] 29.7 kg/m2 Dr. Marty Mckeon DO Work Phone: [facility] 04-18-2024 13:54-0500 Body weight 81.[address] Marty Mckeon DO Work Phone: [facility] 04-18-2024 13:54-0500 Diastolic blood pressure 72 mm[Hg] Dr. Marty Mckeon DO Work Phone: [facility] 04-18-2024 13:54-0500 Heart rate 77 /min Dr. Marty Mckeon DO Work Phone: [facility] 04-18-2024 13:54-0500 Respiratory rate 16 /min Dr. Marty Mckeon DO Work Phone: [facility] 04-18-2024 13:54-0500 SaO2% (BldA) [Mass fraction] 96 % Dr. Marty Mckeon DO Work Phone: [facility] 04-18-2024 13:54-0500 Systolic blood pressure 107 mm[Hg] Dr. Marty Mckeon DO Work Phone: [facility] 03-28-2024 10:45-0500 Body temperature 98 [degF] Dr. Marty Mckeon DO Work Phone: [facility] 03-28-2024 10:45-0500 Diastolic blood pressure 94 mm[Hg] Dr. Marty Mckeon DO Work Phone: [facility] 03-28-2024 10:45-0500 Heart rate 71 /min Dr. Marty Mckeon DO Work Phone: [facility] 03-28-2024 10:45-0500 Respiratory rate 16 /min Dr. Marty Mckeon DO Work Phone: [facility] 03-28-2024 10:45-0500 SaO2% (BldA) [Mass fraction] 99 % Dr. Marty Mckeon DO Work Phone: [facility] 03-28-2024 10:45-0500 Systolic blood pressure 125 mm[Hg] Dr. Marty Mckeon DO Work Phone: [facility] 03-28-2024 09:01-0500 Body mass index (BMI) [Ratio] 30 kg/m2 Dr. Marty Mckeon DO Work Phone: [facility] 03-28-2024 09:01-0500 Body weight [address] Marty Mckeon DO Work Phone: [facility] 03-19-2024 13:14-0500 Body mass index (BMI) [Ratio] 30.3 kg/m2 Dr. Marty Mckeon DO Work Phone: [facility] 03-19-2024 13:14-0500 Body weight 82.[address] Marty Mckeon DO Work Phone: [facility] 03-19-2024 13:14-0500 Diastolic blood pressure 77 mm[Hg] Dr. Marty Mckeon DO Work Phone: [facility] 03-19-2024 13:14-0500 Heart rate 74 /min Dr. Marty Mckeon DO Work Phone: [facility] 03-19-2024 13:14-0500 Respiratory rate 18 /min Dr. Marty Mckeon DO Work Phone: [facility] 03-19-2024 13:14-0500 SaO2% (BldA) [Mass fraction] 98 % Dr. Marty Mckeon DO Work Phone: [facility] 03-19-2024 13:14-0500 Systolic blood pressure 118 mm[Hg] Dr. Marty Mckeon DO Work Phone: [facility] 02-26-2024 11:27-0500 Body mass index (BMI) [Ratio] 30.3 kg/m2 Dr. Marty Mckeon DO Work Phone: [facility] 02-26-2024 11:27-0500 Body temperature 97.3 [degF] Dr. Marty Mckeon DO Work Phone: [facility] 02-26-2024 11:27-0500 Body weight 82.[address] Marty Mckeon DO Work Phone: [facility] 02-26-2024 11:27-0500 Diastolic blood pressure 73 mm[Hg] Dr. Marty Mckeon DO Work Phone: [facility] 02-26-2024 11:27-0500 Heart rate 87 /min Dr. Marty Mckeon DO Work Phone: [facility] 02-26-2024 11:27-0500 Respiratory rate 18 /min Dr. Marty Mckeon DO Work Phone: [facility] 02-26-2024 11:27-0500 SaO2% (BldA) [Mass fraction] 97 % Dr. Marty Mckeon DO Work Phone: [facility] 02-26-2024 11:27-0500 Systolic blood pressure 109 mm[Hg] Dr. Marty Mckeon DO Work Phone: [facility] 04-17-2023 12:51-0500 Body height 165.[address] Marty Mckeon Work Phone: [facility] 04-17-2023 12:51-0500 Body mass index (BMI) [Ratio] 31 kg/m2 Dr. Marty Mckeon Work Phone: [facility] 04-17-2023 12:51-0500 Body temperature 97.8 [degF] Dr. Marty Mckeon Work Phone: [facility] 04-17-2023 12:51-0500 Body weight 84.[address] Marty Mckeon Work Phone: [facility] 04-17-2023 12:51-0500 Diastolic blood pressure 85 mm[Hg] Dr. Marty Mckeon Work Phone: [facility] 04-17-2023 12:51-0500 Heart rate 59 /min Dr. Marty Mckeon Work Phone: [facility] 04-17-2023 12:51-0500 Respiratory rate 18 /min Dr. Marty Mckeon Work Phone: [facility] 04-17-2023 12:51-0500 SaO2% (BldA) [Mass fraction] 96 % Dr. Marty Mckeon Work Phone: [facility] 04-17-2023 12:51-0500 Systolic blood pressure 146 mm[Hg] Dr. Marty Mckeon Work Phone: [facility] 02-04-2023 18:37-0500 Diastolic Blood Pressure Non-Invasive 84 mm[Hg] JASPER MERRILL MD [facility] 02-04-2023 18:37-0500 Heart rate 68 /min JASPER MERRILL MD [facility] 02-04-2023 18:37-0500 Respiratory rate 20 /min JASPER MERRILL MD [facility] 02-04-2023 18:37-0500 Systolic Blood Pressure Non-Invasive 138 mm[Hg] JASPER MERRILL MD [facility] 02-04-2023 17:06-0500 Body temperature 98.6 [degF] JASPER MERRILL MD [facility] 02-04-2023 17:06-0500 Body weight 81 kg JASPER MERRILL MD [facility] 02-04-2023 17:06-0500 Diastolic Blood Pressure Non-Invasive 81 mm[Hg] JASPER MERRILL MD [facility] 02-04-2023 17:06-0500 Heart rate 77 /min JASPER MERRILL MD [facility] 02-04-2023 17:06-0500 Respiratory rate 26 /min JASPER MERRILL MD [facility] 02-04-2023 17:06-0500 Systolic Blood Pressure Non-Invasive 141 mm[Hg] JASPER MERRILL MD [facility] 01-23-2023 13:45-0500 Diastolic Blood Pressure Non-Invasive 77 mm[Hg] DR JAYRO EVANGELISTA MD [facility] 01-23-2023 13:45-0500 Heart rate 66 /min DR JAYRO EVANGELISTA MD [facility] 01-23-2023 13:45-0500 Respiratory rate 20 /min DR JAYRO EVANGELISTA MD [facility] 01-23-2023 13:45-0500 Systolic Blood Pressure Non-Invasive 131 mm[Hg] DR JAYRO EVANGELISTA MD [facility] 01-23-2023 13:40-0500 Diastolic Blood Pressure Non-Invasive 92 mm[Hg] DR JAYRO EVANGELISTA MD [facility] 01-23-2023 13:40-0500 Heart rate 62 /min DR JAYRO EVANGELISTA MD [facility] 01-23-2023 13:40-0500 Respiratory rate 20 /min DR JAYRO EVANGELISTA MD [facility] 01-23-2023 13:40-0500 Systolic Blood Pressure Non-Invasive 118 mm[Hg] DR JAYRO EVANGELISTA MD [facility] 01-23-2023 13:35-0500 Diastolic Blood Pressure Non-Invasive 73 mm[Hg] DR JAYRO EVANGELISTA MD [facility] 01-23-2023 13:35-0500 Heart rate 71 /min DR JAYRO EVANGELISTA MD [facility] 01-23-2023 13:35-0500 Respiratory rate 14 /min DR JAYRO EVANGELISTA MD [facility] 01-23-2023 13:35-0500 Systolic Blood Pressure Non-Invasive 117 mm[Hg] DR JAYRO EVANGELISTA MD [facility] 01-23-2023 13:28-0500 Body temperature 97.7 [degF] DR JAYRO EVANGELISTA MD [facility] 01-23-2023 13:25-0500 Respiratory Rate - Anes 13 br/min DR JAYRO EVANGELISTA MD [facility] 01-23-2023 13:20-0500 Respiratory Rate - Anes 16 br/min DR JAYRO EVANGELISTA MD [facility] 01-23-2023 13:15-0500 Respiratory Rate - Anes 19 br/min DR JAYRO EVANGELISTA MD [facility] 01-23-2023 12:36-0500 Body height 165.[address] JAYRO EVANGELISTA MD [facility] 01-23-2023 12:36-0500 Body weight [address] JAYRO EVANGELISTA MD [facility] 01-23-2023 12:36-0500 Body weight 29.72 kg/m2 DR JAYRO EVANGELISTA MD [facility] 01-23-2023 12:32-0500 Body height 165.[address] JAYRO EVANGELISTA MD [facility] 01-23-2023 12:32-0500 Body temperature 97.88 [degF] DR JAYRO EVANGELISTA MD [facility] 01-23-2023 12:32-0500 Body weight [address] JAYRO EVANGELISTA MD [facility] 01-23-2023 12:32-0500 Heart rate 57 /min DR JAYRO EVANGELISTA MD [facility] 10-17-2019 14:24-0400 Body Temperature 98.6 [degF] Hanh [facility] 10-17-2019 14:24-0400 BP Diastolic 90 mm[Hg] [facility] , [place] 10-17-2019 14:24-0400 BP Systolic 142 mm[Hg] Hanh [facility] , [place] 10-17-2019 14:24-0400 Pulse (Heart Rate) 68 /min [facility], [place] 10-17-2019 14:24-0400 Pulse Oximetry 96 % Hanh [place], [place] 10-17-2019 14:24-0400 Respiratory Rate 17 /min Hanh [facility] 10-17-2019 10:33-0400 BMI (Body Mass Index) 32.45 kg/m2 Hanh [place] 10-17-2019 10:33-0400 Body weight 88.45 kg [facility] , [place] 10-17-2019 10:33-0400 Height 165.1 cm [facility] , [place] 10-10-2019 15:41-0400 Body Temperature 97.39 [degF] [facility] [place] 10-10-2019 15:41-0400 BP Diastolic 74 mm[Hg] [place], [place] 10-10-2019 15:41-0400 BP Systolic 112 mm[Hg] [facility] , [place] 10-10-2019 15:41-0400 Pulse (Heart Rate) 74 /min [place], [place] 10-10-2019 15:41-0400 Pulse Oximetry 94 % [place] 10-10-2019 15:41-0400 Respiratory Rate 16 /min [facility] 10-10-2019 14:38-0400 BMI (Body Mass Index) 32.45 kg/m2 [place], [place] 10-10-2019 14:38-0400 Body weight 88.45 kg [place], [place] 10-10-2019 14:38-0400 Height 165.1 cm Hanh Hernandezigham [place], [place] Encounters Encounter Date Encounter Type Care Provider Facility Start: 10-17-2024 ambulatory [facility] Facility:[facility] Start: 10-15-2024 End: 10-15-2024 Patient encounter procedure Lopez Yadav MD Work Phone: [facility] Preadmission Testing Comment on above: Pre-operative examin ation (Primary Dx); CONCEPCION (stress urinary incontinence), male; Pre-operative cardiovascular examination; Gastroesophageal reflux disease without esophagitis; Prostate cancer (HCC); Other migraine without status migrainosus, not intractable; Seasonal allergic rhinitis, unspecified trigger; Preop examination Start: 10-15-2024 End: 10-15-2024 Patient encounter status Lopez Yadav MD Work Phone: [facility] Start: 10-15-2024 End: 10-15-2024 Preprocedural examination done Lopez Yadav MD Work Phone: [facility] Work Phone: Start: 10-15-2024 End: 10-15-2024 ambulatory NICOLAS MAYORGA [facility] Start: 10-15-2024 End: 10-15-2024 Encounter for other preprocedural examination SHRUTI VARGAS [facility] Start: 10-15-2024 End: 10-15-2024 Encounter for preprocedural cardiovascular examination SHRUTI VARGAS [facility] Start: 09-18-2024 End: 09-18-2024 Patient encounter procedure Lopez Yadav MD Work Phone: [facility] Comment on above: CONCEPCION (stress urinary incontinence), male (Primary Dx) Start: 09-18-2024 End: 09-18-2024 [facility] Start: 09-18-2024 ambulatory LOPEZ YADAV [facility] Start: 09-10-2024 End: 09-10-2024 Office outpatient new 30 minutes Lopez Yadav MD Work Phone: [facility] Comment on above: CONCEPCION (stress urinary incontinence), male (Primary Dx) Start: 09-10-2024 End: 09-10-2024 ambulatory LOPEZ YADAV [facility] Start: 09-03-2024 End: 09-03-2024 Transcribe Orders Stephanie Millan MA [facility] Comment on above: Stress incontinence (Primary Dx) Start: 08-29-2024 End: 08-29-2024 Patient encounter procedure Sowmya CISSE -[facility] Work Phone: Start: 08-29-2024 End: 08-29-[address] Marty Mckeon DO Work Phone: -[facility] Start: 08-27-[address] [facility] Start: 08-27-2024 End: 08-27-[address] Berto Chambers DO [facility] Work Phone: Start: 08-27-2024 End: 08-27-[address] Marty Mckeon DO Work Phone: -[facility] Start: 08-04-2024 End: 08-04-2024 Emergency department patient visit DENI ROWE MD [facility] Start: 07-25-2024 End: 07-25-2024 ambulatory CRISTOPHER GOMEZ APRN-AR Facility:[facility] Start: 07-25-2024 End: 07-25-2024 Patient encounter procedure CRISTOPHER GOMEZ APRN-AR [facility] Start: 06-17-2024 End: 06-17-[address] JAY IRWIN Facility[facility] [place] Start: 06-17-2024 End: 06-17-[address] JAY IRWIN [facility] Start: 05-23-2024 End: 05-23-[address] MARTY MCKEON DO Facility:[facility] Start: 05-22-2024 End: 05-22-[address] Marty Mckeon DO Work Phone: [facility] Work Phone: Start: 05-22-2024 End: 05-22-[address] Nicolas Rust MD -Laboratory Work Phone: Start: 05-22-2024 End: 05-22-2024 ambulatory Berto Madina Facility:[facility] Start: 05-15-2024 End: 05-15-2024 Patient encounter procedure Jenaro Galvez DO -[facility] Work Phone: Start: 05-15-2024 End: 05-15-2024 ambulatory Marty Mike Facility:[facility] Start: 04-23-2024 ambulatory Marty Mike Facility:[facility] Start: 04-23-2024 Non-patient / Non-visit Jenaro Lu nd DO -[facility] Start: 04-23-2024 End: 04-23-2024 Admission to same day surgery center Jenaro Galvez DO -Endoscopy Work Phone: Start: 04-23-2024 End: 04-23-2024 ambulatory Marty Mike Facility:[facility] Start: 04-18-2024 End: 04-18-2024 Patient encounter procedure Sowmya CISSE -[facility] Work Phone: Start: 04-18-2024 End: 04-18-2024 ambulatory Marty Mike Facility:[facility] Start: 03-29-2024 End: 03-29-2024 Patient encounter procedure Jenaro Galvez DO -Laboratory Work Phone: Start: 03-28-2024 Non-patient / Non-visit Jenaro Lu nd DO -[facility] Start: 03-28-2024 End: 03-28-2024 Admission to same day surgery center Jenaro Galvez DO -Endoscopy Work Phone: Start: 03-28-2024 End: 03-29-2024 ambulatory Marty Mike Facility:[facility] Start: 03-19-2024 End: 03-19-2024 Patient encounter procedure Sowmya CISSE -Laboratory Work Phone: Start: 03-19-2024 End: 03-19-2024 Patient encounter procedure Sowmya CISSE -[facility] Work Phone: Start: 03-19-2024 End: 03-19-2024 ambulatory Marty Mike Facility:[facility] Start: 03-19-2024 End: 03-19-2024 ambulatory Marty Mike Facility:[facility] Start: 02-26-2024 End: 02-26-[address] Berto Chambers DO -[facility] Work Phone: Start: 02-26-2024 End: 02-26-2024 ambulatory Marty Mike Facility:[facility] Start: 02-19-2024 End: 02-19-2024 Patient encounter procedure Ivonne Dexter -Laboratory Work Phone: Start: 02-19-2024 End: 02-19-2024 ambulatory Ivonne Neville Facility:[facility] Start: 11-15-2023 End: 11-15-2023 ambulatory Marty Mike Facility:[facility] Start: 05-24-[address] MARTY DYE DO Facility:[facility] Start: 04-24-2023 End: 04-24-[address] Marty Mckeon Work Phone: [facility] Work Phone: Start: 04-24-2023 End: 04-24-[address] Marty Mckeon Work Phone: [facility] Work Phone: Start: 04-17-[address] Marty Mckeon Work Phone: [facility]-Radiation Oncology Start: 04-17-2023 End: 04-17-[address] Marty Mckeon Work Phone: [facility] Work Phone: Start: 04-06-2023 End: 04-06-2023 ambulatory [facility] Work Phone: Start: 04-06-2023 End: 04-06-2023 Patient encounter procedure [facility]-Laboratory Work Phone: Start: 02-04-2023 End: 02-04-2023 Emergency department patient visit DR MARTY MCKEON DO Facility:[facility] Start: 02-04-2023 End: 02-04-2023 Emergency department patient visit JASPER MERRILL MD [facility] Start: 01-23-2023 End: 01-23-[address] MARTY MCKEON DO Facility:[facility] Start: 01-23-2023 End: 01-23-[address] JAYRO EVANGELISTA MD [facility] Start: 12-07-2022 End: 12-08-[address] MARTY MCKEON DO Facility:[facility] Start: 10-21-2022 End: 10-21-2022 ambulatory [facility] Work Phone: Start: 10-21-2022 End: 10-21-2022 Patient encounter procedure [facility], [facility] Work Phone: Start: 10-17-2022 End: 10-18-[address] MARTY MCKEON DO Facility:[facility] Start: 10-06-2022 End: 10-06-2022 Patient encounter procedure [facility]-Laboratory, Specimen Work Phone: Start: 10-05-2022 End: 10-05-2022 ambulatory [facility] Work Phone: Start: 10-05-2022 End: 10-05-2022 Patient encounter procedure [facility]-Laboratory Work Phone: Start: 05-30-[address] NICOLAS RUST MD Facility:[facility] Start: 05-27-2022 End: 05-28-[address] NICOLAS RUST MD Facility:[facility] Start: 05-27-2022 End: 05-27-[address] NICOLAS RUST MD [facility] Start: 04-20-2022 End: 04-20-[address] MARTY MCKEON DO [facility] Start: 11-04-2021 End: 11-04-[address] MARTY MCKEON DO [facility] Start: 06-28-2021 End: 06-28-2021 Patient encounter procedure RAMBO BATISTA PA-C [facility] Start: 06-23-2021 End: 06-23-2021 Patient encounter procedure RAMBO BATISTA PA-C [facility] Start: 10-17-2019 End: 10-17-2019 Subsequent hospital visit by physician Hanh Hendrickson Work Phone: [facility] Comment on above: Deviated nasal septu m (Primary Dx) Start: 10-10-2019 End: 10-10-2019 Subsequent hospital visit by physician Hanh Hendrickson Work Phone: [facility] Pre-Admit Testing Comment on above: Arrived Start: 09-15-2017 End: 09-21-2017 Patient encounter ALLEY KAPOOR ([place]) [facility] Start: 09-12-2017 End: 09-15-2017 Patient encounter NACHO RIVERA [facility] Start: 08-10-2017 End: 08-10-2017 Patient encounter [facility] Procedures Date Procedure Procedure Detail Performing Clinician Start: 10-15-2024 Urnls dip stick/tabl et reagent auto microscopy Lopez Yadav MD Work Phone: Start: 09-18-2024 Urnls dip stick/tabl et rgnt auto w/o microscopy Lopez Yadav MD Work Phone: Start: 08-27-2024 Assay of prostate sp ecific antigen total Dr. Marty Mckeon DO Work Phone: Comment on above: This test was perfor med using the [employer] tPSA method. Measured values of a patient sample can vary depending on the testing procedure used. PSA values determined on patient samples by different testing procedures cannot be used interchangeably. If there is a change in PSA assays while monitoring therapy, sequential testing should be performed to confirm baseline values. Start: 05-22-2024 Assay of prostate sp ecific antigen total Dr. Marty Mckeon DO Work Phone: Comment on above: This test was perfor med using the [employer] tPSA method. Measured values of a patient sample can vary depending on the testing procedure used. PSA values determined on patient samples by different testing procedures cannot be used interchangeably. If there is a change in PSA assays while monitoring therapy, sequential testing should be performed to confirm baseline values. Start: 05-02-2023 Positron emission to mography with computed tomography Dr. Marty Mckeon DO Work Phone: Start: 04-24-2023 MRI of pelvis with contrast Dr. Marty Mckeon Work Phone: Start: 01-23-2023 Colonoscopy Lopez choe MD Work Phone: Start: 01-23-[address] JAYRO EVANGELISTA MD Start: 10-21-2022 Computed tomography of abdomen and pelvis with intravenous contrast Start: 10-06-2022 Urine culture Start: 10-10-2019 Basic metabolic pane l calcium total Florin Sterling [place] Work Phone: Start: 10-10-2019 Blood count complete automated Florin Sterling [place] Work Phone: Start: 10-10-2019 Ecg routine ecg w/le ast 12 lds w/i&r Florin Sterling Yejosealberto Work Phone: Start: 09-06-2017 Hernia repair RAMBO HAIDERMariposa PA-C Start: 08-24-2016 Prostatectomy RAMBO HAIDERMariposa PA-C Comment on above: and Lymph Nodes Start: 02-21-2016 Biopsy of prostate YOSELIN Barajas LESTER PA-C Start: 02-20-2015 Arthroscopic knee operation RAMBO RODASMICHELLE PA-C Comment on above: Left Start: 02-21-2012 Laparoscopic cholecystectomy RAMBO BATISTA NOEL-C Start: 02-20-2010 Repair of musculoten dinous cuff of shoulder RAMBO LESTER COHEN-C Comment on above: August 2013 Left Right Start: 02-20-2006 Hemorrhoidectomy RAMBO BATISTA PA-C Operation on accessory sinus RAMBO BATISTA PA-C Xcapsl ctrc rmvl ins j io lens prosth w/o ecp RAMBO BATISTA PA-C Plan of Treatment Date Care Activity Detail Author Start: 01-23-2033 Screening for malign ant neoplasm of colon [facility] Start: 11-05-2032 Tetanus vaccination Tetanus: Every 1 0yrs [facility] Start: 2025 Respiratory Syncytia l Virus Immunization: Risk, 60-74 Risk, or 75+ (1 - 1-dose 75+ series) Respiratory Syncytial Virus Immunization: Risk, 60-74 Risk, or 75+ (1 - 1-dose 75+ series) [facility] Start: 10-24-2024 End: 10-24-2024 Admission to same day surgery center 10/24/2024 9:45 AM EDT - 10/24/2024 11:50 [place] [address] Lopez Yadav MD [address] [address] ARTIFICIAL URINARY SPHINCTER INSERTION [facility] Comment on above: ARTIFICIAL URINARY S PHINCTER INSERTION Start: 10-24-2024 End: 10-24-2024 Cystourethroscopy CYSTOSCOPY CONCEPCION (stress urinary incontinence), male 10/24/2024 9:45 AM EDT [facility] Start: 10-24-2024 End: 10-24-2024 Insj inflatable urethral/bladder neck sphincter INSERTION URINARY SPHINCTER PROSTHESIS CONCEPCION (stress urinary incontinence), male 10/24/2024 9:45 AM EDT [facility] Start: 10-24-2024 Subsequent hospital visit by physician [facility] Start: 10-21-2024 Influenza vaccination Influenza Vacc ine (#1) [facility] Start: 09-18-2024 End: 09-18-2024 Patient encounter procedure 09/18/2024 8:00 AM EDT Procedure visit [facility] [address] [phone] Lopez Yadav MD [address] [address] [facility] Start: 09-10-2024 End: 09-10-2024 Patient encounter procedure 09/10/2024 10:00 AM EDT Office Visit [facility] [address] [id number] Lopez Yadav MD [address] [address] [facility] Start: 08-27-2024 [facility] Start: 08-09-2024 Administration of he rpes zoster vaccine Zoster Vaccines (3 of 3) [facility] Start: 04-23-2024 Sigmoidoscopy akx me ntrol bleeding SIGMOIDOSCOPY FOR BLEEDING [facility] Start: 04-23-2024 Patient discharge [facility] Start: 03-28-2024 Colonoscopy w/biopsy single/multiple COLONOSCOPY AND BIOPSY [facility] Start: 03-28-2024 Colsc flexible w/con trol bleeding any method COLONOSCOPY W/CONTROL BLEED [facility] Start: 03-28-2024 Patient discharge [facility] Start: 10-22-2023 COVID-19 Vaccine ( season) COVID-19 Vaccine ( season) [facility] Start: 10-22-2019 Influenza vaccination Flu vaccine (# 1) [place], [place] Start: 10-17-2019 End: 10-17-2019 Appointment 10/17/2019 Appointment General Surgery Hanh Hendrickson, [address] [place], [place] [id number] [facility] Start: 2015 Fall risk assessment Falls Risk Asse ssment [facility] Start: 2015 Pneumococcal 65+ yea rs Vaccine (1 of 1 - PPSV23) Pneumococcal 65+ years Vaccine (1 of 1 - PPSV23) [place], [place] Start: 2015 Pneumococcal 65+ yea rs Vaccine (2 of 2 - PPSV23) Pneumococcal 65+ years Vaccine (2 of 2 - PPSV23) [place], [place] Start: 07-30-2013 Shingles Vaccine (2 of 3) Mulligan gles Vaccine (2 of 3) [place], [place] Start: 2000 Administration of he rpes zoster vaccine Zoster Vaccines (1 of 2) [facility] Start: 2000 Pneumococcal Vaccine : Age 50+ (1 of 1 - PCV) Pneumococcal Vaccine: Age 50+ (1 of 1 - PCV) [facility] Start: 2000 Prostate specific an tigen measurement PSA counseling [place], [place] Start: 2000 Screening for malign ant neoplasm of colon [facility] Start: 2000 Shingles Vaccine (1 of 2) Mulligan gles Vaccine (1 of 2) [place], [place] Start: 1990 Diabetes screen Diabetes screen [place], [place] Start: 1990 Lipid panel Lipid screen [place], [place] Start: 1969 DTaP/Tdap/Td vaccine (1 - Tdap) DTaP/Tdap/Td vaccine (1 - Tdap) [place], [place] Start: 1968 Hepatitis C screening Hepatitis C Pa butch [facility] Start: 1962 Depression screening using PHQ-9 (Patient Health Questionnaire 9) score Depression Screening/Follow-Up (PHQ-2/9) [facility] Start: 1953 History and physical examination, annual for health maintenance Wellness Visit [facility] Start: 1953 Medicare Wellness Visit Medica re Wellness Visit [facility] Start: 1950 Abdominal aortic ane urysm screening Abdominal Aortic Ultrasound [facility] Start: 1950 Hepatitis C screening Hepatitis C in silvia [place], [place] Start: 1950 Prostate specific an tigen measurement PSA Level [facility] Start: 1950 Screening for malign ant neoplasm of colon [facility] Start: 1950 Tetanus vaccination Tetanus: Every 1 0yrs [facility] End: 09-18-2025 12 lead ECG ECG 12 Lead ECG Routine CONCEPCION (stress urinary incontinence), male 1 Occurrences starting 09/18/2024 until 09/18/2025 [facility] Comment on above: 1 Occurrences starti ng 09/18/2024 until 09/18/2025 End: 09-18-2025 Bacteria identified in Unspecified specimen by Aerobe culture Urine Aerobic Culture Microbiology Routine CONCEPCION (stress urinary incontinence), male 1 Occurrences starting 09/18/2024 until 09/18/2025 [facility] Comment on above: 1 Occurrences starti ng 09/18/2024 until 09/18/2025 Bacteria identified in Unspecified specimen by Aerobe culture Urine Aerobic Culture Microbiology Routine Preop examination 10/15/2024 9:46 AM EDT [facility] End: 09-18-2025 Basic metabolic 2000 panel - Serum or Plasma Basic metabolic panel Lab Routine CONCEPCION (stress urinary incontinence), male 1 Occurrences starting 09/18/2024 until 09/18/2025 [facility] Comment on above: 1 Occurrences starti ng 09/18/2024 until 09/18/2025 End: 10-17-2019 Blood glucose - POCT Blood glucose - POCT Point of Care Testing STAT One Time for 1 Occurrences starting 10/17/2019 until 10/17/2019 [facility] One Time for 1 Occur rences starting 10/17/2019 until 10/17/2019 CBC W Auto Different ial panel - Blood CBC Auto Differential Lab Panel Routine Preop examination Ordered: 10/15/2024 [facility] Work Phone: Comment on above: Ordered: 10/15/2024 End: 09-18-2025 Complete blood count with white cell differential, manual CBC and differential Lab Routine CONCEPCION (stress urinary incontinence), male 1 Occurrences starting 09/18/2024 until 09/18/2025 [facility] Comment on above: 1 Occurrences starti ng 09/18/2024 until 09/18/2025 EKG 12 Lead EKG 12 Lead ECG Routine 10/10/2019 3:13 PM EDT [facility] [place] End: 09-18-2025 Hemoglobin A1c/Hemoglobin.total in Blood Hemoglobin A1c Lab Routine CONCEPCION (stress urinary incontinence), male 1 Occurrences starting 09/18/2024 until 09/18/2025 [facility] Work Phone: Comment on above: 1 Occurrences starti ng 09/18/2024 until 09/18/2025 Insj inflatable urethral/bladder neck sphincter INSERTION URINARY SPHINCTER PROSTHESIS CONCEPCION (stress urinary incontinence), male [facility] End: 10-17-2019 Intermittent pulse oximetry Pulse Oximetry Spot Check Respiratory Care Routine One Time for 1 Occurrences starting 10/17/2019 until 10/17/2019 [facility] Comment on above: One Time for 1 Occur rences starting 10/17/2019 until 10/17/2019 Oxygen therapy [[facility] Data Set] Initiate Oxygen Therapy Protocol Respiratory Care Routine Daily until discontinued [facility]2019 [facility] Comment on above: Daily until disconti nued starting 10/17/2019 Patient referral [facility] Work Phone: Phase I & II - meter ed glucose Phase I & II - metered glucose Point of Care Testing Routine As Needed until discontinued starting 10/17/2019 [facility] Comment on above: As Needed until disc ontinued starting 10/17/2019 Positron emission tomography with computed tomography [facility] Prostate specific an tigen measurement [facility] Spirometry panel Incentive tereza metry Respiratory Care Routine Q1H PRN until discontinued starting 10/17/2019 [facility] [place] Comment on above: Q1H PRN until discon tinued starting 10/17/2019 Immunizations Immunization Date Immunization Notes Care Provider Sarahi macdonald 06-14-2024 SARS-CoV-2 (COVID-19 ) [id number] DENI ROWE MD [facility] 06-14-2024 zoster vaccine recombinant DENI ROWE MD [facility] 03-01-2024 SARS-CoV-2 (COVID-19 ) [id number] DR JAY IRWIN [facility] 11-29-2023 influenza, high dose seasonal, preservative-free; Translations: [Fluad PF Prefilled Syringe ] DR JAY IRWIN [facility] 11-29-2023 influenza virus vacc ine, unspecified formulation Lopez Yadav MD Work Phone: [facility] 12-14-2022 influenza, high dose seasonal, preservative-free; Translations: [Fluad Quadrivalent PF ] DR JAYRO EVANGELISTA MD [facility] 11-05-2022 tetanus toxoid, redu elizabeth diphtheria toxoid, and acellular pertussis vaccine, adsorbed; Translations: [Boostrix (Tdap)] DR JAYRO EVANGELISTA MD [facility] Comment on above: Early/Late Reason: E alexis/Late Reason: Other: 12-08-2021 influenza, high dose seasonal, preservative-free DR MARTY MCKEON DO [facility] 12-01-2021 COVID-19, mRNA, LNP- S, bivalent booster, PF, 30 mcg/0.3 mL dose; Translations: [Pfizer-BioNTech COVID-19 (12y+) Bivalent Booster Vaccine PF] DR MARTY MCKEON DO [facility] 12-01-2021 SARSCoV2 mRNA(tkgyllshlei89x+)biv al vac; Translations: [Pfizer-BioNTech COVID-19 (12y+) Bivalent Booster Vaccine PF] JASPER MERRILL MD [facility] 01-11-2021 SARS-CoV-2 (COVID-19 ) [id number] MARTY MCKEON DO [facility] 01-08-2021 influenza, high dose seasonal, preservative-free; Translations: [Fluad Quadrivalent PF ] RAMBO BATISTA PA-C [facility] 05-19-2020 COVID-19, mRNA, LNP- S, PF, 100 mcg or 50 mcg dose; Translations: [Moderna COVID-19 Vaccine] RAMBO BATISTA PA-C [facility] 04-21-2020 COVID-19, mRNA, LNP- S, PF, 100 mcg or 50 mcg dose; Translations: [Moderna COVID-19 Vaccine] ARMBO BATISTA PA-C [facility] Comment on above: Result Comment: give n by odessa [employer] student 11-07-2019 influenza, injectabl e, quadrivalent, preservative free; Translations: [Fluarix PF Quadrivalent ] RAMBO BATISTA PA-C [facility] 12-14-2018 influenza, injectabl e, quadrivalent, preservative free; Translations: [Fluarix PF Quadrivalent ] RAMBO LESTER PA-C [facility] 01-24-2018 pneumococcal polysaccharide vaccine, 23 valent RAMBO LESTER PA-C [facility] Comment on above: Result Comment: DFP 10-25-2017 influenza virus vacc ine, unspecified formulation RAMBO LESTER PA-C [facility] 11-28-2016 influenza virus vacc ine, unspecified formulation RAMBO LESTER PA-C [facility] 07-28-2016 pneumococcal conjuga te vaccine, 13 valent RAMBO LESTER PA-C [facility] 12-15-2015 influenza virus vacc ine, unspecified formulation RAMBO LESTER PA-C [facility] 12-07-2014 influenza virus vacc ine, unspecified formulation RAMBO LESTER PA-C [facility] 12-31-2013 influenza virus vacc ine, unspecified formulation RAMBO LESTER PA-C [facility] 06-04-2013 zoster vaccine, live RABMO Janiya ALTAMIRANO PA-C [facility] 11-15-2011 influenza virus vacc ine, unspecified formulation RAMBO BATISTA PA-C [facility] 07-10-2008 tetanus toxoid, redu elizabeth diphtheria toxoid, and acellular pertussis vaccine, adsorbed RAMBO BATISTA PA-C [facility] Comment on above: Result Comment: DFP Payers Date Payer Category Payer Self-pay [id number] 2020 Blue [employer] Blue Shie ld (Indemnity or Managed Care) - Out of State BCBS OUT OF STATE [facility] [id number] 2020 Private Health Insurance [id number] 2020 Unknown [id number] 2020 Unknown [id number] 2015 Medicare [id number] 2015 Medicare [id number] 1950 Unknown [id number] 2.16.840.1.296635.3.579. 2.627 1950 Unknown [id number] 2.16.840.1.534028.3.579. 2.627 1950 Unknown [id number] 2.16.840.1.012410.3.579. 2.627 1950 Unknown [id number] 2.16.840.1.447221.3.579. 2.62 1950 Unknown [id number] 2.16.840.1.985433.3.579. 2.627 1950 Unknown [id number] 2.16.840.1.574011.3.579. 2.62 1950 Unknown [id number] 2.16.840.1.340505.3.579. 2.62 1950 Unknown [id number] 2.16.840.1.536196.3.579. 2.62 1950 Unknown [id number] 2.16.840.1.476433.3.579. 2.627 1950 Unknown [id number] 2.16.840.1.753220.3.579. 2.62 1950 Unknown [id number] 2.16.840.1.759380.3.579. 2.627 1950 Unknown [id number] 2.16.840.1.621484.3.579. 2.903 1950 Unknown [id number] 2.16.840.1.818501.3.579. 2.903 1950 Unknown [id number] 2.16.840.1.918063.3.579. 2.902 1950 Unknown [id number] 2.16.840.1.868723.3.579. 2.902 Unknown [id number] 2.16.840.1.451693.3.579. 2.462 Unknown [id number] 2.16.840.1.588803.3.579. 2.462 Unknown [id number] 2.16.840.1.699131.3.579. 2.462 Unknown [id number] 2.16.840.1.710533.3.579. 2.462 Unknown [id number] 2.16.840.1.611060.3.579. 2.462 Unknown [id number] 2.16.840.1.925896.3.579. 2.462 Unknown [id number] 2.16.840.1.251222.3.579. 2.462 Unknown [id number] 2.16.840.1.536332.3.579. 2.462 Unknown [id number] 2.16.840.1.163275.3.579. 2.462 Unknown [id number] 2.16.840.1.234057.3.579. 2.462 Unknown [id number] 2.16.840.1.326662.3.579. 2.462 Unknown [id number] 2.16.840.1.936533.3.579. 2.462 Unknown [id number] 2.16.840.1.546605.3.579. 2.462 Unknown [id number] 2.16.840.1.650920.3.579. 2.462 Unknown [id number] 2.16.840.1.233757.3.579. 2.462 Unknown [id number] 2.16.840.1.876749.3.579. 2.462 Unknown [id number] 2.16.840.1.521569.3.579. 2.462 Social History Date Type Detail Facility Start: 10-10-2019 End: 04-22-2024 Tobacco smoking status NHIS Never smoker [facility] Start: 10-10-2019 End: 09-10-2024 Tobacco use and exposure Never used [facility] [place] Start: 10-10-2019 End: 10-17-2019 [facility]: 1950 [facility] ([facility] Start: 10-18-2018 End: 09-10-2024 Tobacco smoking status Ex-smoker (finding) [facility] Start: 1950 Sex Assigned At Male A [facility] Start: 11-24-2020 End: 04-17-2023 Tobacco smoking status NHIS Unknown if ever smoked [facility] Start: 08-30-2017 Non-smoker [facility] Start: 04-25-2019 End: 05-27-2024 Sex Male (finding) [facility] Sexual Orientation [facility] Start: 09-10-2024 End: 10-15-2024 Gender identity Not on file [facility] History of tobacco use [facility] smoker [facility] History of tobacco use [facility] Start: 09-10-2024 End: 10-15-2024 History of Social function [facility] Start: 10-15-2024 Alcoholic beverage intake Lifetime non-drinker (finding) [facility] Medical Equipment Procedure Code Equipment Code Equipment Origin al Text Equipment Identifier Dates Repair, hernia, inguinal, with mesh insertion ([id number]) Extra-gynaecologic al surgical mesh, synthetic polymer, non-bioabsorbable ([id number] FDA Start: 11-25-2020 MESH,VENTRIO ST OVAL SM [id number] FDA Start: 09-06-2017 TACKER,SECURE STRAP FDA Start: 09-06-2017 MESH,VENTRIO ST OVAL SM [id number] FDA Start: 09-06-2017 TACKER,SECURE STRAP FDA Start: 09-06-2017 MESH,VENTRIO ST OVAL SM [id number] FDA Start: 09-06-2017 TACKER,SECURE STRAP FDA Start: 09-06-2017 MESH,VENTRIO ST OVAL SM [id number] FDA Start: 09-06-2017 TACKER,SECURE STRAP FDA Start: 09-06-2017 MESH,VENTRIO ST OVAL SM [id number] FDA Start: 09-06-2017 TACKER,SECURE STRAP FDA Start: 09-06-2017 MESH,VENTRIO ST OVAL SM [id number] FDA Start: 09-06-2017 TACKER,SECURE STRAP FDA Start: 09-06-2017 MESH,VENTRIO ST OVAL SM [id number] FDA Start: 09-06-2017 TACKER,SECURE STRAP FDA Start: 09-06-2017 Goals Date Patient Goal Desired Activity /State Functional Status Date Assessment Result Facility 02-04-2023 Functional Status Independent [facility] 02-04-2023 Functional Status Ambulation in [facility] 01-23-2023 Functional Status [facility] 01-23-2023 Functional Status Maintained [facility] Mental Status Date Assessment Result Facility 04-23-2024 Cognitive function Voice/Name [facility] Work Phone: 04-23-2024 Cognitive function Patient Orien tation Person;Place;Time [facility] Work Phone: 03-28-2024 Cognitive function Voice/Name [facility] Work Phone: 03-28-2024 Cognitive function Patient Orien tation Person;Place;Time [facility] Work Phone: 02-04-2023 Mental Status Orientation Oriented x 4 [facility] 02-04-2023 Mental Status [facility] 01-23-2023 Mental Status Oriented x 4 [facility] Clinical Notes 04-20-2022 to 10-15-2024 Madalyn Ramirez, RN - 10/15/2024 9:53 AM Madalyn Reyes RN - 10/15/2024 9:53 AM Shruti Yañez MD - 10/15/2024 9:41 AM Shruti Yañez MD - 10/15/2024 9:41 AM EDTPatient Instructions Note Date & Type Note Facility 10-15-2024 Nurse Surgical operation note Images from the original note were not included. Patient Instructions for [facility] Surgery Department [place] [address] Prior to surgery: Bathe the night before and the morning of your surgery to help prevent the chance of any surgical site infection. If your surgeon does not give you an antibacterial soap, you can purchase it at a local drug store or supermarket. An example would be Dial antibacterial soap. Remove jewelry and piercings, and leave all valuables at home. Do not apply any lotions, creams, powders or makeup on the morning of surgery. Do not apply deodorant for breast, chest or arm surgery. Follow your doctor's instructions for eating and drinking. Stop all food, candy, mints, chewing gum, smoking, vaping, chewing tobacco at least 8 HOURS prior to your arrival at the hospital. If instructed by your surgeon, you may drink up to 20 ounces of CLEAR LIQUIDS, but do not drink the 20 ounces all at once. Clear liquids include: water and electrolyte drinks (Gatorade, Powerade, Pedialyte), or PLAIN tea or coffee. DO NOT DRINK ANYTHING TWO (2) HOURS PRIOR TO YOUR ARRIVAL AT THE HOSPITAL. If you were instructed to take any of your medications on the morning of surgery, please take them with small sips of water. You may brush your teeth the morning of surgery and rinse your mouth, but do not swallow the water. Bring a list of your current medications, including herbals and over the counter medications. Any questions about medications are to be referred to your doctor's office. Bring your Insurance Card and photo ID for registration. You may bring any Advanced Directives you would like to have on file with [facility]. Be prepared to remove your dentures, glasses, and contacts prior to surgery Wear loose, comfortable clothing on the day of surgery. Shoulders - wear a button down or zippered shirt Knees - wear sweat pants, shorts, or loose fitting pants There may be a bulky dressing over the incision for these types of surgery As [facility] expands our care site to better serve our patients, campus construction may result in temporary road closures. Please arrive at the [facility] Main lobby at [address] at the time you are given. Free mold engraver parking is available for all surgery patients. Parking is also available in the [facility] located at [address] [place] [address]. To ensure a safe and secure environment for our patients, visitors, and staff, we have implemented a new visitor management process at [facility] and [place]. As part of this process, we kindly ask all visitors to present one form of government-issued identification before entering. Please ensure any visitors accompanying you to your appointment bring a government-issued photo identification to prevent denial of access. Enter the hospital and check in at the desk to get registered. Please check in with them as soon as you arrive. After you are registered, you will be escorted to the Surgery Waiting Room. A nurse will meet you in the Surgery Waiting Room and will take you back to the Pre-Op area. One adult, 18 years old or older, may accompany you to the Pre-Op area. We recommend that children under the age of 16 should not accompany you to the hospital. Let us know if you will need any special accommodations for your designated support person. See that all cellular devices are put on silent. Bring any assistive devices, such as crutches & walkers, with you on the day of surgery. You may leave them in your car and retrieve them when needed. If you have a diagnosis of Sleep Apnea we request that you bring your C-Pap machine with you. You may leave it in your car and retrieve it when needed. If you use home oxygen, please bring your oxygen tank with you to the hospital. Please ensure you have an adequate supply for your arrival to the hospital and your return home. If you have an implanted spinal cord or bladder stimulator device, please bring the remote with you. After your surgery: If you are scheduled as an outpatient, a responsible licensed adult must be available for transportation, and is expected to remain at the hospital throughout the duration of your procedure. This person must be 18 years old or older. You are not allowed to drive yourself home. A responsible adult must stay with you for 24 hours following your surgery. [facility] 10-15-2024 Nurse Note Images from the original note were not included. Patient Instructions for [facility] Surgery Department [address] [place] [address] Prior to surgery: Bathe the night before and the morning of your surgery to help prevent the chance of any surgical site infection. If your surgeon does not give you an antibacterial soap, you can purchase it at a local drug store or supermarket. An example would be Dial antibacterial soap. Remove jewelry and piercings, and leave all valuables at home. Do not apply any lotions, creams, powders or makeup on the morning of surgery. Do not apply deodorant for breast, chest or arm surgery. Follow your doctor's instructions for eating and drinking. Stop all food, candy, mints, chewing gum, smoking, vaping, chewing tobacco at least 8 HOURS prior to your arrival at the hospital. If instructed by your surgeon, you may drink up to 20 ounces of CLEAR LIQUIDS, but do not drink the 20 ounces all at once. Clear liquids include: water and electrolyte drinks (Gatorade, Powerade, Pedialyte), or PLAIN tea or coffee. DO NOT DRINK ANYTHING TWO (2) HOURS PRIOR TO YOUR ARRIVAL AT THE HOSPITAL. If you were instructed to take any of your medications on the morning of surgery, please take them with small sips of water. You may brush your teeth the morning of surgery and rinse your mouth, but do not swallow the water. Bring a list of your current medications, including herbals and over the counter medications. Any questions about medications are to be referred to your doctor's office. Bring your Insurance Card and photo ID for registration. You may bring any Advanced Directives you would like to have on file with [facility]. Be prepared to remove your dentures, glasses, and contacts prior to surgery Wear loose, comfortable clothing on the day of surgery. Shoulders - wear a button down or zippered shirt Knees - wear sweat pants, shorts, or loose fitting pants There may be a bulky dressing over the incision for these types of surgery As [facility] expands our care site to better serve our patients, campus construction may result in temporary road closures. Please arrive at the [facility] Main lobby at [address] at the time you are given. Free mold engraver parking is available for all surgery patients. Parking is also available in the [facility] located at [address] [place] [address]. To ensure a safe and secure environment for our patients, visitors, and staff, we have implemented a new visitor management process at [facility] [place]. As part of this process, we kindly ask all visitors to present one form of government-issued identification before entering. Please ensure any visitors accompanying you to your appointment bring a government-issued photo identification to prevent denial of access. Enter the hospital and check in at the desk to get registered. Please check in with them as soon as you arrive. After you are registered, you will be escorted to the Surgery Waiting Room. A nurse will meet you in the Surgery Waiting Room and will take you back to the Pre-Op area. One adult, 18 years old or older, may accompany you to the Pre-Op area. We recommend that children under the age of 16 should not accompany you to the hospital. Let us know if you will need any special accommodations for your designated support person. See that all cellular devices are put on silent. Bring any assistive devices, such as crutches & walkers, with you on the day of surgery. You may leave them in your car and retrieve them when needed. If you have a diagnosis of Sleep Apnea we request that you bring your C-Pap machine with you. You may leave it in your car and retrieve it when needed. If you use home oxygen, please bring your oxygen tank with you to the hospital. Please ensure you have an adequate supply for your arrival to the hospital and your return home. If you have an implanted spinal cord or bladder stimulator device, please bring the remote with you. After your surgery: If you are scheduled as an outpatient, a responsible licensed adult must be available for transportation, and is expected to remain at the hospital throughout the duration of your procedure. This person must be 18 years old or older. You are not allowed to drive yourself home. A responsible adult must stay with you for 24 hours following your surgery. documented in this encounter [facility] 10-15-2024 History and physical note Assessment and Plan 1. Pre-operative examination Preoperative medical risk stratification indicates that this patient is at an acceptable risk for this elective major surgery pending labs including CBC, BMP, hemoglobin A1c and urinalysis and culture This patient scored NO risk for JUANA on our screening tool and will need to be watched closely in the post-operative period. 2. CONCEPCION (stress urinary incontinence), male Plan for surgery to correct the underlying condition by Dr. Yadav. Patient provided instructions on preoperative management of medications including withholding Aspirin, NSAIDS, and specific Herbal Supplements 7 days before surgery. The prescription drug management instructions were given both verbally to the patient and in a written form on our discharge instruction paperwork. Prophylaxis for prevention of deep vein thrombosis per primary surgical team. Please follow the most recent ACCP guidelines. 3. Pre-operative cardiovascular examination This patient has no active cardiac conditions and would be considered at a low risk for a major adverse cardiac event(MACE) based on a revised cardiac risk index score of 0, in addition is asymptomatic with greater than 4 METS of functional capacity and therefore is at acceptable cardiac risk for elective surgery based on the most recent ACC/AHA guidelines. 4. Gastroesophageal reflux disease without esophagitis Well controlled and optimized for surgery on a PPI, Nexium with diet modification. Will use pre and post-op to help reduce aspiration risk. This is a chronic stable medical condition. 5. Prostate cancer (HCC) Status post radical prostatectomy and then later radiation and now was on Eligard injections. Last PSA was stable. See above. 6. Other migraine without status migrainosus, not intractable Patient is managed with Botox injections every several months and Maxalt to abort headaches. He has been having increased headaches recently. He can stay on this regimen pre and postoperatively. This is a chronic stable medical condition. 7. Seasonal allergic rhinitis, unspecified trigger He does have some chronic lung symptoms and is on Mucinex and Claritin. This is a chronic stable medical condition. Chief Complaint Patient presents with Consult From Surgeon History of Present Illness Tray Gomes is a 74 y.o. male who presents at the request of Lopez Yadav MD prior to ARTIFICIAL URINARY SPHINCTER INSERTION, CYSTOSCOPY Surgery Date: 10/24/2024. Patient here with stress urinary incontinence. The patient had a radical prostatectomy around 2017 and then had recurrence of cancer and had radiation. He is now on Eligard injections. He has stress urinary incontinence which has not responded to conservative measures. He will get a artificial urinary sphincter placed. Please note that this patient has done well with anesthesia in the past and his chronic medical conditions including GERD and migraine headache are managed well on the home medications and are stable for the upcoming procedure. Patient does have a history of GERD and is managed well with Nexium twice a day. Patient does have migraine headaches and gets Botox injections to prevent them and utilizes Maxalt to abort headaches. This patient does exert to greater then 4 METS. The patient does not get any heart or lung symptoms with exertion. Past Medical History: Diagnosis Date Arthritis Complication of anesthesia GERD (gastroesophageal reflux disease) Hemorrhoids Hx of skin cancer, basal cell Migraines Overactive bladder PONV (postoperative nausea and vomiting) Prostate cancer (HCC) Skin cancer CONCEPCION (stress urinary incontinence), male Vitamin D deficiency Past Medical History Pertinent Negatives: Diagnosis Date Noted Bleeding disorder 10/15/2024 Coronary artery disease 10/15/2024 Deep vein thrombosis (HCC) 10/15/2024 Family history of bleeding disorder 10/15/2024 Glaucoma 10/15/2024 History of blood transfusion 10/15/2024 No blood products 10/15/2024 Pulmonary embolism (HCC) 10/15/2024 Sleep apnea, obstructive 10/15/2024 Past Surgical History: Procedure Laterality Date CATARACT EXTRACTION, BILATERAL CHOLECYSTECTOMY COLONOSCOPY HERNIA REPAIR HERNIA REPAIR INGUINAL OPEN KNEE SURGERY Left MOHS NOSE PROSTATE BIOPSY PROSTATECTOMY REPAIR SEPTUM NASAL ROTATOR CUFF REPAIR Bilateral Social History[1] Family History Problem Relation Age of Onset Heart disease Mother Heart disease Father Heart disease Natural Sister Heart disease Natural Sister Anesthesia problems Neg Hx Surgical complications Neg Hx Clotting disorder Neg Hx Deep vein thrombosis Neg Hx Pulmonary embolism Neg Hx Prior to Admission medications taking for visit date 10/15/24 Medication Sig Taking? Discontinued? aluminum-magnesium hydroxide-simethicone (MAALOX PLUS) 200-200-20 mg/5 mL Susp Take 30 mL by mouth 4 (four) times a day before meals and nightly . Yes ascorbic acid, vitamin C, (VITAMIN C) 500 MG tablet Take 1 (one) tablet (500 mg total) by mouth every morning . Yes calcium carbonate (TUMS) 200 mg calcium (500 mg) chewable tablet Chew and Swallow 1 (one) tablet (500 mg total) daily . Yes cholecalciferol, vitamin D3, 25 mcg (1,000 unit) capsule Take 1 (one) capsule (1,000 Units total) by mouth daily . Yes esomeprazole (NEXIUM) 40 MG capsule TAKE ONE CAPSULE BY MOUTH TWICE DAILY 30 MINUTES BEFORE BREAKFAST AND DINNER Yes guaiFENesin 200 mg tablet Take 2 (two) tablets (400 mg total) by mouth every 4 (four) hours as needed . Yes ibuprofen (ADVIL,MOTRIN) 200 MG tablet Take 2 (two) tablets (400 mg total) by mouth every 6 (six) hours as needed . Yes leuprolide (ELIGARD) 45 mg injection Inject 45 (forty five) mg under the skin every 6 (six) months . Yes loratadine (Claritin) 10 mg tablet Take 1 (one) tablet (10 mg total) by mouth every morning . Yes onabotulinumtoxinA (BOTOX INJ) Inject as directed . Yes oxyBUTYnin (DITROPAN XL) 15 MG 24 hr tablet Take 1 (one) tablet (15 mg total) by mouth every morning . Yes promethazine-dextromethorphan (PROMETHAZINE-DM) 6.25-15 mg/5 mL syrup Take 5 mL by mouth every 6 (six) hours as needed for cough . Yes rizatriptan (MAXALT) 10 MG tablet take 1 tablet by oral route at start of headache; can repeat dose in 2 hours if needed; limit 2 tablets per 24 hours Yes zinc gluconate 50 mg tablet Take 1 (one) tablet (50 mg total) by mouth every morning . Yes Allergies[2] Review of Systems Constitution: (negative) HENT: (negative) Eyes: (negative) Respiratory: (negative) Cardiovascular: (negative) - Exercise capacity: Greater than 4 METS Gastrointestinal: (negative) Genitourinary: (negative) Musculoskeletal: (negative) Skin: (negative) Neurological: (negative) Hematological: (negative) Physical Exam BP 116/79 Pulse 72 Temp 98.1 F (36.7 C) Ht 5' 5 Wt 80.3 kg (177 lb) SpO2 97% BMI 29.45 kg/m General - No Apparent Distress, well developed, well nourished. Vitals reviewed. Skin - No Rash, Normal Turgor Eyes - Pupils Equal, Conjunctiva Clear ENT - External Ears Normal, Hearing Normal Neck - Trachea Midline, No TMG Cardiovascular - Regular Rate and Rhythm, normal S1 and S2, no Murmurs, Gallops, or Rubs, No Peripheral Edema Respiratory - CTA, Normal Resp. Effort GI - Soft Nontender, Positive Bowel Sounds, No Hepatosplenomegaly Musculoskeletal - Dorsiflexion Intact, No Calf Tenderness Neuro/Psych - A&Ox3, Appropriate Mood and Affect Data Preprocedure Sleep Apnea Assessment - No Risk (0/3) Sleep Apnea in the patient's Active Problem List or Medical History: no 1. History of apparent airway obstruction during sleep: (1 point for this category) Do you snore frequently, or snore loud enough to be heard through a closed door?: no Do you awaken from sleep with a choking sensation or have periods during sleep when someone has observed you pausing between breaths?: no 2. Somnolence of the patient: (1 point for this category) Do you find yourself frequently sleepy despite adequate hours of sleep the night before?: no Do you fall asleep easily while: watching TV, reading, riding in or driving a car?: no 3. Predisposing physician characteristics: (1 point for this category, 2 points if the BMI >= 40) BMI (Calculated): 29.5 Neck Circumference (inches): 14.5 inches DATA SECTION LABS ORDERED AND PENDING CBC, BMP, hemoglobin A1c, urinalysis and culture PULSE OXIMETRY 97% On RA EKG INDEPENDENT INTERPRETATION Done today. NSR. Sinus arrhythmia with a left anterior fascicular block. No acute changes. OUTSIDE RECORDS REQUESTED None. OLD RECORD SUMMARY Labs reviewed in [facility]. A copy of this report has been made available to the referring physician in the hospital's EMR and/or by being faxed to the surgeon's office/surgery center. [1] Social History Socioeconomic History Marital status: Tobacco Use Smoking status: Former Types: Cigarettes Smokeless tobacco: Never Vaping Use Vaping status: Never Used Substance and Sexual Activity Alcohol use: Never Drug use: Never [2] Allergies Allergen Reactions Adhesive Tape-Silicones Other (See Comments) [facility] 10-15-2024 History and physical note Assessment and Plan 1. Pre-operative examination Preoperative medical risk stratification indicates that this patient is at an acceptable risk for this elective major surgery pending labs including CBC, BMP, hemoglobin A1c and urinalysis and culture This patient scored NO risk for JUANA on our screening tool and will need to be watched closely in the post-operative period. 2. CONCEPCION (stress urinary incontinence), male Plan for surgery to correct the underlying condition by Dr. Yadav. Patient provided instructions on preoperative management of medications including withholding Aspirin, NSAIDS, and specific Herbal Supplements 7 days before surgery. The prescription drug management instructions were given both verbally to the patient and in a written form on our discharge instruction paperwork. Prophylaxis for prevention of deep vein thrombosis per primary surgical team. Please follow the most recent ACCP guidelines. 3. Pre-operative cardiovascular examination This patient has no active cardiac conditions and would be considered at a low risk for a major adverse cardiac event(MACE) based on a revised cardiac risk index score of 0, in addition is asymptomatic with greater than 4 METS of functional capacity and therefore is at acceptable cardiac risk for elective surgery based on the most recent ACC/AHA guidelines. 4. Gastroesophageal reflux disease without esophagitis Well controlled and optimized for surgery on a PPI, Nexium with diet modification. Will use pre and post-op to help reduce aspiration risk. This is a chronic stable medical condition. 5. Prostate cancer (HCC) Status post radical prostatectomy and then later radiation and now was on Eligard injections. Last PSA was stable. See above. 6. Other migraine without status migrainosus, not intractable Patient is managed with Botox injections every several months and Maxalt to abort headaches. He has been having increased headaches recently. He can stay on this regimen pre and postoperatively. This is a chronic stable medical condition. 7. Seasonal allergic rhinitis, unspecified trigger He does have some chronic lung symptoms and is on Mucinex and Claritin. This is a chronic stable medical condition. Chief Complaint Patient presents with Consult From Surgeon History of Present Illness Tray Gomes is a 74 y.o. male who presents at the request of Lopez Yadav MD prior to ARTIFICIAL URINARY SPHINCTER INSERTION, CYSTOSCOPY Surgery Date: 10/24/2024. Patient here with stress urinary incontinence. The patient had a radical prostatectomy around 2016 and then had recurrence of cancer and had radiation. He is now on Eligard injections. He has stress urinary incontinence which has not responded to conservative measures. He will get a artificial urinary sphincter placed. Please note that this patient has done well with anesthesia in the past and his chronic medical conditions including GERD and migraine headache are managed well on the home medications and are stable for the upcoming procedure. Patient does have a history of GERD and is managed well with Nexium twice a day. Patient does have migraine headaches and gets Botox injections to prevent them and utilizes Maxalt to abort headaches. This patient does exert to greater then 4 METS. The patient does not get any heart or lung symptoms with exertion. Past Medical History: Diagnosis Date Arthritis Complication of anesthesia GERD (gastroesophageal reflux disease) Hemorrhoids Hx of skin cancer, basal cell Migraines Overactive bladder PONV (postoperative nausea and vomiting) Prostate cancer (HCC) Skin cancer CONCEPCION (stress urinary incontinence), male Vitamin D deficiency Past Medical History Pertinent Negatives: Diagnosis Date Noted Bleeding disorder 10/15/2024 Coronary artery disease 10/15/2024 Deep vein thrombosis (HCC) 10/15/2024 Family history of bleeding disorder 10/15/2024 Glaucoma 10/15/2024 History of blood transfusion 10/15/2024 No blood products 10/15/2024 Pulmonary embolism (HCC) 10/15/2024 Sleep apnea, obstructive 10/15/2024 Past Surgical History: Procedure Laterality Date CATARACT EXTRACTION, BILATERAL CHOLECYSTECTOMY COLONOSCOPY HERNIA REPAIR HERNIA REPAIR INGUINAL OPEN KNEE SURGERY Left MOHS NOSE PROSTATE BIOPSY PROSTATECTOMY REPAIR SEPTUM NASAL ROTATOR CUFF REPAIR Bilateral Social History[1] Family History Problem Relation Age of Onset Heart disease Mother Heart disease Father Heart disease Natural Sister Heart disease Natural Sister Anesthesia problems Neg Hx Surgical complications Neg Hx Clotting disorder Neg Hx Deep vein thrombosis Neg Hx Pulmonary embolism Neg Hx Prior to Admission medications taking for visit date 10/15/24 Medication Sig Taking? Discontinued? aluminum-magnesium hydroxide-simethicone (MAALOX PLUS) 200-200-20 mg/5 mL Susp Take 30 mL by mouth 4 (four) times a day before meals and nightly . Yes ascorbic acid, vitamin C, (VITAMIN C) 500 MG tablet Take 1 (one) tablet (500 mg total) by mouth every morning . Yes calcium carbonate (TUMS) 200 mg calcium (500 mg) chewable tablet Chew and Swallow 1 (one) tablet (500 mg total) daily . Yes cholecalciferol, vitamin D3, 25 mcg (1,000 unit) capsule Take 1 (one) capsule (1,000 Units total) by mouth daily . Yes esomeprazole (NEXIUM) 40 MG capsule TAKE ONE CAPSULE BY MOUTH TWICE DAILY 30 MINUTES BEFORE BREAKFAST AND DINNER Yes guaiFENesin 200 mg tablet Take 2 (two) tablets (400 mg total) by mouth every 4 (four) hours as needed . Yes ibuprofen (ADVIL,MOTRIN) 200 MG tablet Take 2 (two) tablets (400 mg total) by mouth every 6 (six) hours as needed . Yes leuprolide (ELIGARD) 45 mg injection Inject 45 (forty five) mg under the skin every 6 (six) months . Yes loratadine (Claritin) 10 mg tablet Take 1 (one) tablet (10 mg total) by mouth every morning . Yes onabotulinumtoxinA (BOTOX INJ) Inject as directed . Yes oxyBUTYnin (DITROPAN XL) 15 MG 24 hr tablet Take 1 (one) tablet (15 mg total) by mouth every morning . Yes promethazine-dextromethorphan (PROMETHAZINE-DM) 6.25-15 mg/5 mL syrup Take 5 mL by mouth every 6 (six) hours as needed for cough . Yes rizatriptan (MAXALT) 10 MG tablet take 1 tablet by oral route at start of headache; can repeat dose in 2 hours if needed; limit 2 tablets per 24 hours Yes zinc gluconate 50 mg tablet Take 1 (one) tablet (50 mg total) by mouth every morning . Yes Allergies[2] Review of Systems Constitution: (negative) HENT: (negative) Eyes: (negative) Respiratory: (negative) Cardiovascular: (negative) - Exercise capacity: Greater than 4 METS Gastrointestinal: (negative) Genitourinary: (negative) Musculoskeletal: (negative) Skin: (negative) Neurological: (negative) Hematological: (negative) Physical Exam BP 116/79 Pulse 72 Temp 98.1 F (36.7 C) Ht 5' 5 Wt 80.3 kg (177 lb) SpO2 97% BMI 29.45 kg/m General - No Apparent Distress, well developed, well nourished. Vitals reviewed. Skin - No Rash, Normal Turgor Eyes - Pupils Equal, Conjunctiva Clear ENT - External Ears Normal, Hearing Normal Neck - Trachea Midline, No TMG Cardiovascular - Regular Rate and Rhythm, normal S1 and S2, no Murmurs, Gallops, or Rubs, No Peripheral Edema Respiratory - CTA, Normal Resp. Effort GI - Soft Nontender, Positive Bowel Sounds, No Hepatosplenomegaly Musculoskeletal - Dorsiflexion Intact, No Calf Tenderness Neuro/Psych - A&Ox3, Appropriate Mood and Affect Data Preprocedure Sleep Apnea Assessment - No Risk (0/3) Sleep Apnea in the patient's Active Problem List or Medical History: no 1. History of apparent airway obstruction during sleep: (1 point for this category) Do you snore frequently, or snore loud enough to be heard through a closed door?: no Do you awaken from sleep with a choking sensation or have periods during sleep when someone has observed you pausing between breaths?: no 2. Somnolence of the patient: (1 point for this category) Do you find yourself frequently sleepy despite adequate hours of sleep the night before?: no Do you fall asleep easily while: watching TV, reading, riding in or driving a car?: no 3. Predisposing physician characteristics: (1 point for this category, 2 points if the BMI >= 40) BMI (Calculated): 29.5 Neck Circumference (inches): 14.5 inches DATA SECTION LABS ORDERED AND PENDING CBC, BMP, hemoglobin A1c, urinalysis and culture PULSE OXIMETRY 97% On RA EKG INDEPENDENT INTERPRETATION Done today. NSR. Sinus arrhythmia with a left anterior fascicular block. No acute changes. OUTSIDE RECORDS REQUESTED None. OLD RECORD SUMMARY Labs reviewed in [facility]. A copy of this report has been made available to the referring physician in the hospital's EMR and/or by being faxed to the surgeon's office/surgery center. [1] Social History Socioeconomic History Marital status: Tobacco Use Smoking status: Former Types: Cigarettes Smokeless tobacco: Never Vaping Use Vaping status: Never Used Substance and Sexual Activity Alcohol use: Never Drug use: Never [2] Allergies Allergen Reactions Adhesive Tape-Silicones Other (See Comments) documented in this encounter [facility] 10-15-2024 Instructions Shruti Vargas MD - 10/15/2024 9:05 AM EDT Call the PAT office with any questions, changes to your medications or health state Preoperative Medication Instructions In preparation for surgery please continue all of your current medications with the following changes: Active Home Medications Medication Sig Take Last Dose On Take Morning of Surgery Comment(s) aluminum-magnesium hydroxide-simethicone (MAALOX PLUS) 200-200-20 mg/5 mL Susp Take 30 mL by mouth 4 (four) times a day before meals and nightly . No ascorbic acid, vitamin C, (VITAMIN C) 500 MG tablet Take 1 (one) tablet (500 mg total) by mouth every morning . 10/16/24 No calcium carbonate (TUMS) 200 mg calcium (500 mg) chewable tablet Chew and Swallow 1 (one) tablet (500 mg total) daily . No cholecalciferol, vitamin D3, 25 mcg (1,000 unit) capsule Take 1 (one) capsule (1,000 Units total) by mouth daily . No esomeprazole (NEXIUM) 40 MG capsule TAKE ONE CAPSULE BY MOUTH TWICE DAILY 30 MINUTES BEFORE BREAKFAST AND DINNER Yes guaiFENesin 200 mg tablet Take 2 (two) tablets (400 mg total) by mouth every 4 (four) hours as needed . No ibuprofen (ADVIL,MOTRIN) 200 MG tablet Take 2 (two) tablets (400 mg total) by mouth every 6 (six) hours as needed . 10/16/24 No leuprolide (ELIGARD) 45 mg injection Inject 45 (forty five) mg under the skin every 6 (six) months . No loratadine (Claritin) 10 mg tablet Take 1 (one) tablet (10 mg total) by mouth every morning . Yes, if needed onabotulinumtoxinA (BOTOX INJ) Inject as directed . No oxyBUTYnin (DITROPAN XL) 15 MG 24 hr tablet Take 1 (one) tablet (15 mg total) by mouth every morning . No promethazine-dextromethorphan (PROMETHAZINE-DM) 6.25-15 mg/5 mL syrup Take 5 mL by mouth every 6 (six) hours as needed for cough . No rizatriptan (MAXALT) 10 MG tablet take 1 tablet by oral route at start of headache; can repeat dose in 2 hours if needed; limit 2 tablets per 24 hours Yes, if needed zinc gluconate 50 mg tablet Take 1 (one) tablet (50 mg total) by mouth every morning . No STOP Aspirin (and medications that contain aspirin, such as Celine Silver Star, Pepto-Bismol, Anacin), antiinflammatory medications such as Advil, Motrin, Ibuprofen, Naproxen, Aleve, Celine Silver Star, Pepto-Bismol, Anacin, Diclofenac, Voltaren, Daypro, Etodolac, Ketoprofen, Piroxicam, Relafen, Nabumetone, etc. Also discontinue Vitamin C, Vitamin E, Sandy-3 Fatty Acid, Fish Oil or Lovaza, and all herbal medications. Take last dose on 10/16/2024. Tylenol (acetaminophen) is acceptable, but be careful to follow the label directions and do not use with other pain medications. It is acceptable to continue a Multivitamin, Magnesium, Potassium, Iron supplement, Vitamin D, Calcium, or Vitamin B if you were already taking them. On the morning of surgery, ONLY take the medications listed above in the column Take the morning of surgery. If you are using Eye Drops or Inhalers, please bring them to the hospital. If you have sleep apnea and have a CPAP/BIPAP device, please bring it with you to the hospital the day of the surgery. documented in this encounter [facility] 09-18-2024 Note Procedures: Male flexible cystoscopy Patient: Tray Gomes Date of : 1950 Age: 74 y.o. Sex: male DATE OF PROCEDURE: 09/18/24 PREOPERATIVE DIAGNOSIS: Stress urinary incontinence POSTOPERATIVE DIAGNOSIS: Stress urinary incontinence PROCEDURE: Flexible cystoscopy. ATTENDING: Emmie Yadav MD ANESTHESIA: 10 cc of viscous lidocaine. ESTIMATED BLOOD LOSS: None. COMPLICATIONS: None SPECIMENS: None INDICATIONS: Tray Gomes is a 74 y.o.male referred by Dr. Nicolas Rust for evaluation of incontinence. Radical Prostatectomy: yes, 2017 History of radiation therapy: biochem recurrence now s/p XRT completed 07/2023, currently on Eligard, PSA UD History of bladder neck contracture: no Prior bladder neck contracture procedures: no Prior incontinence surgery: no Pads per day: at least 3 soaked PPD, more with increased activity Diapers: wears several diapers on top of pads Leaks while sleeping: yes Can stop stream mid stream: no Has some urgency symptoms, on oxybutynin 15mg daily with adequate control of urgency symptoms. CONCEPCION symptoms more predominant PVR:0 ml (09/10/24) History of left inguinal hernia surgery FINDINGS: 1. Widely patent anterior urethra 2. Poorly coapting external sphincter 3. Patent bladder neck 4. Bladder with moderate diffuse trabeculations, no stones, no tumors, no patches of erythema. Bilateral ureteral orifices in orthotopic locations PROCEDURE: The patient was identified with name and medical record number. Informed consent was obtained. A time out was taken. All questions were answered. He was placed on the procedure room table and 10 cc of viscous lidocaine was instilled per urethra and allowed to sit for 10 minutes. He was prepped and draped in a sterile fashion. A 16-Niuean flexible cystoscope was inserted per urethra and carried through under direct vision. 360-degree panendoscopy was performed demonstrating all of the above-mentioned findings. The cystoscope was removed under direct vision, examining the urethra on withdrawal. Patient tolerated the procedure well. PLAN: MALE STRESS URINARY INCONTINENCE I again had an extensive conversation with the patient and his today regarding his severe post prostatectomy and radiation stress urinary incontinence. Artificial urinary sphincter remains the gold standard for the treatment of male incontinence and will provide an initial success rate in the range of 90% of men having 0-1 pads per day, most using small pads for protection rather than heavy degrees of incontinence. The device has a mechanical reliability which is excellent, with few revisions (5%) required in the first 5 years. A 10-year continence rate will be in the range of 75%; although, revisions will be required in the majority of men by 10 years. The risk of bleeding and hematoma is low. Urinary retention may occur after artificial urinary sphincter, despite standardized deactivation of the device, and this may require suprapubic catheter drainage. Infection of the device occurs in 2-4% of patients, and is aserious complication which requires removal and replacement. This infection rate may be reduced by the now standard use of antibiotic coating. Erosion of the device usually relates to infection and has a 1-2% erosion rate. Recurrent incontinence may be as a result of urethral atrophy or device malfunction. These complications increase over time. I utilized a model of the device to demonstrate its components and function and provided education materials regarding the device. I explained the expected postoperative course and need for deactivation of the cuff for 6 weeks postoperatively. We discussed other options including penile clamps, condom catheter, indwelling catheter or nothing. He is motivated to proceed with an artificial urinary sphincter and elected to do so. Cystoscopy today demonstrating a widely patent anterior urethra and bladder neck with a poorly coapting external sphincter. I explained that his history of radiation and ongoing need for ADT places him at increased risk of wound complications, urethral erosion, and urethral atrophy over time. I explained the risks of the procedure under anesthesia including major cardiac event, pulmonary event, neurovascular event, VTE. I greatly appreciate the opportunity to participate in the care of your patient. Please feel free to call with any questions or concerns. Emmie Yadav MD, MPH [facility] - Reconstructive Urology [address] [place] [address], [address] [place], [place] AUTHENTICATED BY LOPEZ YADAV, ON 09/18/2024 09:42:14 [facility] 09-18-2024 History of Present illness Narrative Procedures: Male flexible cystoscopy Patient: Tray Gomes Date of : 1950 Age: 74 y.o. Sex: male DATE OF PROCEDURE: 09/18/24 PREOPERATIVE DIAGNOSIS: Stress urinary incontinence POSTOPERATIVE DIAGNOSIS: Stress urinary incontinence PROCEDURE: Flexible cystoscopy. ATTENDING: Emmie Yadav MD ANESTHESIA: 10 cc of viscous lidocaine. ESTIMATED BLOOD LOSS: None. COMPLICATIONS: None SPECIMENS: None INDICATIONS: Tray Gomes is a 74 y.o.male referred by Dr. Nicolas Rust for evaluation of incontinence. Radical Prostatectomy: yes, 2016 History of radiation therapy: biochem recurrence now s/p XRT completed 07/2023, currently on Eligard, PSA UD History of bladder neck contracture: no Prior bladder neck contracture procedures: no Prior incontinence surgery: no Pads per day: at least 3 soaked PPD, more with increased activity Diapers: wears several diapers on top of pads Leaks while sleeping: yes Can stop stream mid stream: no Has some urgency symptoms, on oxybutynin 15mg daily with adequate control of urgency symptoms. CONCEPCION symptoms more predominant PVR:0 ml (09/10/24) History of left inguinal hernia surgery FINDINGS: 1. Widely patent anterior urethra 2. Poorly coapting external sphincter 3. Patent bladder neck 4. Bladder with moderate diffuse trabeculations, no stones, no tumors, no patches of erythema. Bilateral ureteral orifices in orthotopic locations PROCEDURE: The patient was identified with name and medical record number. Informed consent was obtained. A time out was taken. All questions were answered. He was placed on the procedure room table and 10 cc of viscous lidocaine was instilled per urethra and allowed to sit for 10 minutes. He was prepped and draped in a sterile fashion. A 16-Niuean flexible cystoscope was inserted per urethra and carried through under direct vision. 360-degree panendoscopy was performed demonstrating all of the above-mentioned findings. The cystoscope was removed under direct vision, examining the urethra on withdrawal. Patient tolerated the procedure well. PLAN: MALE STRESS URINARY INCONTINENCE I again had an extensive conversation with the patient and his today regarding his severe post prostatectomy and radiation stress urinary incontinence. Artificial urinary sphincter remains the gold standard for the treatment of male incontinence and will provide an initial success rate in the range of 90% of men having 0-1 pads per day, most using small pads for protection rather than heavy degrees of incontinence. The device has a mechanical reliability which is excellent, with few revisions (5%) required in the first 5 years. A 10-year continence rate will be in the range of 75%; although, revisions will be required in the majority of men by 10 years. The risk of bleeding and hematoma is low. Urinary retention may occur after artificial urinary sphincter, despite standardized deactivation of the device, and this may require suprapubic catheter drainage. Infection of the device occurs in 2-4% of patients, and is a serious complication which requires removal and replacement. This infection rate may be reduced by the now standard use of antibiotic coating. Erosion of the device usually relates to infection and has a 1-2% erosion rate. Recurrent incontinence may be as a result of urethral atrophy or device malfunction. These complications increase over time. I utilized a model of the device to demonstrate its components and function and provided education materials regarding the device. I explained the expected postoperative course and need for deactivation of the cuff for 6 weeks postoperatively. We discussed other options including penile clamps, condom catheter, indwelling catheter or nothing. He is motivated to proceed with an artificial urinary sphincter and elected to do so. Cystoscopy today demonstrating a widely patent anterior urethra and bladder neck with a poorly coapting external sphincter. I explained that his history of radiation and ongoing need for ADT places him at increased risk of wound complications, urethral erosion, and urethral atrophy over time. I explained the risks of the procedure under anesthesia including major cardiac event, pulmonary event, neurovascular event, VTE. I greatly appreciate the opportunity to participate in the care of your patient. Please feel free to call with any questions or concerns. Emmie Yadav MD, MPH [facility] - Reconstructive Urology [address], [address] [place], [place] Antibiotic given today: no Take any blood thinners: no Valium or other anxiolytic taken: no UTI symptoms: no Cysto fluid type: sodium chloride mL size: 500 ml Lot number: [id number] Exp date: 02/2027 [facility]: [id number] documented in this encounter [facility] 09-10-2024 History of Present illness Narrative Review of Systems Genitourinary: Positive for bladder incontinence. All other systems reviewed and are negative. Reason for visit: I am here for incontinence HPI Tray Gomes is a 74 y.o. male referred by Dr. Nicolas Rust for evaluation of incontinence. Radical Prostatectomy: yes, 2016 History of radiation therapy: biochem recurrence now s/p XRT completed 07/2023, currently on Eligard, PSA UD History of bladder neck contracture: no Prior bladder neck contracture procedures: no Prior incontinence surgery: no Pads per day: at least 3 soaked PPD, more with increased activity Diapers: wears several diapers on top of pads Leaks while sleeping: yes Can stop stream mid stream: no Has some urgency symptoms, on oxybutynin 15mg daily with adequate control of urgency symptoms. CONCEPCION symptoms more predominant Diagnostic studies were performed secondary to the patient's urethral stricture: PVR:0 ml History of left inguinal hernia surgery Past Urologic History: Prostate cancer Urologic FH: denies Patient Active Problem List Diagnosis Date Noted CONCEPCION (stress urinary incontinence), male 09/10/2024 Past Medical History: Diagnosis Date Hemorrhoids Hx of skin cancer, basal cell Migraines Prostate cancer (HCC) Past Surgical History: Procedure Laterality Date CATARACT EXTRACTION, BILATERAL CHOLECYSTECTOMY COLONOSCOPY HERNIA REPAIR HERNIA REPAIR INGUINAL OPEN KNEE SURGERY Left PROSTATE BIOPSY PROSTATECTOMY REPAIR SEPTUM NASAL ROTATOR CUFF REPAIR Current Medications[1] Allergies[2] Social History [3] No family history on file. Review of Systems PACU Vitals 09/10/24 0928 BP: 119/73 Pulse: 75 Shake Out Worker offered, patient declined Constitutional: well appearing. No acute distress Head: Atraumatic, normocephalic Eyes: extra ocular movements intact. Ears, nose, mouth, throat: moist mucous membranes, normal external condition. Respiratory: normal chest rise. No audible wheezes. Genitourinary: Penis is uncircumcised with an orthotopic meatus. No evidence of urethral discharge. No palpable penile plaques or penile masses. The scrotum is without masses. Both testicles are descended and without appreciable mass or tenderness. There are no appreciable urethral or perineal masses. No evidence of hydrocele or hernia. Stream of CONCEPCION demonstrated upon standing Muskuloskeletal: Normal range of motion. No evidence of clubbing or cyanosis. Neurologic: Alert and oriented x 3. Normal gait. Skin: No rashes or lesions. Psychiatric: Normal mood and affect Assessment: ICD-10-CM ICD-9-CM 1. 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 Artificial urinary sphincter remains the gold standard for the treatment of male incontinence and will provide an initial success rate in the range of 90% of men having 0-1 pads per day, most using small pads for protection rather than heavy degrees of incontinence. The device has a mechanical reliability which is excellent, with few revisions (5%) required in the first 5 years. A 10-year continence rate will be in the range of 75%; although, revisions will be required in the majority of men by 10 years. The risk of bleeding and hematoma is low. Urinary retention may occur after artificial urinary sphincter, despite standardized deactivation of the device, and this may require suprapubic catheter drainage. Infection of the device occurs in 2-4% of patients, and is a serious complication which requires removal and replacement. This infection rate may be reduced by the now standard use of antibiotic coating. Erosion of the device usually relates to infection and has a 1-2% erosion rate. Recurrent incontinence may be as a result of urethral atrophy or device malfunction. These complications increase over time. I utilized a model of the device to demonstrate its components and function and provided education materials regarding the device. We discussed other options including penile clamps, condom catheter, indwelling catheter or nothing. He is motivated to proceed with an artificial urinary sphincter. Will need to proceed with cystoscopy in the next 1 to 2 weeks and further discussion of surgery at that time. All of his questions were answered in detail he expressed understanding and agreement with the above plan. I greatly appreciate the opportunity to participate in the care of your patient. Please feel free to call with any questions or concerns. A total of 35 minutes were spent [id number] with the patient during this encounter on counseling and coordination of care, as well as reviewing the chart and patient history, laboratory and imaging results on the day of the encounter. Specifically we addressed the risks, benefits, and alternatives to the therapies discussed above. Emmie Yadav MD, MPH [facility] - Reconstructive Urology [address] [place] [address], [address] [place], [place] [1] Current Outpatient Medications Medication Sig Dispense Refill ascorbic acid, vitamin C, (VITAMIN C) 500 MG tablet Take 1 (one) tablet (500 mg total) by mouth daily . cholecalciferol, vitamin D3, 25 mcg (1,000 unit) capsule Take 1 (one) capsule (1,000 Units total) by mouth daily . esomeprazole (NEXIUM) 40 MG capsule TAKE ONE CAPSULE BY MOUTH TWICE DAILY 30 MINUTES BEFORE BREAKFAST AND DINNER guaiFENesin 200 mg tablet Take 2 (two) tablets (400 mg total) by mouth every 4 (four) hours as needed . ibuprofen (ADVIL,MOTRIN) 200 MG tablet Take 2 (two) tablets (400 mg total) by mouth every 6 (six) hours as needed . leuprolide (ELIGARD) 45 mg injection Inject 45 (forty five) mg under the skin every 6 (six) months . loratadine (Claritin) 10 mg tablet Take 1 (one) tablet (10 mg total) by mouth daily . onabotulinumtoxinA (BOTOX INJ) Inject as directed . oxyBUTYnin (DITROPAN XL) 15 MG 24 hr tablet Take 1 (one) tablet (15 mg total) by mouth daily . rizatriptan (MAXALT) 10 MG tablet take 1 tablet by oral route at start of headache; can repeat dose in 2 hours if needed; limit 2 tablets per 24 hours No current facility-administered medications for this visit. [2] Allergies Allergen Reactions Adhesive Tape-Silicones Other (See Comments) [3] Social History Socioeconomic History Marital status: Tobacco Use Smoking status: Former Types: Cigarettes Smokeless tobacco: Never documented in this encounter [facility] 09-10-2024 Note Reason for visit: I am here for incontinence HPI Tray Gomes is a 74 y.o. male referred by Dr. Nicolas Rust for evaluation of incontinence. Radical Prostatectomy: yes, 2016 History of radiation therapy: biochem recurrence now s/p XRT completed 07/2023, currently on Eligard, PSA UD History of bladder neck contracture: no Prior bladder neck contracture procedures: no Prior incontinence surgery: no Pads per day: at least 3 soaked PPD, more with increased activity Diapers: wears several diapers on top of pads Leaks while sleeping: yes Can stop stream mid stream: no Has some urgency symptoms, on oxybutynin 15mg daily with adequate control of urgency symptoms. CONCEPCION symptoms more predominant Diagnostic studies were performed secondary to the patient's urethral stricture: PVR:0 ml History of left inguinal hernia surgery Past Urologic History: Prostate cancer Urologic FH: denies Patient Active Problem List Diagnosis Date Noted CONCEPCION (stress urinary incontinence), male 09/10/2024 Past Medical History: Diagnosis Date Hemorrhoids Hx of skin cancer, basal cell Migraines Prostate cancer (HCC) Past Surgical History: Procedure Laterality Date CATARACT EXTRACTION, BILATERAL CHOLECYSTECTOMY COLONOSCOPY HERNIA REPAIR HERNIA REPAIR INGUINAL OPEN KNEE SURGERY Left PROSTATE BIOPSY PROSTATECTOMY REPAIR SEPTUM NASAL ROTATOR CUFF REPAIR Current Medications[1] Allergies[2] Social History [3] No family history on file. Review of Systems PACU Vitals 09/10/24 0928 BP: 119/73 Pulse: 75 Shake Out Worker offered, patient declined Constitutional: well appearing. No acute distress Head: Atraumatic, normocephalic Eyes: extra ocular movements intact. Ears, nose, mouth, throat: moist mucous membranes, normal external condition. Respiratory: normal chest rise. No audible wheezes. Genitourinary: Penis is uncircumcised with an orthotopic meatus. No evidence of urethral discharge. No palpable penile plaques or penile masses. The scrotum is without masses. Both testicles are descended and without appreciable mass or tenderness. There are no appreciable urethral or perineal masses. No evidence of hydrocele or hernia. Stream of CONCEPCION demonstrated upon standing Muskuloskeletal: Normal range of motion. No evidence of clubbing or cyanosis. Neurologic: Alert and oriented x 3. Normal gait. Skin: No rashes or lesions. Psychiatric: Normal mood and affect Assessment: ICD-10-CM ICD-9-CM 1. 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 Artificial urinary sphincter remains the gold standard for the treatment of male incontinence and will provide an initial success rate in the range of 90% of men having 0-1 pads per day, most using small pads for protection rather than heavy degrees of incontinence. The device has a mechanical reliability which is excellent, with few revisions (5%) required in the first 5 years. A 10-year continence rate will be in the range of 75%; although, revisions will be required in the majority of men by 10 years. The risk of bleeding and hematoma is low. Urinary retention may occur after artificial urinary sphincter, despite standardized deactivation of the device, and this may require suprapubic catheter drainage. Infection of the device occurs in 2-4% of patients, and is aserious complication which requires removal and replacement. This infection rate may be reduced by the now standard use of antibiotic coating. Erosion of the device usually relates to infection and has a 1-2% erosion rate. Recurrent incontinence may be as a result of urethral atrophy or device malfunction. These complications increase over time. I utilized a model of the device to demonstrate its components and function and provided education materials regarding the device. We discussed other options including penile clamps, condom catheter, indwelling catheter or nothing. He is motivated to proceed with an artificial urinary sphincter. Will need to proceed with cystoscopy in the next 1 to 2 weeks and further discussion of surgery at that time. All of his questions were answered in detail he expressed understanding and agreement with the above plan. I greatly appreciate the opportunity to participate in the care of your patient. Please feel free to call with any questions or concerns. A total of 35 minutes were spent [id number] with the patient during this encounter on counseling and coordination of care, as well as reviewing the chart and patient history, laboratory and imaging results on the day of the encounter. Specifically we addressed the risks, benefits, and alternatives to the therapies discussed above. Emmie Yadav MD, MPH [facility] - Reconstructi (more content not included)... [facility] 08-04-2024 Hospital Discharge instructions Patient Education 08/04/2024 16:53:48 Anatomy of the Digestive System Anatomy of the Digestive System Food gives the body the energy needed for life. The digestive system breaks food down into basic nutrients that can be used by the body. The digestive tract is a long, muscular tube that extends from the mouth through the stomach and intestines to the anus. As food moves along the digestive tract, it is digested. This means it is changed into substances that can be absorbed into the bloodstream. Certain organs (such as the liver, gallbladder, and pancreas) help with this digestion. Parts of food that can't be digested are turned into stool. This is waste material that is passed out of the body. Digestive system The digestive system is made up of the following: The mouth. Takes in food, breaks it into pieces, and begins the digestion process. The esophagus. Moves food from the mouth to the stomach. Thestomach. Breaks food down into a liquid mixture. Theliver. Makes bile that helps digest fat. The gallbladder. Stores bile. Thepancreas. Makes enzymes that help in digestion. Thesmall intestine. Digests food further and absorbs nutrients. What is left is passed on to the colon as liquid waste. The large intestine (colon). Absorbs water, salt, and minerals from the waste, forming a solid stool. The rectum. Stores stool until a bowel movement happens. Theanus. The opening where stool leaves the body. [id number] [employer] [place] [address], [place] [address]. All rights reserved. This information is not intended as a substitute for professional medical care. Always follow your healthcare professional's instructions. Follow Up Care 08/04/2024 15:03:49 With:MARTY MCKEON DO Address: [place] [address]- [phone] When:2-4 days [facility] 08-04-2024 Note Discharge Instructions Thank you for allowing [facility] to assist you with your healthcare needs. The following is important discharge information regarding your hospital visit. Diagnosis from Today's Visit Enteritis What to Do Next Instructions from Your Care Team No qualifying data available. Post Acute Orders No qualifying data available. You Need to Schedule the Following Appointments Follow Up with MARTY MCKEON DO When:Within 2-4 days Where:[address] [place], [place] [id number] [phone] Allergies NKA Medications Please ask your primary doctor or pharmacist before taking any other medication not listed, including over the counter drugs, herbal medications, vitamins and or supplements as they may interact with your home medications. What How Much When Instructions Last Dose New amoxicillin-clavulanate (amoxicillin-clavulanate 875 mg-125 mg oral tablet) 1 tab(s) by mouth Every 12 hours Duration: 7 Days Printed Prescription New dicyclomine (dicyclomine 10 mg oral capsule) 1 cap by mouth Four (4) times a day Duration: 14 Days Printed Prescription New ondansetron (ondansetron 4 mg oral tablet) 1 tab(s) by mouth Every 6 hours as needed for Nausea/Vomiting Printed Prescription Unchanged ascorbic acid (Vitamin C 500 mg oral tablet) 1 tab(s) by mouth Once a day Unchanged atogepant (Qulipta 60 mg oral tablet) 1 tab(s) TAKE 1 TABLET BY MOUTH EVERY DAY Unchanged atogepant (Qulipta 60 mg oral tablet) 1 tab(s) by mouth Once a day Unchanged cholecalciferol (Vitamin D3) 2,000 unit(s) by mouth Every day Unchanged esomeprazole (NexIUM 40 mg oral delayed release capsule) 1 cap by mouth Two (2) times a day Unchanged guaiFENesin (Mucinex 600 mg oral tablet, extended release) 1 tab(s) by mouth Every 12 hours Unchanged loratadine (Claritin) 10 Milligram Once a day Unchanged oxybutynin (oxybutynin 15 mg/ 24 hr oral tablet, extended release) 1 tab(s) by mouth Once a day Unchanged phenylephrine topical (Hemorrhoidal 0.25% rectal suppository) Unchanged rizatriptan (rizatriptan 10 mg oral tablet) See instructions take one tablet by mouth at start of headache, may repeat dose in two hours if needed. max two tablets per 24 hours Unchanged zinc sulfate (Zinc) See instructions mg Oral qDay Please take this list to your next doctor s visit. Bring all medications you take, including over the counter medications, herbals and other supplements with you to your doctor s visit. Patients and families are reminded to discard old lists and to update any records with all medication providers or retail pharmacies. Education Materials Anatomy of the Digestive System Food gives the body the energy needed for life. The digestive system breaks food down into basic nutrients that can be used by the body. The digestive tract is a long, muscular tube that extends from the mouth through the stomach and intestines to the anus. As food moves along the digestive tract, it is digested. This means it is changed into substances that can be absorbed into the bloodstream. Certain organs (such as the liver, gallbladder, and pancreas) help with this digestion. Parts of food that can't be digested are turned into stool. This is waste material that is passed out of the body. Digestive system The digestive system is made up of the following: The mouth. Takes in food, breaks it into pieces, and begins the digestion process. The esophagus. Moves food from the mouth to the stomach. Thestomach. Breaks food down into a liquid mixture. Theliver. Makes bile that helps digest fat. The gallbladder. Stores bile. Thepancreas. Makes enzymes that help in digestion. Thesmall intestine. Digests food further and absorbs nutrients. What is left is passed on to the colon as liquid waste. The large intestine (colon). Absorbs water, salt, and minerals from the waste, forming a solid stool. The rectum. Stores stool until a bowel movement happens. Theanus. The opening where stool leaves the body. [id number] [employer]. [address] [place] [address], [place] [address]. All rights reserved. This information is not intended as a substitute for professional medical care. Always follow your healthcare professional's instructions. Additional Information VACCINATE! IT SAVES LIVES! Members of the community who have not yet received the COVID-19 vaccine and would like to receive it can visit one of [facility] vaccine clinics. There are many vaccine clinic locations within the [facility]. For locations and available times, please visit [email or web address].[place].g [email or web address] It is important to note that some COVID mobile vaccine clinics are held outdoors and may be canceled in rainy or stormy conditions. To learn more about pediatric vaccinations (ages 5-11), we invite you to visit the [employer] webpage. [email or web address] [email or web address] [email or web address] To learn more about the COVID-19 vaccine, we invite you to visit the CDC website for a list of frequently asked questions. https://www.cdc.gov/coronavirus/2 019-ncov/vaccines/faq.html [facility] Patient Portal Access Instructions: Stay connected with your healthcare team and access your personal medical information anytime with the [facility] Patient Portal. If you would like a full copy of your medical records please contact the [facility] Medical Records Department Monday through Monday between 8a.m. and 4:30p.m. Please follow the directions below to access the portal: 1.Access the email account you provided upon registration to the hospital.2.Look for an invitation email from [facility].3.Open the email and access the invitation link: Accept Invitation to [facility].Fill in the required perez to create your account. Sign into [email or web address].[email or web address] with your username and password that you created in the above steps to stay up to date. You can then view a summary of results, a summary of your visits, and the ability to download your summaries to your computer or send the information securely to a physician. Remember that your healthcare information is confidential, so carefully consider who you will allow to register on the [facility] Patient Portal for access to your information. You can also access the [employer] Patient Portal on the [facility]. Simply click on Health Records under Health Data and then click on the [employer] logo. HOW TO SAFELY DISPOSE OF PRESCRIPTION MEDICATIONS Please use one of the following methods to safely dispose of your unused medications. 1.Use a drug disposal kit: the drug disposal pouch allows you to safely discard your old and unused drugs. Ask your nurse to give you one when you are discharged.2.Visit a local take-back location: Many local pharmacies and police departments have programs that collect old and unwanted prescription drugs. Call your local pharmacy or go to http://[employer]/5M4Vi4w to find one close to you.3.Make use of household items: Use cat litter or old coffee grounds to dispose medications if other options are not available. Mix your drugs with these household products, seal them in an airtight container and throw it into the garbage. Call [facility]: [phone] to be sure your drugs can be disposed of in this way. Some medicines may require a different approach.4.Never flush your medications down the toilet. IF YOU HAVE BEEN PRESCRIBED AN OPIOIDS FOR PAIN If you have been prescribed an opioid (such as hydrocodone, oxycodone or morphine), it is critical to understand the possible side effects and risks of opioid pain medications. Even when taken as directed, opioids can have several side effects including: Tolerance, meaning you might need to take more of a medication for the same pain relief. Nausea, vomiting and/or constipation. Sleepiness, dizziness, dry mouth, confusion, depression or itching. Physical dependence, meaning you have withdrawal symptoms when a medication is stopped ? this can develop within a few days. KNOW YOUR RESPONSIBILITIES It is important to know exactly how much and how often to take the opioid pain medications you are prescribed. Never take opioids in higher amounts or more often than prescribed. Do not combine opioids with alcohol or other drugs that cause drowsiness, such as benzodiazepines, also known as benzos, including diazepam and alprazolam, muscle relaxants or sleep aids. Never sell or share prescription opioids. This is illegal. Store opioids in a secure place and out of reach of others (including children, family, friends and visitors). The last page(s) of this document has been signed and retained as a CHART COPY Signatures Patient Education Materials Anatomy of the Digestive System Medication Leaflets My discharge plan and instructions have been reviewed and explained to me and IELISEO CHESTER understand my current condition and have read and understand these discharge instructions. I have received a written copy of the plan/instructions. If I have questions, I am aware that I should contact my doctor. 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 Multiplanar reformatted images are provided for review. Automated exposure control, iterative reconstruction, and/or weight based adjustment of the mA/kV was utilized to reduce the radiation dose to as low as reasonably achievable. COMPARISON: None. HISTORY: ORDERING SYSTEM PROVIDED HISTORY: Reason for Exam: Abdominal pain, acute, nonlocalized FINDINGS: Lower Chest: Clear lung bases. Normal heart size. Organs: Fatty liver with unchanged small cystic lesions. Spleen, pancreas, gallbladder and common duct are normal. Normal adrenal glands.normal kidneys and ureters. GI/Bowel: No dilated bowel loops. Small bowel loops are fluid-filled. About the distal jejunum/ileal junction, right upper quadrant, are a few loops of bowel with bowel wall thickening (water-target sign appearance) and mild surrounding fat stranding, as well as small amount of fluid that tracks down into the right lower quadrant.Normal appendix Pelvis: Nondistended bladder. Peritoneum/Retroperitoneum: No free fluid or free air.No inflammatory fat strandingNo lymphadenopathy Bones/Soft Tissues: Partial ankylosis of SI joints. No focal soft tissue mass. Vascular: Normal aortic caliber. IMPRESSION: A few small bowel loops with wall edema in the right upper quadrant, some surrounding inflammatory fat stranding and fluid, there is tracking into the right lower quadrant. Multiple fluid-filled small bowel loops, with no evidence of obstruction. Differential includes infectious enteritis as well as inflammatory etiologies such as acute Crohn's and celiac disease. No associated lymphadenopathy. Normal appendix. Interpreted by: Lucia Izquierdo Preliminary Report By: Lucia Izquierdo Electronically signed By Lucia Izquierdo Dictated Date: 08/04/2024 4:29:51 PM Prelim Date: 08/04/2024 4:42:49 PM Sign Date: 08/04/2024 4:42:49 PM Ordering Provider: [facility]03-26-2025 Evaluation note* Diagnosis Onset Date Resolution Status Admit Date Lower GI bleeding acute April 212024 9:39am Rectal pain acute May 15, 025 9:39am [facility] Work Phone: 1(336) 705-255203-26-2025 Evaluation note* Diagnosis Onset Date Resolution Status Admit Date Lower GI bleeding acute April 212024 9:39am Rectal pain acute May 15, 025 9:39am Biochemically recurrent malignant neoplasm of prostate acute J 2024 12:50pm Rectal pain acute August 29 2:40pm [facility] Work Phone: 1(489) 904-477403-04-2025 [facility] Medical Records Department [address] [place] [id number] History Physical Exam 04/23/24 0638 MR#: [id number] Acct: [id number] Name: TRAY GOMES Rep #: [id number] : 1950 74 From: Jenaro Friend DO PCP: Dr. Marty Mckeon DO Status:[facility] Location: [place] [address] HPI - General General Date of Admission: 04/23/24 Date of Service: 04/23/24 Chief Complaint: rectal bleeding HPI Narrative TRAY GOMES, is a 74 M who presents for endoscopic treatment of rectal bleeding. OV 03/20/2024 73y/o male presents for consultation with complaints of rectal bleeding, referred by Dr. Marty Mckeon. He reports episodes of painless bleeding 1-3x a day for >1 month. He has been using hydrocortisone suppositories PRN without symptom improvement. Colonoscopy 01/23/2023 (Dr. Evangelista) revealed three TA's. He completed radiation treatment for prostate CA July 2023. I have ordered a CBC and scheduled him for a colonoscopy to assess for radiation proctitis. He is very concerned with change in bowel habits post January 2023 colonoscopy without known cause. - If HGB is dropping consider APC. If HGB is stable and radiation proctitis is present consider treatment with Carafate enemas prior to APC. COLON 03/28/2024 - Three 8 mm polyps in the sigmoid colon, in the transverse colon and in the ascending colon, removed with a cold biopsy forceps. Resected and retrieved. - Diverticulosis in the recto-sigmoid colon, in the sigmoid colon and in the ascending colon. 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 Treated with argon plasma coagulation (APC). - radiation proctitis Labs completed 03/19/2024 revealed HGB 12.8 which is down from 14.6 ----- 12.7 on 03/29/2024 - Thinks he has blisters in rectum that bust and cause the bleeding. Also yellow mucus stools present. - c/o pain - denies any bleeding since Monday - thought he was going to have a procedure today so he took 1/2 of a bowel prep - c/o rectal pain with a BM - denies any increase in bleeding - states bleeding is primarily on the toilet tissue - spends 45 minutes on the toilet in the moring eliminating stool and flatus - frequent wiping to clean up after a BM - c/o external irritation from frequent stools yesterday - bowel prep [facility] Medical History Heartburn Former smoker Loss of hearing History of steroid therapy History of hiatal hernia History of ulceration Rectal bleeding Basal cell carcinoma Erectile dysfunction due to arterial insufficiency OAB (overactive bladder) Prostate cancer Wears dentures Wears glasses Arthritis Migraine headache Non-smoker Leg cramps History of stress test Osteoarthritis GERD (gastroesophageal reflux disease) History of prostate cancer Hx of hemorrhoids Home Medications ???Medication ???Instructions ???Recorded ???Last Taken ???Type loratadine 10 mg tablet 10 mg PO DAILY allergies 08/18/16 04/22/24 History esomeprazole magnesium 40 mg 40 mg PO DAILY 11/23/20 04/23/24 0 2:00 History capsule,delayed release (Nexium) oxybutynin chloride 15 mg 15 mg PO DAILY overactive bladder 11/23/20 04/22/24 History tablet,extended release 24 hr ascorbic acid (vitamin C) 1,000 mg 1 g PO QDAY 03/19/24 04/21/24 Hi story capsule cholecalciferol (vitamin D3) 125 125 mcg PO QDAY 03/19/24 04/21/24 History mcg (5,000 unit) tablet guaifenesin 1,200 mg tablet, 1,200 mg PO BID 03/19/24 04/21/24 History extended release 12 hr (Mucus Relief ER) rizatriptan 10 mg tablet See Rx Instructions PO .COMPLEX 04/23/24 01:00 History zinc acetate 50 mg (zinc) capsule 50 mg PO QDAY 03/19/24 04/21/24 H istory Hydrocortisone 2.5% / Lidocaine 5% #30 grams 04/18/24 Unknown Rx ointment (cmpd) aluminum-mag hydroxide-simethicone 5 ml PO Q3H PRN dyspepsia 04/23/24 02:00 History 200 mg-200 mg-20 mg/5 mL oral susp (Advanced Antacid-Antigas) Allergy/AdvReac Type Severity Reaction Status Date / Time oxycodone (From Percocet) Allergy Intermediate hives/itchi Verified 04/23/24 05:47 ng Acrylic Acid and Acrylates Allergy Swelling Verified 04/23/24 05:47 (steri-strips (acrylate)) Family History Mother Heart disease Hypertension Diabetes Father Heart disease Hypertension Sister Heart disease Hypertension Diabetes Surgical History Hx of right inguinal hernia repair Hx of repair of rotator cuff History of cardiac catheterization History of colonoscopy ( 2018) History of hemorrhoidectomy Hx of hernia repair Hx of prostatectomy Hx of cataract surgery Hx of prostate biopsy Hx of arthroscopy of left (more content not included)...[facility]02-06-2025 [facility] Medical Records Department [address] [place] [address] History Physical Exam 03/28/24 0846 MR#: [id number] Acct: [id number] Name: TRAY GOMES Rep #: [id number] : 1950 73 From: Jenaro Galvez DO PCP: Dr. Marty Mckeon, DO Status:[facility] [place] Location: [address] HPI - General General Date of Admission: 03/28/24 Date of Service: 03/28/24 Chief Complaint: Lower GI bleeding HPI Narrative TRAY GOMES, is a 73 M who presents for the endoscopic evaluation of lower GI bleeding Colonoscopy 01/23/2023 (Dr. Evangelista) revealed three TA's Radiation therapy for prostate CA - completed July 2023 - stopped metamucil gummies - thought maybe this was causing flatulence - but is still having flatulence - reports when he has bleeding is when he primarily has flatulence - bleeding has been ongoing for the past month - he has been tracking bleeding episodes since 03/14/2024 having 1-3 episodes of bleeding a day - waking at HS with sensation to pass gas - and reports this is typically blood - states since colonoscopy January 2023 post colon his stools have been pencil thin - he states bowels were altered prior to starting radiation treatments - he is having 2-3 BM daily - denies any rectal pain - very concerned with altered bowels - bowels changed post colon January 2023 - denies any medication or dietary changes - denies any weight loss - denies any abd pain - he feels another colonoscopy needs completed, fearful a previous polyp was missed [facility] Medical History Loss of hearing History of steroid therapy History of hiatal hernia History of ulceration Rectal bleeding Basal cell carcinoma Erectile dysfunction due to arterial insufficiency OAB (overactive bladder) Prostate cancer Wears dentures Wears glasses Arthritis Migraine headache Non-smoker Leg cramps History of stress test Osteoarthritis GERD (gastroesophageal reflux disease) History of prostate cancer Hx of hemorrhoids Home Medications ???Medication ???Instructions ???Recorded ???Last Taken ???Type loratadine 10 mg tablet 10 mg PO DAILY 08/18/16 Unknown Hi story esomeprazole magnesium 40 mg 40 mg PO DAILY 11/23/20 11/25/20 0 6:30 History capsule,delayed release (Nexium) oxybutynin chloride 15 mg 15 mg PO DAILY 11/23/20 Unknown Hi story tablet,extended release 24 hr ascorbic acid (vitamin C) 1,000 mg 1 g PO QDAY 03/19/24 Unknown His tory capsule cholecalciferol (vitamin D3) 125 125 mcg PO QDAY 03/19/24 Unknown H istory mcg (5,000 unit) tablet guaifenesin 1,200 mg tablet, 1,200 mg PO BID 03/19/24 Unknown H istory extended release 12 hr (Mucus Relief ER) rizatriptan 10 mg tablet See Rx Instructions PO .COMPLEX Unknown History zinc acetate 50 mg (zinc) capsule 50 mg PO QDAY 03/19/24 Unknown Hi story Allergy/AdvReac Type Severity Reaction Status Date / Time acetaminophen (From Percocet) Allergy Intermediate hives/itchi Verified 03/26/24 11:24 ng oxycodone (From Percocet) Allergy Intermediate hives/itchi Verified 03/26/24 11:24 ng Acrylic Acid and Acrylates Allergy Swelling Verified 03/26/24 11:24 (steri-strips (acrylate)) Family History Mother Heart disease Hypertension Diabetes Father Heart disease Hypertension Sister Heart disease Hypertension Diabetes Surgical History Hx of right inguinal hernia repair Hx of repair of rotator cuff History of cardiac catheterization History of colonoscopy ( 2018) History of hemorrhoidectomy Hx of hernia repair Hx of prostatectomy Hx of cataract surgery Hx of prostate biopsy Hx of arthroscopy of left knee Hx of cholecystectomy History of nasal surgery Social History Smoking Status: Never smoker alcohol intake: never substance use type: does not use ROS Constitutional Constitutional: Denies fatigue, fever(s), poor appetite, weight gain or weight loss Gastrointestinal Gastrointestinal: Denies belching, bloating, change in bowel habits, change in stool character, chewing difficulty, coffee ground emesis, constipation, cramping, diarrhea, dyspepsia, dysphagia, early satiety, excessive flatus, fecal incontinence, heartburn, hematemesis, hematochezia, hemorrhoids, loose stools, melena, nausea, odynophagia, rectal bleeding, tenesmus, vomiting or weight changes Physical Exam Const alert, oriented x3, no apparent distress and healthy appearing General Appearance: cooperative GI normal to inspection, nondistended, normoactive bowel sounds, soft to palpation, non-tender and non- distended Percussion: norm (more content not included)...[facility] 02-26-2024 Evaluation note* Diagnosis Onset Date Resolution Status Admit Date Biochemically recurrent malignant neoplasm of prostate acute J anuary 2024 11:22am Rectal bleeding acute February 212024 12:45pm Lower GI bleeding acute 2024 8:36am Anal fissure acute March 1:30pm Lower GI bleeding acute 2024 1:30pm Rectal pain acute March 1:30pm Anal fissure acute April 23, 025 5:15am Lower GI bleeding acute April 232024 5:15am Rectal pain acute April 23 5:15am Lower GI bleeding acute April 212024 9:39am Rectal pain acute May 15, 025 9:39am [facility] Work Phone: 1(460) 851-606212-16-2023 Hospital Discharge instructions Patient Education 02/04/2023 18:48:20 Medicines for GERD Medicines for GERD Gastroesophageal reflux disease (GERD) can be treated with medicine. This may be done with a medicine you can buy over the counter. Or it may be done with a medicine that your healthcare provider hasto prescribe. In some cases, both types may be used. Your provider will tell you what is best for your symptoms. Antacids Antacids work to weaken the acid in your stomach and can give you quick relief. You can buy many ofthem with no prescription. Antacids can be high in sodium. This may be a problem if you have high blood pressure. Some antacids also have aluminum. This should be avoided if you have long-term (chronic) kidney disease. So check with your provider first. Take antacids only when you need to, as advised by your provider. Side effects: Constipation, diarrhea. If you take too much medicine, it can cause calcium to build up. H-2 blockers H-2 blockers cause the stomach to make less acid. They are often used both on demand as symptoms occur, and daily to keep symptoms away. Your provider may prescribe them if antacids don t work for you. You can buy some of them over the counter. These come in a lower dosage. Side effects: Confusion in older adults Proton-pump inhibitors These also cause the stomach to make less acid. They reduce stomach acid more than H-2 blockers. They may be used for a short time, or longer to treat certain conditions. You can buy some of them over the counter. Or your provider may prescribe them. They help control GERD symptoms. Side effects: Belly (abdominal) pain, diarrhea, upset stomach (nausea). Possible other side effectslinked to long-term use and high doses. Prokinetics These medicines affect the movement of the digestive tract. They may be recommended if your stomachis emptying too slowly. But in most cases they are not recommended for treating GERD. Side effects: Tiredness, depression, anxiety, problems with physical movement, belly cramps, constipation, diarrhea, a jittery feeling Medicines to avoid Don t take aspirin without your provider s approval. And don t take a nonsteroidal anti-inflammatory drug (NSAID), such as ibuprofen. These reduce the protective lining of your stomach. This can leadto more GERD symptoms. Check with your provider or pharmacist before taking a new medicine. 9424-[address] [employer] [place] [address]. All rights reserved. This information is not intended as a substitute for professional medical care. Always follow yourhealthcare professional's instructions. 02/04/2023 18:48:16 GERD (Adult) GERD (Adult) The esophagus is a tube that carries food from the mouth to the stomach. A valve (the LES, lower esophageal sphincter) at the lower end of the esophagus prevents stomach acid from flowing upward. When this valve doesn't work properly, stomach contents may repeatedly flow back up (reflux) into the es ophagus. This is called gastroesophageal reflux disease (GERD). GERD can irritate the esophagus. Itcan cause problems with pain, swallowing or breathing. In severe cases, GERD can cause recurrent pneumonia (from aspiration or breathing in particles) or other serious problems. Symptoms of reflux include burning, pressure or sharp pain in the upper abdomen or mid to lower chest. The pain can spread to the neck, back, or shoulder. There may be belching, an acid taste in the back of the throat, chronic cough, or sore throat, or hoarseness. GERD symptoms often occur during the day after a big meal. They can also occur at night when lying down. Home care Lifestyle changes can help reduce symptoms. If needed, your healthcare provider may prescribe medicines. Symptoms often improve with treatment, but if treatment is stopped, the symptoms often return after a few months. So most persons with GERD will need to continue treatment or get treatment on and off. Lifestyle changes Limit or avoid fatty, fried, and spicy foods, as well as coffee, chocolate, mint, and foods with high acid content such as tomatoes and citrus fruit and juices (orange, grapefruit, lemon). Don t eat large meals, especially at night. Frequent, smaller meals are best. Don't lie down right after eating. And don t eat anything 3 hours before going to bed. Don't drink alcohol or smoke. As much as possible, stay away from second hand smoke. If you are overweight, losing weight will reduce symptoms. Don't wear tight clothing around your stomach area. If your symptoms occur during sleep, use a foam wedge to elevate your upper body (not just your head.) Or, place 4 blocks under the head of your bed. Or use 2 bed risers under your bedframe. Medicines If needed, medicines can help relieve the symptoms of GERD and prevent damage to the esophagus. Discuss a medicine plan with your healthcare provider. This may include one or more of the following medicines: Antacids to help neutralize the normal acids in your stomach. Acid blockers (Histamine or H2 blockers) to decrease acid production. Acid inhibitors (proton pump inhibitors PPIs) to decrease acid production in a different way than the blockers. They may work better, but can take a little longer to take effect. Take an antacid 30 to 60 minutes after eating and at bedtime, but not at the same time as an acid anton. Try not to take medicines such as ibuprofen and aspirin. If you are taking aspirin for your heart or other medical reasons, talk to your healthcare provider about stopping it. Follow-up care Follow up with your healthcare provider or as advised by our staff. When to seek medical advice Call your healthcare provider if any of the following occur: Stomach pain gets worse or moves to the lower right abdomen (appendix area) Chest pain appears or gets worse, or spreads to the back, neck, shoulder, or arm An [id number] trial of medicine doesn't relieve your symptoms Weight loss that can't be explained Trouble or pain swallowing Frequent vomiting (can t keep down liquids) Blood in the stool or vomit (red or black in color) Feeling weak or dizzy Fever of 100.4 F (38 C) or higher, or as directed by your healthcare provider [id number] [employer]. [address] [place] [address]. All rights reserved. This information is not intended as a substitute for professional medical care. Always follow yourhealthcare professional's instructions. Follow Up Care 02/04/2023 16:50:21 With:MARTY MCKEON DO Address: [place] [address]- [phone] When:2-4 days [facility] 12-16-2023 Note Discharge Instructions Thank you for allowing [facility] to assist you with your healthcare needs. The following is importantdischarge information regarding your hospital visit. Diagnosis from Today's Visit GERD - Gastro-esophageal reflux disease Heartburn or indigestion Viral syndrome What to Do Next Instructions from Your Care Team No qualifying data available. Post Acute Orders No qualifying data available. You Need to Schedule the Following Appointments Follow Up with MARTY MCKEON DO When Within 2-4 days Where: [place] [address]- [phone] Allergies NKA Medications Please ask your primary doctor or pharmacist before taking any other medication not listed, including over the counter drugs, herbal medications, vitamins and or supplements as they may interact withyour home medications. What How Much When Why Instructions Last Dose New benzonatate (Tessalon Perles 100 mg oral capsule) 1 cap by mouth Every 8 hours as needed for as needed for cough Duration: 5 Days Printed Prescription Unchanged acetaminophen (Tylenol) 650 Milligram by mouth As needed for as needed for pain Unchanged acetaminophen/ CPM/ DM/ guaifenesin/ PE (Tylenol Cold and Flu Severe Day and Night oral tablet) by mouth Every 4 hours Unchanged albuterol (ProAir HFA MDI (90 mcg/ inh) inhalation aerosol) 2 puff(s) by inhalation Every 4 hours as needed for as needed for wheezing Upper respiratory infection Unchanged ascorbic acid (Vitamin C 500 mg oral tablet) 1 tab(s) by mouth Once a day Unchanged cholecalciferol (Vitamin D3) 2,000 unit(s) by mouth Every day Unchanged cyclobenzaprine (cyclobenzaprine 10 mg oral tablet) 1 tab(s) by mouth Every 12 hours Muscle tension headache every 12 hours as needed for headache Unchanged dextromethorphan-promethazine (dextromethorphan-promethazine 15 mg- 6.25 mg/ 5 mL oral syrup) 5 Milliliter by mouth Every 6 hours as needed for for cough Cough Unchanged DME (DME MISCellaneous) See instructions Wheezing Spacer chamber Dx: R06.2 Unchanged esomeprazole (NexIUM 40 mg oral delayed release capsule) 1 cap by mouth Once a day (in the morning) Unchanged galcanezumab (Emgality Prefilled Pen 120 mg/ mL subcutaneous solution) Unchanged loratadine (Claritin) 10 Milligram Once a day Unchanged oxybutynin (oxybutynin 15 mg/ 24 hr oral tablet, extended release) 1 tab(s) by mouth Once a day Unchanged rizatriptan (rizatriptan 10 mg oral tablet) See instructions take one tablet by mouth at start of headache, may repeat dose in two hours if needed. max two tablets per 24 hours Unchanged zinc sulfate (Zinc) See instructions mg Oral qDay Please take this list to your next doctor s visit. Bring all medications you take, including over the counter medications, herbals and other supplements with you to your doctor s visit. Patients and families are reminded to discard old lists and to update any records with all medication providers or retail pharmacies. Medication Leaflets benzonatate (tone adam) What is the most important information I should know about benzonatate? Never suck or chew on a benzonatate capsule. Swallow the pill whole. Sucking or chewing the capsulemay cause serious side effects. Benzonatate is not approved for use by anyone younger than 10 years old. An overdose of benzonatatecan be fatal to a young child. What is benzonatate? Benzonatate is used to relieve coughing. Benzonatate is a non-narcotic cough medicine that numbs the throat and lungs, making the cough reflex less active. Benzonatate may also be used for purposes not listed in this medication guide. What should I discuss with my healthcare provider before taking benzonatate? You should not use this medicine if you are allergic to benzonatate or topical numbing medicines such as tetracaine or procaine (found in some insect bite and sunburn creams). Tell your doctor if you are or . Benzonatate is not approved for use by anyone younger than 10 years old. An overdose of benzonatatecan be fatal, especially to a young child who has accidentally swallowed the medicine. How should I take benzonatate? Follow all directions on your prescription label and read all medication guides or instruction sheets. Use the medicine exactly as directed. Never suck or chew on a benzonatate capsule. Swallow the pill whole. Sucking or chewing the capsulemay cause serious side effects. Store at room temperature away from moisture, heat, and light. What happens if I miss a dose? Skip the missed dose and use your next dose at the regular time. Do not use two doses at one time. What happens if I overdose? Seek emergency medical attention or call the Poison Help line at . An overdose of benzonatate can be fatal, especially to a child. Accidental has occurred in children under 10 years old. Overdose symptoms may include tremors, feeling restless, seizure (convulsions), slow heart rate, weak pulse, fainting, and slow breathing (breathing may stop). What should I avoid while taking benzonatate? Avoid eating or drinking anything while you feel numbness or tingling in your mouth or throat. What are the possible side effects of benzonatate? Stop taking this medicine and get emergency medical help if you have signs of an allergic reaction:hives; difficult breathing; swelling of your face, lips, tongue, or throat. Call your doctor at once if you have: severe drowsiness or dizziness; confusion, hallucinations. ongoing numbness or tingling in your mouth, throat, or face; numbness in your chest; a choking feeling; chills; or burning in your eyes. Some of these side effects may result from chewing or sucking on a benzonatate capsule. Common side effects may include: headache, dizziness; nausea, upset stomach; constipation; itching, rash; or stuffy nose. This is not a complete list of side effects and others may occur. Call your doctor for medical advice about side effects. You may report side effects to FDA at 1-268-POD-2815. What other drugs will affect benzonatate? Using benzonatate with other drugs that make you drowsy can worsen this effect. Ask your doctor before using opioid medication, a sleeping pill, a muscle relaxer, or medicine for anxiety or seizures. Other drugs may affect benzonatate, including prescription and mydt-obg-lnfptti medicines, vitamins, and herbal products. Tell your doctor about all your current medicines and any medicine you start or stop using. Where can I get more information? Your pharmacist can provide more information about benzonatate. Remember, keep this and all other medicines out of the reach of children, never share your medicines with others, and use this medication only for the indication prescribed. Every effort has been made to ensure that the information provided by [employer]. ('[employer]') is accurate, up-to-date, and complete, but no guarantee is made to that effect. Drug information contained herein may be time sensitive. [facility] information has been compiled for use by healthcare practitioners and consumers in the [place] and therefore [employer] does not warrant that uses outside of the [place] are appropriate, unless specifically indicated otherwise. [employer] drug information does not endorse drugs, diagnose patients or recommend therapy. [employer] drug information isan informational resource designed to assist licensed healthcare practitioners in caring for their p atients and/or to serve consumers viewing this service as a supplement to, and not a substitute for, the expertise, skill, knowledge and judgment of healthcare practitioners. The absence of a warningfor a given drug or drug combination in no way should be construed to indicate that the drug or drug combination is safe, effective or appropriate for any given patient. [employer] does not assume any responsibility for any aspect of healthcare administered with the aid of information [employer] provides. The information contained herein is not intended to cover all possible uses, directions, precautions, warnings, drug interactions, allergic reactions, or adverse effects. If you have questions about the drugs you are taking, check with your doctor, nurse or pharmacist. Copyright 5958-7368 Ingrid Rumble. Version: 12.21. Revision Date: 09/22/2022. Education Materials Medicines for GERD Gastroesophageal reflux disease (GERD) can be treated with medicine. This may be done with a medicine you can buy over the counter. Or it may be done with a medicine that your healthcare provider hasto prescribe. In some cases, both types may be used. Your provider will tell you what is best for your symptoms. Antacids Antacids work to weaken the acid in your stomach and can give you quick relief. You can buy many ofthem with no prescription. Antacids can be high in sodium. This may be a problem if you have high blood pressure. Some antacids also have aluminum. This should be avoided if you have long-term (chronic) kidney disease. So check with your provider first. Take antacids only when you need to, as advised by your provider. Side effects: Constipation, diarrhea. If you take too much medicine, it can cause calcium to build up. H-2 blockers H-2 blockers cause the stomach to make less acid. They are often used both on demand as symptoms occur, and daily to keep symptoms away. Your provider may prescribe them if antacids don t work for you. You can buy some of them over the counter. These come in a lower dosage. Side effects: Confusion in older adults Proton-pump inhibitors These also cause the stomach to make less acid. They reduce stomach acid more than H-2 blockers. They may be used for a short time, or longer to treat certain conditions. You can buy some of them over the counter. Or your provider may prescribe them. They help control GERD symptoms. Side effects: Belly (abdominal) pain, diarrhea, upset stomach (nausea). Possible other side effectslinked to long-term use and high doses. Prokinetics These medicines affect the movement of the digestive tract. They may be recommended if your stomachis emptying too slowly. But in most cases they are not recommended for treating GERD. Side effects: Tiredness, depression, anxiety, problems with physical movement, belly cramps, constipation, diarrhea, a jittery feeling Medicines to avoid Don t take aspirin without your provider s approval. And don t take a nonsteroidal anti-inflammatory drug (NSAID), such as ibuprofen. These reduce the protective lining of your stomach. This can leadto more GERD symptoms. Check with your provider or pharmacist before taking a new medicine. [id number] [employer]. [address] [place] [address]. All rights reserved. This information is not intended as a substitute for professional medical care. Always follow yourhealthcare professional's instructions. GERD (Adult) The esophagus is a tube that carries food from the mouth to the stomach. A valve (the LES, lower esophageal sphincter) at the lower end of the esophagus prevents stomach acid from flowing upward. When this valve doesn't work properly, stomach contents may repeatedly flow back up (reflux) into the es ophagus. This is called gastroesophageal reflux disease (GERD). GERD can irritate the esophagus. Itcan cause problems with pain, swallowing or breathing. In severe cases, GERD can cause recurrent pneumonia (from aspiration or breathing in particles) or other serious problems. Symptoms of reflux include burning, pressure or sharp pain in the upper abdomen or mid to lower chest. The pain can spread to the neck, back, or shoulder. There may be belching, an acid taste in the back of the throat, chronic cough, or sore throat, or hoarseness. GERD symptoms often occur during the day after a big meal. They can also occur at night when lying down. Home care Lifestyle changes can help reduce symptoms. If needed, your healthcare provider may prescribe medicines. Symptoms often improve with treatment, but if treatment is stopped, the symptoms often return after a few months. So most persons with GERD will need to continue treatment or get treatment on and off. Lifestyle changes Limit or avoid fatty, fried, and spicy foods, as well as coffee, chocolate, mint, and foods with high acid content such as tomatoes and citrus fruit and juices (orange, grapefruit, lemon). Don t eat large meals, especially at night. Frequent, smaller meals are best. Don't lie down right after eating. And don t eat anything 3 hours before going to bed. Don't drink alcohol or smoke. As much as possible, stay away from second hand smoke. If you are overweight, losing weight will reduce symptoms. Don't wear tight clothing around your stomach area. If your symptoms occur during sleep, use a foam wedge to elevate your upper body (not just your head.) Or, place 4 blocks under the head of your bed. Or use 2 bed risers under your bedframe. Medicines If needed, medicines can help relieve the symptoms of GERD and prevent damage to the esophagus. Discuss a medicine plan with your healthcare provider. This may include one or more of the following medicines: Antacids to help neutralize the normal acids in your stomach. Acid blockers (Histamine or H2 blockers) to decrease acid production. Acid inhibitors (proton pump inhibitors PPIs) to decrease acid production in a different way than the blockers. They may work better, but can take a little longer to take effect. Take an antacid 30 to 60 minutes after eating and at bedtime, but not at the same time as an acid anton. Try not to take medicines such as ibuprofen and aspirin. If you are taking aspirin for your heart or other medical reasons, talk to your healthcare provider about stopping it. Follow-up care Follow up with your healthcare provider or as advised by our staff. When to seek medical advice Call your healthcare provider if any of the following occur: Stomach pain gets worse or moves to the lower right abdomen (appendix area) Chest pain appears or gets worse, or spreads to the back, neck, shoulder, or arm An ddse-qfl-jrxvjhy trial of medicine doesn't relieve your symptoms Weight loss that can't be explained Trouble or pain swallowing Frequent vomiting (can t keep down liquids) Blood in the stool or vomit (red or black in color) Feeling weak or dizzy Fever of 100.4 F (38 C) or higher, or as directed by your healthcare provider [phone] [employer]. [address] [place] [address]. All rights reserved. This information is not intended as a substitute for professional medical care. Always follow yourhealthcare professional's instructions. Additional Information VACCINATE! IT SAVES LIVES! Members of the community who have not yet received the COVID-19 vaccine and would like to receive it can visit one of [facility] vaccine clinics. There are many vaccine clinic locations within the [facility]. For locations and available times, please visit www.gettheshot.coronavirus.[place].gov/. It is important to note that some COVID mobile vaccine clinics are held outdoors and may be canceled in rainy or stormy conditions. To learn more about pediatric vaccinations (ages 5-11), we invite you to visit the [facility] webpage. https://www.[facility].org/pages/9000-Shpbq-Zxsfnrltllx-Ryasjjbgvv-Ptqgu-Tou stions.htmlTo learn more about the COVID-19 vaccine, we invite you to visit the CDC website for a list of frequently asked questions. https://www.cdc.gov/coronavirus/2019-ncov/vaccines/faq.html [facility] Patient Portal Access Instructions: Stay connected with your healthcare team and access your personal medical information anytime with the [facility] Patient Portal. If you would like a full copy of your medical records please contact the [facility] Medical Records Department Monday through Monday between 8a.m. and 4:30p.m. Please follow the directions below to access the portal: 1.Access the email account you provided upon registration to the [facility].2.Look for an invitation email from [facility].3.Open the email and access the invitation link: Accept Invitation to [facility]4.Fill in the required perez to create your account. Sign into www.[employer] with your username and password that you created in the above steps to stay up to date. You can then view a summary of results, a summary of your visits, and the ability to download your summaries to your computer or send the information securely to a physician. Remember that your healthcare information is confidential, so carefully consider who you will allow to register on the [facility] Patient Portal for access to your information. You can also access the [facility] Patient Portal on the [facility]. Simply click on Health Records under [employer] and then click on the [facility] logo. HOW TO SAFELY DISPOSE OF PRESCRIPTION MEDICATIONS Please use one of the following methods to safely dispose of your unused medications. 1.Use a drug disposal kit: the drug disposal pouch allows you to safely discard your old and unuseddrugs. Ask your nurse to give you one when you are discharged.2.Visit a local take-back location: Many local pharmacies and police departments have programs that collect old and unwanted prescriptiondrugs. Call your local pharmacy or go to http://[employer]/6K5Yl5t to find one close to you.3.Make use of household items: Use cat litter or old coffee grounds to dispose medications if other options arenot available. Mix your drugs with these household products, seal them in an airtight container andthrow it into the garbage. Call [facility]: [phone] to be sure your drugs can be disposed of in this way. Some medicines may require a different approach.4.Never flush your medications down the toilet. IF YOU HAVE BEEN PRESCRIBED AN OPIOIDS FOR PAIN If you have been prescribed an opioid (such as hydrocodone, oxycodone or morphine), it is critical to understand the possible side effects and risks of opioid pain medications. Even when taken as directed, opioids can have several side effects including: Tolerance, meaning you might need to take more of a medication for the same pain relief. Nausea, vomiting and/or constipation. Sleepiness, dizziness, dry mouth, confusion, depression or itching. Physical dependence, meaning you have withdrawal symptoms when a medication is stopped ? this can develop within a few days. KNOW YOUR RESPONSIBILITIES It is important to know exactly how much and how often to take the opioid pain medications you are prescribed. Never take opioids in higher amounts or more often than prescribed. Do not combine opioids with alcohol or other drugs that cause drowsiness, such as benzodiazepines, also known as benzos,including diazepam and alprazolam, muscle relaxants or sleep aids. Never sell or share prescriptionopioids. This is illegal. Store opioids in a secure place and out of reach of others (including children, family, friends and visitors). The last page(s) of this document has been signed and retained as a CHART COPY Signatures Patient Education Materials Medicines for GERD GERD (Adult) Medication Leaflets benzonatate My discharge plan and instructions have been reviewed and explained to me and I,ELISEO, TRAY understand my current condition and have read and understand these discharge instructions. I have receiveda written copy of the plan/instructions. If I have questions, I am aware that I should contact my do ctor. 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 HISTORY: ORDERING SYSTEM PROVIDED HISTORY: Reason for Exam: SOB/cough/fever FINDINGS: There is hypoinflation with accentuation of the cardiomediastinal silhouette and increased bronchovascular markings. There is no consolidation or pleural effusion. There are minimal vessel mental infiltrates at the right lower lung zone. There is no pulmonary vascular congestion. There is no pneumothorax. Osseous structures demonstrate degenerative changes. IMPRESSION: 1. There is no consolidation or pleural effusion. There are minimal vessel mental infiltrates at the right lower lung zone. Interpreted by: Je Kiser Preliminary Report By: Je Kiser Electronically signed By Je Kiser Dictated Date: 02/04/2023 6:45:13 PM Prelim Date: 02/04/2023 6:57:49 PM Sign Date: 02/04/2023 6:57:49 PM [facility] SARS-CoV-2 (COVID-19) RNA RONNI+probe Ql (Nph)Positive *ABN* (02/04/23 5:29 PM)AO Auto Urine [id number] NoteSinus rhythm Borderline left axis deviation Electronic Signature: JASPER MERRILL MD 02/04/2023 17:28:37[facility] 12-04-2023 Hospital Discharge instructions Patient Education 01/23/2023 13:36:30 Colonoscopy, Adult, Care After Colonoscopy, Adult, Care After This sheet gives you information about how to care for yourself after your procedure. Your health care provider may also give you more specific instructions. If you have problems or questions, contact your health care provider. What can I expect after the procedure? After the procedure, it is common to have: A small amount of blood in your stool for 24 hours after the procedure. Some gas. Mild abdominal cramping or bloating. Follow these instructions at home: General instructions For the first 24 hours after the procedure: ?Do not drive or use machinery. ?Do not sign important documents. ?Do not drink alcohol. ?Do your regular daily activities at a slower pace than normal. ?Eat soft, gtnm-oe-mznqsz foods. Take twhe-ylc-qyxvpgn or prescription medicines only as told by your health care provider. Relieving cramping and bloating Try walking around when you have cramps or feel bloated. Apply heat to your abdomen as told by your health care provider. Use a heat source that your healthcare provider recommends, such as a moist heat pack or a heating pad. ?Place a towel between your skin and the heat source. ?Leave the heat on for 20 30 minutes. ?Remove the heat if your skin turns bright red. This is especially important if you are unable to feel pain, heat, or cold. You may have a greater risk of getting burned. Eating and drinking Drink enough fluid to keep your urine pale yellow. Resume your normal diet as instructed by your health care provider. Avoid heavy or fried foods thatare hard to digest. Avoid drinking alcohol for as long as instructed by your health care provider. Contact a health care provider if: You have blood in your stool 2 3 days after the procedure. Get help right away if: You have more than a small spotting of blood in your stool. You pass large blood clots in your stool. Your abdomen is swollen. You have nausea or vomiting. You have a fever. You have increasing abdominal pain that is not relieved with medicine. Summary After the procedure, it is common to have a small amount of blood in your stool. You may also have mild abdominal cramping and bloating. For the first 24 hours after the procedure, do not drive or use machinery, sign important documents, or drink alcohol. Contact your health care provider if you have a lot of blood in your stool, nausea or vomiting, a fever, or increased abdominal pain. This information is not intended to replace advice given to you by your health care provider. Make sure you discuss any questions you have with your health care provider. Document Released: 09/20/2004 Document Revised: 11/29/2017 Document Reviewed: 04/19/2016 [employer] Patient Education 2020 [employer]. 01/23/2023 13:36:26 Monitored Anesthesia Care, Care After Monitored Anesthesia Care, Care After These instructions provide you with information about caring for yourself after your procedure. Your health care provider may also give you more specific instructions. Your treatment has been plannedaccording to current medical practices, but problems sometimes occur. Call your health care provider if you have any problems or questions after your procedure. What can I expect after the procedure? After your procedure, you may: Feel sleepy for several hours. Feel clumsy and have poor balance for several hours. Feel forgetful about what happened after the procedure. Have poor judgment for several hours. Feel nauseous or vomit. Have a sore throat if you had a breathing tube during the procedure. Follow these instructions at home: For at least 24 hours after the procedure: Have a responsible adult stay with you. It is important to have someone help care for you until youare awake and alert. Rest as needed. Do not: ?Participate in activities in which you could fall or become injured. ?Drive. ?Use heavy machinery. ?Drink alcohol. ?Take sleeping pills or medicines that cause drowsiness. ?Make important decisions or sign legal documents. ?Take care of children on your own. Eating and drinking Follow the diet that is recommended by your health care provider. If you vomit, drink water, juice, or soup when you can drink without vomiting. Make sure you have little or no nausea before eating solid foods. General instructions Take bqtt-mmi-zwbtzmf and prescription medicines only as told by your health care provider. If you have sleep apnea, surgery and certain medicines can increase your risk for breathing problems. Follow instructions from your health care provider about wearing your sleep device: ?Anytime you are sleeping, including during daytime naps. ?While taking prescription pain medicines, sleeping medicines, or medicines that make you drowsy. If you smoke, do not smoke without supervision. Keep all follow-up visits as told by your health care provider. This is important. Contact a health care provider if: You keep feeling nauseous or you keep vomiting. You feel light-headed. You develop a rash. You have a fever. Get help right away if: You have trouble breathing. Summary For several hours after your procedure, you may feel sleepy and have poor judgment. Have a responsible adult stay with you for at least 24 hours or until you are awake and alert. This information is not intended to replace advice given to you by your health care provider. Make sure you discuss any questions you have with your health care provider. Document Released: 05/29/2016 Document Revised: 05/07/2018 Document Reviewed: 05/29/2016 [employer] Patient Education 2020 [employer]. Follow Up Care 01/05/2023 07:44:50 With:JAYRO EVANGELISTA Address: [address] [place] [address] [place] [address]- [phone] Business (1) When: Unknown Comments:OFFICE WILL CALL WITH [facility] 12-04-2023 Evaluation + Plan noteExtracted from: Title:History and Physical Author:ADRIEL EVANGELISTA MD Date:01/23/23 Orders: Lactated Ringers Infusion 1,000 mL, Start: 01/23/23 12:39:00 EST, Rate: 20 mL/hr, 01/23/23 12:39:00 EST Communication Order (scheduled) Communication Order (scheduled) Communication Order (scheduled) Consult to Anesthesia Sign Consent Surveillance colonoscopy due to a history of reported polyps in the past. Consent conference held. Future Appointments Appointment Date:05/31/2023 02:20:00 PM Scheduled Provider:MARTY MCKEON DO Location:[facility] Appointment Type:PC OV Future Scheduled Tests Radiology* CT Abdomen and Pelvis w/o contrast 05/30/22 [facility] 12-04-2023 Summary of episode note Discharge Instructions Thank you for allowing [facility] to assist you with your healthcare needs. The following is importantdischarge information regarding your hospital visit. Your Care Team MARTY MCKEON DO What to do next Scheduled Follow-Up Appointments Appointment Type When With Where Contact InformationPC OV 05/31/2023 02:20 PM EDT MARTY MCKEON DO [facility] [address] [phone] Follow Up Appointments Follow Up with JAYRO EVANGELISTA When Why: OFFICE WILL CALL WITH [facility] Where: [address] [facility] [place] [address] [phone] Business (1) The Following Activity and Diet Have Been Ordered for You Discharge Activity - Ordered -- Other, Follow the post-operative/post-procedure activity instructions provided by your physician's office., 01/23/23 13:26:00 EST Discharge Diet - Ordered -- Follow the post-operative/post-procedure diet instructions provided by your physician's office.,01/23/23 13:26:00 EST Allergies [facility] Medications Please ask your primary doctor or pharmacist before taking any other medication not listed, including over the counter drugs, herbal medications, vitamins and or supplements as they may interact withyour home medications. What How Much When Why Instructions Last Dose Unchanged acetaminophen (Tylenol) 650 Milligram by mouth As needed for as needed for pain Unchanged ascorbic acid (Vitamin C 500 mg oral tablet) 1 tab(s) by mouth Once a day Unchanged cholecalciferol (Vitamin D3) 2,000 unit(s) by mouth Every day Unchanged cyclobenzaprine (cyclobenzaprine 10 mg oral tablet) 1 tab(s) by mouth Every 12 hours Muscle tension headache every 12 hours as needed for headache Unchanged dextromethorphan-promethazine (dextromethorphan-promethazine 15 mg- 6.25 mg/ 5 mL oral syrup) 5 Milliliter by mouth Every 6 hours as needed for for cough Cough Unchanged DME (DME MISCellaneous) See instructions Wheezing Spacer chamber Dx: R06.2 Unchanged esomeprazole (NexIUM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 Admission Weight 81 kg Pipestem Body Weight 61.50 kg Admission Body Mass Index 29.72 m2 Temperature Temporal Artery 36.6 DegC Apical Heart Rate 57 bpm LOW Respiratory Rate 14 br/min Systolic Blood Pressure Non-Invasive 127 mmHg Diastolic Blood Pressure Non-Invasive 81 mmHg Primary Pain Intensity 0 Pain Scale Type 0-10 Pain scale Heart Rhythm Regular Respirations Unlabored Oxygen Therapy Room air Oxygen Saturation 94 % Abdomen Description Non-distended, Soft Bowel Sounds All Quadrants Present Skin Temperature Warm Skin Description [place] Skin Integrity Intact Mucous Membrane Color Packwood Neurological Symptoms Patient denies Level of Consciousness Alert Strength All Extremities Strong Affect/Behavior Appropriate, Calm, Cooperative Orientation Oriented x 4 Assistive Device None Standard Safety ID band on, Call device within reach, Bed in low position, Wheels locked 01/23/2023 12:20 EST Urinary Elimination Voiding, no difficulties IV Present Present Allergies Yes Colon Prep Results Good Consent Form Signed Yes Patient Dressed In Hospital gown History & Physical Update On Chart Yes History & Physical On Chart Yes Bowel Prep Completed Yes Obstructive Sleep Apnea Assess Completed Yes Belongings At Bedside Pants, Shirt, Shoes NPO Status Maintained Implants Verified Yes Pacemaker/AICD Verified Yes Site Verified by Patient/Family Yes Anesthesia Consent Signed Yes Last Fluid Intake 01/23/2023 8:45 Last Food Intake 01/21/2023 12:25 . Assessment and Plan [place] [employer]hesi[employer] (ASA) physical status classification: Class III. Anesthetic Preoperative Plan Anesthetic technique: MAC. Postoperative pain management: Per surgeon. Informed consent: signed by patient. Digitally Signed by JESISKA TORRES on 01/23/2023 01:32 PM [facility]12-04-2023 Anesthesiology Consult note Patient: TRAY GOMES Age: 72 years Sex: Male : 1950 Associated Diagnoses: None Author: JESSIKA TORRES Assessment Postanesthesia assessment Mental status: alert & oriented x 4. Respiratory function: lungs are clear to auscultation. Respiratory support: none. CV function: Normal rate. Cardiovascular support: none. Pain. Nausea status: denies nausea. Postoperative hydration status: within normal limits. Digitally Signed by JESSIKA TORRES CURRICULUM COACH-TISSUE PACKER on 01/23/2023 01:30 PM [facility]12-04-2023 Note Date of Service 01/23/2023 Chief Complaint Surveillance recall colonoscopy with previous endoscopist in 2018 History of Present Illness This is a preprocedural/presurgical H&P. The patient was originally evaluated by Tierra Silva, the PA. Please refer to her note also. I independently and personally performed a history and physical examination with this patient and repeated the roca components of the exam/history. I have reviewed her note. The patient was scheduled for endoscopy based on that visit and was evaluated by me prior to it. Voice recognition software was utilized for this document and may contain recognition errors inherent in that process. This is a 72-year-old referred for colonoscopy. There was colonoscopydone elsewhere in 2018 with a recommendation for colonoscopy in 5 years. Patient has had some intermittent diarrhea. Previous colonoscopy note showed no evidence of polyps. A 5-year follow-up was recommended the patient says he has had previous polyps. Physical Exam Vitals and Measurements T: 36.6 C (Temporal Artery) HR: 57(Apical) RR: 14 BP: 127/81 SpO2: 94% HT: 165.1 cm WT: 81 kg BMI: 29.72 Weight Dosing Weight: 81 kg (01/23/23) Dosing Weight: 81 kg (01/23/23) General appearance: The patient is alert and oriented and in no apparent distress. Vital signs werereviewed. HEENT: Hearing is appropriate. Sclera are clear and nonicteric. Nares normal. Oral mucosa is normal. Neck is free of lymphadenopathy. The trachea is midline. Chest: No supraclavicular lymphadenopathy. Lungs: Lungs are clear bilaterally. No rales or wheezing. Cardiac: Abdomen: Bowel sounds are present. The abdomen is soft, nontender. No palpable masses. No organomegaly. No inguinal lymphadenopathy. Rectal examination is deferred. Extremities: No cyanosis or clubbing. Neurology: No gross focal neurologic deficits. Integument: No telangiectasias or petechiae are seen. Lymphatic: No supraclavicular cervical inguinal adenopathy found Psychiatric examination: The patient is alert and oriented. Cognition seems appropriate. Recent andremote memory intact. Affect is appropriate. Lab Results No 36 Hour Lab Data Assessment/Plan Orders: Lactated Ringers Infusion 1,000 mL, Start: 01/23/23 12:39:00 EST, Rate: 20 mL/hr, 01/23/23 12:39:00EST Communication Order (scheduled) Communication Order (scheduled) Communication Order (scheduled) Consult to Anesthesia Sign Consent Surveillance colonoscopy due to a history of reported polyps in the past. Consent conference held. Problem List/Past Medical History Ongoing Arthritis At low risk for fall Cervical osteoarthritis Cholelithiasis Chronic migraine without aura Depression screen Diverticulosis GERD (gastroesophageal reflux disease) Heartburn History of prostate cancer Somatic dysfunction of cervical region Somatic dysfunction of head region Somatic dysfunction of lumbar region Somatic dysfunction of rib region Somatic dysfunction of sacral region Historical Asthma Diarrhea Prostate cancer Wheezing Procedure/Surgical History Hernia repair: 09/06/17 Prostatectomy: 08/24/16 Biopsy of prostate: 2016 Laparoscopic cholecystectomy: 2012 Rotator cuff repair: 2010 Hemorrhoidectomy: 2006 Operation on nasal sinus Medications Home Medications (12) Active Claritin 10 mg, qDay cyclobenzaprine 10 mg oral tablet 10 mg = 1 tab(s), Oral, q12hr dextromethorphan-promethazine 15 mg-6.25 mg/5 mL oral syrup 5 mL, PRN, Oral, q6h DME MISCellaneous See Instructions Emgality Prefilled Pen 120 mg/mL subcutaneous solution NexIUM 40 mg oral delayed release capsule 40 mg = 1 cap(s), Oral, qAM oxybutynin 15 mg/24 hr oral tablet, extended release 15 mg = 1 tab(s), Oral, qDay rizatriptan 10 mg oral tablet See Instructions Tylenol 650 mg, PRN, Oral Vitamin C 500 mg oral tablet 500 mg = 1 tab(s), Oral, qDay Vitamin D3 2,000 unit(s) = 1 tab(s), Oral, Daily Zinc See Instructions Allergies NKA Social History Smoking Status - 08/29/2017 Former smoker Alcohol Use: Never., 10/18/2018 Employment/School Status: Retired., 12/14/2022 Home/Environment 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 Diabetes mellitus type 1: Mother and Sister. Diabetes mellitus type 2: Mother and Sister. Heart attack: Father. Heart failure: Mother. Liver failure: Sister. Immunizations pneumococcal 13-valent conjugate vaccine: 0.5 unknown unit (07/28/16) pneumococcal 23-valent vaccine(Pneumovax: 0 unknown unit (01/24/18) SARS-CoV-2 (COVID-19) mRNA-1273 vaccine: 0.25 unknown unit (01/11/21) SARS-CoV-2 (COVID-19) mRNA-1273 vaccine: 100 mcg (05/19/20) SARS-CoV-2 (COVID-19) mRNA-1273 vaccine: 100 mcg (04/21/20) tetanus/diphth/pertuss (Tdap) adult/adol: 0.5 mL (11/05/22) tetanus/diphth/pertuss (Tdap) adult/adol: 0 unknown unit (07/10/08) zoster vaccine live: 0 unknown unit (06/04/13) Code Status No qualifying data available. Digitally Signed by JAYRO EVANGELISTA MD on 01/23/2023 01:05 PM [facility]03-01-2023 Note ORIGINAL EXAMINATION: TWO XRAY VIEWS OF THE CERVICAL SPINE04/20/2022 9:48 am CERVICAL SPINE 2 VIEWS COMPARISON: None HISTORY: ORDERING SYSTEM PROVIDED HISTORY: Reason for Exam: headaches more frequent; more tension right lower neck FINDINGS: The cervical spine is visualized from C1 through C7. The vertebral body heights are maintained. There is moderate disc space narrowing at C3-C4 and C4-C5. Facet hypertrophy is seen at these levels. There is no significant spondylolisthesis. The atlantoaxial relationship is maintained. There is no prevertebral soft tissue swelling. IMPRESSION: No compression deformity or significant spondylolisthesis. Moderate degenerative changes most pronounced at C3-C4 and C4-C5 Interpreted by: Zack Mclaughlin MD Preliminary Report By: Zack Mclaughlin MD Electronically signed By Zack Mclaughlin MD Dictated Date: 04/20/2022 7:43:25 PM Prelim Date: 04/20/2022 7:44:56 PM Sign Date: 04/20/2022 7:44:56 PM Ordering Provider: MARTY MIKE [facility]03-01-2023 Note ORIGINAL EXAMINATION: TWO XRAY VIEWS OF THE CERVICAL SPINE04/20/2022 9:48 am CERVICAL SPINE 2 VIEWS COMPARISON: None HISTORY: ORDERING SYSTEM PROVIDED HISTORY: Reason for Exam: headaches more frequent; more tension right lower neck FINDINGS: The cervical spine is visualized from C1 through C7. The vertebral body heights are maintained. There is moderate disc space narrowing at C3-C4 and C4-C5. Facet hypertrophy is seen at these levels. There is no significant spondylolisthesis. The atlantoaxial relationship is maintained. There is no prevertebral soft tissue swelling. IMPRESSION: No compression deformity or significant spondylolisthesis. Moderate degenerative changes most pronounced at C3-C4 and C4-C5 Interpreted by: Zack Mclaughlin MD Preliminary Report By: Zack Mclaughlin MD Electronically signed By Zack Mclaughlin MD Dictated Date: 04/20/2022 7:43:25 PM Prelim Date: 04/20/2022 7:44:56 PM Sign Date: 04/20/2022 7:44:56 PM [facility]ing [facility] Future App[facility]ments Appointment Date:06/28/2021 03:00:00 PM Scheduled Provider: Location:[facility] Appointment Type:MRI Brain w/ + w/o Contrast Future Scheduled Tests Radiology* MRI Brain w/ + w/o Contrast 06/28/21 [facility] Evaluation + Plan note Future Appointments Appointment Date:11/05/2021 01:50:00 PM Scheduled Provider:MARTY MCKEON DO Location:[facility] Appointment Type:PC Wellness Medicare [facility] Evaluation + Plan note Future Appointments Appointment Date:05/04/2022 02:50:00 PM Scheduled Provider:MARTY MCKEON DO Location:[facility] Appointment Type:PC OV Appointment Date:05/13/2022 03:20:00 PM Scheduled Provider:MARTY MCKEON DO Location:[facility] Appointment Type: OV [facility] Evaluation + Plan note Future Appointments Appointment Date:02/08/2023 11:30:00 AM Scheduled Provider:MARTY MCKEON DO Location:[facility] Appointment Type:PC OV Appointment Date:05/31/2023 02:20:00 PM Scheduled Provider:MARTY MCKEON DO Location:[facility] Appointment Type: OV Future Scheduled Tests Radiology* CT Abdomen and Pelvis w/o contrast 05/30/22 [facility] evaluation + Plan note Future Appointments Appointment Date:11/27/2024 02:30:00 PM Scheduled Provider:MARTY MCKEON DO Location:[facility] Appointment Type:PC Wellness Medicare Future Scheduled Tests Laboratory* Lipid Profile 11/28/24 * Complete Metabolic Panel 11/28/24 [facility] iBuildAppaluation + Plan note Future Appointments Appointment Date:11/27/2024 02:30:00 PM Scheduled Provider:MARTY MCKEON DO Location:[facility] Appointment Type:PC Wellness Medicare Future Scheduled Tests Laboratory* Urinalysis w/ C&S if Indicated 07/24/24 * Lipid Profile 11/28/24 * Complete Metabolic Panel 11/28/24 [facility] evaluation noteNo assessment information available [facility] Work Phone: evaluation note* Diagnosis Onset Date Resolution Status Biochemically recurrent malignant neoplasm of prostate acute [facility] Work Phone: evaluation note* Diagnosis Stress incontinence- Primary Female stress incontinence documented in this encounter [facility] note* Diagnosis CONCEPCION (stress urinary incontinence), male- Primary [facility] Diagnosis CONCEPCION (stress urinary incontinence), male- Primary CONCEPCION (stress urinary incontinence), male- Primary [facility]* Diagnosis CONCEPCION (stress urinary incontinence), male- Primary Preop examination Unspecified pre-operative examination Pre-operative examination- Primary Unspecified pre-operative examination CONCEPCION (stress urinary incontinence), male Pre-operative cardiovascular examination Gastroesophageal reflux disease without esophagitis Esophageal reflux Prostate cancer (HCC) Malignant neoplasm of prostate Other migraine without status migrainosus, not intractable Seasonal allergic rhinitis, unspecified trigger Preop examination Unspecified pre-operative examination CONCEPCION (stress urinary incontinence), male [facility] Diagnosis CONCEPCION (stress urinary incontinence), male- Primary Preop examination Unspecified pre-operative examination Pre-operative examination- Primary Unspecified pre-operative examination CONCEPCION (stress urinary incontinence), male Pre-operative cardiovascular examination Gastroesophageal reflux disease without esophagitis Esophageal reflux Prostate cancer (HCC) Malignant neoplasm of prostate Other migraine without status migrainosus, not intractable Seasonal allergic rhinitis, unspecified trigger Preop examination Unspecified pre-operative examination CONCEPCION (stress urinary incontinence), male [facility] Narrative No data available for this section [facility] Hospital Discharge instructions No data available for this section [facility] Progress note No data available for this section [facility] Reason for referral (narrative)No reason for referral information [facility] Work Phone: Summary Purpose Family History No Family History Records Found Relationship Condition Age at Onset Recorded Date/T italo mother Cardiac disease Unknown Hypertension Unknown father Cardiac disease Unknown Relationship Condition Age at Onset Recorded Date/T italo mother Cardiac disease Unknown Hypertension Unknown Diabetes mellitus Unknown father Cardiac disease Unknown sister Cardiac disease Unknown Advance Directives No Advanced Directives Records FoundDocuments on File Type Date Recorded Patient Shoe Lay Out Planner Expl anation ACP-Advance Directive ACP-Power of Teacher Education Director Latest Code Status on File Code Status Date Activated Date Inactivated Comments Full Code 10/17/2019 10:22 AM Advance Directive Response Recorded Date/ Time Living Will Yes November 24 9:29am Power of Teacher Education Director Yes November 24 9:29am Advance Directive Response Recorded Date/ Time Living Will Yes November 24 8:29am Power of Teacher Education Director Yes November 24 8:29am Advance Directive Response Recorded Date/ Time Living Will Yes November 24 9:29am Do you have a Healthcare Power of Teacher Education Director? Yes November 24, 2020 9:29am Living Will Yes April 22, 2024 1:42pm Do you have a Healthcare Power of Teacher Education Director? No April 22, 2024 1:42pm Living Will Yes March 26 12:26pm Do you have a Healthcare Power of Teacher Education Director? Yes March 26, 2024 12:26pm Name of Medical Power of Teacher Education Director March 26, 2024 12:26pm Advance Directive Response Recorded Date/ Time Living Will Yes November 24 9:29am Do you have a Healthcare Power of Teacher Education Director? Yes November 24, 2020 9:29am Documents on File Type Date Recorded Patient Shoe Lay Out Planner Expl anation Advance Directives and Livin g Will 10/15/2024 8:03 AM Discharge Instructions * Instructions* Ursula Almonte RN - 10/10/2019 HOLD IBUPROFEN FOR 24 HOURS BEFORE SURGERY MAY TAKE ALL OTHER MEDICATIONS PRESCRIBED ARRIVE 2 HOURS PRIOR TO SURGERY BE AT THE HOSPITAL AT 9:30 am Door number 2 Check in at registration using photo ID and insurance card Have a responsible adult with you that will be able to take you home and will be able to stay with you when you are home. If using public transportation a responsible adult must accompany you NO FOOD AFTER MIDNIGHT THE NIGHT BEFORE SURGERY This includes candy, gum, and mints MAY have CLEAR LIQUIDS (WATER, APPLE JUICE, CRANBERRY JUICE, BLACK COFFEE, TEA, CARBONATED POP GATORADE) To drink until arrival time for surgery Wear loose comfortable clean clothing that you can go home in Leave all jewelry, contact lenses and valuables at home No one under the age of 18 permitted Bring printed medication list with you Write the date and times of last dose DO NOT USE alcohol, recreational drugs or tobacco products for 24 hours before surgery Please write down any questions that you may have for your surgeon, anesthesiologist, Etc. * Attachments The following attachments cannot be sent through Care Everywhere. * Nasal Septum Repair: Post-op ([place]ican) * Nasal Septum Repair: Pre-op ([place]ican) documented in this encounter* Instructions* Hanh Hendrickson, - 10/17/2019 Nasal Surgery - Home Instructions Dr. Hanh Hendrickson 1. You have undergone surgery and should therefore allow 10 - 14 days to rest. Avoid any heavy lifting, straining, or bending over during this time. 2. Maintain head elevation. 3. Use ice compresses (not a heavy ice bag) as needed for facial or nasal swelling. 4. If nasal packing has been placed, do not attempt to remove it yourself. 5. Use a saline nasal spray (ex; Brooke, [place], Afrin Non-Medicated, or Jose- Synephrine Nasal) 2 to 3 sprays each nostril, 10 to 20 times daily. This helps to rinse and moisturize the nose. 6. Do not blow or otherwise manipulate your nose. 7. Bloody oozing from the nose is normal and is to be expected. You may gently pat at the end of your nose should there be any secretions. Alternatively, you may tape guaze to the nasal tip as a drippad. 8. You may have received a nasal spray from the hospital. Do not use this unless the nasal congestion is too uncomfortable. If so, you use this spray or Afrin for three (3) days only. 9. If you need to sneeze, do not suppress it. Rather, sneeze with your mouth open. 10. Any loss of smell or taste should return with in a few weeks. 11. Continue all routine home medications. You may use ibuprofen (Advil / Motrin) as needed to supplement relief of discomfort. 12. You should not drive a vehicle for 24 hours after your surgery or while you are taking the prescribed pain medication. 13. If you have any questions or concerns regarding your care, please contact our office at any time. OFFICE NUMBER: [phone] documented in this encounter History of Present Illness * Sowmya Henson RN - 10/17/2019 2:26 PM EDT Phase II indicated, pt awake and talking, VS stable, pt dressed and ambulated to wheelchair withoutdifficulty, home going instructions reviewed with patient, verbal understanding demonstrated and opportunity given for questions * Alma Vuong RN - 10/17/2019 2:00 PM EDT Pt is tolerating sips of jewel ingrid, pt denies pain at this time, will continue to monitor * Alma Vuong RN - 10/17/2019 1:27 PM EDT PATIENT RECEIVED FROM OR VIA CART. SPONT RESP. WITH TISSUE PACKER IN ATTENDANCE. PLACED ON MONITOR. MONITOR ALARMS ON IN PACU. * Natalie Evans RN - 10/17/2019 10:52 AM EDT [facility] to [facility] with Wendy, , , for surgery today with Dr. Hendrickson. Explained the process they will be going through today and the time involved. Reviewed things for a better recovery. documented in this encounter Assessments Diagnosis Deviated nasal septum Chief Complaint and Reason for Visit Chief Complaint GROSS HEMATURIA Chief Complaint CONSULT - PROSTATE . PROSTATE CA Reason for Visit Biochemically recurr ent malignant neoplasm of prostate Chief Complaint Admit Date RESULTS TO GOT TO 02/19/24 Allison 2023 12:11pm 6 MONTH F/U PROSTATE, PSA PRIOR February 26, 2024 11:22am General complaints March 19, 2024 1 2:45pm EORDER March 19, 2024 2 :15pm E-ORDER March 29, 2024 1 :17pm Test Result April 18, 2024 1:30pm Stomach and rectal pain/ Burning April 212024 9:39am Reason for Visit Admit Date Biochemically recurrent malignant neopla sm of prostate February 26, 2024 11:22am Rectal bleeding March 19, 2024 1 2:45pm Lower GI bleeding March 28, 2024 8 :36am Anal fissure April 18, 2024 1:30pm Lower GI bleeding April 18, 2024 1:30pm Rectal pain April 18, 2024 1:30pm Anal fissure April 23, 2024 5:15 am Lower GI bleeding April 23, 2024 5:15 am Rectal pain April 23, 2024 5:15 am Lower GI bleeding May 15, 2024 9:3 9am Rectal pain May 15, 2024 9:3 9am Chief Complaint Admit Date Stomach and rectal pain/ Burning April 212024 9:39am 6 MONTH PROSTATE, PSA PRIOR August 27 12:50pm Reason for Visit Admit Date Lower GI bleeding May 15, 2024 9:3 9am Rectal pain May 15, 2024 9:3 9am Chief Complaint Admit Date Stomach and rectal pain/ Burning April 212024 9:39am 6 MONTH PROSTATE, PSA PRIOR August 27 12:50pm Abdominal pain August 29, 2024 2:40 pm Reason for Visit Admit Date Lower GI bleeding May 15, 2024 9:3 9am Rectal pain May 15, 2024 9:3 9am Biochemically recurrent malignant neopla sm of prostate August 27, 2024 12:50pm Rectal pain August 29, 2024 2:40 pm Additional Source Comments (unrecognized sect ion and content) No Status Records FoundNo Status Records FoundNo Status Records FoundNo Status Records FoundNo Status Records FoundNo Status Records FoundNo Status Records FoundNo Status Records Found INFORMATION SOURCE (unrecogn ized section and content) DATE CREATED AUTHOR 09/21/2017 [facility] DATE CREATED AUTHOR AUTHOR'S ORGANIZ ATION 11/01/2019 [facility] DATE CREATED AUTHOR AUTHOR'S ORGANIZ ATION 08/13/2020 [employer] DATE CREATED AUTHOR AUTHOR'S ORGANIZ ATION 05/25/2023 [facility] DATE CREATED AUTHOR AUTHOR'S ORGANIZ ATION 08/12/2024 [facility] DATE CREATED AUTHOR AUTHOR'S ORGANIZ ATION 09/20/2024 [facility] DATE CREATED AUTHOR AUTHOR'S ORGANIZ ATION 10/16/2024 [facility] DATE CREATED AUTHOR AUTHOR'S ORGANIZ ATION 10/17/2024 [facility] Care Team (unrecognized sect ion and content) Team Status: Active Member Role Status Dates Dr. Raheel Thompson , Family Provider Active Dr. Marty Mckeon , DO Primary Care Provider Active Team Status: Inactive Member Role Status Dates Dr. Marty Mckeon , Primary Care Provider Active Linda Jackson NP-C Attending Provider, Referrin g Provider Active Team Status: Active Member Role Status Dates Dr. Marty Mckeon DO Primary Care Provider Active Dr. Nicolas Rust MD Attending Provider, Referr ing Provider Active Team Status: Inactive Member Role Status Dates Dr. Marty Mckeon DO Primary Care Provider Active Dr. Nicolas Rust MD Attending Provider, Referr ing Provider Active Team Status: Inactive Member Role Status Dates Dr. Marty Mckeon DO Primary Care Provider Active Ivonne Dexter Attending Provider, Referring Provide r Active Team Status: Inactive Member Role Status Dates Dr. Marty Mckeon DO Primary Care Provider Active Dr. Berto Chambers DO Attending Provider Active Dr. Nicolas Rust MD Referring Provider Active Team Status: Active Member Role Status Dates Dr. Marty Mckeon DO Primary Care Provider Active Dr. Berto Chambers DO Attending Provider, Referring P rovider Active Team Status: Inactive Member Role Status Dates Dr. Marty Mckeon DO Primary Care Provider Active Dr. Berto Chambers DO Attending Provider, Referring P rovider Active Team Status: Active Member Role Status Dates Dr. Marty Mckeon DO Primary Care Provider Active Team Status: Inactive Member Role Status Dates Dr. Marty Mckeon DO Primary Care Provider Active Start: February 19, 2024 End: February 19, 2024 Ivonne Dexter Attending Provider Active Start : February 19, 2024 End: February 19, 2024 Dr. Berto Chambers DO Referring Provider Active Start: February 19, 2024 End: February 19, 2024 Team Status: Inactive Member Role Status Dates Dr. Marty Mckeon DO Primary Care Provider Active Start: February 26, 2024 End: February 26, 2024 Dr. Berto Chambers DO Attending Provider Active Start: February 26, 2024 End: February 26, 2024 Team Status: Inactive Member Role Status Dates Dr. Marty Mckeon DO Primary Care Provider Active Start: March 19, 2024 End: March 19, 2024 Dr. Marty Mckeon DO Referring Provider Active Start: March 19, 2024 End: March 19, 2024 TANNA Russell Attending Provider Active Start: March 19, 2024 End: March 19, 2024 Team Status: Inactive Member Role Status Dates Dr. Marty Mckeon DO Primary Care Provider Active Start: March 19, 2024 End: March 19, 2024 ZA RussellC Attending Provider Active Start: March 19, 2024 End: March 19, 2024 ZA RussellC Referring Provider Active Start: March 19, 2024 End: March 19, 2024 Team Status: Inactive Member Role Status Dates Dr. Marty Mckeon DO Primary Care Provider Active Start: March 28, 2024 End: March 28, 2024 Dr. Marty Mckeon DO Referring Provider Active Start: March 28, 2024 End: March 28, 2024 Dr. Jenaro Galvez DO Attending Provider Active Start: March 28, 2024 End: March 28, 2024 Team Status: Active Member Role Status Dates Dr. Marty Mckeon DO Primary Care Provider Active Start: March 28, 2024 Dr. aMrty Mckeon DO Referring Provider Active Start: March 28, 2024 Dr. Jenaro Galvez DO Attending Provider Active Start: March 28, 2024 Dr. Jenaro Galvez DO Other Provider Active St art: March 28, 2024 Team Status: Inactive Member Role Status Dates Dr. Marty Mckeon DO Primary Care Provider Active Start: March 29, 2024 End: March 29, 2024 Dr. Jenaro Galvez DO Attending Provider Active Start: March 29, 2024 End: March 29, 2024 Dr. Jenaro Galvez DO Referring Provider Active Start: March 29, 2024 End: March 29, 2024 Team Status: Inactive Member Role Status Dates Dr. Marty Mckeon DO Primary Care Provider Active Start: April 18, 2024 End: April 18, 2024 Dr. Marty Mckeon DO Referring Provider Active Start: April 18, 2024 End: April 18, 2024 TANNA Russell Attending Provider Active Start: April 18, 2024 End: April 18, 2024 Team Status: Inactive Member Role Status Dates Dr. Marty Mckeon DO Primary Care Provider Active Start: April 23, 2024 End: April 23, 2024 Dr. Marty Mckeon DO Referring Provider Active Start: April 23, 2024 End: April 23, 2024 Dr. Jenaro Galvez DO Attending Provider Active Start: April 23, 2024 End: April 23, 2024 Team Status: Active Member Role Status Dates Dr. Marty Mckeon DO Primary Care Provider Active Start: April 23, 2024 Dr. Marty Mckeon DO Referring Provider Active Start: April 23, 2024 Dr. Jenaro Galvez DO Attending Provider Active Start: April 23, 2024 Dr. Jenaro Galvez DO Other Provider Active St art: April 23, 2024 Team Status: Inactive Member Role Status Dates Dr. Marty Mckeon DO Primary Care Provider Active Start: May 15, 2024 End: May 15, 2024 Dr. Marty Mckeon DO Referring Provider Active Start: May 15, 2024 End: May 15, 2024 Dr. Jenaro Galvez DO Attending Provider Active Start: May 15, 2024 End: May 15, 2024 Team Status: Inactive Member Role Status Dates Dr. Marty Mckeon DO Primary Care Provider Active Start: May 22, 2024 End: May 22, 2024 Dr. Nicolas Rust MD Attending Provider Active Start: May 22, 2024 End: May 22, 2024 Dr. Nicolas Rust MD Referring Provider Active Start: May 22, 2024 End: May 22, 2024 Dr. Berto Chambers DO Other Provider Active Sta rt: May 22, 2024 End: May 22, 2024 Team Status: Active Member Role/Relationship Status Dates Dr. Marty Mckeon DO Primary Care Provider Active Team Status: Inactive Member Role/Relationship Status Dates Dr. Marty Mckeon DO Primary Care Provider Active Start: May 15, 2024 End: May 15, 2024 Dr. Marty Mckeon DO Referring Provider Active Start: May 15, 2024 End: May 15, 2024 Dr. Jenaro Galvez DO Attending Provider Active Start: May 15, 2024 End: May 15, 2024 Team Status: Inactive Member Role/Relationship Status Dates Dr. Marty Mckeon DO Primary Care Provider Active Start: May 22, 2024 End: May 22, 2024 Dr. Nicolas Rust MD Attending Provider Active Start: May 22, 2024 End: May 22, 2024 Dr. Nicolas Rust MD Referring Provider Active Start: May 22, 2024 End: May 22, 2024 Dr. Berto Chambers DO Other Provider Active Sta rt: May 22, 2024 End: May 22, 2024 Team Status: Inactive Member Role/Relationship Status Dates Dr. Marty Mckeon DO Primary Care Provider Active Start: August 27, 2024 End: August 27, 2024 Dr. Marty Mckeon DO Referring Provider Active Start: August 27, 2024 End: August 27, 2024 Dr. Berto Chambers DO Attending Provider Active Start: August 27, 2024 End: August 27, 2024 Team Status: Active Member Role/Relationship Status Dates Dr. Marty Mckeon DO Primary Care Provider Active Start: August 27, 2024 Dr. Berto Chambers DO Attending Provider Active Start: August 27, 2024 Dr. Berto Chambers DO Referring Provider Active Start: August 27, 2024 Team Status: Inactive Member Role/Relationship Status Dates Dr. Marty Mckeon DO Primary Care Provider Active Start: August 29, 2024 End: August 29, 2024 Dr. Marty Mckeon DO Referring Provider Active Start: August 29, 2024 End: August 29, 2024 Sowmya Garg NP-C Attending Provider Active Start: August 29, 2024 End: August 29, 2024 Senior Associate Relationship Specialty Start Date End Date Nicolas Rust MD [address] [place] [address] [phone] PCP - General Urology 09/03/24 Senior Associate Relationship Specialty Start Date End Date Nicolas Rust MD [address] [place] [address] [phone] PCP - General Urology 09/03/24 Senior Associate Relationship Specialty Start Date End Date Nicolas Rust MD [address] [place] [address] [phone] PCP - General Urology 09/03/24 Senior Associate Relationship Specialty Start Date End Date Nicolas Rust MD [address] [place] [address] [phone] PCP - General Urology 09/03/24 Senior Associate Relationship Specialty Start Date End Date Nicolas Rust MD [address] [place] [address] [phone] PCP - General Urology 09/03/24 Care Team (unrecognized sect ion and content) Care Team Personnel Name: Yara Livingston Clerjose Kapadia PT Position: P3 Scheduling - Investigations Consultant Advanced Member Role: Other Name: MARTY MCKEON DO Position: P4 Physician - Primary Care Med Service: Active Provider Member Role: Primary Care Physician Address: Address: [facility] [place] [address]- [place] Care Team Related Persons Name: WENDY GOMES Address: [address] [place], [place] [id number] Care Team Personnel Name: Yara Livingston Clerjose Kapadia PT Position: P3 Scheduling - Investigations Consultant Advanced Member Role: Other Name: MARTY MCKEON DO Position: P4 Physician - Primary Care Member Role: Primary Care Physician Address: Address: [facility] [place] [address]- [place] Care Team Related Persons Name: WENDY GOMES Address: Home [address] [place], [place] [phone] Goals (unrecognized section and content) Goals may be documented in a n alternate section Reason for Visit (unrecogniz ed section and content) Reason Comments Discussion Specialty Diagnoses / Procedures Referred By Contac t Referred To Contact Urology Diagnoses Stress incontinence Nicolas Rust MD [address] [facility] [address] [place] [address] Phone: tel: fax: Lopez Yadav MD [address] [facility] [address] [place] [address] Phone: tel: fax: Referral ID Status Reason Start Date Expiration Date Visits Re quested Visits Authorized [id number] Closed 09/03/2024 09/03/2025 1 1 Reason Comments Consult From Surgeon FOR RECORDS PERTAINING TO PATIENTS WHO ARE OR HAVE BEEN ENROLLED IN A CHEMICAL DEPENDENCY/SUBSTANCEABUSE PROGRAM, SOME INFORMATION MAY BE OMITTED. This clinical summary was aggregated from multiple sources. Caution should be exercised in using it in the provision of clinical care. This summary normalizes information from multiple sources, and as a consequence, information in this document may materially change the coding, format and clinical context of patient data. In addition, data may be omitted in some cases. CLINICAL DECISIONS SHOULD BE BASED ON THE PRIMARY CLINICAL RECORDS. [email or web address] [facility]. provides no warranty or guarantee of the accuracy or completeness of information in this document.
--- NOTE | 2024-10-17 07:05 | PCM.HP.STD ---
HPI - General General Date of Admission: 10/17/24 Date of Service: 10/17/24 Chief Complaint: Abnormal CT scan HPI Narrative TRAY ROB, is a 74 M who presents with the Chief Complaint: pain and nausea CT 08/04/2024 A few small bowel loops with wall edema in the right upper quadrant, some surrounding inflammatory fat stranding and fluid, there is tracking into the right lower quadrant. Multiple fluid-filled small bowel loops, with no evidence of obstruction. Differential includes infectious enteritis as well as inflammatory etiologies such as acute Crohn's and celiac disease. No associated lymphadenopathy. - abdominal pain, N/V - Enteritis - Augmentin and Dicyclomine and pain resolved - abdominal pain and nausea resumed the past week - he is taking dicyclomine prn - he has adjusted his diet and increased water intake - BM daily, taking tsp Metamucil and dose of Miralax daily - denies diarrhea - denies any bleeding - denies any fevers - Esomeprazole 40mg BID - Mylanta BID for upset stomach - weight is stable - denies any night sweats - denies any bleeding - denies any alcohol - denies any NSAIDS - denies any smoking Attestation: Documentation on this patient encounter was supported using ambient scribe technology/ voice AI technology. The patient consented to recording for the purpose of documenting the encounter. Provider reviewed content of the generated note prior to signature. [facility] Medical History History of flexible sigmoidoscopy Heartburn Former smoker Loss of hearing History of steroid therapy History of hiatal hernia History of ulceration Rectal bleeding Basal cell carcinoma Erectile dysfunction due to arterial insufficiency OAB (overactive bladder) Prostate cancer Wears dentures Wears glasses Arthritis Migraine headache Non-smoker Leg cramps History of stress test Osteoarthritis GERD (gastroesophageal reflux disease) History of prostate cancer Hx of hemorrhoids Home Medications ?Medication ?Instructions ?Recorded ?Last Taken ?Type loratadine 10 mg tablet 10 mg PO DAILY allergies 08/18/16 04/22/24 History oxybutynin chloride 15 mg 15 mg PO DAILY overactive bladder 11/23/20 04/22/24 History tablet,extended release 24 hr ascorbic acid (vitamin C) 1,000 mg 1 g PO QDAY 03/19/24 04/21/24 History capsule cholecalciferol (vitamin D3) 125 125 mcg PO QDAY 03/19/24 04/21/24 History mcg (5,000 unit) tablet guaifenesin 1,200 mg tablet, 1,200 mg PO BID 03/19/24 04/21/24 History extended release 12 hr (Mucus Relief ER) rizatriptan 10 mg tablet See Rx Instructions PO .COMPLEX 03/19/24 04/23/24 01:00 History zinc acetate 50 mg (zinc) capsule 50 mg PO QDAY 03/19/24 04/21/24 History aluminum-mag hydroxide-simethicone 5 ml PO Q3H PRN dyspepsia 04/23/24 04/23/24 02:00 History 200 mg-200 mg-20 mg/5 mL oral susp (Advanced Antacid-Antigas) Hydrocortisone 2.5% / Lidocaine 5% #30 grams 05/15/24 Unknown Rx ointment (cmpd) esomeprazole magnesium 40 mg 40 mg PO BID 08/29/24 Unknown History capsule,delayed release (Nexium) ondansetron HCl 4 mg tablet 4 mg PO Q6H PRN nausea and 08/29/24 Unknown Rx vomiting #20 tabs acetaminophen 325 mg capsule 650 mg PO Q4H PRN pain 10/15/24 Unknown History naproxen 500 mg tablet (Naprosyn) 500 mg PO Q8H PRN pain 10/15/24 Unknown History Allergy/AdvReac Type Severity Reaction Status Date / Time oxycodone (From Percocet) Allergy Intermediate hives/itchi Verified 10/15/24 15:03 ng Acrylic Acid and Acrylates Allergy Swelling Verified 10/15/24 15:03 (steri-strips (acrylate)) Family History Mother Heart disease Hypertension Diabetes Father Heart disease Hypertension Sister Heart disease Hypertension Diabetes Surgical History Hx of right inguinal hernia repair Hx of repair of rotator cuff History of cardiac catheterization History of colonoscopy (~2018) History of hemorrhoidectomy Hx of hernia repair Hx of prostatectomy Hx of cataract surgery Hx of prostate biopsy Hx of arthroscopy of left knee Hx of cholecystectomy History of nasal surgery Social History Smoking Status: Never smoker alcohol intake: never substance use type: does not use ROS Constitutional Constitutional: Denies fatigue, fever(s), poor appetite, weight gain or weight loss Gastrointestinal Gastrointestinal: Denies belching, bloating, change in bowel habits, change in stool character, chewing difficulty, coffee ground emesis, constipation, cramping, diarrhea, dyspepsia, dysphagia, early satiety, excessive flatus, fecal incontinence, heartburn, hematemesis, hematochezia, hemorrhoids, loose stools, melena, nausea, odynophagia, rectal bleeding, tenesmus, vomiting or weight changes Physical Exam Const alert, oriented x3, no apparent distress and healthy appearing General Appearance: cooperative GI normal to inspection, nondistended, normoactive bowel sounds, soft to palpation, non-tender and non-distended Percussion: normal to percussion Rectal Exam: deferred Assessment & Plan Assessment/Plan (1) Abnormal finding on imaging: (2) Nausea: PLAN: Assessment and Plan Assessment and Plan (1) Nausea: Status: Acute Plan: The patient will undergo an upper endoscopy to evaluate the current status of the small intestine and assess for ongoing inflammation or other pathology. He is advised to continue dietary modifications, avoiding fried foods and maintaining hydration. Medications such as dicyclomine for abdominal cramping and ondansetron for nausea will be prescribed as needed. (2) Abnormal finding on imaging: Status: Acute Plan: The patient is advised to continue managing symptoms with dietary changes and medications, including Tylenol and muscle relaxers as needed for pain relief. Regular follow-up is recommended to monitor symptoms and adjust treatment as necessary. Medications: New ondansetron HCl 4 mg PO Q6H PRN 20 tabs 1RF nausea and vomiting Plan The patient is a 74-year-old male with a history of radiation-induced enteritis presenting with abdominal pain and nausea. The recent CT scan revealed diffuse inflammation in the small intestine, consistent with the history of radiation damage. Initial treatment with antibiotics and dicyclomine provided relief, but symptoms have recurred, particularly in the epigastric and right-sided regions. The patient manages symptoms with dietary modifications and medications, but continues to experience intermittent pain and occasional nausea. He denies vomiting and maintains regular bowel movements with Metamucil and MiraLax. He reports a history of headaches managed with injections and denies recent weight loss, fever, or night sweats. Patient Instructions: - Continue dietary modifications, avoiding fried foods and maintaining hydration. - Take dicyclomine for abdominal cramping and ondansetron for nausea as needed. - Use the provided stool test kit for colon cancer screening as instructed. - Report any worsening symptoms, such as increased pain, fever, or new symptoms, to the healthcare provider.
[2024-10-17] MEDS: Lactated Ringers 1,000 ML 15 ML IV (07:25)
--- NOTE | 2024-10-17 07:30 | EGD_PTH ---
PATIENT: TRAY ROB LOC: EN U#:[id number] AGE/SX: 74/M ROOM: RE10/17/[address]: Dr. Jenaro Galvez DO : 1950 BED: DIS: 10/17/2024 SPEC #: [id number] RECD: 10/17/24 08:56 STATUS: DELTA REEdison #: [id number] LIN: 10/17/24 07:[address]: Jenaro Galvez DEPT: SURGICAL PATHOLOGY RECD BY: Miguel Angel Shelby ENTERED: 10/17/24 10:29 SP TYPE: EGD BIOPSY PHIL DR: Dr. Artemio Mckeon DO Tissues: A - Duodenum, NOS Procedures: Surgery Specimen Level IV HEADER OPERATION: EGD, biopsy PRE-OP DIAGNOSIS: Abnormal finding on imaging, nausea TISSUE SUBMITTED: A- Duodenal ulcer biopsy MICROSCOPIC DIAGNOSIS A. 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 Negative for increased intraepithelial lymphocytes. MICROSCOPIC DESCRIPTION Slides are reviewed. GROSS DESCRIPTION A. Received in fixative is one container labeled with the patient's name and designated Duodenal ulcer biopsy. The specimen consists of three irregular fragments of [place] soft tissue that measure 0.3 to 0.5 cm. The specimen is totally submitted in one cassette. NE 10/17/2024 CPT:03040
--- NOTE | 2024-10-17 07:33 | PRE.ANES_ITS ---
ASA Classification* ASA Classification ASA Classification: 3 Assessment & Plan Anesthesia* Anesthesia Assessment Anesthesia Assessment: Discussed sedation and/or anesthesia options, risks, benefits, and alternatives with patient/parents/legal guardian/POA. Questions invited. The patient/parents/legal guardian/POA seems to understand and agrees to proceed with anesthesia plan. Reviewed the physical assessment, medical history, allergy history and patient home medications list prior to surgery/procedure/anesthetic and documented any changes. Performed airway and anesthesia risk assessments. Anesthesia Type Anesthesia Type: MAC History Source History Obtained from:: Patient and Chart Anesthesia Focused Assessment* Temperature: 96.9 F Pulse Rate: 70 Blood Pressure: 164/87 Respiratory Rate: 16 Pulse Ox: 99 Oxygen Delivery Method: Room Air Airway Assessment Mouth opens: >3 cm Mallampati Score: II Teeth Condition: Dentures (upper only, out ) Neck Range of motion (ROM): Full ROM Labs Anesthesia Preop lab: CBC WBC 7.1 K/mm3 (4.4-11.0) 03/29/24 13:23 03/29/24 RBC 4.56 M/mm3 (4.6-6.2) L 03/29/24 13:23 03/29/24 Hgb 12.7 g/dL (13.0-16.5) L 03/29/24 13:23 5 Hct 40.0 % (40-54) 03/29/24 13:23 03/29/24 Plt Count 233 K/mm3 (150-450) 03/29/24 13:23 03/29/24 CHEMISTRY Potassium 3.7 mmol/L (3.5-5.1) 06/16/17 09:06 06/16/17 Sodium 143 mmol/L (136-145) 06/16/17 09:06 06/16/17 BUN 21 mg/dL (7-18) H 06/16/17 09:06 06/16/17 Creatinine 0.86 mg/dL (0.70-1.30) 06/16/17 09:06 06/16/17 Glucose 107 mg/dL (74-106) H 06/16/17 09:06 06/16/17 COAG Pre-Assessment Diagnosis/Proposed Procedure Planned Operative Procedure(s): EGD Anesthesia History Anesthesia History - property preservation specialist: Anesthesia History - property preservation specialist Hx Hospitalization No 10/15/24 15:08 Any Problems With Anesthesia Yes: ponv 10/15/24 15:08 Cholinesterase deficiency No 10/15/24 15:08 You/Your Family Experience No 10/15/24 15:08 fever (hyperthermia) with Relationship Recent Exposure to Contagious No 10/17/24 07:17 Disease Does patient have nerve No 10/15/24 15:08 stimulator Patient instructed to have device shut off --Does patient have Pacemaker or ICD? When Was Last Pacemaker Check QUESTION #4 FULL TEXT: You/Your Family Experience fever (hyperthermia) with Anesthesia Last Oral Intake Last Oral intake: Last Oral Intake NPO since 16:00 10/17/24 07:17 Meds taken in AM with sips of water? Meds patient instructed to take am of surgery PONV PONV - property preservation specialist: PONV - property preservation specialist Female No 10/15/24 15:08 HX of Motion Sickness Yes 10/15/24 15:08 HX of N/V After Surgery Yes 10/15/24 15:08 Non-Smoker Yes 10/15/24 15:08 Duration of Surgery greater No 10/15/24 15:08 than 60 minutes Number of Risk Factors 3 10/15/24 15:08 PONV Score Moderate Risk 10/15/24 15:08 Height & Weight Height & Weight: Anesthesia: Height & Weight Height 5 ft 5 in 10/17/24 07:17 Weight: 78.4 kg 10/17/24 07:17 Body Mass Index (BMI) 28.8 10/17/24 07:17 Respiratory Assessment Respiratory Assessment - property preservation specialist: Respiratory Tract Infection Hx - property preservation specialist Hx Respiratory Tract Infection No 10/15/24 15:08 STOP Sleep Apnea STOP Sleep Apnea - property preservation specialist: STOP Sleep Apnea - property preservation specialist Hx Hypertension No 10/15/24 15:08 Hx Sleep Apnea No 10/15/24 15:08 CPAP BIPAP Do you snore loudly (louder No 10/15/24 15:08 than talking or can be heard Do you often feel tired/ No 10/15/24 15:08 fatigued/ sleepy during daytime? Has anyone observed you stop No 10/15/24 15:08 breathing during sleep? STOP Results Negative 10/15/24 15:08 QUESTION #5 FULL TEXT : Do you snore loudly (louder than talking or can be heard through closed doors)? 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 Specify any problems Hx of Preganancy in last 3 N/A 10/15/24 15:08 Months Nurse Filling Out Transfusion VCHRISTIN 10/15/24 15:08 & Questions: Date: 10/15/24 10/15/24 15:08 Time: 15:10 10/15/24 15:08 Patient unable to answer at this time (ie. confused, unrespo /Reproduction History /Reproductive History - property preservation specialist: /Reproductive Hx- property preservation specialist Hx Now No 10/15/24 15:08 Gestational Age (in weeks): EDC: Hx Hx Para Hx Section SAB No 10/15/24 15:08 Active Medications Active Medications: Current Medications Generic Name Dose Route Start Last Admin Trade Name Freq PRN Reason Stop Dose Admin Lactated Ringer's 1,000 mls @ 15 mls/hr 10/17/24 07:15 10/17/24 07:25 IV 15 mls/hr .Q48H DEBORAH Administration PFSH Medical History History of flexible sigmoidoscopy Heartburn Former smoker Loss of hearing History of steroid therapy History of hiatal hernia History of ulceration Rectal bleeding Basal cell carcinoma Erectile dysfunction due to arterial insufficiency OAB (overactive bladder) Prostate cancer Wears dentures Wears glasses Arthritis Migraine headache Non-smoker Leg cramps History of stress test Osteoarthritis GERD (gastroesophageal reflux disease) History of prostate cancer Hx of hemorrhoids Home Medications ?Medication ?Instructions ?Recorded ?Last Taken ?Type loratadine 10 mg tablet 10 mg PO DAILY allergies 04/22/24 History oxybutynin chloride 15 mg 15 mg PO DAILY overactive bl adder 11/23/20 04/22/24 History tablet,extended release 24 hr ascorbic acid (vitamin C) 1,000 mg 1 g PO QDAY 5 04/21/24 History capsule cholecalciferol (vitamin D3) 125 125 mcg PO QDAY 03/1904/21/24 History mcg (5,000 unit) tablet guaifenesin 1,200 mg tablet, 1,200 mg PO BID 03/19/24 04/21/24 History extended release 12 hr (Mucus Relief ER) rizatriptan 10 mg tablet See Rx Instructions PO .COMP ADIN 03/19/24 10/17/24 00:30 History zinc acetate 50 mg (zinc) capsule 50 mg PO QDAY 04/21/24 History aluminum-mag hydroxide-simethicone 5 ml PO Q3H PRN dys pepsia 04/23/24 04/23/24 02:00 History 200 mg-200 mg-20 mg/5 mL oral susp (Advanced Antacid-[place]) Hydrocortisone 2.5% / Lidocaine 5% #30 grams 05/15/24 Unknown Rx ointment (cmpd) esomeprazole magnesium 40 mg 40 mg PO BID 08/29/24 Unk nown History capsule,delayed release (Nexium) ondansetron HCl 4 mg tablet 4 mg PO Q6H PRN nausea and 08/29/24 Unknown Rx vomiting #20 tabs acetaminophen 325 mg capsule 650 mg PO Q4H PRN pain Unknown History naproxen 500 mg tablet (Naprosyn) 500 mg PO Q8H PRN pa in 10/15/24 Unknown History Allergy/AdvReac Type Severity Reaction Status Date / Time oxycodone (From Percocet) Allergy Intermediate hives/itchi Verified 10/17/24 07:16 ng Acrylic Acid and Acrylates Allergy Swelling Verified 10/17/24 07:16 (steri-strips (acrylate)) Family History Mother Heart disease Hypertension Diabetes Father Heart disease Hypertension Sister Heart disease Hypertension Diabetes Surgical History Hx of right inguinal hernia repair Hx of repair of rotator cuff History of cardiac catheterization History of colonoscopy (~2018) History of hemorrhoidectomy Hx of hernia repair Hx of prostatectomy Hx of cataract surgery Hx of prostate biopsy Hx of arthroscopy of left knee Hx of cholecystectomy History of nasal surgery Social History Smoking Status: Never smoker alcohol intake: never substance use type: does not use Review of Systems (Anesthesia) ROS Narrative System reviewed and no additional complaints, except as documented.
--- NOTE | 2024-10-17 08:10 | OP.PROVAT_ITS ---
10/17/2024 Artemio Mckeon Re : Upper GI endoscopy procedure for Víctor Rogerr This procedure was performed on September. My impressions and recommendations are as follows: Impressions : - Normal esophagus. - No gross lesions in the stomach. - Non-bleeding duodenal ulcer with no stigmata of bleeding. Biopsied. Recommendations : - Discharge patient to home. - Resume previous diet. - Continue present medications. - Await pathology results. My findings are described in the full procedure note, which is enclosed. If I can be of further assistance, please feel free to contact me at . Sincerely, Jenaro Galvez, 10/17/2024 8:09:43 AM This report has been signed electronically.
--- NOTE | 2024-10-17 08:10 | OP.EGD_ITS ---
Patient Name: Víctor Gomes Procedure Date: 10/17/2024 7:38 AM Date of : 1950 Age: 74 Procedure: Upper GI endoscopy Indications: Epigastric abdominal pain, Abnormal CT of the GI tract Providers: Jenaro Galvez DO Referring MD: Artemio Mckeon Medicines: Monitored Anesthesia Care Patient Profile: This is a 74 year old male. Refer to note in patient chart for documentation of history and physical. Patient has symptoms of acute epigastric abdominal pain, acute dyspepsia and acute nausea. Complications: No immediate complications. Procedure: Pre-Anesthesia Assessment: - Prior to the procedure, a History and Physical was performed, and patient medications and allergies were reviewed. The patient is competent. The risks and benefits of the procedure and the sedation options and risks were discussed with the patient. All questions were answered and informed consent was obtained. Patient identification and proposed procedure were verified by the physician in the pre-procedure area. Mental Status Examination: alert and oriented. Airway Examination: normal oropharyngeal airway and neck mobility. Respiratory Examination: clear to auscultation. CV Examination: normal. Prophylactic Antibiotics: The patient does not require prophylactic antibiotics. Prior Anticoagulants: The patient has taken no anticoagulant or antiplatelet agents. ASA Grade Assessment: I - A normal, healthy patient. After reviewing the risks and benefits, the patient was deemed in satisfactory condition to undergo the procedure. The anesthesia plan was to use monitored anesthesia care (MAC). Immediately prior to administration of medications, the patient was re-assessed for adequacy to receive sedatives. The heart rate, respiratory rate, oxygen saturations, blood pressure, adequacy of pulmonary ventilation, and response to care were monitored throughout the procedure. The physical status of the patient was re-assessed after the procedure. After obtaining informed consent, the endoscope was passed under direct vision. Throughout the procedure, the patient's blood pressure, pulse, and oxygen saturations were monitored continuously. The gastroscope was introduced through the mouth, and advanced to the fourth part of the duodenum. Small bowel enteroscopy was deemed necessary. The upper GI endoscopy was accomplished without difficulty. The patient tolerated the procedure well. Scope In: 7:54:26 AM Scope Out: 7:58:47 AM Total Procedure Duration Time 0 hours 4 minutes 21 seconds Findings: The examined esophagus was normal. No gross lesions were noted in the stomach. One non-bleeding linear duodenal ulcer with no stigmata of bleeding was found in the first portion of the duodenum. The lesion was 6 mm in largest dimension. Biopsies were taken with a cold forceps for histology. Verification of patient identification for the specimen was done. Estimated blood loss was minimal. Impression: - Normal esophagus. - No gross lesions in the stomach. - Non-bleeding duodenal ulcer with no stigmata of bleeding. Biopsied. Recommendation: - Discharge patient to home. - Resume previous diet. - Continue present medications. - Await pathology results. Procedure Code(s): --- Professional --- 00621, Esophagogastroduodenoscopy, flexible, transoral; with biopsy, single or multiple CPT copyright 2021 [employer]. All rights reserved. The codes documented in this report are preliminary and upon beam doffer review may be revised to meet current compliance requirements. Jenaro Galvez DO 10/17/2024 8:09:43 AM This report has been signed electronically. Number of Addenda: 0 Note Initiated On: 10/17/2024 7:38 AM
--- NOTE | 2024-10-17 08:10 | PCM.POST.ANE ---
Anesthesia: Postop Eval I Current Vital Signs Temperature: 97.6 F Pulse Rate: 67 Blood Pressure: 141/80 Respiratory Rate: 16 Pulse Ox: 98 Oxygen Delivery Method: Room Air Assessment Airway patent: Yes Spontaneous unlabored respirations: Yes Mental status: Awake and Calm nausea: No Vomiting: No Anesthesia Complication: No Fluid Hydration Crystalloid volume administer (ml): 300 Total IV fluid infused: 300 Progress Note Anesthesia document: Postop Eval 1 completed: Yes
== END 2024-10-17 08:34 | disposition home or self-care (01) ==
LOC: EN 06:55 → AC 06:56
PROVIDERS: PCP Family Medicine; Referring Provider Family Medicine; Visit Provider Internal Medicine Gastroenterology
PROC: 0DJ08ZZ Inspection of Upper Intestinal Tract, Via Natural or Artificial Opening Endoscopic (ICD-10-PCS; CPT 43235; principal; 2024-10-17 07:25)
DX: K31.A0 Gastric intestinal metaplasia, unspecified (principal); K26.9 Duodenal ulcer, unspecified as acute or chronic, without hemorrhage or perforation; K21.9 Gastro-esophageal reflux disease without esophagitis
CPT/HCPCS: 43239; 88305; J2405

== ENCOUNTER → 2024-12-13 | Outpatient (CLI) | payer MEDICARE, BC, SELFPAY ==
[2024-12-13 12:43] LABS: PSA,Total- Diagnostic < 0.02 ng/mL (0.00-4.00)
== END | disposition home or self-care (01) ==
LOC: LAB 10:40
PROVIDERS: PCP Family Medicine; Referring Provider Nurse Practitioner; Visit Provider Nurse Practitioner
DX: C61 Malignant neoplasm of prostate (principal)
CPT/HCPCS: 36415; 84153